=== PATIENT | male | born 1975 | race Caucasian/White ===

== ENCOUNTER 2020-09-22 14:27 | Emergency (ER) | payer SELFPAY ==
[2020-09-22] VITALS (9 sets, daily range): BP systolic 173–202; BP diastolic 77–114; PULSE 88–96; RESP 13–18; TEMP 36.9; O2SAT 95–100
[2020-09-22 14:48] LABS: Add Manual Diff / Slide Review NO; Basophils Absolute Auto 0 /uL (0-100); Basophils Percent Auto 0.4 % (0-2); Eosinophils Absolute Auto 100 /uL (0-450); Eosinophils Percent Auto 1.2 % (2-4); Hematocrit 51.4 % (41-53); Hemoglobin 17.5 g/dL (13.5-17.5); Lymphocytes Absolute Auto 2100 /uL (1100-4500); Lymphocytes Percent Auto 21.9 % (25-40); Mean Corpuscular HGB Conc 34.1 % (30-36); Mean Corpuscular Volume 93.9 fL (80-100); Monocytes Absolute Auto 700 /uL (0-900); Monocytes Percent Auto 7.5 % (3-14); Neutrophils Absolute Auto 6700 /uL (1500-7000); Platelet Count 231 X10^3/uL (150-400); Red Blood Cell Count 5.47 X10^6/uL (4.5-5.9); Red Cell Distribution Width 13.6 % (11.6-14.8); White Blood Cell Count 9.7 X10^3/uL (4.5-11.0)
[2020-09-22 14:54] LABS: Prothrombin Time 11.4 SECONDS (10.1-12.7)
[2020-09-22 14:56] LABS: PTT Partial Thromboplastin Tim 34 SECONDS (26.4-36.2)
[2020-09-22 14:58] LABS: Alanine Aminotransferase 81 IU/L (<50); Albumin 4.6 g/dL (3.5-5.0); Albumin Globulin Ratio 1.4 (1.0-2.8); Alkaline Phosphatase 55 U/L (38-126); Aspartate Aminotransferase 58 IU/L (17-59); BUN Creatinine Ratio 28.7 (6-22); Bilirubin Total 0.8 mg/dL (0.2-1.3); Blood Urea Nitrogen 29 mg/dL (9-20); Calcium 9.2 mg/dL (8.4-10.2); Carbon Dioxide 28 mmol/L (22-32); Chloride 104 mmol/L (98-107); Creatine Kinase 458 U/L (55-170); Estimated Glomerular Filt Rate > 60.0 mL/min (>60); Globulin 3.4 g/dL (1.7-4.1); Glucose 103 mg/dL (70-100); Lipase 61 U/L (23-300); Potassium 4.3 mmol/L (3.4-5.1); Sodium 138 mmol/L (137-145)
--- NOTE | 2020-09-22 15:03 | PC.NURSE ---
pt here with hypertension, denies chest pain or SOB. Admits to slight nausea. No back pain.
[2020-09-22 15:10] LABS: Troponin I < 0.012 ng/mL (0.01-0.034)
[2020-09-22 15:14] LABS: CKMB % Relative Index 0.8 % (1.5-5.0); Creatine Kinase MB 3.46 ng/mL (<2.37); HEMOLYSIS 43 (0-50)
--- NOTE | 2020-09-22 17:43 | ED.GENADULT ---
HPI - General Adult General Chief complaint: Hypertension Stated complaint: elevated BP, lightheaded Time Seen by Provider: 09/22/20 17:43 Source: patient Mode of arrival: Ambulatory Limitations: no limitations History of Present Illness HPI narrative: Patient is a 45-year-old male who has a history of anxiety and low testosterone presenting today with elevated blood pressure. He states he went to the dentist is and was found have an elevated blood pressure with systolic over 200 he was sent home without his dental procedure. He says he overall has felt very jittery and anxious with some lightheadedness and a slight headache. He denies any actual chest pain or palpitations. He says he does have a history of anxiety he has previously been through therapy did not feel like it helped. He is not on any anti anxiety medication or hypertension. Denies any fever cough or shortness of breath Related Data Home Medications Medication Instructions Recorded Confirmed anastrozole 1 mg PO DAILY 09/22/20 09/22/20 chorionic gonadotropin, human [HCG] unit IM 09/22/20 testosterone 100 mg SUBCUT WEEKLY 09/22/20 09/22/20 Allergies Allergy/AdvReac Type Severity Reaction Status Date / Time risperidone [From Risperdal] Allergy Severe Anaphylaxis Verified 09/22/20 14:43 Review of Systems Review of Systems ROS Unobtainable: All systems reviewed & are unremarkable except as noted in HPI and below Constitutional Constitutional: Denies chills, Denies fever(s), Denies lethargy and Denies weakness Eyes Eyes: Denies change in vision, Denies eye discharge, Denies irritation and Denies loss of vision Cardiovascular Cardiovascular: Denies chest pain, Denies chest pain at rest, Denies leg edema, Reports lightheadedness and Denies dyspnea Respiratory Respiratory: Denies cough and Denies dyspnea Gastrointestinal Gastrointestinal: Denies abdominal pain, Denies change in bowel habits, Denies diarrhea, Denies nausea and Denies vomiting Musculoskeletal Musculoskeletal: Denies back pain and Denies myalgias Integumentary/Breasts Skin/Breast: Denies pruritus, Denies erythema, Denies rash and Denies wounds Neurologic Neurologic: Denies loss of vision and Denies weakness Patient History Social History Smoking Status: Never smoker Smoking Status: Never smoker alcohol intake frequency: 3 or more drinks per day Alcohol type: beer Substance Use Type: does not use Exam Initial Vital Signs Initial Vital Signs: Vital Signs Temperature 98.5 F 09/22/20 14:36 Pulse Rate 88 09/22/20 14:36 Respiratory Rate 18 09/22/20 14:36 Blood Pressure 202/114 H 09/22/20 14:36 Pulse Oximetry 99 09/22/20 14:36 GENERAL: Well-appearing, well-nourished and in no acute distress. HEENT: Head atraumatic,EOMI, pupils reactive, face symmetric, moist mucous membranes CARDIOVASCULAR: Regular rate and rhythm without murmurs, rubs or gallops. RESPIRATORY: Breath sounds equal bilaterally, no wheezes rales or rhonchi. ABDOMEN: Soft, nontender. Normoactive bowel sounds all 4 quadrants. No guarding or rebound. EXTREMITIES: Normal range of motion, no clubbing or edema. Neurovascularly intact NEUROLOGICAL: Alert and oriented x4.Normal gait and speech. SKIN: Warm, dry, no laceration, no petechiae, no rashes or lesions. Course Orders Ordered: ED Orders 09/22/20 14:35 Complete Blood Count AUTO DIFF Stat Comprehensive Metabolic Panel Stat Lipase Stat Partial Thromboplastin Time Stat Prothrombin Time INR Stat Troponin & CK Cardiac Panel Stat 09/22/20 14:37 EKG-12 Lead Stat Discontinued Medications Lorazepam (Lorazepam 2 Mg/Ml Inj) 0.5 mg IV NOW ONE Stop: 09/22/20 17:53 Last Admin: 09/22/20 17:59 Dose: 0.5 mg Documented by: LAURYN Vital Signs Vital signs: Vital Signs - 8 hr 09/22/20 14:36 09/22/20 14:39 09/22/20 15:00 Temperature 98.5 F Pulse Rate 88 92 H 90 Respiratory Rate 18 16 13 Blood Pressure 202/114 H 183/95 H Pulse Oximetry 99 100 99 09/22/20 15:30 09/22/20 16:00 09/22/20 17:35 Temperature Pulse Rate 88 88 95 H Respiratory Rate Blood Pressure 183/90 H 184/92 H Pulse Oximetry 98 97 95 09/22/20 17:36 09/22/20 18:00 09/22/20 18:30 Temperature Pulse Rate 89 96 H Respiratory Rate Blood Pressure 173/77 H 173/81 H 176/80 H Pulse Oximetry 96 95 Medical Decision Making Lab Data Lab results reviewed: Yes I reviewed the patient's lab results. Result diagrams: 09/22/20 14:35 09/22/20 14:35 Labs: Lab Results 09/22/20 09/22/20 09/22/20 Range/Units 14:35 14:35 14:35 WBC 9.7 (4.5-11.0) X10^3/uL RBC 5.47 (4.5-5.9) X10^6/uL Hgb 17.5 (13.5-17.5) g/dL Hct 51.4 (41-53) % MCV 93.9 (80-100) fL MCH 32.0 (26-34) PG MCHC 34.1 (30-36) % RDW 13.6 (11.6-14.8) % Plt Count 231 (150-400) X10^3/uL Neut % (Auto) 69.0 (50-75) % Lymph % (Auto) 21.9 L (25-40) % [place] % (Auto) 7.5 (3-14) % Eos % (Auto) 1.2 L (2-4) % Baso % (Auto) 0.4 (0-2) % Neut # (Auto) 6700 (7748-9969) /uL Lymph # (Auto) 2100 (2515-5252) /uL [place] # (Auto) 700 (0-900) /uL Eos # (Auto) 100 (0-450) /uL Baso # (Auto) 0 (0-100) /uL PT 11.4 (10.1-12.7) SECONDS INR 1.0 (0.9-1.3) APTT 34 (26.4-36.2) SECONDS Sodium 138 (137-145) mmol/L Potassium 4.3 (3.4-5.1) mmol/L Chloride 104 (98-107) mmol/L Carbon Dioxide 28 (22-32) mmol/L BUN 29 H (9-20) mg/dL Creatinine 1.01 (0.66-1.25) mg/dL Estimated GFR > 60.0 (>60) mL/min BUN/Creatinine Ratio 28.7 H (6-22) Glucose 103 H (70-100) mg/dL Calcium 9.2 (8.4-10.2) mg/dL Total Bilirubin 0.8 (0.2-1.3) mg/dL AST 58 (17-59) IU/L ALT 81 H (<50) IU/L Alkaline Phosphatase 55 (38-126) U/L Total Creatine Kinase 458 H (55-170) U/L CK-MB (CK-2) 3.46 H (<2.37) ng/mL CK-MB (CK-2) Rel Index 0.8 L (1.5-5.0) % Troponin I < 0.012 (0.01-0.034) ng/mL Total Protein 8.0 (6.3-8.2) g/dL Albumin 4.6 (3.5-5.0) g/dL Globulin 3.4 (1.7-4.1) g/dL Albumin/Globulin Ratio 1.4 (1.0-2.8) Lipase 61 (23-300) U/L ECG Data Attestation: I personally reviewed and interpreted this ECG as follows: Interpretation: Normal sinus rhythm rate 79 p.r. interval 144 QRS [address] changes no T-wave inversions no priors to compare MDM Narrative Medical decision making narrative: Patient's blood pressure has come down in the ED without any medication. He seems to have underlying anxiety disorder but he may also have some underlying hypertension. We discussed other methods of managing anxiety which she may be willing to try. I discussed having him monitor his blood pressure making a log and following up with his PCP. He was given 1 dose of Ativan to see that help with any anxiety he did not have much improvement says that he has not previously had much improvement with that. Discharge Plan Departure Patient Disposition: Home Clinical Impression: Anxiety, Elevated blood pressure reading Instructions: DI for High Blood Pressure, DI for Anxiety -- Adult Activity Restrictions/Additional Instructions: *You have been diagnosed with elevated blood pressure possible anxiety *What to do: Please check your blood pressure once daily is either in the morning or at night and reported. You may require blood pressure medication discussed this with your primary care provider. Also you may need a long-term anxiety medication this is also to be started by your PCP *Continue to take medications as directed *Follow up with your primary care provider in 2-3 days *Return to ER if you should have chest pain, shortness of breath, headache or any new, worsening or concerning symptoms Prescriptions: No Action anastrozole 1 mg Tablet 1 mg PO DAILY RF: 0 chorionic gonadotropin, human [HCG] 10,000 unit Recon Soln IM RF: 0 testosterone 200 mg Pellet 100 mg SUBCUT WEEKLY RF: 0 Referrals: [facility] [Outside]
[2020-09-22] MEDS: LORazepam 2 MG/ML INJ 0.5 MG IV (17:59)
== END 2020-09-22 19:26 | disposition home or self-care (01) ==
PROVIDERS: Emergency Provider Emergency Medicine
DX: F41.9 Anxiety disorder, unspecified (principal); I10 Essential (primary) hypertension; R51.9 Headache, unspecified
CPT/HCPCS: 36415; 80053; 82550; 82553; 83690; 84484; 85025; 85610; 85730; 93005; 96374; 99281; 99284; J2060

== ENCOUNTER 2022-02-05 20:31 | Observation (INO) | payer OTHER, MEDICAID, SELFPAY ==
[2022-02-05] VITALS (10 sets, daily range): BP systolic 128–160; BP diastolic 73–92; PULSE 112–121; RESP 13–25; TEMP 36.5; O2SAT 91–97
--- NOTE | 2022-02-05 20:36 | ED_ITS ---
HPI - Altered Mental Status General Chief Complaint: Altered Mental Status Stated Complaint: alt LOC Time Seen by Provider: 02/05/22 20:33 History of Present Illness HPI narrative: 46-year-old male nonsmoker presents to the emergency department by EMS for evaluation of altered mental status. He was at a local grocery store and reporting libertarian states that he was acting abnormally, if not confused. Patient admits to consuming more alcohol than normal over the past few weeks at least, stating he is going through a divorce and this is his attempt to cope. He denies any recent trauma or injury. He denies any illicit drug use or anything else. He states he does not know when his last drink was. He has gone through withdrawals in the past but denies any history of seizures. He has never gone through detox or rehab. He denies any auditory or visual hallucinations. He denies any suicidal or homicidal ideation Related Data Home Medications Medication Instructions Recorded Confirmed chorionic gonadotropin, human unit IM 09/22/20 11/14/20 10,000 unit intramuscular solution testosterone 200 mg implant pellet 100 mg SUBCUT WEEKLY 09/22/20 11/14/20 Previous Rx's Medication Instructions Recorded hydroxyzine HCl 25 mg tablet 25 - 50 mg PO BEDTIME PRN #60 tab 12/01/20 paroxetine HCl 40 mg tablet 40 mg PO DAILY #90 tab 01/01/22 Allergies Allergy/AdvReac Type Severity Reaction Status Date / Time risperidone [From Risperdal] Allergy Severe Anaphylaxis Verified 11/14/20 10:56 Review of Systems Review of Systems Narrative: GENERAL: Denies chills, fatigue, malaise, fever, sweats. HEENT: Denies sinus pain, ear pain, sore throat, difficulty swallowing, dizziness. RESPIRATORY: Denies dyspnea, cough, wheezing, hemoptysis, sputum. CARDIOVASCULAR: Denies chest pain, palpitations, orthopnea, edema, GASTROINTESTINAL: See HPI : Denies dysuria, frequency, incontinence, hematuria, urinary retention. MUSCULOSKELETAL: denies weakness, joint pain, or bony pain SKIN: Denies rash, skin lesions, or other NEUROLOGIC: See HPI PSYCHIATRIC: No concerning psychosocial issues. 12 point review of systems is negative except for those stated above Patient History Medical History Hypertension (~2019) Social History Smoking Status: Never smoker Smoking Status: Never smoker alcohol intake frequency: 3 or more drinks per day Alcohol type: beer Substance Use Type: does not use Exam Narrative Exam Narrative: GENERAL: [46] year old patient appears stated age. Well-developed patient, in mild distress. GCS 14 (slightly confused) poor historian. Slurring speech a bit with some unsteady gait HEAD: Atraumatic. Normocephalic. EYES: Pupils equal round and reactive. Extraocular motions intact. No scleral icterus. No injection or drainage. ENT: Nose without bleeding, purulent drainage. Throat without erythema, tonsillar hypertrophy or exudate. Airway patent. NECK: Trachea midline. Non tender CARDIOVASCULAR: Regular rate and rhythm without murmurs, gallops, or rubs. RESPIRATORY: Clear to auscultation. Breath sounds equal bilaterally. No wheezes, rales, or rhonchi. GASTROINTESTINAL: Abdomen soft, non-tender, nondistended. EXTREMITIES: No edema or joint tenderness. BACK: Nontender without deformity or crepitance. No flank tenderness. NEURO: AOx3. SKIN: No rash or erythema of visible areas Initial Vital Signs Initial Vital Signs: Vital Signs Pulse Rate 120 H 02/05/22 20:33 Pulse Oximetry 93 02/05/22 20:33 Course Orders Ordered: ED Orders 02/05/22 20:25 Complete Blood Count AUTO DIFF Stat Lactate (Lactic Acid) Stat Prothrombin Time INR Stat Thyroid Stimulating Hormone Stat 02/05/22 20:41 Urinalysis and Microscopic Stat Urine Drug Screen, Rapid Stat EKG-12 Lead Stat 02/05/22 20:42 CT head/brain wo con Stat 02/05/22 21:07 Acetaminophen Stat Blood Culture Stat Comprehensive Metabolic Panel Stat Ethanol (ETOH) Stat Prolactin Stat Salicylate Stat Troponin & CK Cardiac Panel Stat 02/05/22 22:54 COVID19 -Nasal RAPID/Pre-Proc Stat Discontinued Medications Sodium Chloride (Normal Saline 0.9%) 1,000 mls @ 1,000 mls/hr IV BOLUS ONE Stop: 02/05/22 21:40 Last Infusion: 02/05/22 22:34 Dose: 0 mls/hr Documented by: Admin: 02/05/22 21:00 Dose: 1,000 mls/hr Documented by: BSMEN Thiamine HCl 200 mg/ Sodium (Chloride) 102 mls @ 408 mls/hr IV NOW ONE Stop: 02/05/22 22:54 Last Titration: 02/06/22 00:03 Dose: Infused Documented by: Lorazepam (Lorazepam 2 Mg/Ml Inj) 2 mg IV NOW ONE Stop: 02/05/22 22:54 Ondansetron HCl (Ondansetron 4 Mg/2 Ml Inj) 4 mg IV NOW ONE Stop: 02/05/22 22:54 Last Admin: 02/05/22 23:17 Dose: 4 mg Documented by: Pantoprazole Sodium (Pantoprazole 40 Mg Vial) 40 mg IV NOW ONE Stop: 02/05/22 22:54 Last Admin: 02/05/22 23:17 Dose: 40 mg Documented by: Phenobarbital (Phenobarbital 65 Mg/Ml Vial) 260 mg IV NOW ONE Stop: 02/05/22 22:55 Last Admin: 02/05/22 23:13 Dose: 260 mg Documented by: Reevaluation(s) Reevaluation #1: patient getting restless and agitated, HR rising, BP rising, becoming nauseated. Meds ordered to address withdrawal Vital Signs Vital signs: Vital Signs - 8 hr 02/05/22 20:33 02/05/22 20:35 02/05/22 21:10 Temperature 97.7 F Pulse Rate 120 H 121 H 121 H Respiratory Rate 24 Blood Pressure 139/92 H Pulse Oximetry 93 97 93 02/05/22 21:14 02/05/22 21:30 02/05/22 21:31 Temperature Pulse Rate 118 H 120 H 120 H Respiratory Rate 17 16 25 H Blood Pressure 128/73 154/81 H Pulse Oximetry 92 92 92 02/05/22 22:00 02/05/22 22:01 02/05/22 22:30 Temperature Pulse Rate 115 H 117 H 115 H Respiratory Rate 17 20 13 Blood Pressure 149/77 H Pulse Oximetry 92 91 93 02/05/22 22:31 Temperature Pulse Rate 112 H Respiratory Rate 14 Blood Pressure 160/74 H Pulse Oximetry 94 MDM - Altered Mental Status Lab Data Result diagrams: 02/05/22 20:25 02/05/22 21:07 Labs: Lab Results 02/05/22 02/05/22 02/05/22 Range/Units 20:25 20:25 20:25 WBC 11.7 H (4.5-11.0) X10^3/uL RBC 5.86 (4.5-5.9) X10^6/uL Hgb 19.1 H (13.5-17.5) g/dL Hct 55.2 H (41-53) % MCV 94.1 (80-100) fL MCH 32.6 (26-34) PG MCHC 34.6 (30-36) % RDW 14.8 (11.6-14.8) % Plt Count 281 (150-400) X10^3/uL Neut % (Auto) 64.3 (50-75) % Lymph % (Auto) 25.4 (25-40) % [place] % (Auto) 8.7 (3-14) % Eos % (Auto) 0.6 L (2-4) % Baso % (Auto) 1.0 (0-2) % Neut # (Auto) 7500 H (8177-7091) /uL Lymph # (Auto) 3000 (4731-4814) /uL [place] # (Auto) 1000 H (0-900) /uL Eos # (Auto) 100 (0-450) /uL Baso # (Auto) 100 (0-100) /uL PT 11.5 (10.1-12.7) SECONDS INR 1.0 (0.9-1.3) Sodium (137-145) mmol/L Potassium (3.4-5.1) mmol/L Chloride (98-107) mmol/L Carbon Dioxide (22-32) mmol/L BUN (9-20) mg/dL Creatinine (0.66-1.25) mg/dL Estimated GFR (>60) mL/min BUN/Creatinine Ratio (6-22) Glucose (70-100) mg/dL Lactate 2.3 H (0.7-2.1) mmol/L Calcium (8.4-10.2) mg/dL Total Bilirubin (0.2-1.3) mg/dL AST (17-59) IU/L ALT (<50) IU/L Alkaline Phosphatase (38-126) U/L Total Creatine Kinase (55-170) U/L CK-MB (CK-2) (<2.37) ng/mL CK-MB (CK-2) Rel Index (1.5-5.0) % Troponin I (0.01-0.034) ng/mL Total Protein (6.3-8.2) g/dL Albumin (3.5-5.0) g/dL Globulin (1.7-4.1) g/dL Albumin/Globulin Ratio (1.0-2.8) TSH (0.47-4.68) uIU/mL Prolactin (3.7-17.9) ng/mL Urine Color Urine Appearance Urine pH (4.5-8.0) Ur Specific [place] (1.000-1.035) Urine Protein (Negative) Urine Glucose (UA) (Negative) g/dL Urine Ketones (NEGATIVE) Urine Occult Blood (Negative) Urine Nitrate (Negative) Urine Bilirubin (NEGATIVE) Urine Urobilinogen (0.2) E.U./dL Ur Leukocyte Esterase (NEGATIVE) Urine RBC (0-5/HPF) Urine WBC (0-5/HPF) Urine Bacteria (None) Ur Culture Indicated? Salicylates (<20) mg/dL U Opiates 300ng/mL cut (Negative) Ur Oxycodone Screen (Negative) Urine Methadone Screen (Negative) Acetaminophen (10-30) ug/mL Ur Barbiturates Screen (Negative) U Tricyclic Antidepress (Negative) Ur Phencyclidine Scrn (Negative) Ur Amphetamines Screen (Negative) U Methamphetamines Scrn (Negative) Ur MDMA Scrn (Ecstasy) (Negative) U Benzodiazepines Scrn (Negative) Urine Cocaine Screen (Negative) U Marijuana (THC) Screen (Negative) Ethyl Alcohol ( - 10) mg/dL SARS-CoV-2 (PCR) (Negative) 02/05/22 02/05/22 02/05/22 Range/Units 20:25 21:07 22:58 WBC (4.5-11.0) X10^3/uL RBC (4.5-5.9) X10^6/uL Hgb (13.5-17.5) g/dL Hct (41-53) % MCV (80-100) fL MCH (26-34) PG MCHC (30-36) % RDW (11.6-14.8) % Plt Count (150-400) X10^3/uL Neut % (Auto) (50-75) % Lymph % (Auto) (25-40) % [place] % (Auto) (3-14) % Eos % (Auto) (2-4) % Baso % (Auto) (0-2) % Neut # (Auto) (3143-8526) /uL Lymph # (Auto) (9770-5743) /uL [place] # (Auto) (0-900) /uL Eos # (Auto) (0-450) /uL Baso # (Auto) (0-100) /uL PT (10.1-12.7) SECONDS INR (0.9-1.3) Sodium 140 (137-145) mmol/L Potassium 4.2 (3.4-5.1) mmol/L Chloride 104 (98-107) mmol/L Carbon Dioxide 26 (22-32) mmol/L BUN 12 (9-20) mg/dL Creatinine 1.19 (0.66-1.25) mg/dL Estimated GFR > 60 (>60) mL/min BUN/Creatinine Ratio 10.1 (6-22) Glucose 132 H (70-100) mg/dL Lactate 1.8 (0.7-2.1) mmol/L Calcium 8.5 (8.4-10.2) mg/dL Total Bilirubin 0.3 (0.2-1.3) mg/dL AST 47 (17-59) IU/L ALT 37 (<50) IU/L Alkaline Phosphatase 54 (38-126) U/L Total Creatine Kinase 177 H (55-170) U/L CK-MB (CK-2) 3.25 H (<2.37) ng/mL CK-MB (CK-2) Rel Index 1.8 (1.5-5.0) % Troponin I 0.032 (0.01-0.034) ng/mL Total Protein 7.3 (6.3-8.2) g/dL Albumin 4.2 (3.5-5.0) g/dL Globulin 3.1 (1.7-4.1) g/dL Albumin/Globulin Ratio 1.4 (1.0-2.8) TSH 1.28 (0.47-4.68) uIU/mL Prolactin 16.2 (3.7-17.9) ng/mL Urine Color Urine Appearance Urine pH (4.5-8.0) Ur Specific [place] (1.000-1.035) Urine Protein (Negative) Urine Glucose (UA) (Negative) g/dL Urine Ketones (NEGATIVE) Urine Occult Blood (Negative) Urine Nitrate (Negative) Urine Bilirubin (NEGATIVE) Urine Urobilinogen (0.2) E.U./dL Ur Leukocyte Esterase (NEGATIVE) Urine RBC (0-5/HPF) Urine WBC (0-5/HPF) Urine Bacteria (None) Ur Culture Indicated? Salicylates < 1.0 (<20) mg/dL U Opiates 300ng/mL cut (Negative) Ur Oxycodone Screen (Negative) Urine Methadone Screen (Negative) Acetaminophen < 10 (10-30) ug/mL Ur Barbiturates Screen (Negative) U Tricyclic Antidepress (Negative) Ur Phencyclidine Scrn (Negative) Ur Amphetamines Screen (Negative) U Methamphetamines Scrn (Negative) Ur MDMA Scrn (Ecstasy) (Negative) U Benzodiazepines Scrn (Negative) Urine Cocaine Screen (Negative) U Marijuana (THC) Screen (Negative) Ethyl Alcohol 290 H ( - 10) mg/dL SARS-CoV-2 (PCR) (Negative) 02/05/22 02/06/22 02/06/22 Range/Units 23:20 00:01 00:01 WBC (4.5-11.0) X10^3/uL RBC (4.5-5.9) X10^6/uL Hgb (13.5-17.5) g/dL Hct (41-53) % MCV (80-100) fL MCH (26-34) PG MCHC (30-36) % RDW (11.6-14.8) % Plt Count (150-400) X10^3/uL Neut % (Auto) (50-75) % Lymph % (Auto) (25-40) % [place] % (Auto) (3-14) % Eos % (Auto) (2-4) % Baso % (Auto) (0-2) % Neut # (Auto) (7657-0983) /uL Lymph # (Auto) (0691-3080) /uL [place] # (Auto) (0-900) /uL Eos # (Auto) (0-450) /uL Baso # (Auto) (0-100) /uL PT (10.1-12.7) SECONDS INR (0.9-1.3) Sodium (137-145) mmol/L Potassium (3.4-5.1) mmol/L Chloride (98-107) mmol/L Carbon Dioxide (22-32) mmol/L BUN (9-20) mg/dL Creatinine (0.66-1.25) mg/dL Estimated GFR (>60) mL/min BUN/Creatinine Ratio (6-22) Glucose (70-100) mg/dL Lactate (0.7-2.1) mmol/L Calcium (8.4-10.2) mg/dL Total Bilirubin (0.2-1.3) mg/dL AST (17-59) IU/L ALT (<50) IU/L Alkaline Phosphatase (38-126) U/L Total Creatine Kinase (55-170) U/L CK-MB (CK-2) (<2.37) ng/mL CK-MB (CK-2) Rel Index (1.5-5.0) % Troponin I (0.01-0.034) ng/mL Total Protein (6.3-8.2) g/dL Albumin (3.5-5.0) g/dL Globulin (1.7-4.1) g/dL Albumin/Globulin Ratio (1.0-2.8) TSH (0.47-4.68) uIU/mL Prolactin (3.7-17.9) ng/mL Urine Color Yellow Urine Appearance Clear Urine pH 5.0 (4.5-8.0) Ur Specific [place] 1.015 (1.000-1.035) Urine Protein Negative (Negative) Urine Glucose (UA) Negative (Negative) g/dL Urine Ketones Trace H (NEGATIVE) Urine Occult Blood Trace-intact (Negative) Urine Nitrate Negative (Negative) Urine Bilirubin Negative (NEGATIVE) Urine Urobilinogen 0.2 (0.2) E.U./dL Ur Leukocyte Esterase Negative (NEGATIVE) Urine RBC None seen (0-5/HPF) Urine WBC None seen (0-5/HPF) Urine Bacteria None seen (None) Ur Culture Indicated? Cult not indicated Salicylates (<20) mg/dL U Opiates 300ng/mL cut Negative (Negative) Ur Oxycodone Screen Negative (Negative) Urine Methadone Screen Negative (Negative) Acetaminophen (10-30) ug/mL Ur Barbiturates Screen Negative (Negative) U Tricyclic Antidepress Negative (Negative) Ur Phencyclidine Scrn Negative (Negative) Ur Amphetamines Screen Negative (Negative) U Methamphetamines Scrn Negative (Negative) Ur MDMA Scrn (Ecstasy) Negative (Negative) U Benzodiazepines Scrn Negative (Negative) Urine Cocaine Screen Negative (Negative) U Marijuana (THC) Screen Negative (Negative) Ethyl Alcohol ( - 10) mg/dL SARS-CoV-2 (PCR) Negative (Negative) Imaging Data CT scan - head: Radiologist's Impression: [address] [address] [address] Scan Report Signed Patient: Stanislav Martinez MR#: [id number] : 1975 Acct:[id number] Age/Sex: 46 / M Date of Service: 02/05/22 Loc: ED Accession Number: [id number] ?? Procedure: CT head/brain wo con Ordering Provider: Froilan Starr D.O. PROCEDURE:? CT HEAD/BRAIN WO CON ? INDICATIONS:? altered, mental status, alcohol ? TECHNIQUE:? Noncontrast 4.5 mm thick angled axial sections acquired from the foramen magnum to the vertex, with coronal and sagittal reformats.? For radiation dose reduction, the following was used:? automated exposure control, adjustment of mA and/or kV according to patient size.? ? COMPARISON:? None. ? FINDINGS:? Image quality:? Excellent.? ? CSF spaces:? Basal cisterns are patent.? No extra-axial fluid collections.? Ventricles are normal in size and shape.? ? Brain:? No intracranial hemorrhage, mass, or mass effect.? [place]-white matter interface appears preserved.? ? Skull and face:? Calvarium and visualized facial bones are intact, without suspicious lesions.? ? Sinuses:? Visualized sinuses and mastoids are clear.? ? IMPRESSION:? ? 1. No acute intracranial abnormality. ? ? Dictated by: Bulmaro Landeros M.D. on 02/05/2022 at 21:14 ? ? Approved by: Bulmaro Landeros M.D. on 02/05/2022 at 21:15 ? Discharge Plan Departure Patient Disposition: Admitted As Inpatient Clinical Impression: Alcohol withdrawal
--- NOTE | 2022-02-05 20:42 | DI.CT.S_ITS ---
PROCEDURE: CT HEAD/BRAIN WO CON INDICATIONS: altered, mental status, alcohol TECHNIQUE: Noncontrast 4.5 mm thick angled axial sections acquired from the foramen magnum to the vertex, with coronal and sagittal reformats. For radiation dose reduction, the following was used: automated exposure control, adjustment of mA and/or kV according to patient size. COMPARISON: None. FINDINGS: Image quality: Excellent. CSF spaces: Basal cisterns are patent. No extra-axial fluid collections. Ventricles are normal in size and shape. Brain: No intracranial hemorrhage, mass, or mass effect. [place]ett-white matter interface appears preserved. Skull and face: Calvarium and visualized facial bones are intact, without suspicious lesions. Sinuses: Visualized sinuses and mastoids are clear. IMPRESSION: 1. No acute intracranial abnormality. Dictated by: Bulmaro Landeros M.D. on 02/05/2022 at 21:14 Approved by: Bulmaro Landeros M.D. on 02/05/2022 at 21:15
[2022-02-05 20:53] LABS: Prothrombin Time 11.5 SECONDS (10.1-12.7)
[2022-02-05 20:57] LABS: Lactate (Lactic Acid) 2.3 mmol/L (0.7-2.1)
[2022-02-05 20:59] LABS: Add Manual Diff / Slide Review NO; Basophils Absolute Auto 100 /uL (0-100); Eosinophils Absolute Auto 100 /uL (0-450); Eosinophils Percent Auto 0.6 % (2-4); Hematocrit 55.2 % (41-53); Hemoglobin 19.1 g/dL (13.5-17.5); Lymphocytes Absolute Auto 3000 /uL (1100-4500); Lymphocytes Percent Auto 25.4 % (25-40); Mean Corpuscular HGB Conc 34.6 % (30-36); Mean Corpuscular Hemoglobin 32.6 PG (26-34); Mean Corpuscular Volume 94.1 fL (80-100); Monocytes Absolute Auto 1000 /uL (0-900); Monocytes Percent Auto 8.7 % (3-14); Neutrophils Absolute Auto 7500 /uL (1500-7000); Neutrophils Percent Auto 64.3 % (50-75); Platelet Count 281 X10^3/uL (150-400); Red Blood Cell Count 5.86 X10^6/uL (4.5-5.9); Red Cell Distribution Width 14.8 % (11.6-14.8); White Blood Cell Count 11.7 X10^3/uL (4.5-11.0)
[2022-02-05] MEDS: SODIUM CHLORIDE 0.9% 1,000 ML 1000 ML IV (21:00)
[2022-02-05 21:29] LABS: Thyroid Stimulating Hormone 1.28 uIU/mL (0.47-4.68)
[2022-02-05 21:29] LABS: Acetaminophen < 10 ug/mL (10-30); Alanine Aminotransferase 37 IU/L (<50); Albumin 4.2 g/dL (3.5-5.0); Albumin Globulin Ratio 1.4 (1.0-2.8); Alkaline Phosphatase 54 U/L (38-126); Aspartate Aminotransferase 47 IU/L (17-59); BUN Creatinine Ratio 10.1 (6-22); Bilirubin Total 0.3 mg/dL (0.2-1.3); Blood Urea Nitrogen 12 mg/dL (9-20); Calcium 8.5 mg/dL (8.4-10.2); Carbon Dioxide 26 mmol/L (22-32); Chloride 104 mmol/L (98-107); Creatine Kinase 177 U/L (55-170); Estimated Glomerular Filt Rate > 60 mL/min (>60); Ethanol (ETOH) 290 mg/dL; Globulin 3.1 g/dL (1.7-4.1); Glucose 132 mg/dL (70-100); HEMOLYSIS < 15 (0-50); Potassium 4.2 mmol/L (3.4-5.1); Salicylate < 1.0 mg/dL (<20); Sodium 140 mmol/L (137-145); Total Protein 7.3 g/dL (6.3-8.2)
[2022-02-05 21:40] LABS: Troponin I 0.032 ng/mL (0.01-0.034)
[2022-02-05 21:44] LABS: CKMB % Relative Index 1.8 % (1.5-5.0); Creatine Kinase MB 3.25 ng/mL (<2.37)
[2022-02-05 21:45] LABS: Prolactin 16.2 ng/mL (3.7-17.9)
[2022-02-05 22:49] LABS: Reflexed Lactate in 2 Hours Y
[2022-02-05] MEDS: PHENobarbital 65 MG/ML VIAL 260 MG IV (23:13)
[2022-02-05 23:16] LABS: Lactate 2HR (Lactic Acid Rflx) 1.8 mmol/L (0.7-2.1)
[2022-02-05] MEDS: PANTOPRAZOLE 40 MG VIAL IV (23:17)
[2022-02-05] MEDS: ONDANSETRON 4 MG/2 ML INJ IV (23:17)
[2022-02-05] MEDS: THIAMINE 200 MG in SODIUM CHLORIDE 0.9% 100 ML 408 MG IV (23:33)
[2022-02-05 23:43] LABS: COVID19 -Nasal RAPID Negative (Negative)
[2022-02-06 00:11] LABS: Appearance Urine UA CLEAR; Bilirubin Urine UA NEGATIVE (NEGATIVE); Color Urine UA YELLOW; Glucose Urine UA NEGATIVE (Negative); Ketones Urine UA TRACE (NEGATIVE); Leukocyte Esterase Urine UA NEGATIVE (NEGATIVE); Nitrite Urine UA NEGATIVE (Negative); Occult Blood Urine UA TRACE-INTACT (Negative); Protein Urine UA NEGATIVE (Negative); Specific Gravity Urine UA 1.015 (1.000-1.035); Urobilinogen Urine UA 0.2 E.U./dL (0.2)
[2022-02-06 00:13] LABS: UR Morphine/Opiate cutoff 300 Negative (Negative); Ur Creatinine 20 (Normal); Ur Specific Gravity 1.015 (Normal); Urine Amphetamines Negative (Negative); Urine Barbiturates Negative (Negative); Urine Benzodiazepines Negative (Negative); Urine Cocaine Negative (Negative); Urine MDMA Negative (Negative); Urine Methadone Negative (Negative); Urine Methamphetamines Negative (Negative); Urine Oxycodone Negative (Negative); Urine Phencyclidine Negative (Negative); Urine Tetrahydrocannabinol Negative (Negative); Urine Tricyclic Antidepressant Negative (Negative); Urine pH 5 (Normal)
[2022-02-06 00:21] LABS: Bacteria Urine None Seen; Culture Indicated Urine Cult Not Indicated; RBC Urine None Seen (0-5/HPF); WBC Urine None Seen (0-5/HPF)
[2022-02-06 01:11] VITALS: BMI 32.5
--- NOTE | 2022-02-06 01:19 | P.HP_ITS ---
History of Present Illness History of Present Illness Date Patient Seen: 02/06/22 Time Patient Seen: 12:15 Chief complaint: alt LOC Narrative: Mr. Martinez is a 46M with H anxiety who presents with altered mental status. He was apparently at a store and was noted to be acting oddly. He was possibly confused. He notes he drinks about 6 IPA beers daily. But over the last 5 days he has been under personal stress and his drinking his quickly become out of control. He can not estimate how much he is drinking, but it is much more. He can not say when was his last drink. He has had withdrawal symptoms in the past. He has no seizures. He has never been to detox. In the ED workup was done, vitals notable for tachycardia. Labs notable for WBC 11.7, hgb 19.1 plts 281. Creatinine 1.19. Lactate 2.3. Prolactin 16.2. TSH 1.28. Trop 0.032. EtOH 290. UA negative. UDS negative. COVID negative. CT head with no acute process Family history: multiple members with anxiety Patient History Medical History Hypertension (~2019) Family & Social History Tobacco & Substance use: Smoking Status Never smoker alcohol intake frequency 3 or more drinks per day Substance Use Type does not use Meds Home Medications and Allergies Home Medications Medication Instructions Recorded Confirmed Type chorionic gonadotropin, human unit IM 09/22/20 11/14/20 History 10,000 unit intramuscular solution testosterone 200 mg implant pellet 100 mg SUBCUT WEEKLY 09/22/20 11/14/20 Histor y hydroxyzine HCl 25 mg tablet 25 - 50 mg PO BEDTIME PRN #60 tab 12/01/20 Rx paroxetine HCl 40 mg tablet 40 mg PO DAILY #90 tab 01/01/22 Rx Allergies Allergy/AdvReac Type Severity Reaction Status Date / Time risperidone [From Risperdal] Allergy Severe Anaphylaxis Verified 11/14/20 10:56 Review of Systems Review of Systems Narrative: 14 systems reviewed and negative aside from what is noted in HPI Exam Vital Signs (past 8 hours): - 02/05/22 20:33 02/05/22 20:35 02/05/22 21:10 Temperature 97.7 F Pulse Rate 120 H 121 H 121 H Respiratory Rate 24 Blood Pressure 139/92 H Pulse Oximetry 93 97 93 02/05/22 21:14 02/05/22 21:30 02/05/22 21:31 Temperature Pulse Rate 118 H 120 H 120 H Respiratory Rate 17 16 25 H Blood Pressure 128/73 154/81 H Pulse Oximetry 92 92 92 02/05/22 22:00 02/05/22 22:01 02/05/22 22:30 Temperature Pulse Rate 115 H 117 H 115 H Respiratory Rate 17 20 13 Blood Pressure 149/77 H Pulse Oximetry 92 91 93 02/05/22 22:31 Temperature Pulse Rate 112 H Respiratory Rate 14 Blood Pressure 160/74 H Pulse Oximetry 94 Oxygen Delivery Method Room Air Narrative Exam Narrative: GEN: no acute distress HEENT: moist mucous membranes, PERRL NECK: trachea midline, no JVD CV: regular rate and rhythm, no murmurs PULM: clear bilaterally, no wheezes, rhonchi, rales ABD: soft, nontender, nondistended, no organomegaly, normal bowel sounds EXT: warm and well perfused, no edema NEURO: awake, alert, anxious, no focal deficits, tremulous Objective Labs Result Diagrams: 02/05/22 20:25 02/05/22 21:07 Labs: Laboratory Results - last 24 hr 02/05/22 02/05/22 02/05/22 20:25 20:25 20:25 WBC 11.7 H RBC 5.86 Hgb 19.1 H Hct 55.2 H MCV 94.1 MCH 32.6 MCHC 34.6 RDW 14.8 Plt Count 281 Neut % (Auto) 64.3 Lymph % (Auto) 25.4 [place] % (Auto) 8.7 Eos % (Auto) 0.6 L Baso % (Auto) 1.0 Neut # (Auto) 7500 H Lymph # (Auto) 3000 [place] # (Auto) 1000 H Eos # (Auto) 100 Baso # (Auto) 100 PT 11.5 INR 1.0 Sodium Potassium Chloride Carbon Dioxide BUN Creatinine Estimated GFR BUN/Creatinine Ratio Glucose Lactate 2.3 H Calcium Total Bilirubin AST ALT Alkaline Phosphatase Total Creatine Kinase CK-MB (CK-2) CK-MB (CK-2) Rel Index Troponin I Total Protein Albumin Globulin Albumin/Globulin Ratio TSH Prolactin Urine Color Urine Appearance Urine pH Ur Specific [place] Urine Protein Urine Glucose (UA) Urine Ketones Urine Occult Blood Urine Nitrate Urine Bilirubin Urine Urobilinogen Ur Leukocyte Esterase Urine RBC Urine WBC Urine Bacteria Ur Culture Indicated? Salicylates U Opiates 300ng/mL cut Ur Oxycodone Screen Urine Methadone Screen Acetaminophen Ur Barbiturates Screen U Tricyclic Antidepress Ur Phencyclidine Scrn Ur Amphetamines Screen U Methamphetamines Scrn Ur MDMA Scrn (Ecstasy) U Benzodiazepines Scrn Urine Cocaine Screen U Marijuana (THC) Screen Ethyl Alcohol SARS-CoV-2 (PCR) 02/05/22 02/05/22 02/05/22 20:25 21:07 22:58 WBC RBC Hgb Hct MCV MCH MCHC RDW Plt Count Neut % (Auto) Lymph % (Auto) [place] % (Auto) Eos % (Auto) Baso % (Auto) Neut # (Auto) Lymph # (Auto) [place] # (Auto) Eos # (Auto) Baso # (Auto) PT INR Sodium 140 Potassium 4.2 Chloride 104 Carbon Dioxide 26 BUN 12 Creatinine 1.19 Estimated GFR > 60 BUN/Creatinine Ratio 10.1 Glucose 132 H Lactate 1.8 Calcium 8.5 Total Bilirubin 0.3 AST 47 ALT 37 Alkaline Phosphatase 54 Total Creatine Kinase 177 H CK-MB (CK-2) 3.25 H CK-MB (CK-2) Rel Index 1.8 Troponin I 0.032 Total Protein 7.3 Albumin 4.2 Globulin 3.1 Albumin/Globulin Ratio 1.4 TSH 1.28 Prolactin 16.2 Urine Color Urine Appearance Urine pH Ur Specific [place] Urine Protein Urine Glucose (UA) Urine Ketones Urine Occult Blood Urine Nitrate Urine Bilirubin Urine Urobilinogen Ur Leukocyte Esterase Urine RBC Urine WBC Urine Bacteria Ur Culture Indicated? Salicylates < 1.0 U Opiates 300ng/mL cut Ur Oxycodone Screen Urine Methadone Screen Acetaminophen < 10 Ur Barbiturates Screen U Tricyclic Antidepress Ur Phencyclidine Scrn Ur Amphetamines Screen U Methamphetamines Scrn Ur MDMA Scrn (Ecstasy) U Benzodiazepines Scrn Urine Cocaine Screen U Marijuana (THC) Screen Ethyl Alcohol 290 H SARS-CoV-2 (PCR) 02/05/22 02/06/22 02/06/22 23:20 00:01 00:01 WBC RBC Hgb Hct MCV MCH MCHC RDW Plt Count Neut % (Auto) Lymph % (Auto) [place] % (Auto) Eos % (Auto) Baso % (Auto) Neut # (Auto) Lymph # (Auto) [place] # (Auto) Eos # (Auto) Baso # (Auto) PT INR Sodium Potassium Chloride Carbon Dioxide BUN Creatinine Estimated GFR BUN/Creatinine Ratio Glucose Lactate Calcium Total Bilirubin AST ALT Alkaline Phosphatase Total Creatine Kinase CK-MB (CK-2) CK-MB (CK-2) Rel Index Troponin I Total Protein Albumin Globulin Albumin/Globulin Ratio TSH Prolactin Urine Color Yellow Urine Appearance Clear Urine pH 5.0 Ur Specific [place] 1.015 Urine Protein Negative Urine Glucose (UA) Negative Urine Ketones Trace H Urine Occult Blood Trace-intact Urine Nitrate Negative Urine Bilirubin Negative Urine Urobilinogen 0.2 Ur Leukocyte Esterase Negative Urine RBC None seen Urine WBC None seen Urine Bacteria None seen Ur Culture Indicated? Cult not indicated Salicylates U Opiates 300ng/mL cut Negative Ur Oxycodone Screen Negative Urine Methadone Screen Negative Acetaminophen Ur Barbiturates Screen Negative U Tricyclic Antidepress Negative Ur Phencyclidine Scrn Negative Ur Amphetamines Screen Negative U Methamphetamines Scrn Negative Ur MDMA Scrn (Ecstasy) Negative U Benzodiazepines Scrn Negative Urine Cocaine Screen Negative U Marijuana (THC) Screen Negative Ethyl Alcohol SARS-CoV-2 (PCR) Negative Assessment & Plan Assessment & Plan narrative: Mr. Martinez is a 46M with H anxiety who presents initially intoxicated and quickly developed withdrawal 1. Acute alcohol withdrawal and alcohol abuse -patient notes drinking that is chronic, but recently has been out of control -EtOH level near 300 on admit, and patient quickly was withdrawing -given phenobarb in ED -continue CIWA protocol with ativan -ordered MVI, thiamine, folate -patient interested in quitting, and outpatient resources -he is not sure if he wants medication to help manage cravings 2. Anxiety, -continue paroxetine CODE: Full Proxy: Cheryl Martinez, family I have utilized all available resources to reconcile the patient's home medications. Time Spent With Patient Critical Care time: I spent a total of [] minutes of critical care time on this patient's care today; this time is exclusive of procedural time. Quality MIPS - Admit I confirm the patient?s Advance Care Plan is present, Code status is documented, Surrogate decision maker is in patient?s record [If Yes, STOP here]: Yes
[2022-02-06 01:20] VITALS: BP 153/99; PULSE 121; RESP 20; TEMP 36.1; O2SAT 97
[2022-02-06] MEDS: LORazepam 1 MG TABLET PO ×3 (01:40→14:05)
[2022-02-06] MEDS: THIAMINE 500 MG in SODIUM CHLORIDE 0.9% 100 ML 420 MG IV ×2 (01:42→08:50)
[2022-02-06 02:25] VITALS: PULSE 100; RESP 20
--- NOTE | 2022-02-06 07:00 | PC.NURSE ---
End of shift note. Care of patient . ED admit early this am. AAOX3, states he can not remember what happened to him before he arrived in the ED. Cooperative with cares, answers admission question. Could not remember exact dates he took meds. CIWA 10 on admit, gave Ativan 1mg X1. Patient slept well, with snoring respirations. ST 120s on admit.
[2022-02-06 07:45] VITALS: BP 147/97; PULSE 115; RESP 18; TEMP 36.4; O2SAT 93
[2022-02-06] MEDS: MULTIVITAMIN 1 TABLET 1 TAB PO (08:36)
[2022-02-06] MEDS: PARoxetine 20 MG TABLET 40 MG PO (08:36)
[2022-02-06] MEDS: FOLIC ACID 1 MG TABLET PO (08:36)
[2022-02-06 11:32] VITALS: O2SAT 95
[2022-02-06 13:43] VITALS: BP 155/98; PULSE 106; RESP 16; TEMP 36.2; O2SAT 98
--- NOTE | 2022-02-06 14:11 | P.DS_ITS ---
History of Present Illness History of Present Illness Date Patient Seen: 02/06/22 Chief complaint: alt LOC Narrative: History of Present Illness History of Present Illness Date Patient Seen: 02/06/22 Time Patient Seen: 12:15 Chief complaint: alt LOC Narrative: Mr. Martinez is a 46M with H anxiety who presents with altered mental status. He was apparently at a store and was noted to be acting oddly. He was possibly confused. He notes he drinks about 6 IPA beers daily. But over the last 5 days he has been under personal stress and his drinking his quickly become out of control. He can not estimate how much he is drinking, but it is much more. He can not say when was his last drink. He has had withdrawal symptoms in the past. He has no seizures. He has never been to detox. In the ED workup was done, vitals notable for tachycardia. Labs notable for WBC 11.7, hgb 19.1 plts 281. Creatinine 1.19. Lactate 2.3. Prolactin 16.2. TSH 1.28. Trop 0.032. EtOH 290. UA negative. UDS negative. COVID negative. CT head with no acute process Family history: multiple members with anxiety Discharge Providers Provider Date of admission: 02/06/22 00:59 Discharge Date: 02/06/22 Primary care physician: Linden Yousif MD Consults: 02/06/22 Consult to [facility] [place] - Batch Records Clerk Stat Comment: etoh resources Discharge provider: Mary Katz DO Summary Hospital Course Discharge Diagnosis: ACUTE ALCOHOL INTOXICATION ANXIETY DISORDER; NOS PANIC ATTACK PER HISTORY OBESITY. BMI OF 33 POSSIBLE MEDICAL NONCOMPLIANCE Hospital Course: THIS IS A 46-YEAR-OLD MALE WITH A PAST MEDICAL HISTORY SIGNIFICANT FOR PANIC ATTACK, ANXIETY DISORDER AND ALCOHOL ABUSE. PATIENT HAS BEEN DRINKING HEAVILY OVER THE LAST FEW DAYS PER HIS REPORTING. HE IS NOT AWARE TO QUANTIFY HOW MUCH HE HAS BEEN DRINKING. HE PRESENTED TO THE HOSPITAL OF ALCOHOL LEVEL ABOVE 300. HE WAS REPORTEDLY SEEKING FOR DETOX. HE WAS STARTED ON THE CIWA PROTOCOL AND ATIVAN IV AND ORALLY ORDERED. PATIENT HAS RECEIVED ATIVAN TIMES 2 DOSES DURING THIS HOSPITAL STAY. HE IS ON PAXIL AND REPORTED HAVING BEEN ON MULTIPLE OTHER MEDICATIONS INCLUDING TRAZODONE, SEROQUEL AND GABAPENTIN. AT THIS TIME IS REQUESTING TO LEAVE THE HOSPITAL. HE WOULD LIKE TO HAVE SOMETHING TO HELP WITH HIS ANXIETY CONTINUE CAN SEES PCP PATIENT WILL BE DISCHARGED HOME TODAY. HE BE ORDERED GABAPENTIN T.I.D.. ALSO BE STARTED ON ZYPREXA AT NIGHT HE WAS ON SEROQUEL BEFORE AND DID NOT DO WELL. HE REQUESTED ZYPREXA INSTEAD. TRAZODONE WAS NOT AN OPTION DUE TO INTERACTION WITH PAXIL AND POSSIBILITY OF SEROTONIN SYNDROME IN ANY CASE PATIENT WAS SEEN BY CASE MANAGEMENT. WILL NEED HELP WITH HIS ADDICTION. HE WILL NEED TO SEEK FOR HELP ON THE COMMUNITY IN REGARD TO RESOURCES AVAILABLE TO SUBSTANCE ABUSE INDIVIDUALS. HE COULD ALSO SELF REFERRED TO ALCOHOL ANONYMOUS. Status at Discharge Cognitive/behavioral status at discharge: at baseline, oriented Functional status at discharge: independent ambulation Overall status at discharge: patient is back to baseline Time Spent with Patient Time spent: Greater than 30 minutes Exam Vital Signs (past 8 hours): - 02/06/22 07:45 02/06/22 11:32 02/06/22 13:43 Temperature 97.5 F L 97.1 F L Pulse Rate 115 H 106 H Respiratory Rate 18 16 Blood Pressure 147/97 H 155/98 H Pulse Oximetry 93 95 98 Oxygen Delivery Method Room Air Oxygen Flow Rate 0 Narrative Exam Narrative: NO ACUTE DISTRESS. PATIENT IS ALERT ORIENTED X3. VITAL SIGNS STABLE HEAD ATRAUMATIC NORMOCEPHALIC NECK : SUPPLE WITHOUT ADENOPATHY NO CAROTID BRUITS EYE: EOMI, PERRLA, NORMAL CONJUNCTIVA; NO JAUNDICE CHEST: REGULAR RATE. NO RUBS. PMI IS NON DISPLACED. NO MURMURS; NORMAL S1- S2 PULMONARY: DECREASED BS OVER THE BASES. MILD BIBASILAR CRACKLES NOTED; NO INCREASED DULLNESS TO PERCUSSION ABDOMEN: SOFT. NONTENDER. NONDISTENDED. BOWEL SOUNDS ARE PRESENT IN ALL 4 QUADRANTS. NO MASS. EXTREMITIES: NO EDEMA.. NO CYANOSIS CLUBBING NOTED. NEURO: CRANIAL NERVES 2-12 GROSSLY INTACT. NO FOCAL NEUROLOGICAL DEFICIT NOTED. MSK: NORMAL RANGE OF MOTION FOR AGE. NO JOINT EFFUSION. SKIN: NORMAL FOR ETHNICITY; NO ECCHYMOSIS. NO LESION. GOOD TURGOR.; NO RASHES : NORMAL EXTERNAL GENITALIA. PSYCH : APPROPRIATE MOOD AND AFFECT. ALERT AWAKE ORIENTED X3 Objective Labs Result Diagrams: 02/05/22 20:25 02/05/22 21:07 Labs: Laboratory Results - last 24 hr 02/05/22 02/05/22 02/05/22 20:25 20:25 20:25 WBC 11.7 H RBC 5.86 Hgb 19.1 H Hct 55.2 H MCV 94.1 MCH 32.6 MCHC 34.6 RDW 14.8 Plt Count 281 Neut % (Auto) 64.3 Lymph % (Auto) 25.4 [place] % (Auto) 8.7 Eos % (Auto) 0.6 L Baso % (Auto) 1.0 Neut # (Auto) 7500 H Lymph # (Auto) 3000 [place] # (Auto) 1000 H Eos # (Auto) 100 Baso # (Auto) 100 PT 11.5 INR 1.0 Sodium Potassium Chloride Carbon Dioxide BUN Creatinine Estimated GFR BUN/Creatinine Ratio Glucose Lactate 2.3 H Calcium Total Bilirubin AST ALT Alkaline Phosphatase Total Creatine Kinase CK-MB (CK-2) CK-MB (CK-2) Rel Index Troponin I Total Protein Albumin Globulin Albumin/Globulin Ratio TSH Prolactin Urine Color Urine Appearance Urine pH Ur Specific [place] Urine Protein Urine Glucose (UA) Urine Ketones Urine Occult Blood Urine Nitrate Urine Bilirubin Urine Urobilinogen Ur Leukocyte Esterase Urine RBC Urine WBC Urine Bacteria Ur Culture Indicated? Salicylates U Opiates 300ng/mL cut Ur Oxycodone Screen Urine Methadone Screen Acetaminophen Ur Barbiturates Screen U Tricyclic Antidepress Ur Phencyclidine Scrn Ur Amphetamines Screen U Methamphetamines Scrn Ur MDMA Scrn (Ecstasy) U Benzodiazepines Scrn Urine Cocaine Screen U Marijuana (THC) Screen Ethyl Alcohol SARS-CoV-2 (PCR) 02/05/22 02/05/22 02/05/22 20:25 21:07 22:58 WBC RBC Hgb Hct MCV MCH MCHC RDW Plt Count Neut % (Auto) Lymph % (Auto) [place] % (Auto) Eos % (Auto) Baso % (Auto) Neut # (Auto) Lymph # (Auto) [place] # (Auto) Eos # (Auto) Baso # (Auto) PT INR Sodium 140 Potassium 4.2 Chloride 104 Carbon Dioxide 26 BUN 12 Creatinine 1.19 Estimated GFR > 60 BUN/Creatinine Ratio 10.1 Glucose 132 H Lactate 1.8 Calcium 8.5 Total Bilirubin 0.3 AST 47 ALT 37 Alkaline Phosphatase 54 Total Creatine Kinase 177 H CK-MB (CK-2) 3.25 H CK-MB (CK-2) Rel Index 1.8 Troponin I 0.032 Total Protein 7.3 Albumin 4.2 Globulin 3.1 Albumin/Globulin Ratio 1.4 TSH 1.28 Prolactin 16.2 Urine Color Urine Appearance Urine pH Ur Specific [place] Urine Protein Urine Glucose (UA) Urine Ketones Urine Occult Blood Urine Nitrate Urine Bilirubin Urine Urobilinogen Ur Leukocyte Esterase Urine RBC Urine WBC Urine Bacteria Ur Culture Indicated? Salicylates < 1.0 U Opiates 300ng/mL cut Ur Oxycodone Screen Urine Methadone Screen Acetaminophen < 10 Ur Barbiturates Screen U Tricyclic Antidepress Ur Phencyclidine Scrn Ur Amphetamines Screen U Methamphetamines Scrn Ur MDMA Scrn (Ecstasy) U Benzodiazepines Scrn Urine Cocaine Screen U Marijuana (THC) Screen Ethyl Alcohol 290 H SARS-CoV-2 (PCR) 02/05/22 02/06/22 02/06/22 23:20 00:01 00:01 WBC RBC Hgb Hct MCV MCH MCHC RDW Plt Count Neut % (Auto) Lymph % (Auto) [place] % (Auto) Eos % (Auto) Baso % (Auto) Neut # (Auto) Lymph # (Auto) [place] # (Auto) Eos # (Auto) Baso # (Auto) PT INR Sodium Potassium Chloride Carbon Dioxide BUN Creatinine Estimated GFR BUN/Creatinine Ratio Glucose Lactate Calcium Total Bilirubin AST ALT Alkaline Phosphatase Total Creatine Kinase CK-MB (CK-2) CK-MB (CK-2) Rel Index Troponin I Total Protein Albumin Globulin Albumin/Globulin Ratio TSH Prolactin Urine Color Yellow Urine Appearance Clear Urine pH 5.0 Ur Specific [place] 1.015 Urine Protein Negative Urine Glucose (UA) Negative Urine Ketones Trace H Urine Occult Blood Trace-intact Urine Nitrate Negative Urine Bilirubin Negative Urine Urobilinogen 0.2 Ur Leukocyte Esterase Negative Urine RBC None seen Urine WBC None seen Urine Bacteria None seen Ur Culture Indicated? Cult not indicated Salicylates U Opiates 300ng/mL cut Negative Ur Oxycodone Screen Negative Urine Methadone Screen Negative Acetaminophen Ur Barbiturates Screen Negative U Tricyclic Antidepress Negative Ur Phencyclidine Scrn Negative Ur Amphetamines Screen Negative U Methamphetamines Scrn Negative Ur MDMA Scrn (Ecstasy) Negative U Benzodiazepines Scrn Negative Urine Cocaine Screen Negative U Marijuana (THC) Screen Negative Ethyl Alcohol SARS-CoV-2 (PCR) Negative PFSH Medical History Hypertension (~2020) Social History household members: friend(s) Smoking Status: Never smoker Discharge Plan Discharge Plan Patient Disposition: Home Discharge orders & Medications Prescriptions: New folic acid 1 mg Tablet 1 mg PO DAILY Qty: 30 0RF lorazepam 1 mg Tablet 1 mg PO Q8H PRN (Reason: Anxiety) Qty: 10 0RF multivitamin with folic acid [Tab-A-Isis] 400 mcg Tablet 1 tab PO DAILY Qty: 30 0RF gabapentin 300 mg capsule 300 mg PO TID Qty: 90 2RF olanzapine [Zyprexa] 5 mg tablet 5 mg PO BEDTIME Qty: 30 0RF melatonin 10 mg tablet 10 mg PO BEDTIME PRN (Reason: sleep) Qty: 30 0RF methocarbamol 500 mg tablet 500 mg PO TID Qty: 90 0RF Continued paroxetine HCl 40 mg tablet 40 mg PO DAILY Qty: 90 0RF Rx Instructions: PT NEEDS APPT W/PCP PRIOR TO END OF RX/FUTURE FILLS. PLEASE CALL TO SCHEDULE APPT. THANKS 01/01/22 chorionic gonadotropin, human 10,000 unit Recon Soln 10,000 unit IM DIRECTED 0RF Label Comments: Patient states he is suppose to take a two weeks on and two weeks off, but has not taken the medication for two weeks testosterone 200 mg Pellet 100 mg SUBCUT WEEKLY 0RF Follow up/Referrals: Linden Yousif MD [Primary Care Provider] - Diet/Activity/Treatments Diet: Low-fat and Low-cholesterol Activity: JESUSITA Visit Report/Discharge Packet Instructions: Alcohol and Stress: There are Safer Ways to [place], DI for Alcohol Use Disorder, Lorazepam Discharge Data Primary Care Provider: Linden Yousif Attending Provider: Ricardo Burleson VTE Deep Vein Thrombosis/Pulmonary Embolism Present on Admission: No
--- NOTE | 2022-02-06 15:24 | PC.NURSE ---
Pt dressed and ready for discharge home with all belongings. To be transported home via pov with roommate. Iv removed and no tele. Discussed discharge instructions with pt including follow up as directed, new medications and medications to continue. Provided patient with education about new medications, alcohol, stress, alcohol use disorder, and lorazepam. Answered pt questions.
--- NOTE | 2022-02-06 15:39 | CM.DANOTE ---
DCP/Assessment: Reviewed chart. Patient is a 46yr old male admitted to [facility] with acute alcohol withdrawal. PCP is Dr. Yousif. Primary payor is 1Carl (no provider number available). Met with patient this afternoon explained CM/SW role. Patient alert and oriented, resting comfortably in bed at time of visit. Patient does complain of some anxiety and tremors. CIWA score today has been 1. Patient reports that he drinks beer everyday and last weekend drank even more. Patient believes that the confirmation of his divorce last week initiated the excessive drinking. Patient hopes to d/c home today. Patient denies the need for inpatient detox. Patient agreeable to accept community resources for outpatient ETOH follow up. Spoke with provider and he is in agreement to discharge today. Patient provided with community resources for ETOH and mental health support. No additional needs identified. P: Home today. KJS Discharge Planning/Care Management CM Discharge Assessment Start: 02/06/22 15:37 Freq: Status: Active Protocol: Document 02/06/22 15:37 KJS (Rec: 02/06/22 15:39 KJS [id number]) Discharge Planning Assessment Assigned Stock Shaper JENA Noriega Contact Information Cheryl Martinez (Family) # Advance Directives? No Advance Directives on File No History Provided By Patient,Medical Record Prior Living Arrangements House Household Members friend(s) Type of transporation used prior to Drives own vehicle admit Willing to Return to Facility? Yes Independent with ADL's Yes Is patient alert and oriented? Yes Caregiver for Another No Barriers to Discharge No Discharge Plan Home Transportation Arrangement Friend/Family Referrals Initiated Other Additional Comment Resources provided to patient for ETOH detox and treatment. Patient reports that she [facility]. Review Status In Process Next Review Type Continued Stay Review
--- NOTE | 2022-02-06 15:55 | PC.NURSE ---
Pt dressed and discharged home to be transported via pov with roommate. Taken out via wheelchair by SAIL FINISHER HAND.
== END 2022-02-06 15:57 | disposition home or self-care (01) ==
LOC: ED 23:38 → AC 02-06 06:46
PROVIDERS: Admitting Provider Internal Medicine; Emergency Provider Emergency Medicine; PCP Student in an Organized Health Care Education/Training Program; Referring Provider Emergency Medicine; Visit Provider Internal Medicine
DX: F10.129 Alcohol abuse with intoxication, unspecified (principal); Y90.8 Blood alcohol level of 240 mg/100 ml or more; I10 Essential (primary) hypertension; F41.9 Anxiety disorder, unspecified; E66.9 Obesity, unspecified; Z68.33 Body mass index [BMI] 33.0-33.9, adult; Z20.822 Contact with and (suspected) exposure to COVID-19
CPT/HCPCS: 36415; 70450; 80053; 80305; 80320; 80329; 81001; 82550; 82553; 83605; 84146; 84443; 84484; 85025; 85610; 87040; 87635; 93005; 93010; 94760; 96361; 96374; 96375; 99284; C9803; G0378; C9113; G0480; J2405; J2560

== ENCOUNTER 2022-03-07 21:25 | Emergency (ER) | payer OTHER, MEDICAID, SELFPAY ==
[2022-03-07] VITALS (8 sets, daily range): BP systolic 154–170; BP diastolic 77–100; PULSE 120–130; RESP 27–28; TEMP 37; O2SAT 90–94; BMI 32.4
--- NOTE | 2022-03-07 21:33 | ED.GENADULT ---
HPI - General Adult General Chief complaint: Shortness of Breath/Dyspnea Stated complaint: ETOH Time Seen by Provider: 03/07/22 21:26 Source: EMS Mode of arrival: EMS Limitations: other (Intoxication) History of Present Illness HPI narrative: Patient is a 46-year-old male who has a known history of alcohol abuse who was brought in by EMS after they were contacted by the patient's roommate. Apparently the patient's roommate came home to find the patient lying in bed. Was confused/unresponsive. Was lying in bed covered in feces. EMS arrived stating that the patient was not in any respiratory distress but did have a oxygen saturations in the low 90s. There is no signs of trauma. Upon arrival here to the emergency department patient was obviously intoxicated. Was unable to provide any HPI review of systems. Related Data Home Medications Medication Instructions Recorded Confirmed chorionic gonadotropin, human 10,000 unit IM DIRECTED 09/22/20 02/06/22 10,000 unit intramuscular solution testosterone 200 mg implant pellet 100 mg SUBCUT WEEKLY 09/22/20 02/06/22 Previous Rx's Medication Instructions Recorded paroxetine HCl 40 mg tablet 40 mg PO DAILY #90 tabs 01/01/22 folic acid 1 mg tablet 1 mg PO DAILY #30 tabs 02/06/22 gabapentin 300 mg capsule 300 mg PO TID #90 caps 02/06/22 lorazepam 1 mg tablet 1 mg PO Q8H PRN Anxiety #10 tabs 02/06/22 melatonin 10 mg tablet 10 mg PO BEDTIME PRN sleep #30 tabs 02/06/22 methocarbamol 500 mg tablet 500 mg PO TID #90 tabs 02/06/22 multivitamin with folic acid 400 1 tab PO DAILY #30 tabs 02/06/22 mcg tablet (Tab-A-Isis) olanzapine 5 mg tablet (Zyprexa) 5 mg PO BEDTIME #30 tabs 02/06/22 Allergies Allergy/AdvReac Type Severity Reaction Status Date / Time risperidone [From Risperdal] Allergy Severe Anaphylaxis Verified 11/14/20 10:56 Review of Systems Review of Systems ROS Unobtainable: Unobtainable due to mental condition Patient History Medical History Alcohol abuse Hypertension (~2020) Social History household members: friend(s) Smoking Status: Never smoker Smoking Status: Never smoker alcohol intake frequency: 3 or more drinks per day Alcohol type: beer Substance Use Type: does not use Exam Initial Vital Signs Initial Vital Signs: Vital Signs Temperature 98.6 F 03/07/22 21:32 Pulse Rate 130 H 03/07/22 21:32 Respiratory Rate 28 H 03/07/22 21:32 Blood Pressure 170/100 H 03/07/22 21:32 Pulse Oximetry 90 L 03/07/22 21:32 Oxygen Delivery Method 03/07/22 21:32 Const General: No acute distress, No ill appearing and intoxicated appearing HENMT Head: normal to inspection and normocephalic Resp Effort & Inspection: normal respiratory effort Auscultation: clear to auscultation bilaterally Cardio Rate: regular rate Rhythm: regular rhythm GI Inspection: non-distended Skin General: no rashes or lesions noted Neuro General: patient alert, patient awake and moves all extremities Extrem General: capillary refill normal Course Orders Ordered: ED Orders 03/07/22 21:26 Acetaminophen Stat Complete Blood Count AUTO DIFF Stat Comprehensive Metabolic Panel Stat Ethanol (ETOH) Stat Lipase Stat Salicylate Stat Thyroid Stimulating Hormone Stat 03/07/22 21:34 Consult to [employer] - Institutional Custodian Stat XR chest 1V Stat Urine Drug Screen, Rapid Stat EKG-12 Lead Stat 03/07/22 21:40 COVID19 -Nasal RAPID/Pre-Proc Stat Discontinued Medications Thiamine HCl 100 mg/ Sodium (Chloride) 101 mls @ 404 mls/hr IV NOW ONE Stop: 03/07/22 21:37 Last Infusion: 03/07/22 22:01 Dose: 1,000 mls/hr Documented By: Admin: 03/07/22 21:45 Dose: 404 mls/hr Documented By: HOANG Sodium Chloride (Normal Saline 0.9%) 1,000 mls @ 1,000 mls/hr IV BOLUS ONE Stop: 03/07/22 22:57 Last Infusion: 03/08/22 00:18 Dose: 0 mls/hr Documented By: Admin: 03/07/22 22:02 Dose: 1,000 mls/hr Documented By: HOANG Levofloxacin (Levaquin) 750 mg in 150 mls @ 100 mls/hr IV NOW ONE Stop: 03/08/22 00:22 Last Infusion: 03/08/22 00:25 Dose: 0 mls/hr Documented By: Admin: 03/07/22 22:59 Dose: 100 mls/hr Documented By: HOANG Vital Signs Vital signs: Vital Signs - 8 hr 03/07/22 21:32 03/07/22 21:34 03/07/22 22:00 Temperature 98.6 F Pulse Rate 130 H 126 H 126 H Respiratory Rate 28 H 27 H Blood Pressure 170/100 H Pulse Oximetry 90 L 92 90 L Oxygen Delivery Method Room Air 03/07/22 22:01 03/07/22 22:01 03/07/22 22:30 Temperature Pulse Rate 127 H 120 H Respiratory Rate Blood Pressure 154/77 H Pulse Oximetry 94 Oxygen Delivery Method 03/07/22 23:00 03/07/22 23:30 03/07/22 23:35 Temperature Pulse Rate 128 H 130 H 129 H Respiratory Rate Blood Pressure Pulse Oximetry 93 92 94 Oxygen Delivery Method 03/07/22 23:35 Temperature Pulse Rate Respiratory Rate Blood Pressure 163/88 H Pulse Oximetry Oxygen Delivery Method Medical Decision Making Medical Records Medical records reviewed: Yes I reviewed the patient's medical records. Lab Data Lab results reviewed: Yes I reviewed the patient's lab results. Result diagrams: 03/07/22 21:26 03/07/22 21:26 Labs: Lab Results 03/07/22 03/07/22 03/07/22 Range/Units 21:26 21:26 21:26 WBC 17.8 H (4.5-11.0) X10^3/uL RBC 5.82 (4.5-5.9) X10^6/uL Hgb 19.3 H (13.5-17.5) g/dL Hct 54.4 H (41-53) % MCV 93.5 (80-100) fL MCH 33.2 (26-34) PG MCHC 35.5 (30-36) % RDW 14.4 (11.6-14.8) % Plt Count 304 (150-400) X10^3/uL Neut % (Auto) 78.0 H (50-75) % Lymph % (Auto) 14.7 L (25-40) % Platte % (Auto) 6.5 (3-14) % Eos % (Auto) 0.0 L (2-4) % Baso % (Auto) 0.8 (0-2) % Neut # (Auto) 37532 H (5044-3592) /uL Lymph # (Auto) 2600 (5308-8278) /uL Platte # (Auto) 1200 H (0-900) /uL Eos # (Auto) 0 (0-450) /uL Baso # (Auto) 100 (0-100) /uL Sodium 141 (137-145) mmol/L Potassium 4.4 (3.4-5.1) mmol/L Chloride 100 (98-107) mmol/L Carbon Dioxide 26 (22-32) mmol/L BUN 13 (9-20) mg/dL Creatinine 1.29 H (0.66-1.25) mg/dL Estimated GFR > 60 (>60) mL/min BUN/Creatinine Ratio 10.1 (6-22) Glucose 162 H (70-100) mg/dL Calcium 8.8 (8.4-10.2) mg/dL Total Bilirubin 0.8 (0.2-1.3) mg/dL AST 107 H (17-59) IU/L ALT 73 H (<50) IU/L Alkaline Phosphatase 70 (38-126) U/L Total Protein 8.3 H (6.3-8.2) g/dL Albumin 4.7 (3.5-5.0) g/dL Globulin 3.6 (1.7-4.1) g/dL Albumin/Globulin Ratio 1.3 (1.0-2.8) Lipase 64 (23-300) U/L TSH (0.47-4.68) uIU/mL Salicylates < 1.0 (<20) mg/dL Acetaminophen < 10 (10-30) ug/mL Ethyl Alcohol 361 H ( - 10) mg/dL SARS-CoV-2 (PCR) (Negative) 03/07/22 03/07/22 Range/Units 21:26 21:40 WBC (4.5-11.0) X10^3/uL RBC (4.5-5.9) X10^6/uL Hgb (13.5-17.5) g/dL Hct (41-53) % MCV (80-100) fL MCH (26-34) PG MCHC (30-36) % RDW (11.6-14.8) % Plt Count (150-400) X10^3/uL Neut % (Auto) (50-75) % Lymph % (Auto) (25-40) % Platte % (Auto) (3-14) % Eos % (Auto) (2-4) % Baso % (Auto) (0-2) % Neut # (Auto) (4495-1129) /uL Lymph # (Auto) (5131-4969) /uL Platte # (Auto) (0-900) /uL Eos # (Auto) (0-450) /uL Baso # (Auto) (0-100) /uL Sodium (137-145) mmol/L Potassium (3.4-5.1) mmol/L Chloride (98-107) mmol/L Carbon Dioxide (22-32) mmol/L BUN (9-20) mg/dL Creatinine (0.66-1.25) mg/dL Estimated GFR (>60) mL/min BUN/Creatinine Ratio (6-22) Glucose (70-100) mg/dL Calcium (8.4-10.2) mg/dL Total Bilirubin (0.2-1.3) mg/dL AST (17-59) IU/L ALT (<50) IU/L Alkaline Phosphatase (38-126) U/L Total Protein (6.3-8.2) g/dL Albumin (3.5-5.0) g/dL Globulin (1.7-4.1) g/dL Albumin/Globulin Ratio (1.0-2.8) Lipase (23-300) U/L TSH 1.54 (0.47-4.68) uIU/mL Salicylates (<20) mg/dL Acetaminophen (10-30) ug/mL Ethyl Alcohol ( - 10) mg/dL SARS-CoV-2 (PCR) Negative (Negative) Imaging Data Chest x-ray: Radiologist's Impression: [address] [address] XRay Report Signed Patient: Stanislav Martinez MR#: [id number] : 1975 Acct:[id number] Age/Sex: 46 / M Date of Service: 03/07/22 Loc: ED Accession Number: [id number] ?? Procedure: XR chest 1V Ordering Provider: Oh Emerson D.O. PROCEDURE:? XR CHEST 1V ? INDICATIONS:? SOB ? TECHNIQUE:? One view of the chest was acquired.? ? COMPARISON:? None. ? FINDINGS:? ? Surgical changes and devices:? None.? ? Lungs and pleura:? There are patchy indistinct opacities in the right lung with a basilar predominance.? No pleural effusions or pneumothorax.? ? Mediastinum:? Mediastinal contours appear normal.? Heart size is at the upper limits of normal.? ? Bones and chest wall:? No suspicious bony lesions.? Overlying soft tissues appear unremarkable.? ? IMPRESSION:? ? 1. Patchy indistinct opacities in the right lung with a basilar predominance suggestive of pneumonia. ? ? Dictated by: Bulmaro Landeros M.D. on 03/07/2022 at 22:41 ? ? Approved by: Bulmaro Landeros M.D. on 03/07/2022 at 22:42 ECG Data Attestation: I personally reviewed and interpreted this ECG as follows: Interpretation: Sinus tachycardia Normal axis Normal QRS Normal QTC Nonspecific ST T wave changes MDM Narrative Medical decision making narrative: Patient was obviously intoxicated upon arrival. He was unable to provide any HPI review of systems. He was moving all 4 extremities and did follow commands and had no respiratory distress and clear lung exam. He was tachycardic but this improved with time. His chest x-ray concerning for a pneumonia. He does have leukocytosis. Do have some concern about aspiration given his clinical presentation. He was given a dose of antibiotics here in the ER. Was also given thiamine in fluids. Leukocytosis could very well be stress reaction/hemoconcentration given the rest of his CBC findings as well. After period of time the patient did become more sober. He was able to stand and walk around the emergency department without issue. He was talking clearly. He did admit to drinking alcohol this evening. He states he has been having issues because of a recent divorce. Patient tolerated oral intake. He has to be discharged however he was informed that given his level of intoxication he would need to have someone come and pick him up. He was encouraged to go back to his room and to sleep. His IV was removed because it did seem to be causing him quite a bit of discomfort. Eventually the patient did elope. He was not provided discharge instructions. He was not provided antibiotics for his potential pneumonia. Discharge Plan Departure Patient Disposition: Left Against Medical Advice Clinical Impression: Alcohol intoxication, Pneumonia Prescriptions: No Action paroxetine HCl 40 mg tablet 40 mg PO DAILY Qty: 90 0RF Rx Instructions: PT NEEDS APPT W/PCP PRIOR TO END OF RX/FUTURE FILLS. PLEASE CALL TO SCHEDULE APPT. THANKS 01/01/22 folic acid 1 mg Tablet 1 mg PO DAILY Qty: 30 0RF lorazepam 1 mg Tablet 1 mg PO Q8H PRN (Reason: Anxiety) Qty: 10 0RF multivitamin with folic acid [Tab-A-Isis] 400 mcg Tablet 1 tab PO DAILY Qty: 30 0RF gabapentin 300 mg capsule 300 mg PO TID Qty: 90 2RF olanzapine [Zyprexa] 5 mg tablet 5 mg PO BEDTIME Qty: 30 0RF melatonin 10 mg tablet 10 mg PO BEDTIME PRN (Reason: sleep) Qty: 30 0RF methocarbamol 500 mg tablet 500 mg PO TID Qty: 90 0RF chorionic gonadotropin, human 10,000 unit Recon Soln 10,000 unit IM DIRECTED Label Comments: Patient states he is suppose to take a two weeks on and two weeks off, but has not taken the medication for two weeks testosterone 200 mg Pellet 100 mg SUBCUT WEEKLY Referrals: Linden Yousif MD [Primary Care Provider] - Stand Alone Forms: Against Medical Advice
--- NOTE | 2022-03-07 21:34 | DI.RAD.S_ITS ---
PROCEDURE: XR CHEST 1V INDICATIONS: SOB TECHNIQUE: One view of the chest was acquired. COMPARISON: None. FINDINGS: Surgical changes and devices: None. Lungs and pleura: There are patchy indistinct opacities in the right lung with a basilar predominance. No pleural effusions or pneumothorax. Mediastinum: Mediastinal contours appear normal. Heart size is at the upper limits of normal. Bones and chest wall: No suspicious bony lesions. Overlying soft tissues appear unremarkable. IMPRESSION: 1. Patchy indistinct opacities in the right lung with a basilar predominance suggestive of pneumonia. Dictated by: Bulmaro Landeros M.D. on 03/07/2022 at 22:41 Approved by: Bulmaro Landeros M.D. on 03/07/2022 at 22:42
[2022-03-07] MEDS: THIAMINE 100 MG in SODIUM CHLORIDE 0.9% 100 ML 404 MG IV (21:45)
[2022-03-07 21:50] LABS: Add Manual Diff / Slide Review NO; Basophils Absolute Auto 100 /uL (0-100); Basophils Percent Auto 0.8 % (0-2); Eosinophils Absolute Auto 0 /uL (0-450); Hematocrit 54.4 % (41-53); Hemoglobin 19.3 g/dL (13.5-17.5); Lymphocytes Absolute Auto 2600 /uL (1100-4500); Lymphocytes Percent Auto 14.7 % (25-40); Mean Corpuscular HGB Conc 35.5 % (30-36); Mean Corpuscular Hemoglobin 33.2 PG (26-34); Mean Corpuscular Volume 93.5 fL (80-100); Monocytes Absolute Auto 1200 /uL (0-900); Monocytes Percent Auto 6.5 % (3-14); Neutrophils Absolute Auto 13900 /uL (1500-7000); Platelet Count 304 X10^3/uL (150-400); Red Blood Cell Count 5.82 X10^6/uL (4.5-5.9); Red Cell Distribution Width 14.4 % (11.6-14.8); White Blood Cell Count 17.8 X10^3/uL (4.5-11.0)
[2022-03-07 21:53] LABS: Alanine Aminotransferase 73 IU/L (<50); Albumin 4.7 g/dL (3.5-5.0); Albumin Globulin Ratio 1.3 (1.0-2.8); Alkaline Phosphatase 70 U/L (38-126); Aspartate Aminotransferase 107 IU/L (17-59); BUN Creatinine Ratio 10.1 (6-22); Bilirubin Total 0.8 mg/dL (0.2-1.3); Blood Urea Nitrogen 13 mg/dL (9-20); Calcium 8.8 mg/dL (8.4-10.2); Carbon Dioxide 26 mmol/L (22-32); Chloride 100 mmol/L (98-107); Estimated Glomerular Filt Rate > 60 mL/min (>60); Globulin 3.6 g/dL (1.7-4.1); Glucose 162 mg/dL (70-100); Potassium 4.4 mmol/L (3.4-5.1); Sodium 141 mmol/L (137-145); Total Protein 8.3 g/dL (6.3-8.2)
[2022-03-07 21:54] LABS: Acetaminophen < 10 ug/mL (10-30); Lipase 64 U/L (23-300); Salicylate < 1.0 mg/dL (<20)
[2022-03-07 21:59] LABS: COVID19 -Nasal RAPID Negative (Negative)
[2022-03-07 22:01] LABS: Ethanol (ETOH) 361 mg/dL; HEMOLYSIS 21 (0-50)
[2022-03-07] MEDS: SODIUM CHLORIDE 0.9% 1,000 ML 1000 ML IV (22:02)
[2022-03-07] MEDS: levoFLOXacin 750 MG/150 ML PIGGYBACK 100 MG IV (22:59)
[2022-03-07 23:16] LABS: Thyroid Stimulating Hormone 1.54 uIU/mL (0.47-4.68)
[2022-03-08] VITALS: PULSE 132; O2SAT 91
--- NOTE | 2022-03-08 02:48 | PC.NURSE ---
Pt up repeatedly (greater than 30 times) since arrival to ER, walking out of his room and coming up to the nurses station without a mask on. Pt not coming out for anything specific, just states he cannot sleep. Pt encouraged to turn the lights off in his room and just close his eyes. Pt also informed he cannot be out in the halls repeatedly due to it being a pt care area and privacy for other pts needs to be maintained, as well as keeping a mask on. Pt encouraged to use his call light and educated on use. Pt requesting his IV out at this time.
--- NOTE | 2022-03-08 03:03 | PC.NURSE ---
Pt very restless, asked if he could walk off some energy around the ED, on 2nd trip around pt eloped out the ambulance bay. Multiple staff attempted to talk pt back in. Spoke with Dr Emerson, IV was already dc'd, Pt is steady on feet and able to tolerate PO fluids. Dr Emerson aware of pt leaving AMA.
== END 2022-03-08 03:07 | disposition left against medical advice (07) ==
PROVIDERS: Emergency Provider Emergency Medicine; PCP Student in an Organized Health Care Education/Training Program
DX: F10.129 Alcohol abuse with intoxication, unspecified (principal); Y90.8 Blood alcohol level of 240 mg/100 ml or more; J18.9 Pneumonia, unspecified organism; Z20.822 Contact with and (suspected) exposure to COVID-19
CPT/HCPCS: 71045; 80053; 80320; 80329; 83690; 84443; 85025; 87635; 93005; 93010; 96365; 99284; C9803; G0480; J1956

== ENCOUNTER 2022-03-09 11:15 | Inpatient (IN) | payer OTHER, MEDICAID, SELFPAY ==
[2022-03-09] VITALS (36 sets, daily range): BP systolic 103–235; BP diastolic 61–103; PULSE 87–139; RESP 18–38; TEMP 36.6–37.8; O2SAT 84–97; BMI 32.1
--- NOTE | 2022-03-09 11:19 | DI.RAD.S_ITS ---
PROCEDURE: XR CHEST 1V INDICATIONS: decreased unresponsive. TECHNIQUE: One view of the chest was acquired. COMPARISON: [facility], CR, XR CHEST 1V, 03/07/2022, 21:52. FINDINGS: Surgical changes and devices: None. Lungs and pleura: Patchy airspace opacity in the right lung, increased. There appears to be right lung volume loss. No pleural effusions or pneumothorax. Mediastinum: Mediastinal contours appear similar. Heart size is prominent. Bones and chest wall: No suspicious bony lesions. Overlying soft tissues appear unremarkable. IMPRESSION: Increased patchy airspace opacity in the right lung. Suspect multifocal pneumonia. Dictated by: Chao Hudson M.D. on 03/09/2022 at 11:46 Approved by: Chao Hudson M.D. on 03/09/2022 at 11:49
--- NOTE | 2022-03-09 11:19 | DI.CT.S_ITS ---
PROCEDURE: CT HEAD/BRAIN WO CON INDICATIONS: etoh, decreased responsive-ness. found on ground TECHNIQUE: Noncontrast 4.5 mm thick angled axial sections acquired from the foramen magnum to the vertex, with coronal and sagittal reformats. For radiation dose reduction, the following was used: automated exposure control, adjustment of mA and/or kV according to patient size. COMPARISON: [facility], CT, CT HEAD/BRAIN WO CON, 02/05/2022, 20:44. FINDINGS: Image quality: Excellent. CSF spaces: Basal cisterns are patent. No extra-axial fluid collections. Ventricles are normal in size and shape. Brain: No midline shift. No intracranial masses or hemorrhage. Pickett-white matter interface is normal. Skull and face: Calvarium and visualized facial bones are intact, without suspicious lesions. Sinuses: Visualized sinuses and mastoids are clear. IMPRESSION: 1. No acute intracranial process. Dictated by: Flory Russ M.D. on 03/09/2022 at 13:06 Approved by: Flory Russ M.D. on 03/09/2022 at 13:06
[2022-03-09] MEDS: SODIUM CHLORIDE 0.9% 1,000 ML 1000 ML IV ×2 (11:25→13:54)
--- NOTE | 2022-03-09 11:25 | ED_ITS ---
HPI - Altered Mental Status General Chief Complaint: Toxicology Problem Stated Complaint: ETOH Time Seen by Provider: 03/09/22 11:24 Source: EMS Mode of arrival: EMS Limitations: altered mental status History of Present Illness HPI narrative: This is a 46-year-old male with known history of alcohol abuse which was found with 2 boxes of 12 packs type alcohol outside his RV on the ground. Patient is altered, responsive to stimuli but does not follow commands and not interactive. Patient medical history is otherwise on no own. Per EMS they believe there is his neighbor his RV is in front another house called for assistance for the patient. He was here 2 days ago for alcohol abuse. No known trauma patient was found on the ground with alcohol around him. Related Data Home Medications Medication Instructions Recorded Confirmed chorionic gonadotropin, human 10,000 unit IM DIRECTED 09/22/20 02/06/22 10,000 unit intramuscular solution testosterone 200 mg implant pellet 100 mg SUBCUT WEEKLY 09/22/20 02/06/22 Previous Rx's Medication Instructions Recorded paroxetine HCl 40 mg tablet 40 mg PO DAILY #90 tabs 01/01/22 folic acid 1 mg tablet 1 mg PO DAILY #30 tabs 02/06/22 gabapentin 300 mg capsule 300 mg PO TID #90 caps 02/06/22 lorazepam 1 mg tablet 1 mg PO Q8H PRN Anxiety #10 tabs 02/06/22 melatonin 10 mg tablet 10 mg PO BEDTIME PRN sleep #30 tabs 02/06/22 methocarbamol 500 mg tablet 500 mg PO TID #90 tabs 02/06/22 multivitamin with folic acid 400 1 tab PO DAILY #30 tabs 02/06/22 mcg tablet (Tab-A-Isis) olanzapine 5 mg tablet (Zyprexa) 5 mg PO BEDTIME #30 tabs 02/06/22 Allergies Allergy/AdvReac Type Severity Reaction Status Date / Time risperidone [From Risperdal] Allergy Severe Anaphylaxis Verified 11/14/20 10:56 Review of Systems Review of Systems ROS Unobtainable: Unobtainable due to medical condition Patient History Medical History Alcohol abuse Hypertension (~2020) Social History household members: friend(s) Smoking Status: Never smoker alcohol intake: current Smoking Status: Never smoker alcohol intake frequency: 3 or more drinks per day Alcohol type: beer Substance Use Type: does not use Exam Narrative Exam Narrative: GEN: Male in distress, patient response to sternal rub, he opens his eyes with this, he does not respond to commands. He does not verbalize. There is a strong odor of alcohol. HEENT: Atraumatic, pupils are equal round reactive to light, extraocular movements are intact, nares are clear, TMs are clear with no fluid, there is no conjunctival pallor. Throat is clear without any exudates, erythema, tonsillar enlargement or uvular deviation HEART: Regular rate and rhythm without murmur, clicks, rubs. Pulses are equal in upper and lower extremities LUNGS:Lungs clear to auscultation, no wheezes, rales, crackles, chest moves symmetrically ABD:bowel sounds normal, soft, non-tender, no guarding, rebound, rigidity, no masses noted, no hepatosplenomegaly :No CVA tenderness MSCL: Non-tender, no muscle atrophy, unable to this muscle strength. NEURO:CN 2-12 intact, sensation normal SKIN: No bruising, ecchymosis or other skin changes noted. Initial Vital Signs Initial Vital Signs: Vital Signs Pulse Rate 125 H 03/09/22 11:15 Respiratory Rate 26 H 03/09/22 11:15 Blood Pressure 142/89 H 03/09/22 11:15 Pulse Oximetry 96 03/09/22 11:15 Oxygen Delivery Method 03/09/22 11:15 Oxygen Flow Rate 15 03/09/22 11:15 Scores GCS [place] coma scale eye opening: To pressure [place] coma scale verbal response: Sounds [place] coma scale motor response: Localising [place] coma scale total score: 9 Course Orders Ordered: Enoxaparin Sodium (Enoxaparin 100 Mg/Ml Syringe) 100 mg SUBCUT BID [facility] Last Admin: 03/10/22 21:14 Dose: 100 mg Documented By: Admin: 03/10/22 11:55 Dose: 100 mg Documented By: ROSEANN Folic Acid (Folic Acid 1 Mg Tablet) 1 mg PO DAILY [facility] Last Admin: 03/10/22 08:09 Dose: 1 mg Documented By: ROSEANN Lactated Ringer's (Lactated Ringers) 1,000 mls @ 100 mls/hr IV CONT [facility] Last Admin: 03/10/22 16:25 Dose: 100 mls/hr Documented By: Infusion: 03/10/22 16:13 Dose: 100 mls/hr Documented By: Admin: 03/10/22 06:13 Dose: 100 mls/hr Documented By: Infusion: 03/10/22 04:51 Dose: 100 mls/hr Documented By: Admin: 03/09/22 18:51 Dose: 100 mls/hr Documented By: Infusion: 03/09/22 18:51 Dose: 100 mls/hr Documented By: Admin: 03/09/22 15:53 Dose: 100 mls/hr Documented By: SIMA Thiamine HCl 100 mg/ Sodium (Chloride) 101 mls @ 404 mls/hr IV DAILY [facility] Last Infusion: 03/10/22 08:50 Dose: 0 mls/hr Documented By: Admin: 03/10/22 08:08 Dose: 404 mls/hr Documented By: ROSEANN dexmedeTOMIDine in 0.9 % NaCL (Precedex) 400 mcg in 100 mls @ 5.375 mls/hr IV TITRATE [facility] Last Admin: 03/10/22 20:18 Dose: 1.2 mcg/kg/hr, 32 mls/hr Documented By: Infusion: 03/10/22 20:18 Dose: 1.2 mcg/kg/hr, 32 mls/hr Documented By: Admin: 03/10/22 17:16 Dose: 1.2 mcg/kg/hr, 32 mls/hr Documented By: Infusion: 03/10/22 17:16 Dose: 1.2 mcg/kg/hr, 32 mls/hr Documented By: Infusion: 03/10/22 15:31 Dose: 1.2 mcg/kg/hr, 32 mls/hr Documented By: Infusion: 03/10/22 14:33 Dose: 1 mcg/kg/hr, 27 mls/hr Documented By: Admin: 03/10/22 14:32 Dose: 1.2 mcg/kg/hr, 32.25 mls/hr Documented By: Infusion: 03/10/22 10:25 Dose: 1 mcg/kg/hr, 26.875 mls/hr Documented By: Infusion: 03/10/22 09:26 Dose: 1.2 mcg/kg/hr, 32.25 mls/hr Documented By: Infusion: 03/10/22 07:55 Dose: 0.9 mcg/kg/hr, 24.188 mls/hr Documented By: Admin: 03/10/22 06:14 Dose: 0.7 mcg/kg/hr, 18.813 mls/hr Documented By: Infusion: 03/10/22 06:14 Dose: 0.7 mcg/kg/hr, 18.813 mls/hr Documented By: Admin: 03/10/22 01:17 Dose: 0.7 mcg/kg/hr, 18.813 mls/hr Documented By: Infusion: 03/10/22 01:17 Dose: 0.5 mcg/kg/hr, 13.438 mls/hr Documented By: Infusion: 03/09/22 22:32 Dose: 0.5 mcg/kg/hr, 13.438 mls/hr Documented By: Admin: 03/09/22 21:54 Dose: 0.2 mcg/kg/hr, 5.375 mls/hr Documented By: MIKI DILTIAZEM (Diltiazem 125 Mg/125 Ml-D5w) 125 mg in 125 mls @ 5 mls/hr IV TITRATE [facility]; Protocol Last Admin: 03/10/22 16:24 Dose: 15 mg/hr, 15 mls/hr Documented By: Titration: 03/10/22 16:24 Dose: 15 mg/hr, 15 mls/hr Documented By: Titration: 03/10/22 13:43 Dose: 15 mg/hr, 15 mls/hr Documented By: Titration: 03/10/22 12:19 Dose: 10 mg/hr, 10 mls/hr Documented By: Admin: 03/10/22 09:50 Dose: 15 mg/hr, 15 mls/hr Documented By: ROSEANN Piperacillin Sod/Tazobactam (Sod 3.375 gm/ Sodium Chloride) 100 mls @ 25 mls/hr IV Q8H [facility] Last Admin: 03/10/22 17:15 Dose: 25 mls/hr Documented By: Infusion: 03/10/22 14:43 Dose: 0 mls/hr Documented By: Admin: 03/10/22 10:28 Dose: 25 mls/hr Documented By: ROSEANN Lorazepam (Lorazepam 2 Mg/Ml Inj) 0 mg IV CIWAPRN PRN; Protocol PRN Reason: Alcohol Withdrawal Last Admin: 03/10/22 21:00 Dose: 2 mg Documented By: Admin: 03/10/22 18:10 Dose: 2 mg Documented By: Admin: 03/10/22 15:57 Dose: 2 mg Documented By: Admin: 03/10/22 15:38 Dose: 2 mg Documented By: Admin: 03/10/22 13:55 Dose: 2 mg Documented By: Admin: 03/10/22 13:31 Dose: 2 mg Documented By: Admin: 03/10/22 11:55 Dose: 2 mg Documented By: Admin: 03/10/22 09:26 Dose: 2 mg Documented By: Admin: 03/10/22 08:51 Dose: 2 mg Documented By: Admin: 03/10/22 08:09 Dose: 2 mg Documented By: Admin: 03/09/22 18:05 Dose: 2 mg Documented By: ORIANA Lorazepam (Lorazepam 1 Mg Tablet) 1 mg PO Q6HR PRN PRN Reason: Anxiety Last Admin: 03/10/22 03:46 Dose: 1 mg Documented By: MIKI Discontinued Medications Acetaminophen (Acetaminophen 325 Mg Tablet) 650 mg PO NOW ONE Stop: 03/09/22 15:52 Last Admin: 03/09/22 15:53 Dose: 650 mg Documented By: SIMA Acetaminophen (Acetaminophen 325 Mg Tablet) 650 mg PO Q6H PRN PRN Reason: Fever/Mild Pain (1-3) Last Admin: 03/10/22 03:46 Dose: 650 mg Documented By: MIKI Diphenhydramine HCl (Diphenhydramine 50 Mg/Ml Vial) 25 mg IV NOW ONE Stop: 03/10/22 15:12 Last Admin: 03/10/22 15:19 Dose: 25 mg Documented By: ROSEANN Enoxaparin Sodium (Enoxaparin 40 Mg/0.4 Ml Syringe) 40 mg SUBCUT DAILY [facility] Enoxaparin Sodium (Enoxaparin 100 Mg/Ml Syringe) 100 mg SUBCUT BID [facility] Enoxaparin Sodium (Enoxaparin 100 Mg/Ml Syringe) 100 mg SUBCUT NOW ONE Stop: 03/09/22 18:24 Last Admin: 03/09/22 18:48 Dose: 100 mg Documented By: RAMILA Sodium Chloride (Normal Saline 0.9%) 1,000 mls @ 1,000 mls/hr IV [facility] ONE Stop: 03/09/22 12:17 Last Infusion: 03/09/22 12:30 Dose: 0 mls/hr Documented By: Admin: 03/09/22 11:25 Dose: 1,000 mls/hr Documented By: SIMA Thiamine HCl 250 mg/ Sodium (Chloride) 102.5 mls @ 410 mls/hr IV NOW ONE Stop: 03/09/22 11:25 Last Infusion: 03/09/22 12:49 Dose: 0 mls/hr Documented By: Admin: 03/09/22 12:22 Dose: 410 mls/hr Documented By: SIMA Clindamycin Phosphate (Cleocin) 900 mg in 50 mls @ 50 mls/hr IV NOW ONE Stop: 03/09/22 13:19 Last Infusion: 03/09/22 13:30 Dose: 0 mls/hr Documented By: Admin: 03/09/22 12:29 Dose: 50 mls/hr Documented By: SIMA Sodium Chloride (Normal Saline 0.9%) 1,000 mls @ 150 mls/hr IV CONT [facility] Last Infusion: 03/09/22 15:53 Dose: 0 mls/hr Documented By: Infusion: 03/09/22 13:15 Dose: 150 mls/hr Documented By: Infusion: 03/09/22 12:55 Dose: 999 mls/hr Documented By: Admin: 03/09/22 12:52 Dose: 150 mls/hr Documented By: SIMA Sodium Chloride (Normal Saline 0.9%) 1,000 mls @ 1,000 mls/hr IV [facility] ONE Stop: 03/09/22 14:16 Last Infusion: 03/09/22 14:18 Dose: 0 mls/hr Documented By: Admin: 03/09/22 13:54 Dose: 1,000 mls/hr Documented By: SIMA Sodium Chloride (Normal Saline 0.9%) 2,328 mls @ 776 mls/hr 30 ml/kg infuse over 3 hr (2328 ml) IV NOW ONE Stop: 03/09/22 16:57 Last Admin: 03/09/22 14:21 Dose: Not Given Documented By: MARI Ceftriaxone Sodium 1,000 mg/ (Sodium Chloride) 100 mls @ 200 mls/hr IV Q24H [facility] Last Admin: 03/09/22 18:32 Dose: Not Given Documented By: ORIANA Levofloxacin (Levaquin) 750 mg in 150 mls @ 100 mls/hr IV NOW ONE Stop: 03/09/22 19:45 Last Infusion: 03/10/22 03:08 Dose: 0 mls/hr Documented By: Admin: 03/09/22 18:48 Dose: 100 mls/hr Documented By: RAMILA Lorazepam (Lorazepam 2 Mg/Ml Inj) 1 mg IV NOW ONE Stop: 03/09/22 14:17 Last Admin: 03/09/22 14:31 Dose: 1 mg Documented By: CAPRI Pantoprazole Sodium (Pantoprazole 40 Mg Vial) 40 mg IV NOW ONE Stop: 03/09/22 18:05 Last Admin: 03/09/22 18:47 Dose: 40 mg Documented By: RAMILA Phenobarbital (Phenobarbital 65 Mg/Ml Vial) 260 mg IV NOW ONE Stop: 03/09/22 15:39 Last Admin: 03/09/22 15:44 Dose: 260 mg Documented By: SIMA Reevaluation(s) Reevaluation #1: On recheck, patient is alert and talking now. Patient still requiring oxygen. He denies chest pain, does have shortness of breath still somewhat tachypneic. Consultations Consultation #2: Dr. Del Valle, hospitalist accepts her admission does ask for Cardiology recs troponin was elevated in indeterminate range plan for repeat at 2:00 a.m.. If not significantly trending upwards/positive okay to admit to hospitalist service. Vital Signs Vital signs: Vital Signs - 8 hr 03/09/22 11:19 03/09/22 11:29 03/09/22 11:30 Temperature 97.8 F Pulse Rate 127 H 126 H Respiratory Rate 36 H 31 H Blood Pressure 142/89 H 139/87 Pulse Oximetry 86 L 84 L Oxygen Delivery Method Non -Rebreather Room Air Oxygen Flow Rate 15 03/09/22 11:30 03/09/22 11:35 03/09/22 11:40 Temperature Pulse Rate 124 H 124 H 124 H Respiratory Rate 31 H 32 H 30 H Blood Pressure Pulse Oximetry 95 96 97 Oxygen Delivery Method Non -Rebreather Non -Rebreather Non -Rebreather Oxygen Flow Rate 15 15 03/09/22 12:15 03/09/22 12:35 03/09/22 11:15 Temperature 99.3 F 99.1 F Pulse Rate 130 H 128 H 125 H Respiratory Rate 28 H 26 H 26 H Blood Pressure 151/92 H 140/92 H 142/89 H Pulse Oximetry 97 93 96 Oxygen Delivery Method Non -Rebreather Nasal Cannula Non -Rebreather Oxygen Flow Rate 15 4 15 03/09/22 13:10 03/09/22 13:17 Temperature 99.5 F Pulse Rate 128 H 139 H Respiratory Rate 28 H 24 Blood Pressure 150/90 H 135/84 Pulse Oximetry 89 L 92 Oxygen Delivery Method Nasal Cannula Nasal Cannula Oxygen Flow Rate 4 4 MDM - Altered Mental Status Lab Data Result diagrams: 03/10/22 11:35 03/10/22 11:15 Labs: Lab Results 03/09/22 03/09/22 03/09/22 Range/Units 11:20 11:25 11:45 WBC (4.5-11.0) X10^3/uL RBC (4.5-5.9) X10^6/uL Hgb (13.5-17.5) g/dL Hct (41-53) % MCV (80-100) fL MCH (26-34) PG MCHC (30-36) % RDW (11.6-14.8) % Plt Count (150-400) X10^3/uL Neut % (Auto) (50-75) % Lymph % (Auto) (25-40) % [place] % (Auto) (3-14) % Eos % (Auto) (2-4) % Baso % (Auto) (0-2) % Neut # (Auto) (1111-9706) /uL Lymph # (Auto) (4420-7471) /uL [place] # (Auto) (0-900) /uL Eos # (Auto) (0-450) /uL Baso # (Auto) (0-100) /uL PT (10.1-12.7) SECONDS INR (0.9-1.3) APTT (26.4-36.2) SECONDS ABG pH 7.40 (7.35-7.45) ABG pCO2 34.8 L (35-45) mmHg ABG pO2 50 L (80-100) mmHg ABG HCO3 22 (22-26) mmol/L ABG Total CO2 23 (21-31) mmol/L ABG O2 Saturation 85 L* (95-100) % ABG Base Excess -3.0 L (-2-2) mmol/L FiO2 21 Sodium (137-145) mmol/L Potassium (3.4-5.1) mmol/L Chloride (98-107) mmol/L Carbon Dioxide (22-32) mmol/L BUN (9-20) mg/dL Creatinine (0.66-1.25) mg/dL Estimated GFR (>60) mL/min BUN/Creatinine Ratio (6-22) Glucose (70-100) mg/dL Lactate (0.7-2.1) mmol/L Calcium (8.4-10.2) mg/dL Total Bilirubin (0.2-1.3) mg/dL AST (17-59) IU/L ALT (<50) IU/L Alkaline Phosphatase (38-126) U/L Ammonia (9-30) umol/L Total Creatine Kinase (55-170) U/L CK-MB (CK-2) (<2.37) ng/mL CK-MB (CK-2) Rel Index (1.5-5.0) % Troponin I (0.01-0.034) ng/mL Total Protein (6.3-8.2) g/dL Albumin (3.5-5.0) g/dL Globulin (1.7-4.1) g/dL Albumin/Globulin Ratio (1.0-2.8) TSH (0.47-4.68) uIU/mL Urine Color Yellow Urine Appearance Clear Urine pH 5.5 (4.5-8.0) Ur Specific [place] <=1.005 (1.000-1.035) Urine Protein 1+ H (Negative) Urine Glucose (UA) Negative (Negative) g/dL Urine Ketones Trace H (NEGATIVE) Urine Occult Blood 3+ H (Negative) Urine Nitrate Negative (Negative) Urine Bilirubin Negative (NEGATIVE) Urine Urobilinogen 0.2 (0.2) E.U./dL Ur Leukocyte Esterase Negative (NEGATIVE) Urine RBC 0-1/hpf (0-5/HPF) Urine WBC 0-1/hpf (0-5/HPF) Urine Bacteria Few (2-10) H (None) Ur Culture Indicated? Cult not indicated Salicylates (<20) mg/dL U Opiates 300ng/mL cut (Negative) Ur Oxycodone Screen (Negative) Urine Methadone Screen (Negative) Acetaminophen (10-30) ug/mL Ur Barbiturates Screen (Negative) U Tricyclic Antidepress (Negative) Ur Phencyclidine Scrn (Negative) Ur Amphetamines Screen (Negative) U Methamphetamines Scrn (Negative) Ur MDMA Scrn (Ecstasy) (Negative) U Benzodiazepines Scrn (Negative) Urine Cocaine Screen (Negative) U Marijuana (THC) Screen (Negative) Ethyl Alcohol ( - 10) mg/dL Chlamy pneumoniae PCR (Not Detect) Adenovirus (PCR) (Not Detect) B. pertussis DNA (PCR) (Not Detecte) B.parapertussis DNA PCR (Not Detecte) Coronavirus OC43 (PCR) (Not Detect) Coronavirus HKU1 (PCR) (Not Detect) Coronavirus 229E (PCR) (Not Detect) SARS-CoV-2 (PCR) Negative (Negative) Coronavirus NL63 (PCR) (Not Detect) Human Metapneumovir PCR (Not Detect) Influenza Type A (PCR) (Not Detect) Influenza Type B (PCR) (Not Detect) M. pneumoniae (PCR) (Not Detect) Parainfluenza 1 (PCR) (Not Detect) Parainfluenza 2 (PCR) (Not Detect) Parainfluenza 3 (PCR) (Not Detect) Parainfluenza 4 (PCR) (Not Detect) RSV (PCR) (Not Detect) Entero/Rhino (PCR) (Not Detect) 03/09/22 03/09/22 03/09/22 Range/Units 11:45 12:00 12:00 WBC 17.4 H (4.5-11.0) X10^3/uL RBC 4.79 (4.5-5.9) X10^6/uL Hgb 15.7 (13.5-17.5) g/dL Hct 45.0 (41-53) % MCV 93.9 (80-100) fL MCH 32.7 (26-34) PG MCHC 34.8 (30-36) % RDW 14.4 (11.6-14.8) % Plt Count 216 (150-400) X10^3/uL Neut % (Auto) 88.1 H (50-75) % Lymph % (Auto) 4.5 L (25-40) % [place] % (Auto) 6.3 (3-14) % Eos % (Auto) 0.0 L (2-4) % Baso % (Auto) 1.1 (0-2) % Neut # (Auto) 04940 H (9079-6146) /uL Lymph # (Auto) 800 L (8561-3530) /uL [place] # (Auto) 1100 H (0-900) /uL Eos # (Auto) 0 (0-450) /uL Baso # (Auto) 200 H (0-100) /uL PT (10.1-12.7) SECONDS INR (0.9-1.3) APTT (26.4-36.2) SECONDS ABG pH (7.35-7.45) ABG pCO2 (35-45) mmHg ABG pO2 (80-100) mmHg ABG HCO3 (22-26) mmol/L ABG Total CO2 (21-31) mmol/L ABG O2 Saturation (95-100) % ABG Base Excess (-2-2) mmol/L FiO2 Sodium 135 L (137-145) mmol/L Potassium 4.6 (3.4-5.1) mmol/L Chloride 101 (98-107) mmol/L Carbon Dioxide 22 (22-32) mmol/L BUN 13 (9-20) mg/dL Creatinine 1.03 (0.66-1.25) mg/dL Estimated GFR > 60 (>60) mL/min BUN/Creatinine Ratio 12.6 (6-22) Glucose 160 H (70-100) mg/dL Lactate (0.7-2.1) mmol/L Calcium 6.9 L (8.4-10.2) mg/dL Total Bilirubin 0.9 (0.2-1.3) mg/dL AST 129 H (17-59) IU/L ALT 72 H (<50) IU/L Alkaline Phosphatase 52 (38-126) U/L Ammonia (9-30) umol/L Total Creatine Kinase 2513 H (55-170) U/L CK-MB (CK-2) 15.70 H (<2.37) ng/mL CK-MB (CK-2) Rel Index 0.6 L (1.5-5.0) % Troponin I 0.099 H (0.01-0.034) ng/mL Total Protein 6.6 (6.3-8.2) g/dL Albumin 3.6 (3.5-5.0) g/dL Globulin 3.0 (1.7-4.1) g/dL Albumin/Globulin Ratio 1.2 (1.0-2.8) TSH (0.47-4.68) uIU/mL Urine Color Urine Appearance Urine pH (4.5-8.0) Ur Specific [place] (1.000-1.035) Urine Protein (Negative) Urine Glucose (UA) (Negative) g/dL Urine Ketones (NEGATIVE) Urine Occult Blood (Negative) Urine Nitrate (Negative) Urine Bilirubin (NEGATIVE) Urine Urobilinogen (0.2) E.U./dL Ur Leukocyte Esterase (NEGATIVE) Urine RBC (0-5/HPF) Urine WBC (0-5/HPF) Urine Bacteria (None) Ur Culture Indicated? Salicylates < 1.0 (<20) mg/dL U Opiates 300ng/mL cut Negative (Negative) Ur Oxycodone Screen Negative (Negative) Urine Methadone Screen Negative (Negative) Acetaminophen < 10 (10-30) ug/mL Ur Barbiturates Screen Negative (Negative) U Tricyclic Antidepress Negative (Negative) Ur Phencyclidine Scrn Negative (Negative) Ur Amphetamines Screen Negative (Negative) U Methamphetamines Scrn Negative (Negative) Ur MDMA Scrn (Ecstasy) Negative (Negative) U Benzodiazepines Scrn Negative (Negative) Urine Cocaine Screen Negative (Negative) U Marijuana (THC) Screen Negative (Negative) Ethyl Alcohol 430 H* ( - 10) mg/dL Chlamy pneumoniae PCR (Not Detect) Adenovirus (PCR) (Not Detect) B. pertussis DNA (PCR) (Not Detecte) B.parapertussis DNA PCR (Not Detecte) Coronavirus OC43 (PCR) (Not Detect) Coronavirus HKU1 (PCR) (Not Detect) Coronavirus 229E (PCR) (Not Detect) SARS-CoV-2 (PCR) (Negative) Coronavirus NL63 (PCR) (Not Detect) Human Metapneumovir PCR (Not Detect) Influenza Type A (PCR) (Not Detect) Influenza Type B (PCR) (Not Detect) M. pneumoniae (PCR) (Not Detect) Parainfluenza 1 (PCR) (Not Detect) Parainfluenza 2 (PCR) (Not Detect) Parainfluenza 3 (PCR) (Not Detect) Parainfluenza 4 (PCR) (Not Detect) RSV (PCR) (Not Detect) Entero/Rhino (PCR) (Not Detect) 03/09/22 03/09/22 03/09/22 Range/Units 12:00 12:00 12:00 WBC (4.5-11.0) X10^3/uL RBC (4.5-5.9) X10^6/uL Hgb (13.5-17.5) g/dL Hct (41-53) % MCV (80-100) fL MCH (26-34) PG MCHC (30-36) % RDW (11.6-14.8) % Plt Count (150-400) X10^3/uL Neut % (Auto) (50-75) % Lymph % (Auto) (25-40) % [place] % (Auto) (3-14) % Eos % (Auto) (2-4) % Baso % (Auto) (0-2) % Neut # (Auto) (6430-2843) /uL Lymph # (Auto) (7775-1277) /uL [place] # (Auto) (0-900) /uL Eos # (Auto) (0-450) /uL Baso # (Auto) (0-100) /uL PT 14.0 H (10.1-12.7) SECONDS INR 1.2 (0.9-1.3) APTT 33 (26.4-36.2) SECONDS ABG pH (7.35-7.45) ABG pCO2 (35-45) mmHg ABG pO2 (80-100) mmHg ABG HCO3 (22-26) mmol/L ABG Total CO2 (21-31) mmol/L ABG O2 Saturation (95-100) % ABG Base Excess (-2-2) mmol/L FiO2 Sodium (137-145) mmol/L Potassium (3.4-5.1) mmol/L Chloride (98-107) mmol/L Carbon Dioxide (22-32) mmol/L BUN (9-20) mg/dL Creatinine (0.66-1.25) mg/dL Estimated GFR (>60) mL/min BUN/Creatinine Ratio (6-22) Glucose (70-100) mg/dL Lactate 2.9 H (0.7-2.1) mmol/L Calcium (8.4-10.2) mg/dL Total Bilirubin (0.2-1.3) mg/dL AST (17-59) IU/L ALT (<50) IU/L Alkaline Phosphatase (38-126) U/L Ammonia (9-30) umol/L Total Creatine Kinase (55-170) U/L CK-MB (CK-2) (<2.37) ng/mL CK-MB (CK-2) Rel Index (1.5-5.0) % Troponin I (0.01-0.034) ng/mL Total Protein (6.3-8.2) g/dL Albumin (3.5-5.0) g/dL Globulin (1.7-4.1) g/dL Albumin/Globulin Ratio (1.0-2.8) TSH 0.885 D (0.47-4.68) uIU/mL Urine Color Urine Appearance Urine pH (4.5-8.0) Ur Specific [place] (1.000-1.035) Urine Protein (Negative) Urine Glucose (UA) (Negative) g/dL Urine Ketones (NEGATIVE) Urine Occult Blood (Negative) Urine Nitrate (Negative) Urine Bilirubin (NEGATIVE) Urine Urobilinogen (0.2) E.U./dL Ur Leukocyte Esterase (NEGATIVE) Urine RBC (0-5/HPF) Urine WBC (0-5/HPF) Urine Bacteria (None) Ur Culture Indicated? Salicylates (<20) mg/dL U Opiates 300ng/mL cut (Negative) Ur Oxycodone Screen (Negative) Urine Methadone Screen (Negative) Acetaminophen (10-30) ug/mL Ur Barbiturates Screen (Negative) U Tricyclic Antidepress (Negative) Ur Phencyclidine Scrn (Negative) Ur Amphetamines Screen (Negative) U Methamphetamines Scrn (Negative) Ur MDMA Scrn (Ecstasy) (Negative) U Benzodiazepines Scrn (Negative) Urine Cocaine Screen (Negative) U Marijuana (THC) Screen (Negative) Ethyl Alcohol ( - 10) mg/dL Chlamy pneumoniae PCR (Not Detect) Adenovirus (PCR) (Not Detect) B. pertussis DNA (PCR) (Not Detecte) B.parapertussis DNA PCR (Not Detecte) Coronavirus OC43 (PCR) (Not Detect) Coronavirus HKU1 (PCR) (Not Detect) Coronavirus 229E (PCR) (Not Detect) SARS-CoV-2 (PCR) (Negative) Coronavirus NL63 (PCR) (Not Detect) Human Metapneumovir PCR (Not Detect) Influenza Type A (PCR) (Not Detect) Influenza Type B (PCR) (Not Detect) M. pneumoniae (PCR) (Not Detect) Parainfluenza 1 (PCR) (Not Detect) Parainfluenza 2 (PCR) (Not Detect) Parainfluenza 3 (PCR) (Not Detect) Parainfluenza 4 (PCR) (Not Detect) RSV (PCR) (Not Detect) Entero/Rhino (PCR) (Not Detect) 03/09/22 03/09/22 03/09/22 Range/Units 12:00 13:25 14:08 WBC (4.5-11.0) X10^3/uL RBC (4.5-5.9) X10^6/uL Hgb (13.5-17.5) g/dL Hct (41-53) % MCV (80-100) fL MCH (26-34) PG MCHC (30-36) % RDW (11.6-14.8) % Plt Count (150-400) X10^3/uL Neut % (Auto) (50-75) % Lymph % (Auto) (25-40) % [place] % (Auto) (3-14) % Eos % (Auto) (2-4) % Baso % (Auto) (0-2) % Neut # (Auto) (0473-2975) /uL Lymph # (Auto) (3663-7028) /uL [place] # (Auto) (0-900) /uL Eos # (Auto) (0-450) /uL Baso # (Auto) (0-100) /uL PT (10.1-12.7) SECONDS INR (0.9-1.3) APTT (26.4-36.2) SECONDS ABG pH (7.35-7.45) ABG pCO2 (35-45) mmHg ABG pO2 (80-100) mmHg ABG HCO3 (22-26) mmol/L ABG Total CO2 (21-31) mmol/L ABG O2 Saturation (95-100) % ABG Base Excess (-2-2) mmol/L FiO2 Sodium (137-145) mmol/L Potassium (3.4-5.1) mmol/L Chloride (98-107) mmol/L Carbon Dioxide (22-32) mmol/L BUN (9-20) mg/dL Creatinine (0.66-1.25) mg/dL Estimated GFR (>60) mL/min BUN/Creatinine Ratio (6-22) Glucose (70-100) mg/dL Lactate (0.7-2.1) mmol/L Calcium (8.4-10.2) mg/dL Total Bilirubin (0.2-1.3) mg/dL AST (17-59) IU/L ALT (<50) IU/L Alkaline Phosphatase (38-126) U/L Ammonia 11 (9-30) umol/L Total Creatine Kinase (55-170) U/L CK-MB (CK-2) (<2.37) ng/mL CK-MB (CK-2) Rel Index (1.5-5.0) % Troponin I 0.103 H (0.01-0.034) ng/mL Total Protein (6.3-8.2) g/dL Albumin (3.5-5.0) g/dL Globulin (1.7-4.1) g/dL Albumin/Globulin Ratio (1.0-2.8) TSH (0.47-4.68) uIU/mL Urine Color Urine Appearance Urine pH (4.5-8.0) Ur Specific [place] (1.000-1.035) Urine Protein (Negative) Urine Glucose (UA) (Negative) g/dL Urine Ketones (NEGATIVE) Urine Occult Blood (Negative) Urine Nitrate (Negative) Urine Bilirubin (NEGATIVE) Urine Urobilinogen (0.2) E.U./dL Ur Leukocyte Esterase (NEGATIVE) Urine RBC (0-5/HPF) Urine WBC (0-5/HPF) Urine Bacteria (None) Ur Culture Indicated? Salicylates (<20) mg/dL U Opiates 300ng/mL cut (Negative) Ur Oxycodone Screen (Negative) Urine Methadone Screen (Negative) Acetaminophen (10-30) ug/mL Ur Barbiturates Screen (Negative) U Tricyclic Antidepress (Negative) Ur Phencyclidine Scrn (Negative) Ur Amphetamines Screen (Negative) U Methamphetamines Scrn (Negative) Ur MDMA Scrn (Ecstasy) (Negative) U Benzodiazepines Scrn (Negative) Urine Cocaine Screen (Negative) U Marijuana (THC) Screen (Negative) Ethyl Alcohol ( - 10) mg/dL Chlamy pneumoniae PCR Not detected (Not Detect) Adenovirus (PCR) Not detected (Not Detect) B. pertussis DNA (PCR) Not detected (Not Detecte) B.parapertussis DNA PCR Not detected (Not Detecte) Coronavirus OC43 (PCR) Not detected (Not Detect) Coronavirus HKU1 (PCR) Not detected (Not Detect) Coronavirus 229E (PCR) Not detected (Not Detect) SARS-CoV-2 (PCR) Not detected (Negative) Coronavirus NL63 (PCR) Not detected (Not Detect) Human Metapneumovir PCR Not detected (Not Detect) Influenza Type A (PCR) Not detected (Not Detect) Influenza Type B (PCR) Not detected (Not Detect) M. pneumoniae (PCR) Not detected (Not Detect) Parainfluenza 1 (PCR) Not detected (Not Detect) Parainfluenza 2 (PCR) Not detected (Not Detect) Parainfluenza 3 (PCR) Not detected (Not Detect) Parainfluenza 4 (PCR) Not detected (Not Detect) RSV (PCR) Not detected (Not Detect) Entero/Rhino (PCR) Not detected (Not Detect) 03/09/22 Range/Units 14:15 WBC (4.5-11.0) X10^3/uL RBC (4.5-5.9) X10^6/uL Hgb (13.5-17.5) g/dL Hct (41-53) % MCV (80-100) fL MCH (26-34) PG MCHC (30-36) % RDW (11.6-14.8) % Plt Count (150-400) X10^3/uL Neut % (Auto) (50-75) % Lymph % (Auto) (25-40) % [place] % (Auto) (3-14) % Eos % (Auto) (2-4) % Baso % (Auto) (0-2) % Neut # (Auto) (7664-5184) /uL Lymph # (Auto) (7394-9800) /uL [place] # (Auto) (0-900) /uL Eos # (Auto) (0-450) /uL Baso # (Auto) (0-100) /uL PT (10.1-12.7) SECONDS INR (0.9-1.3) APTT (26.4-36.2) SECONDS ABG pH (7.35-7.45) ABG pCO2 (35-45) mmHg ABG pO2 (80-100) mmHg ABG HCO3 (22-26) mmol/L ABG Total CO2 (21-31) mmol/L ABG O2 Saturation (95-100) % ABG Base Excess (-2-2) mmol/L FiO2 Sodium (137-145) mmol/L Potassium (3.4-5.1) mmol/L Chloride (98-107) mmol/L Carbon Dioxide (22-32) mmol/L BUN (9-20) mg/dL Creatinine (0.66-1.25) mg/dL Estimated GFR (>60) mL/min BUN/Creatinine Ratio (6-22) Glucose (70-100) mg/dL Lactate 2.2 H (0.7-2.1) mmol/L Calcium (8.4-10.2) mg/dL Total Bilirubin (0.2-1.3) mg/dL AST (17-59) IU/L ALT (<50) IU/L Alkaline Phosphatase (38-126) U/L Ammonia (9-30) umol/L Total Creatine Kinase (55-170) U/L CK-MB (CK-2) (<2.37) ng/mL CK-MB (CK-2) Rel Index (1.5-5.0) % Troponin I (0.01-0.034) ng/mL Total Protein (6.3-8.2) g/dL Albumin (3.5-5.0) g/dL Globulin (1.7-4.1) g/dL Albumin/Globulin Ratio (1.0-2.8) TSH (0.47-4.68) uIU/mL Urine Color Urine Appearance Urine pH (4.5-8.0) Ur Specific [place] (1.000-1.035) Urine Protein (Negative) Urine Glucose (UA) (Negative) g/dL Urine Ketones (NEGATIVE) Urine Occult Blood (Negative) Urine Nitrate (Negative) Urine Bilirubin (NEGATIVE) Urine Urobilinogen (0.2) E.U./dL Ur Leukocyte Esterase (NEGATIVE) Urine RBC (0-5/HPF) Urine WBC (0-5/HPF) Urine Bacteria (None) Ur Culture Indicated? Salicylates (<20) mg/dL U Opiates 300ng/mL cut (Negative) Ur Oxycodone Screen (Negative) Urine Methadone Screen (Negative) Acetaminophen (10-30) ug/mL Ur Barbiturates Screen (Negative) U Tricyclic Antidepress (Negative) Ur Phencyclidine Scrn (Negative) Ur Amphetamines Screen (Negative) U Methamphetamines Scrn (Negative) Ur MDMA Scrn (Ecstasy) (Negative) U Benzodiazepines Scrn (Negative) Urine Cocaine Screen (Negative) U Marijuana (THC) Screen (Negative) Ethyl Alcohol ( - 10) mg/dL Chlamy pneumoniae PCR (Not Detect) Adenovirus (PCR) (Not Detect) B. pertussis DNA (PCR) (Not Detecte) B.parapertussis DNA PCR (Not Detecte) Coronavirus OC43 (PCR) (Not Detect) Coronavirus HKU1 (PCR) (Not Detect) Coronavirus 229E (PCR) (Not Detect) SARS-CoV-2 (PCR) (Negative) Coronavirus NL63 (PCR) (Not Detect) Human Metapneumovir PCR (Not Detect) Influenza Type A (PCR) (Not Detect) Influenza Type B (PCR) (Not Detect) M. pneumoniae (PCR) (Not Detect) Parainfluenza 1 (PCR) (Not Detect) Parainfluenza 2 (PCR) (Not Detect) Parainfluenza 3 (PCR) (Not Detect) Parainfluenza 4 (PCR) (Not Detect) RSV (PCR) (Not Detect) Entero/Rhino (PCR) (Not Detect) Point of Care Testing Glucose POC [address] scan - head: Radiologist's Impression: Stanislav Martinez??46??M??1975 ? Allergy/Adv: risperidone Close Head CT (Signed) Flory Russ - 03/09/22 Chest X-Ray (Signed) Chao Hudson - 03/09/22 Chest X-Ray (Signed) Bulmaro Landeros - 03/07/[address] (Signed) Bulmaro Landeros - 02/05/22 Launch?[place] [address] CT Scan Report Signed Patient: Stanislav Martinez MR#: [id number] : 1975 Acct:[id number] Age/Sex: 46 / M Date of Service: 03/09/22 Loc: ED Accession Number: [id number] ?? Procedure: CT head/brain wo con Ordering Provider: Shanelle Sood D.O. PROCEDURE:? CT HEAD/BRAIN WO CON ? INDICATIONS:? etoh, decreased responsive-ness. found on ground ? TECHNIQUE:? Noncontrast 4.5 mm thick angled axial sections acquired from the foramen magnum to the vertex, with coronal and sagittal reformats.? For radiation dose reduction, the following was used:? automated exposure control, adjustment of mA and/or kV according to patient size.? ? COMPARISON:? [facility], CT, CT HEAD/BRAIN WO CON, 02/05/2022, 20:44. ? FINDINGS:? Image quality:? Excellent.? ? CSF spaces:? Basal cisterns are patent.? No extra-axial fluid collections.? Ventricles are normal in size and shape.? ? Brain:? No midline shift.? No intracranial masses or hemorrhage.? Pickett-white matter interface is normal.? ? Skull and face:? Calvarium and visualized facial bones are intact, without suspicious lesions.? ? Sinuses:? Visualized sinuses and mastoids are clear.? ? IMPRESSION:? ? 1. No acute intracranial process. ? ? Dictated by: Flory Russ M.D. on 03/09/2022 at 13:06 ? ? Approved by: Flory Russ M.D. on 03/09/2022 at 13:06?? Chest x-ray: Radiologist's Impression: Stanislav Martinez??46??M??1975 ? Allergy/Adv: risperidone Close Head CT (Signed) RussFlory - 03/09/22 Chest X-Ray (Signed) Rj Hudsonwn - 03/09/22 Chest X-Ray (Signed) Bulmaro Landeros - 03/07/[address] (Signed) Landeros,Bulmaro - 02/05/22 Launch?[place] [address] XRay Report Signed Patient: Stanislav Martinez MR#: [id number] : 1975 Acct:[id number] Age/Sex: 46 / M Date of Service: 03/09/22 Loc: ED Accession Number: [id number] ?? Procedure: XR chest 1V Ordering Provider: Shanelle Sood D.O. PROCEDURE:? XR CHEST 1V ? INDICATIONS:? decreased unresponsive. ? TECHNIQUE:? One view of the chest was acquired.? ? COMPARISON:? [facility], , XR CHEST 1V, 03/07/2022, 21:52. ? FINDINGS:? ? Surgical changes and devices:? None.? ? Lungs and pleura:? Patchy airspace opacity in the right lung, increased.? There appears to be right lung volume loss.? No pleural effusions or pneumothorax.? ? Mediastinum:? Mediastinal contours appear similar.? Heart size is prominent.? ? Bones and chest wall:? No suspicious bony lesions.? Overlying soft tissues appear unremarkable.? ? IMPRESSION:? Increased patchy airspace opacity in the right lung.? Suspect multifocal pneumonia. ? ? Dictated by: Chao Hudson M.D. on 03/09/2022 at 11:46 ? ? Approved by: Chao Hudson M.D. on 03/09/2022 at 11:49?? ECG Data Attestation: I personally reviewed and interpreted this ECG as follows: Interpretation: Sinus tachycardia rate of 130, patient has 2 with V1 V2, inverted T V4 5 6. WA intervals 136 QRS is 104 QTC 447. Patient has EKG 2. Sinus tachycardia rate 131, WA 114 QRS of 100 and QTC 457 appears similar with no acute changes from prior and patient EKG from 03/07/2022 also appears similar to both from today. MDM Narrative Medical decision making narrative: This is a 46-year-old male with known alcohol abuse patient arrived somewhat obtunded but has had some improvement here in the department. He is hypoxic he appears to have pneumonia particularly in the right suspect aspiration secondary to alcohol use and patient did have gag initially but not have earlier today. He has a white count of 17, normal hemoglobin, normal platelets, coags show no acute change, chemistry shows sodium 135 glucose is appropriate, lactate was jaden vated 2.9 was trending down to 2.2 but not totally normalized. Liver enzymes are mildly elevated, total CK is 2500 unclear how long he was on the ground his troponin is elevated but indeterminate it change from 0.099-0. One hundred three. He does not have any acute EKG changes appreciated. He denies active chest and suspect some of this is secondary to potential demand ischemia from hypoxia. Patient's tox shows elevated ETOH in the 430 range and patient started to have symptoms consistent with withdrawal. He had 1 dose of Ativan but phenobarb therapy was initiated. UDS and UA are negative. Based on pneumonia COVID swab was negative but respiratory panel was included in is also negative. Patient was covered with clindamycin, he did receive sepsis fluid bolus 30 cc/kg, and was tachycardic persistently but this may also have been secondary to some withdrawal during his stay, he was tachypneic, pressures were initially elevated but did start to improve. He continued to require oxygenation but not requiring increasing O2 demand. ABG showed hypoxia but no hypercapnic or metabolic respiratory failure this was performed on RA. Patient was discussed with the hospitalist who accepts. Plan for ICU admission as patient has high risk of deterioration. Critical Care Time Critical Care Time Critical Care Time: Yes Total Critical Care Time: 35 Attestation: The high probability of a clinically significant, sudden or life threatening deterioration of the [cardiac, pulm] system(s) required my full and direct attention, intervention and personal management. The aggregate critical care time was [] minutes. This time is in addition to time spent performing reported procedures but includes the following: [x] Data Review and interpretation [x] Patient assessment and monitoring of vital signs [x] Documentation [x] Medication orders and management Discharge Plan Departure Patient Disposition: Admitted As Inpatient Clinical Impression: Aspiration pneumonia, Alcohol abuse Admit Date/Time: 03/09/22 17:44 Admit Provider: John Del Valle
[2022-03-09 11:44] LABS: Fractionated Inspired Oxygen 21; HCO3 ABG 22 mmol/L (22-26); Oxygen Saturation ABG 85 % (95-100); PCO2 ABG 34.8 mmHg (35-45); PO2 ABG 50 mmHg (80-100); TCO2 ABG 23 mmol/L (21-31)
[2022-03-09 12:12] LABS: Add Manual Diff / Slide Review NO; Basophils Absolute Auto 200 /uL (0-100); Basophils Percent Auto 1.1 % (0-2); Eosinophils Absolute Auto 0 /uL (0-450); Hemoglobin 15.7 g/dL (13.5-17.5); Lymphocytes Absolute Auto 800 /uL (1100-4500); Lymphocytes Percent Auto 4.5 % (25-40); Mean Corpuscular HGB Conc 34.8 % (30-36); Mean Corpuscular Hemoglobin 32.7 PG (26-34); Mean Corpuscular Volume 93.9 fL (80-100); Monocytes Absolute Auto 1100 /uL (0-900); Monocytes Percent Auto 6.3 % (3-14); Neutrophils Absolute Auto 15300 /uL (1500-7000); Neutrophils Percent Auto 88.1 % (50-75); Platelet Count 216 X10^3/uL (150-400); Red Blood Cell Count 4.79 X10^6/uL (4.5-5.9); Red Cell Distribution Width 14.4 % (11.6-14.8); White Blood Cell Count 17.4 X10^3/uL (4.5-11.0)
[2022-03-09] MEDS: THIAMINE 250 MG in SODIUM CHLORIDE 0.9% 100 ML 410 MG IV (12:22)
[2022-03-09 12:25] LABS: COVID19 -Nasal RAPID Negative (Negative)
[2022-03-09] MEDS: CLINDAMYCIN 900 MG/50 ML PIGGYBACK 50 MG IV (12:29)
[2022-03-09 12:45] LABS: Ammonia (NH3) 11 umol/L (9-30); INR 1.2 (0.9-1.3)
[2022-03-09 12:46] LABS: Salicylate < 1.0 mg/dL (<20)
[2022-03-09 12:47] LABS: Lactate (Lactic Acid) 2.9 mmol/L (0.7-2.1); PTT Partial Thromboplastin Tim 33 SECONDS (26.4-36.2)
[2022-03-09] MEDS: SODIUM CHLORIDE 0.9% 1,000 ML 150 ML IV (12:52)
[2022-03-09 12:54] LABS: Ethanol (ETOH) 430 mg/dL
[2022-03-09 13:04] LABS: Ur Creatinine Normal (Normal); Ur Specific Gravity Normal (Normal); Urine Tetrahydrocannabinol Negative (Negative); Urine pH Normal (Normal)
[2022-03-09 13:05] LABS: UR Morphine/Opiate cutoff 300 Negative (Negative); Urine Amphetamines Negative (Negative); Urine Barbiturates Negative (Negative); Urine Benzodiazepines Negative (Negative); Urine Cocaine Negative (Negative); Urine MDMA Negative (Negative); Urine Methadone Negative (Negative); Urine Methamphetamines Negative (Negative); Urine Oxycodone Negative (Negative); Urine Phencyclidine Negative (Negative); Urine Tricyclic Antidepressant Negative (Negative)
[2022-03-09 13:19] LABS: Creatine Kinase 2513 U/L (55-170)
[2022-03-09 13:20] LABS: BUN Creatinine Ratio 12.6 (6-22); Blood Urea Nitrogen 13 mg/dL (9-20); Carbon Dioxide 22 mmol/L (22-32); Chloride 101 mmol/L (98-107); Estimated Glomerular Filt Rate > 60 mL/min (>60); Potassium 4.6 mmol/L (3.4-5.1); Sodium 135 mmol/L (137-145); Troponin I 0.099 ng/mL (0.01-0.034)
[2022-03-09 13:22] LABS: Alanine Aminotransferase 72 IU/L (<50); Albumin 3.6 g/dL (3.5-5.0); Albumin Globulin Ratio 1.2 (1.0-2.8); Alkaline Phosphatase 52 U/L (38-126); Aspartate Aminotransferase 129 IU/L (17-59); Bilirubin Total 0.9 mg/dL (0.2-1.3); Calcium 6.9 mg/dL (8.4-10.2); Glucose 160 mg/dL (70-100); HEMOLYSIS < 15 (0-50); Total Protein 6.6 g/dL (6.3-8.2)
[2022-03-09 13:27] LABS: Appearance Urine UA CLEAR; Bilirubin Urine UA NEGATIVE (NEGATIVE); Color Urine UA YELLOW; Glucose Urine UA NEGATIVE (Negative); Ketones Urine UA TRACE (NEGATIVE); Leukocyte Esterase Urine UA NEGATIVE (NEGATIVE); Nitrite Urine UA NEGATIVE (Negative); Occult Blood Urine UA 3+ (Negative); Protein Urine UA 1+ (Negative); Specific Gravity Urine UA <=1.005 (1.000-1.035); Urobilinogen Urine UA 0.2 E.U./dL (0.2); pH Urine UA 5.5 (4.5-8.0)
[2022-03-09 13:43] LABS: Bacteria Urine Few (2-10); Culture Indicated Urine Cult Not Indicated; RBC Urine 0-1/HPF (0-5/HPF); WBC Urine 0-1/HPF (0-5/HPF)
[2022-03-09 13:50] LABS: Acetaminophen < 10 ug/mL (10-30); CKMB % Relative Index 0.6 % (1.5-5.0)
[2022-03-09 14:05] LABS: Reflexed Lactate in 2 Hours Y
[2022-03-09] MEDS: LORazepam 2 MG/ML INJ 1 MG IV (14:31)
[2022-03-09 15:07] LABS: Adenovirus Not Detected (Not Detect); B. parapertussis Not Detected (Not Detecte); Bordetella pertussis Not Detected (Not Detecte); Chlamydophila pneumoniae Not Detected (Not Detect); Coronavirus 229E Not Detected (Not Detect); Coronavirus HKU1 Not Detected (Not Detect); Coronavirus NL 63 Not Detected (Not Detect); Coronavirus OC43 Not Detected (Not Detect); Human Metapneumovirus Not Detected (Not Detect); Human Rhinovirus/Enterovirus Not Detected (Not Detect); Influenza A Not Detected (Not Detect); Influenza B Not Detected (Not Detect); Mycoplasma pneumoniae Not Detected (Not Detect); Parainfluenza Virus 1 Not Detected (Not Detect); Parainfluenza Virus 2 Not Detected (Not Detect); Parainfluenza Virus 3 Not Detected (Not Detect); Parainfluenza Virus 4 Not Detected (Not Detect); Respiratory Syncytial Virus Not Detected (Not Detect); SARS- CoV-2 Not Detected (Not Detecte)
--- NOTE | 2022-03-09 15:43 | CM.SWNOTE ---
KILN CAR UNLOADER Assessment KILN CAR UNLOADER - Watch Caser Assessment KILN CAR UNLOADER/Watch Caser Assessment Time Spent with Patient Start date 03/09/22 Visit Start Time 15:05 End date 03/09/22 Visit End Time 15:15 Total time Care Management spent on 10 minutes patient visit-in minutes Substance Abuse Screening Include Onset, Duration, Intensity Presenting Problem Patient presents to the ED via EMS due to ETOH intoxication, per EMS patient was found outside of his RV. Precipitating Event(s) Patient endorses recent divorce with his and limited natural supports nearby. Patient presented to the ED on 03/07/22 due to similar concerns of ETOH use. Patient Strengths Patient identifies his father and sister as supports but states that they live in [place]. Patient endorses that he wants to stop drinking . Current Behavioral Health Provider(s) None reported Include Facility, Provider, Ph. # Family Hx of Behavioral Abuse None reported Rehab Facilities? ((Date(s), Location(s) Patient denies hx of detox, ) inpatient or outpatient [facility] treatment History of Withdrawal? Seizures? Patient endorses he is currently experiencing horrible anxiety. Patient presents with discomfort and excessive movement. Patient endorses hx of anxiety during withdrawals. Longest Period of Sobriety Not reported Psychosocial information & Support Patient is 46 y/o male who Systems resides in [place] in an . Patient endorses minimal local supports but states that his father and sister in [place] are supports to him. Per patient's father, he plans to come visit patient. School/Work Patient endorses he might of lost his job at the [employer] Legal Concerns Legal Matters - Outstanding Issues None reported Mental Status Orientation (Person/Place/Time) A/Ox3 Stated Mood not good Affect (Congruent with Mood?) Anxious, congruent with mood, full range Thought Content - Specify/Describe None reported Obsessions, Delusions, Hallucinations Thought Processes (Jtweijt-Sqjhpklw-Htgm coherent Neszvbmh-Tkjoreva-Ztrowfdqau- Kbhrdyilckqmzj-Ztrcjpj-Viglcppklnqw- Thought Blocking) Speech (Zlsnqb-Ebrh-Qndhfeb-Rapid-Soft- slurred/normal Loud-Pressured) Motor (Iqcapj-Kzbypzfxl-Fjfe-Other) excessive, out of discomfort patient presents with excessive leg movement Insight (Mabq-Xdsk-Tarl/Limited) fair Judgement (Upvt-Nfhz-Mphs/Limited) poor/limited Impulse Control (Adequate-Impaired) adequate Memory (Yalbxlvyy-Oqwuoz-Vfrlbb, fairly intact, not formally Impaired-Intact) assessed Concentration (Intact-Impaired) intact Attention (Intact-Impaired) intact, although patient presents as visually distracted by his discomfort Behavior (Appropriate-Inappropriate) Appropriate Additional Comment Patient presents as communicative, calm and cooperative Risk Assessment Suicidal Ideation (Plan) No Homicidal Ideation (Plan) No Intervention Intervention KILN CAR UNLOADER enters room to meet with patient. Patient endorses a bad home life, patient endorses that he is experiencing a recent divorce with his and his ETOH use has increased. Patient endorses on a daily basis he consumes at least a 6 pack of beer. Patient endorses that today he does not recall how much he drank and states a lot and too much. Patient presents with a BAL of 430. Patient denies HI and SI. Patient endorses that he would like to stop drinking and has not sought out treatment before. Patient requests to end assessment early due to patient's increasing discomfort and anxiety. Patient's father from [place] calls due to concern for patient's increased ETOH use and not taking care of self or managing medications. Due to patient's father's concerns, father reports that he plasn to come out to visit patient soon. Per ED provider Dr. Sood, patient has been acccepted by hospitalist for admission to acute care. It is the opinion of this KILN CAR UNLOADER that upon medical clearance patient would benefit from a [facility] assessment to determine patient's level of [facility] treatment needs. Plan RA Plan Patient to be admitted to acute care for further medical observation, DCP to f/u with JENA Jenkins
[2022-03-09 15:44] LABS: Lactate 2HR (Lactic Acid Rflx) 2.2 mmol/L (0.7-2.1)
[2022-03-09] MEDS: PHENobarbital 65 MG/ML VIAL 260 MG IV (15:44)
--- NOTE | 2022-03-09 15:48 | CM.IDA ---
DCP Assessment Patient is 46 y/o male who presents to via EMS due to ETOH intoxication. Patient has hx of ETOh abuse, pneumonia, Anxiety with Depression, and Hypertension. Patient's PCP is Dr. Yousif, patient has Medicaid and [employer] insurance. BAG PRINTER enters room to meet with patient. Patient is A/Ox3, presents as uncomfortable and states that he is horribly anxious. Patient resides at home in , patient endorses minimal local supports and endorses that his father and sister in [place] are his main supports. See BAG PRINTER assessment regarding patient's ETOH use and precipitating event factors. Patient indicates life stressors and endorses an increase in his ETOH use. Patient endorses he wants to stop drinking and denies hx of detox, inpatient or outpatient treatment. Patient's father Don (Ph. # [phone]) would like updates regarding patient's POC and endorses concern for patient's increase in ETOH use and ability to make sound decisions and reports that neighbors found various unknown medications in his home and concern that patient is not taking medications as prescribed. Patient's father endorses he plans to visit patient soon. Per ED provider Dr. Sood, patient is to be admitted to acute care for further medical evaluation. Plan: Patient to be admitted to acute care, DCP to f/u with POC. JENA Juarez Discharge Planning/Care Management CM Discharge Assessment Start: 03/09/22 13:38 Freq: Status: Active Protocol: Document 03/09/22 15:44 LN (Rec: 03/09/22 15:47 LN [id number]) Discharge Planning Assessment Assigned Chief Deputy Sheriff JENA Fried Advance Directives? No Advance Directives on File No History Provided By Patient,Medical Record Has Patient been admitted in last 30 No days? Prior Living Arrangements RV Type of transporation used prior to Drives own vehicle admit Independent with ADL's Yes Is patient alert and oriented? Yes Comment Patient endorses he wants to stop drinking. Discharge Plan Home Review Status In Process Please Provide Date Initial DC 03/09/22
[2022-03-09] MEDS: ACETAMINOPHEN 325 MG TABLET 650 MG PO (15:53)
[2022-03-09] MEDS: LACTATED RINGERS 1,000 ML 100 ML IV ×2 (15:53→18:51)
--- NOTE | 2022-03-09 16:01 | PC.NURSE ---
updated father don, via phone.
--- NOTE | 2022-03-09 16:06 | PC.NURSE ---
*father wants updates* patient's father - Don (in [place]) Ph. # [phone]
[2022-03-09 16:16] LABS: Troponin I 0.103 ng/mL (0.01-0.034)
--- NOTE | 2022-03-09 16:20 | PC.NURSE ---
ALLY charted in alcohol assesment at 1140, 1325, 1513
[2022-03-09 17:17] LABS: Thyroid Stimulating Hormone 0.885 uIU/mL (0.47-4.68)
--- NOTE | 2022-03-09 17:51 | P.HP_ITS ---
History of Present Illness History of Present Illness Chief complaint: ETOH Narrative: this is 46 y/o male with h/o alcohol abuse presents in alcohol intoxication to ER with altered mental status. He cannot provide me with history and I obtained from ER notes and spoke to ER physician. He was found with 2 boxes of 12 packs type alcohol outside his living place on the ground.? Patient is altered, he was responsive to stimuli but he did not follow commands in ER, was not interactive.? He presents to acute care floor in anxiety and withdrawal condition. We placed him stat to [facility] protocol . It is known that this patient is : frequent flyer in ER and hospital in the past. Patient History Medical History Alcohol abuse Hypertension (~2019) Family & Social History Social History: household members friend(s) Prior Living Arrangements RV Safety & Behavioral: Feels Safe in Current Unwilling to Answer Environment Been Physically Hurt or Unwilling to Answer Threatened By a Person Suicidal Ideation Description None Suicide Plan Description No Plan Tobacco & Substance use: Smoking Status Never smoker alcohol intake frequency 3 or more drinks per day Substance Use Type does not use Meds Home Medications and Allergies Home Medications Medication Instructions Recorded Confirmed Type chorionic gonadotropin, human 10,000 unit IM DIRECTED 09/22/20 02/06/22 History 10,000 unit intramuscular solution testosterone 200 mg implant pellet 100 mg SUBCUT WEEKLY 09/22/20 02/06/22 History paroxetine HCl 40 mg tablet 40 mg PO DAILY #90 tabs 01/01/22 02/06/22 Rx folic acid 1 mg tablet 1 mg PO DAILY #30 tabs 02/06/22 Rx gabapentin 300 mg capsule 300 mg PO TID #90 caps 02/06/22 Rx lorazepam 1 mg tablet 1 mg PO Q8H PRN Anxiety #10 tabs 02/06/22 Rx melatonin 10 mg tablet 10 mg PO BEDTIME PRN sleep #30 tabs 02/06/22 Rx methocarbamol 500 mg tablet 500 mg PO TID #90 tabs 02/06/22 Rx multivitamin with folic acid 400 1 tab PO DAILY #30 tabs 02/06/22 Rx mcg tablet (Tab-A-Isis) olanzapine 5 mg tablet (Zyprexa) 5 mg PO BEDTIME #30 tabs 02/06/22 Rx Allergies Allergy/AdvReac Type Severity Reaction Status Date / Time risperidone [From Risperdal] Allergy Severe Anaphylaxis Verified 11/14/20 10:56 Review of Systems Review of Systems ROS: Yes All systems reviewed with the patient and are negative except as otherwise documented Eyes Eyes: Reports as per HPI ENT Ears, Nose, Mouth, and Throat: Yes as per HPI Cardiovascular Cardiovascular: Reports as per HPI Respiratory Respiratory: Reports as per HPI Gastrointestinal Gastrointestinal: Reports as per HPI Genitourinary Genitourinary: Reports as per HPI Musculoskeletal Musculoskeletal: Reports as per HPI Integumentary/Breasts Skin/Breast: Reports as per HPI Neurologic Neurologic: Reports as per HPI Psychiatric Psychiatric: Reports as per HPI Exam Vital Signs (past 8 hours): - 03/09/22 11:19 03/09/22 11:29 03/09/22 11:30 Temperature 97.8 F Pulse Rate 127 H 126 H Respiratory Rate 36 H 31 H Blood Pressure 142/89 H 139/87 Pulse Oximetry 86 L 84 L Oxygen Delivery Method Non -Rebreather Room Air Oxygen Flow Rate 15 03/09/22 11:30 03/09/22 11:35 03/09/22 11:40 Temperature Pulse Rate 124 H 124 H 124 H Respiratory Rate 31 H 32 H 30 H Blood Pressure Pulse Oximetry 95 96 97 Oxygen Delivery Method Non -Rebreather Non -Rebreather Non -Rebreather Oxygen Flow Rate 15 15 03/09/22 12:15 03/09/22 12:35 03/09/22 11:15 Temperature 99.3 F 99.1 F Pulse Rate 130 H 128 H 125 H Respiratory Rate 28 H 26 H 26 H Blood Pressure 151/92 H 140/92 H 142/89 H Pulse Oximetry 97 93 96 Oxygen Delivery Method Non -Rebreather Nasal Cannula Non -Rebreather Oxygen Flow Rate 15 4 15 03/09/22 13:10 03/09/22 13:17 03/09/22 13:25 Temperature 99.5 F 99.5 F Pulse Rate 128 H 139 H 133 H Respiratory Rate 28 H 24 38 H Blood Pressure 150/90 H 135/84 Pulse Oximetry 89 L 92 90 L Oxygen Delivery Method Nasal Cannula Nasal Cannula Nasal Cannula Oxygen Flow Rate 4 4 4 03/09/22 13:25 03/09/22 13:30 03/09/22 13:31 Temperature 99.5 F 99.5 F Pulse Rate 130 H 130 H Respiratory Rate 27 H 34 H Blood Pressure 161/103 H Pulse Oximetry 90 L 90 L Oxygen Delivery Method Nasal Cannula Nasal Cannula Oxygen Flow Rate 4 4 03/09/22 13:31 03/09/22 13:45 03/09/22 14:00 Temperature 99.5 F 99.5 F Pulse Rate 132 H 130 H Respiratory Rate 35 H 26 H Blood Pressure 235/96 H Pulse Oximetry 91 91 Oxygen Delivery Method Nasal Cannula Nasal Cannula Oxygen Flow Rate 4 4 03/09/22 14:15 03/09/22 14:30 03/09/22 14:45 Temperature 99.5 F 99.5 F Pulse Rate 129 H 130 H Respiratory Rate 29 H 28 H Blood Pressure 142/69 H Pulse Oximetry 90 L 91 Oxygen Delivery Method Nasal Cannula Nasal Cannula Oxygen Flow Rate 4 4 03/09/22 14:45 03/09/22 15:00 03/09/22 15:00 Temperature 99.7 F H 99.7 F H Pulse Rate 132 H 129 H Respiratory Rate 34 H 27 H Blood Pressure 133/63 Pulse Oximetry 92 90 L Oxygen Delivery Method Nasal Cannula Nasal Cannula Oxygen Flow Rate 4 4 03/09/22 15:15 03/09/22 15:53 03/09/22 15:30 Temperature 99.9 F H 100 F H Pulse Rate 131 H Respiratory Rate 28 H Blood Pressure 135/66 Pulse Oximetry 92 Oxygen Delivery Method Nasal Cannula Oxygen Flow Rate 4 03/09/22 15:30 03/09/22 15:45 03/09/22 16:00 Temperature 100.0 F H 100.0 F H Pulse Rate 129 H 129 H Respiratory Rate 24 24 Blood Pressure 121/65 Pulse Oximetry 92 90 L Oxygen Delivery Method Nasal Cannula Nasal Cannula Oxygen Flow Rate 4 4 03/09/22 16:00 03/09/22 16:15 03/09/22 16:30 Temperature 100.0 F H 100.0 F H Pulse Rate 126 H 130 H Respiratory Rate 23 31 H Blood Pressure 133/72 Pulse Oximetry 92 92 Oxygen Delivery Method Nasal Cannula Oxygen Flow Rate 4 4 03/09/22 16:30 03/09/22 16:45 03/09/22 17:00 Temperature 100.0 F H Pulse Rate 121 H 121 H Respiratory Rate 30 H 29 H Blood Pressure 135/67 Pulse Oximetry 92 91 Oxygen Delivery Method Oxygen Flow Rate 4 03/09/22 17:00 03/09/22 17:15 Temperature 99.7 F H Pulse Rate 119 H 132 H Respiratory Rate 26 H 27 H Blood Pressure Pulse Oximetry 92 95 Oxygen Delivery Method Oxygen Flow Rate Oxygen Delivery Method Nasal Cannula Oxygen Flow Rate 4 Narrative Exam Narrative: pt is combative, not oriented, anxious [facility] Head: normocephalic and atraumatic Ears: external ears normal Nose: external nose normal Mouth: oral mucosae normal Eyes Pupils: PERRL EOM: EOM intact bilaterally Neck Neck: full ROM and supple Thyroid: thyroid normal Chest Chest: normal inspection of the chest Resp Auscultation: clear to auscultation bilaterally Cardio Rate: regular rate Rhythm: regular rhythm GI Inspection: normal to inspection Palpation: soft and No tender Auscultation: normal bowel sounds Back/Spine/Pelvis Back: normal to inspection Skin General: no rashes or lesions noted Neuro General: patient awake, moves all extremities and no focal motor deficits Extrem General: normal to inspection, full ROM and no clubbing, cyanosis or edema Objective Labs Result Diagrams: 03/09/22 12:00 03/09/22 12:00 Labs: Laboratory Results - last 24 hr 03/09/22 03/09/22 03/09/22 11:20 11:25 11:45 WBC RBC Hgb Hct MCV MCH MCHC RDW Plt Count Neut % (Auto) Lymph % (Auto) [place] % (Auto) Eos % (Auto) Baso % (Auto) Neut # (Auto) Lymph # (Auto) [place] # (Auto) Eos # (Auto) Baso # (Auto) PT INR APTT ABG pH 7.40 ABG pCO2 34.8 L ABG pO2 50 L ABG HCO3 22 ABG Total CO2 23 ABG O2 Saturation 85 L* ABG Base Excess -3.0 L FiO2 21 Sodium Potassium Chloride Carbon Dioxide BUN Creatinine Estimated GFR BUN/Creatinine Ratio Glucose Lactate Calcium Total Bilirubin AST ALT Alkaline Phosphatase Ammonia Total Creatine Kinase CK-MB (CK-2) CK-MB (CK-2) Rel Index Troponin I Total Protein Albumin Globulin Albumin/Globulin Ratio TSH Urine Color Yellow Urine Appearance Clear Urine pH 5.5 Ur Specific [place] <=1.005 Urine Protein 1+ H Urine Glucose (UA) Negative Urine Ketones Trace H Urine Occult Blood 3+ H Urine Nitrate Negative Urine Bilirubin Negative Urine Urobilinogen 0.2 Ur Leukocyte Esterase Negative Urine RBC 0-1/hpf Urine WBC 0-1/hpf Urine Bacteria Few (2-10) H Ur Culture Indicated? Cult not indicated Salicylates U Opiates 300ng/mL cut Ur Oxycodone Screen Urine Methadone Screen Acetaminophen Ur Barbiturates Screen U Tricyclic Antidepress Ur Phencyclidine Scrn Ur Amphetamines Screen U Methamphetamines Scrn Ur MDMA Scrn (Ecstasy) U Benzodiazepines Scrn Urine Cocaine Screen U Marijuana (THC) Screen Ethyl Alcohol Chlamy pneumoniae PCR Adenovirus (PCR) B. pertussis DNA (PCR) B.parapertussis DNA PCR Coronavirus OC43 (PCR) Coronavirus HKU1 (PCR) Coronavirus 229E (PCR) SARS-CoV-2 (PCR) Negative Coronavirus NL63 (PCR) Human Metapneumovir PCR Influenza Type A (PCR) Influenza Type B (PCR) M. pneumoniae (PCR) Parainfluenza 1 (PCR) Parainfluenza 2 (PCR) Parainfluenza 3 (PCR) Parainfluenza 4 (PCR) RSV (PCR) Entero/Rhino (PCR) 03/09/22 03/09/22 03/09/22 11:45 12:00 12:00 WBC 17.4 H RBC 4.79 Hgb 15.7 Hct 45.0 MCV 93.9 MCH 32.7 MCHC 34.8 RDW 14.4 Plt Count 216 Neut % (Auto) 88.1 H Lymph % (Auto) 4.5 L [place] % (Auto) 6.3 Eos % (Auto) 0.0 L Baso % (Auto) 1.1 Neut # (Auto) 53066 H Lymph # (Auto) 800 L [place] # (Auto) 1100 H Eos # (Auto) 0 Baso # (Auto) 200 H PT INR APTT ABG pH ABG pCO2 ABG pO2 ABG HCO3 ABG Total CO2 ABG O2 Saturation ABG Base Excess FiO2 Sodium 135 L Potassium 4.6 Chloride 101 Carbon Dioxide 22 BUN 13 Creatinine 1.03 Estimated GFR > 60 BUN/Creatinine Ratio 12.6 Glucose 160 H Lactate Calcium 6.9 L Total Bilirubin 0.9 AST 129 H ALT 72 H Alkaline Phosphatase 52 Ammonia Total Creatine Kinase 2513 H CK-MB (CK-2) 15.70 H CK-MB (CK-2) Rel Index 0.6 L Troponin I 0.099 H Total Protein 6.6 Albumin 3.6 Globulin 3.0 Albumin/Globulin Ratio 1.2 TSH Urine Color Urine Appearance Urine pH Ur Specific [place] Urine Protein Urine Glucose (UA) Urine Ketones Urine Occult Blood Urine Nitrate Urine Bilirubin Urine Urobilinogen Ur Leukocyte Esterase Urine RBC Urine WBC Urine Bacteria Ur Culture Indicated? Salicylates < 1.0 U Opiates 300ng/mL cut Negative Ur Oxycodone Screen Negative Urine Methadone Screen Negative Acetaminophen < 10 Ur Barbiturates Screen Negative U Tricyclic Antidepress Negative Ur Phencyclidine Scrn Negative Ur Amphetamines Screen Negative U Methamphetamines Scrn Negative Ur MDMA Scrn (Ecstasy) Negative U Benzodiazepines Scrn Negative Urine Cocaine Screen Negative U Marijuana (THC) Screen Negative Ethyl Alcohol 430 H* Chlamy pneumoniae PCR Adenovirus (PCR) B. pertussis DNA (PCR) B.parapertussis DNA PCR Coronavirus OC43 (PCR) Coronavirus HKU1 (PCR) Coronavirus 229E (PCR) SARS-CoV-2 (PCR) Coronavirus NL63 (PCR) Human Metapneumovir PCR Influenza Type A (PCR) Influenza Type B (PCR) M. pneumoniae (PCR) Parainfluenza 1 (PCR) Parainfluenza 2 (PCR) Parainfluenza 3 (PCR) Parainfluenza 4 (PCR) RSV (PCR) Entero/Rhino (PCR) 03/09/22 03/09/22 03/09/22 12:00 12:00 12:00 WBC RBC Hgb Hct MCV MCH MCHC RDW Plt Count Neut % (Auto) Lymph % (Auto) [place] % (Auto) Eos % (Auto) Baso % (Auto) Neut # (Auto) Lymph # (Auto) [place] # (Auto) Eos # (Auto) Baso # (Auto) PT 14.0 H INR 1.2 APTT 33 ABG pH ABG pCO2 ABG pO2 ABG HCO3 ABG Total CO2 ABG O2 Saturation ABG Base Excess FiO2 Sodium Potassium Chloride Carbon Dioxide BUN Creatinine Estimated GFR BUN/Creatinine Ratio Glucose Lactate 2.9 H Calcium Total Bilirubin AST ALT Alkaline Phosphatase Ammonia Total Creatine Kinase CK-MB (CK-2) CK-MB (CK-2) Rel Index Troponin I Total Protein Albumin Globulin Albumin/Globulin Ratio TSH 0.885 D Urine Color Urine Appearance Urine pH Ur Specific [place] Urine Protein Urine Glucose (UA) Urine Ketones Urine Occult Blood Urine Nitrate Urine Bilirubin Urine Urobilinogen Ur Leukocyte Esterase Urine RBC Urine WBC Urine Bacteria Ur Culture Indicated? Salicylates U Opiates 300ng/mL cut Ur Oxycodone Screen Urine Methadone Screen Acetaminophen Ur Barbiturates Screen U Tricyclic Antidepress Ur Phencyclidine Scrn Ur Amphetamines Screen U Methamphetamines Scrn Ur MDMA Scrn (Ecstasy) U Benzodiazepines Scrn Urine Cocaine Screen U Marijuana (THC) Screen Ethyl Alcohol Chlamy pneumoniae PCR Adenovirus (PCR) B. pertussis DNA (PCR) B.parapertussis DNA PCR Coronavirus OC43 (PCR) Coronavirus HKU1 (PCR) Coronavirus 229E (PCR) SARS-CoV-2 (PCR) Coronavirus NL63 (PCR) Human Metapneumovir PCR Influenza Type A (PCR) Influenza Type B (PCR) M. pneumoniae (PCR) Parainfluenza 1 (PCR) Parainfluenza 2 (PCR) Parainfluenza 3 (PCR) Parainfluenza 4 (PCR) RSV (PCR) Entero/Rhino (PCR) 03/09/22 03/09/22 03/09/22 12:00 13:25 14:08 WBC RBC Hgb Hct MCV MCH MCHC RDW Plt Count Neut % (Auto) Lymph % (Auto) [place] % (Auto) Eos % (Auto) Baso % (Auto) Neut # (Auto) Lymph # (Auto) [place] # (Auto) Eos # (Auto) Baso # (Auto) PT INR APTT ABG pH ABG pCO2 ABG pO2 ABG HCO3 ABG Total CO2 ABG O2 Saturation ABG Base Excess FiO2 Sodium Potassium Chloride Carbon Dioxide BUN Creatinine Estimated GFR BUN/Creatinine Ratio Glucose Lactate Calcium Total Bilirubin AST ALT Alkaline Phosphatase Ammonia 11 Total Creatine Kinase CK-MB (CK-2) CK-MB (CK-2) Rel Index Troponin I 0.103 H Total Protein Albumin Globulin Albumin/Globulin Ratio TSH Urine Color Urine Appearance Urine pH Ur Specific [place] Urine Protein Urine Glucose (UA) Urine Ketones Urine Occult Blood Urine Nitrate Urine Bilirubin Urine Urobilinogen Ur Leukocyte Esterase Urine RBC Urine WBC Urine Bacteria Ur Culture Indicated? Salicylates U Opiates 300ng/mL cut Ur Oxycodone Screen Urine Methadone Screen Acetaminophen Ur Barbiturates Screen U Tricyclic Antidepress Ur Phencyclidine Scrn Ur Amphetamines Screen U Methamphetamines Scrn Ur MDMA Scrn (Ecstasy) U Benzodiazepines Scrn Urine Cocaine Screen U Marijuana (THC) Screen Ethyl Alcohol Chlamy pneumoniae PCR Not detected Adenovirus (PCR) Not detected B. pertussis DNA (PCR) Not detected B.parapertussis DNA PCR Not detected Coronavirus OC43 (PCR) Not detected Coronavirus HKU1 (PCR) Not detected Coronavirus 229E (PCR) Not detected SARS-CoV-2 (PCR) Not detected Coronavirus NL63 (PCR) Not detected Human Metapneumovir PCR Not detected Influenza Type A (PCR) Not detected Influenza Type B (PCR) Not detected M. pneumoniae (PCR) Not detected Parainfluenza 1 (PCR) Not detected Parainfluenza 2 (PCR) Not detected Parainfluenza 3 (PCR) Not detected Parainfluenza 4 (PCR) Not detected RSV (PCR) Not detected Entero/Rhino (PCR) Not detected 03/09/22 14:15 WBC RBC Hgb Hct MCV MCH MCHC RDW Plt Count Neut % (Auto) Lymph % (Auto) [place] % (Auto) Eos % (Auto) Baso % (Auto) Neut # (Auto) Lymph # (Auto) [place] # (Auto) Eos # (Auto) Baso # (Auto) PT INR APTT ABG pH ABG pCO2 ABG pO2 ABG HCO3 ABG Total CO2 ABG O2 Saturation ABG Base Excess FiO2 Sodium Potassium Chloride Carbon Dioxide BUN Creatinine Estimated GFR BUN/Creatinine Ratio Glucose Lactate 2.2 H Calcium Total Bilirubin AST ALT Alkaline Phosphatase Ammonia Total Creatine Kinase CK-MB (CK-2) CK-MB (CK-2) Rel Index Troponin I Total Protein Albumin Globulin Albumin/Globulin Ratio TSH Urine Color Urine Appearance Urine pH Ur Specific [place] Urine Protein Urine Glucose (UA) Urine Ketones Urine Occult Blood Urine Nitrate Urine Bilirubin Urine Urobilinogen Ur Leukocyte Esterase Urine RBC Urine WBC Urine Bacteria Ur Culture Indicated? Salicylates U Opiates 300ng/mL cut Ur Oxycodone Screen Urine Methadone Screen Acetaminophen Ur Barbiturates Screen U Tricyclic Antidepress Ur Phencyclidine Scrn Ur Amphetamines Screen U Methamphetamines Scrn Ur MDMA Scrn (Ecstasy) U Benzodiazepines Scrn Urine Cocaine Screen U Marijuana (THC) Screen Ethyl Alcohol Chlamy pneumoniae PCR Adenovirus (PCR) B. pertussis DNA (PCR) B.parapertussis DNA PCR Coronavirus OC43 (PCR) Coronavirus HKU1 (PCR) Coronavirus 229E (PCR) SARS-CoV-2 (PCR) Coronavirus NL63 (PCR) Human Metapneumovir PCR Influenza Type A (PCR) Influenza Type B (PCR) M. pneumoniae (PCR) Parainfluenza 1 (PCR) Parainfluenza 2 (PCR) Parainfluenza 3 (PCR) Parainfluenza 4 (PCR) RSV (PCR) Entero/Rhino (PCR) Assessment & Plan Assessment & Plan narrative: Assessment/Plan: Alcohol intoxication/Alcohol withdrawal - [place] protocol -telemetry monitoring -neurochecks Alcohol abuse -will be discussing tomorrow his life style modifications when appropriate to discuss - IVF thiamin, folic acid Lactic acidosis/Leukocytosis likely due to aspirational pneumonia - IVF -recheck LA level in AM - empiric abx - cx blood urine Pneumonia aspirational -levaquin IV daily Elevated troponin? - trend troponin -one dose therapeutic lovenox -EKG DVT prophylaxis: lovenox code status : emt Spent With Patient Critical Care time: I spent a total of [] minutes of critical care time on this patient's care today; this time is exclusive of procedural time.
--- NOTE | 2022-03-09 17:51 | PC.NURSE ---
Day shift: Pt on unit from ED at approx 1740. BP WNL. HR 125. Keeps saying I have so much anxiety. Dr Zepeda informed Pt here and verbal order taken for Ativan per [facility] protocol. Seizure pads in place and bed alarm is on. Oriented to room and call light. Bed alarm is on. Will leave SCD off as Pt very high risk of falling. Door to room open. HFR protocols in place.
[2022-03-09] MEDS: LORazepam 2 MG/ML INJ IV (18:05)
[2022-03-09] MEDS: PANTOPRAZOLE 40 MG VIAL IV (18:47)
[2022-03-09] MEDS: levoFLOXacin 750 MG/150 ML PIGGYBACK 100 MG IV (18:48)
[2022-03-09] MEDS: ENOXAPARIN 100 MG/ML SYRINGE SUBCUT (18:48)
--- NOTE | 2022-03-09 21:07 | PC.NURSE ---
Addendum entered by Kayla Mora R.N. 03/09/22 22:02: Pt transferred to 227 and report given to FISH BUTCHER Lyric @ 21:20. Original Note: Noted admit to ICU order. Contacted hospitalist SRINIVAS w/ update on patient status. Pt on 6L NC w/ O2 sats oscillating between 88% and 98%, positional apnea during sleep. Pt arousable, alert and oriented but with mild confusion regarding plan of care. Anxious w/ flat affect. Diaphoretic. Denies headache, dizziness, nausea, or sensitivity to lights/sounds, denies A/V/T hallucinations. Lung sounds coarse and diminished on R side. Non-productive cough. Tachycardia on tele, regular rhythm, pulses palpable. Pt hyperfocused on obtaining a dose of xanax, valium, or ativan. Pt returns to sleep if left alone for a period of time. Srinivas ordered transfer to ICU.
[2022-03-09] MEDS: dexmedeTOMIDine in 0.9 % NaCL 400 MCG/100 ML PLAST..BAG 5.375 MCG IV (21:54)
--- NOTE | 2022-03-09 23:01 | PC.NURSE ---
Addendum entered by Lyric Sweet R.N. 03/10/22 05:47: 0530- Patient is resting quietly. Heart rate is in the 80's, respirations at 16. Temp is down to 99.0 after po tylenol. Requires 6 liters of o2 to keep saturation 92%. Right lung is coarse, patient is in NSR. Precedex infusion at 0.7mcg/kg/hr. Will monitor. Addendum entered by Lyric Sweet R.N. 03/10/22 03:32: 0330-Patient requesting something for my anxiety. Patient states when he last was admitted he was given a mixture of medications that helped him be calm. Patient does not currently score high enough to give Ativan per the [facility] Protocol. Also patient is still clearing the alcohol that he had on board at admission. Dr. Espino called and orders received. Patient medicated per orders. Will monitor. Original Note: 2200-Patient transferred to ICU room 227. Patient is anxious and sweaty but oriented. [facility] on arrival was 7. Patient states he wants Ativan because he feels terrible. Patient started on Precedex per order. Jack catheter draining yellow urine and patient is on 6.5 liters of oxygen. Right lung posterior is coarse from base to mid lobe. Patient has a low grade temperature. Seizure precautions in place. Will monitor closely.
[2022-03-10] VITALS (56 sets, daily range): BP systolic 88–170; BP diastolic 52–115; PULSE 63–139; RESP 17–45; TEMP 35.8–37.9; O2SAT 66–100
[2022-03-10] MEDS: dexmedeTOMIDine in 0.9 % NaCL 400 MCG/100 ML PLAST..BAG 18.813 MCG IV ×2 (01:17→06:14)
[2022-03-10] MEDS: ACETAMINOPHEN 325 MG TABLET 650 MG PO (03:46)
[2022-03-10] MEDS: LORazepam 1 MG TABLET PO (03:46)
[2022-03-10] MEDS: LACTATED RINGERS 1,000 ML 100 ML IV ×2 (06:13→16:25)
[2022-03-10] MEDS: THIAMINE 100 MG in SODIUM CHLORIDE 0.9% 100 ML 404 MG IV (08:08)
[2022-03-10] MEDS: LORazepam 2 MG/ML INJ IV ×10 (08:09→21:00)
[2022-03-10] MEDS: FOLIC ACID 1 MG TABLET PO (08:09)
[2022-03-10] MEDS: DILTIAZEM 125 MG/125 ML PIGGYBACK 15 MG IV ×2 (09:50→16:24)
--- NOTE | 2022-03-10 09:59 | P.TELICUCN_ITS ---
History of Present Illness Consult details Chief complaint: ETOH Narrative: Stanislav Martinez , 46 y/o male with h/o of? alcohol abuse presented with H/o of altered mental status 2/2 alcohol, admitted to ICU for Alcohol withdrawal and development of acute hypoxemic resp failure/ RLL aspiration PNA new afib w RVR, HR 130s. Assessment: Acute encephalopathy 2/2 Alcohol intoxication then with drawl Afib w RVR Sever sepsis 2/2 aspiration PNA Lactic acidosis Acute hypoxemic respiratory failure Alcohol withdrawal Alcohol abuse Alcohlolic hepatitis Elevated CT T trop Rec: Continue NC 2 L, wean off as tolerated IV Cardizem 15 mg slow push then a drip as needed to HR goal <100 Start IV Zosym, f/u sputum and blood cx Continue precede drip as needed Continue Lorazepam per CIW protocol Continue folic acid & thiamin Trend EKG, lactate, CK and trop Dc Acetaminophen, trend LFT daily Continue PPI and Lovenox CCT 50 min PFSH Medical History Alcohol abuse Hypertension (~2019) Social History household members: friend(s) Smoking Status: Never smoker alcohol intake: current Current Medications Current Medications Medications: Home Medications chorionic gonadotropin, human 10,000 unit intramuscular solution 10,000 unit IM DIRECTED 09/22/20 [History Confirmed 02/06/22] testosterone 200 mg implant pellet 100 mg SUBCUT WEEKLY 09/22/20 [History Confirmed 02/06/22] paroxetine HCl 40 mg tablet 40 mg PO DAILY #90 tabs 01/01/22 [Rx Confirmed 02/06/22] folic acid 1 mg tablet 1 mg PO DAILY #30 tabs 02/06/22 [Rx] gabapentin 300 mg capsule 300 mg PO TID #90 caps 02/06/22 [Rx] lorazepam 1 mg tablet 1 mg PO Q8H PRN Anxiety #10 tabs 02/06/22 [Rx] melatonin 10 mg tablet 10 mg PO BEDTIME PRN sleep #30 tabs 02/06/22 [Rx] methocarbamol 500 mg tablet 500 mg PO TID #90 tabs 02/06/22 [Rx] multivitamin with folic acid 400 mcg tablet (Tab-A-Isis) 1 tab PO DAILY #30 tabs 02/06/22 [Rx] olanzapine 5 mg tablet (Zyprexa) 5 mg PO BEDTIME #30 tabs 02/06/22 [Rx] Visit Medications (administered) Generic Name Dose Route Start Last Admin Trade Name Berry PRN Reason Stop Dose Admin Acetaminophen 650 mg 03/10/22 03:28 03/10/22 03:46 Acetaminophen 325 Mg Tablet PO 650 mg Q6H PRN Administration Fever/Mild Pain (1-3) Folic Acid 1 mg 03/10/22 09:00 03/10/22 08:09 Folic Acid 1 Mg Tablet PO 1 mg DAILY [place] Administration Lactated Ringer's 1,000 mls @ 100 mls/hr 03/09/22 15:45 03/10/22 06:13 Lactated Ringers IV 100 mls/hr CONT [place] Administration Thiamine HCl 100 mg/ Sodium 101 mls @ 404 mls/hr 03/10/22 09:00 03/10/22 08:50 Chloride IV Infused DAILY [place] Infusion dexmedeTOMIDine in 0.9 % NaCL 400 mcg in 100 mls @ 5.375 mls/hr 03/09/22 21:00 03/10/22 09:26 Precedex IV 1.2 mcg/kg/hr TITRATE [place] 32.25 mls/hr Infusion 0.2 MCG/KG/HR Lorazepam 0 mg 03/09/22 17:57 03/10/22 09:26 Lorazepam 2 Mg/Ml Inj IV 2 mg CIWAPRN PRN Administration Alcohol Withdrawal Protocol Lorazepam 1 mg 03/10/22 03:27 03/10/22 03:46 Lorazepam 1 Mg Tablet PO 1 mg Q6HR PRN Administration Anxiety Exam Vital Signs (past 8 hours): - 03/10/22 02:00 03/10/22 02:35 03/10/22 03:46 Temperature 99.5 F 100.2 F H Pulse Rate 90 Respiratory Rate 23 Blood Pressure 106/55 L Pulse Oximetry 93 Oxygen Delivery Method Nasal Cannula Oxygen Flow Rate 6 03/10/22 04:15 03/10/22 04:01 03/10/22 04:01 Temperature 100 F H 100.0 F H Pulse Rate 103 H Respiratory Rate 23 Blood Pressure 99/68 Pulse Oximetry 96 Oxygen Delivery Method Oxygen Flow Rate 03/10/22 04:47 03/10/22 06:01 03/10/22 06:01 Temperature 100.0 F H 98.8 F Pulse Rate 84 84 Respiratory Rate 21 19 Blood Pressure 88/54 L Pulse Oximetry 97 96 Oxygen Delivery Method Oxygen Flow Rate 03/10/22 06:02 03/10/22 06:02 03/10/22 06:09 Temperature 98.8 F 98.6 F Pulse Rate 88 85 Respiratory Rate 17 19 Blood Pressure 95/57 L Pulse Oximetry 97 97 Oxygen Delivery Method Oxygen Flow Rate 03/10/22 07:19 03/10/22 08:00 03/10/22 08:30 Temperature Pulse Rate 115 H Respiratory Rate 34 H Blood Pressure 114/82 Pulse Oximetry 96 Oxygen Delivery Method Nasal Cannula Nasal Cannula Oxygen Flow Rate 2 03/10/22 07:35 03/10/22 09:15 Temperature 98.8 F Pulse Rate 107 H 139 H Respiratory Rate 22 35 H Blood Pressure 170/115 H Pulse Oximetry 96 Oxygen Delivery Method Oxygen Flow Rate 2 Oxygen Delivery Method Nasal Cannula Oxygen Flow Rate 2 Objective Labs Result Diagrams: 03/09/22 12:00 03/09/22 12:00 Labs: Laboratory Results - last 24 hr 03/09/22 03/09/22 03/09/22 11:20 11:25 11:45 WBC RBC Hgb Hct MCV MCH MCHC RDW Plt Count Neut % (Auto) Lymph % (Auto) Alfalfa % (Auto) Eos % (Auto) Baso % (Auto) Neut # (Auto) Lymph # (Auto) Alfalfa # (Auto) Eos # (Auto) Baso # (Auto) PT INR APTT ABG pH 7.40 ABG pCO2 34.8 L ABG pO2 50 L ABG HCO3 22 ABG Total CO2 23 ABG O2 Saturation 85 L* ABG Base Excess -3.0 L FiO2 21 Sodium Potassium Chloride Carbon Dioxide BUN Creatinine Estimated GFR BUN/Creatinine Ratio Glucose Lactate Calcium Total Bilirubin AST ALT Alkaline Phosphatase Ammonia Total Creatine Kinase CK-MB (CK-2) CK-MB (CK-2) Rel Index Troponin I Total Protein Albumin Globulin Albumin/Globulin Ratio TSH Urine Color Yellow Urine Appearance Clear Urine pH 5.5 Ur Specific [place] <=1.005 Urine Protein 1+ H Urine Glucose (UA) Negative Urine Ketones Trace H Urine Occult Blood 3+ H Urine Nitrate Negative Urine Bilirubin Negative Urine Urobilinogen 0.2 Ur Leukocyte Esterase Negative Urine RBC 0-1/hpf Urine WBC 0-1/hpf Urine Bacteria Few (2-10) H Ur Culture Indicated? Cult not indicated Nasal Screen MRSA (PCR) Salicylates U Opiates 300ng/mL cut Ur Oxycodone Screen Urine Methadone Screen Acetaminophen Ur Barbiturates Screen U Tricyclic Antidepress Ur Phencyclidine Scrn Ur Amphetamines Screen U Methamphetamines Scrn Ur MDMA Scrn (Ecstasy) U Benzodiazepines Scrn Urine Cocaine Screen U Marijuana (THC) Screen Ethyl Alcohol Chlamy pneumoniae PCR Adenovirus (PCR) B. pertussis DNA (PCR) B.parapertussis DNA PCR Coronavirus OC43 (PCR) Coronavirus HKU1 (PCR) Coronavirus 229E (PCR) SARS-CoV-2 (PCR) Negative Coronavirus NL63 (PCR) Human Metapneumovir PCR Influenza Type A (PCR) Influenza Type B (PCR) M. pneumoniae (PCR) Parainfluenza 1 (PCR) Parainfluenza 2 (PCR) Parainfluenza 3 (PCR) Parainfluenza 4 (PCR) RSV (PCR) Entero/Rhino (PCR) 03/09/22 03/09/22 03/09/22 11:45 12:00 12:00 WBC 17.4 H RBC 4.79 Hgb 15.7 Hct 45.0 MCV 93.9 MCH 32.7 MCHC 34.8 RDW 14.4 Plt Count 216 Neut % (Auto) 88.1 H Lymph % (Auto) 4.5 L Alfalfa % (Auto) 6.3 Eos % (Auto) 0.0 L Baso % (Auto) 1.1 Neut # (Auto) 71255 H Lymph # (Auto) 800 L Alfalfa # (Auto) 1100 H Eos # (Auto) 0 Baso # (Auto) 200 H PT INR APTT ABG pH ABG pCO2 ABG pO2 ABG HCO3 ABG Total CO2 ABG O2 Saturation ABG Base Excess FiO2 Sodium 135 L Potassium 4.6 Chloride 101 Carbon Dioxide 22 BUN 13 Creatinine 1.03 Estimated GFR > 60 BUN/Creatinine Ratio 12.6 Glucose 160 H Lactate Calcium 6.9 L Total Bilirubin 0.9 AST 129 H ALT 72 H Alkaline Phosphatase 52 Ammonia Total Creatine Kinase 2513 H CK-MB (CK-2) 15.70 H CK-MB (CK-2) Rel Index 0.6 L Troponin I 0.099 H Total Protein 6.6 Albumin 3.6 Globulin 3.0 Albumin/Globulin Ratio 1.2 TSH Urine Color Urine Appearance Urine pH Ur Specific [place] Urine Protein Urine Glucose (UA) Urine Ketones Urine Occult Blood Urine Nitrate Urine Bilirubin Urine Urobilinogen Ur Leukocyte Esterase Urine RBC Urine WBC Urine Bacteria Ur Culture Indicated? Nasal Screen MRSA (PCR) Salicylates < 1.0 U Opiates 300ng/mL cut Negative Ur Oxycodone Screen Negative Urine Methadone Screen Negative Acetaminophen < 10 Ur Barbiturates Screen Negative U Tricyclic Antidepress Negative Ur Phencyclidine Scrn Negative Ur Amphetamines Screen Negative U Methamphetamines Scrn Negative Ur MDMA Scrn (Ecstasy) Negative U Benzodiazepines Scrn Negative Urine Cocaine Screen Negative U Marijuana (THC) Screen Negative Ethyl Alcohol 430 H* Chlamy pneumoniae PCR Adenovirus (PCR) B. pertussis DNA (PCR) B.parapertussis DNA PCR Coronavirus OC43 (PCR) Coronavirus HKU1 (PCR) Coronavirus 229E (PCR) SARS-CoV-2 (PCR) Coronavirus NL63 (PCR) Human Metapneumovir PCR Influenza Type A (PCR) Influenza Type B (PCR) M. pneumoniae (PCR) Parainfluenza 1 (PCR) Parainfluenza 2 (PCR) Parainfluenza 3 (PCR) Parainfluenza 4 (PCR) RSV (PCR) Entero/Rhino (PCR) 03/09/22 03/09/22 03/09/22 12:00 12:00 12:00 WBC RBC Hgb Hct MCV MCH MCHC RDW Plt Count Neut % (Auto) Lymph % (Auto) Alfalfa % (Auto) Eos % (Auto) Baso % (Auto) Neut # (Auto) Lymph # (Auto) Alfalfa # (Auto) Eos # (Auto) Baso # (Auto) PT 14.0 H INR 1.2 APTT 33 ABG pH ABG pCO2 ABG pO2 ABG HCO3 ABG Total CO2 ABG O2 Saturation ABG Base Excess FiO2 Sodium Potassium Chloride Carbon Dioxide BUN Creatinine Estimated GFR BUN/Creatinine Ratio Glucose Lactate 2.9 H Calcium Total Bilirubin AST ALT Alkaline Phosphatase Ammonia Total Creatine Kinase CK-MB (CK-2) CK-MB (CK-2) Rel Index Troponin I Total Protein Albumin Globulin Albumin/Globulin Ratio TSH 0.885 D Urine Color Urine Appearance Urine pH Ur Specific [place] Urine Protein Urine Glucose (UA) Urine Ketones Urine Occult Blood Urine Nitrate Urine Bilirubin Urine Urobilinogen Ur Leukocyte Esterase Urine RBC Urine WBC Urine Bacteria Ur Culture Indicated? Nasal Screen MRSA (PCR) Salicylates U Opiates 300ng/mL cut Ur Oxycodone Screen Urine Methadone Screen Acetaminophen Ur Barbiturates Screen U Tricyclic Antidepress Ur Phencyclidine Scrn Ur Amphetamines Screen U Methamphetamines Scrn Ur MDMA Scrn (Ecstasy) U Benzodiazepines Scrn Urine Cocaine Screen U Marijuana (THC) Screen Ethyl Alcohol Chlamy pneumoniae PCR Adenovirus (PCR) B. pertussis DNA (PCR) B.parapertussis DNA PCR Coronavirus OC43 (PCR) Coronavirus HKU1 (PCR) Coronavirus 229E (PCR) SARS-CoV-2 (PCR) Coronavirus NL63 (PCR) Human Metapneumovir PCR Influenza Type A (PCR) Influenza Type B (PCR) M. pneumoniae (PCR) Parainfluenza 1 (PCR) Parainfluenza 2 (PCR) Parainfluenza 3 (PCR) Parainfluenza 4 (PCR) RSV (PCR) Entero/Rhino (PCR) 03/09/22 03/09/22 03/09/22 12:00 13:25 14:08 WBC RBC Hgb Hct MCV MCH MCHC RDW Plt Count Neut % (Auto) Lymph % (Auto) Alfalfa % (Auto) Eos % (Auto) Baso % (Auto) Neut # (Auto) Lymph # (Auto) [place]alfa # (Auto) Eos # (Auto) Baso # (Auto) PT INR APTT ABG pH ABG pCO2 ABG pO2 ABG HCO3 ABG Total CO2 ABG O2 Saturation ABG Base Excess FiO2 Sodium Potassium Chloride Carbon Dioxide BUN Creatinine Estimated GFR BUN/Creatinine Ratio Glucose Lactate Calcium Total Bilirubin AST ALT Alkaline Phosphatase Ammonia 11 Total Creatine Kinase CK-MB (CK-2) CK-MB (CK-2) Rel Index Troponin I 0.103 H Total Protein Albumin Globulin Albumin/Globulin Ratio TSH Urine Color Urine Appearance Urine pH Ur Specific [place] Urine Protein Urine Glucose (UA) Urine Ketones Urine Occult Blood Urine Nitrate Urine Bilirubin Urine Urobilinogen Ur Leukocyte Esterase Urine RBC Urine WBC Urine Bacteria Ur Culture Indicated? Nasal Screen MRSA (PCR) Salicylates U Opiates 300ng/mL cut Ur Oxycodone Screen Urine Methadone Screen Acetaminophen Ur Barbiturates Screen U Tricyclic Antidepress Ur Phencyclidine Scrn Ur Amphetamines Screen U Methamphetamines Scrn Ur MDMA Scrn (Ecstasy) U Benzodiazepines Scrn Urine Cocaine Screen U Marijuana (THC) Screen Ethyl Alcohol Chlamy pneumoniae PCR Not detected Adenovirus (PCR) Not detected B. pertussis DNA (PCR) Not detected B.parapertussis DNA PCR Not detected Coronavirus OC43 (PCR) Not detected Coronavirus HKU1 (PCR) Not detected Coronavirus 229E (PCR) Not detected SARS-CoV-2 (PCR) Not detected Coronavirus NL63 (PCR) Not detected Human Metapneumovir PCR Not detected Influenza Type A (PCR) Not detected Influenza Type B (PCR) Not detected M. pneumoniae (PCR) Not detected Parainfluenza 1 (PCR) Not detected Parainfluenza 2 (PCR) Not detected Parainfluenza 3 (PCR) Not detected Parainfluenza 4 (PCR) Not detected RSV (PCR) Not detected Entero/Rhino (PCR) Not detected 03/09/22 03/09/22 14:15 23:15 WBC RBC Hgb Hct MCV MCH MCHC RDW Plt Count Neut % (Auto) Lymph % (Auto) Alfalfa % (Auto) Eos % (Auto) Baso % (Auto) Neut # (Auto) Lymph # (Auto) Alfalfa # (Auto) Eos # (Auto) Baso # (Auto) PT INR APTT ABG pH ABG pCO2 ABG pO2 ABG HCO3 ABG Total CO2 ABG O2 Saturation ABG Base Excess FiO2 Sodium Potassium Chloride Carbon Dioxide BUN Creatinine Estimated GFR BUN/Creatinine Ratio Glucose Lactate 2.2 H Calcium Total Bilirubin AST ALT Alkaline Phosphatase Ammonia Total Creatine Kinase CK-MB (CK-2) CK-MB (CK-2) Rel Index Troponin I Total Protein Albumin Globulin Albumin/Globulin Ratio TSH Urine Color Urine Appearance Urine pH Ur Specific [place] Urine Protein Urine Glucose (UA) Urine Ketones Urine Occult Blood Urine Nitrate Urine Bilirubin Urine Urobilinogen Ur Leukocyte Esterase Urine RBC Urine WBC Urine Bacteria Ur Culture Indicated? Nasal Screen MRSA (PCR) Negative for mrsa Salicylates U Opiates 300ng/mL cut Ur Oxycodone Screen Urine Methadone Screen Acetaminophen Ur Barbiturates Screen U Tricyclic Antidepress Ur Phencyclidine Scrn Ur Amphetamines Screen U Methamphetamines Scrn Ur MDMA Scrn (Ecstasy) U Benzodiazepines Scrn Urine Cocaine Screen U Marijuana (THC) Screen Ethyl Alcohol Chlamy pneumoniae PCR Adenovirus (PCR) B. pertussis DNA (PCR) B.parapertussis DNA PCR Coronavirus OC43 (PCR) Coronavirus HKU1 (PCR) Coronavirus 229E (PCR) SARS-CoV-2 (PCR) Coronavirus NL63 (PCR) Human Metapneumovir PCR Influenza Type A (PCR) Influenza Type B (PCR) M. pneumoniae (PCR) Parainfluenza 1 (PCR) Parainfluenza 2 (PCR) Parainfluenza 3 (PCR) Parainfluenza 4 (PCR) RSV (PCR) Entero/Rhino (PCR) Assessment & Plan Time Spent With Patient Critical Care time: I spent a total of [] minutes of critical care time on this patient's care today; this time is exclusive of procedural time.
[2022-03-10] MEDS: PIPERACILLIN/TAZO 3.375 GM in SODIUM CHLORIDE 0.9% 100 ML IV ×2 (10:28→17:15)
--- NOTE | 2022-03-10 10:56 | PC.NURSE ---
Addendum entered by Kendra Manrique R.N. 03/10/22 15:27: given 25mg iv benedryl for continued restlessness and agitation Addendum entered by Kendra Manrique R.N. 03/10/22 15:00: pt continues to be restless and taking large amounts of h20- voiding per urinal and continues to be very agitated and restless 12mg iv lorazepam given thus far this shift in attempt to ease his etoh withdrawl symptoms Addendum entered by Kendra Manrique R.N. 03/10/22 12:48: I need diazepam, lorazepam and gabapentin or at least benedryl tried to educate pt on the etoh withdrawl protocol and the plan for same i don't feel drunk anymore, more like I'm on acid or something Addendum entered by Kendra Manrique R.N. 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 03/10/22 11:03: PT REQUESTED CLARK TO BE REMOVED THIS AM - THIS WAS COMPLETED, PER HIS REQUEST ALSO, IV 20G IN RIGHT HAND BECAME OCCLUDED AND REMOVED BY THIS RN Original Note: INITIAL PT ASSESSMNET PT SCORED 16/17 ON CIWA SCALE - MEDICATED WITH 2MG IV LORZ AND REASSESSED AT 16- GIVEN TOTAL OF 6MG IV PUSH THIS AM FOR ELEVATED CIWA SCORES AND PTS INCREASE IN AGITATION AND OBVIOUS WITHDRAWL SX. 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
--- NOTE | 2022-03-10 11:11 | PM.PN.1 ---
Subjective Subjective Interval history: agitated, on precedex, abnormal herat rhythm Exam Vital Signs (past 8 hours): - 03/10/22 03:46 03/10/22 04:15 03/10/22 04:01 Temperature 100.2 F H 100 F H 100.0 F H Pulse Rate 103 H Respiratory Rate 23 Blood Pressure Pulse Oximetry 96 Oxygen Delivery Method Oxygen Flow Rate 03/10/22 04:01 03/10/22 04:47 03/10/22 06:01 Temperature 100.0 F H 98.8 F Pulse Rate 84 84 Respiratory Rate 21 19 Blood Pressure 99/68 Pulse Oximetry 97 96 Oxygen Delivery Method Oxygen Flow Rate 03/10/22 06:01 03/10/22 06:02 03/10/22 06:02 Temperature 98.8 F Pulse Rate 88 Respiratory Rate 17 Blood Pressure 88/54 L 95/57 L Pulse Oximetry 97 Oxygen Delivery Method Oxygen Flow Rate 03/10/22 06:09 03/10/22 07:19 03/10/22 08:00 Temperature 98.6 F Pulse Rate 85 Respiratory Rate 19 Blood Pressure Pulse Oximetry 97 96 Oxygen Delivery Method Nasal Cannula Nasal Cannula Oxygen Flow Rate 2 03/10/22 08:30 03/10/22 07:35 03/10/22 09:15 Temperature 98.8 F Pulse Rate 115 H 107 H 139 H Respiratory Rate 34 H 22 35 H Blood Pressure 114/82 170/115 H Pulse Oximetry 96 Oxygen Delivery Method Oxygen Flow Rate 2 03/10/22 09:45 Temperature Pulse Rate 111 H Respiratory Rate 29 H Blood Pressure Pulse Oximetry Oxygen Delivery Method Oxygen Flow Rate Oxygen Delivery Method Nasal Cannula Oxygen Flow Rate 2 Const General: cooperative and well developed Orientation: alert, awake and oriented to person [facility] Head: normal to inspection Ears: external ears normal Mouth: oral mucosae normal Eyes Pupils: PERRL EOM: EOM intact bilaterally Neck Neck: normal visual inspection and full ROM Resp Effort & Inspection: normal respiratory effort Auscultation: clear to auscultation bilaterally Cardio Other: irregular rhythm GI Palpation: soft and no hepatosplenomegaly Auscultation: normal bowel sounds Skin General: no rashes or lesions noted Neuro General: patient alert, patient awake, patient oriented x3, moves all extremities and no focal motor deficits Speech: speech normal Extrem General: normal to inspection, full ROM and no pedal edema Psych Appearance: grossly normal Objective Labs Result Diagrams: 03/09/22 12:00 03/09/22 12:00 Labs: Laboratory Results - last 24 hr 03/09/22 03/09/22 03/09/22 11:20 11:25 11:45 WBC RBC Hgb Hct MCV MCH MCHC RDW Plt Count Neut % (Auto) Lymph % (Auto) [place] % (Auto) Eos % (Auto) Baso % (Auto) Neut # (Auto) Lymph # (Auto) [place] # (Auto) Eos # (Auto) Baso # (Auto) PT INR APTT ABG pH 7.40 ABG pCO2 34.8 L ABG pO2 50 L ABG HCO3 22 ABG Total CO2 23 ABG O2 Saturation 85 L* ABG Base Excess -3.0 L FiO2 21 Sodium Potassium Chloride Carbon Dioxide BUN Creatinine Estimated GFR BUN/Creatinine Ratio Glucose Lactate Calcium Total Bilirubin AST ALT Alkaline Phosphatase Ammonia Total Creatine Kinase CK-MB (CK-2) CK-MB (CK-2) Rel Index Troponin I Total Protein Albumin Globulin Albumin/Globulin Ratio TSH Urine Color Yellow Urine Appearance Clear Urine pH 5.5 Ur Specific [place] <=1.005 Urine Protein 1+ H Urine Glucose (UA) Negative Urine Ketones Trace H Urine Occult Blood 3+ H Urine Nitrate Negative Urine Bilirubin Negative Urine Urobilinogen 0.2 Ur Leukocyte Esterase Negative Urine RBC 0-1/hpf Urine WBC 0-1/hpf Urine Bacteria Few (2-10) H Ur Culture Indicated? Cult not indicated Nasal Screen MRSA (PCR) Salicylates U Opiates 300ng/mL cut Ur Oxycodone Screen Urine Methadone Screen Acetaminophen Ur Barbiturates Screen U Tricyclic Antidepress Ur Phencyclidine Scrn Ur Amphetamines Screen U Methamphetamines Scrn Ur MDMA Scrn (Ecstasy) U Benzodiazepines Scrn Urine Cocaine Screen U Marijuana (THC) Screen Ethyl Alcohol Chlamy pneumoniae PCR Adenovirus (PCR) B. pertussis DNA (PCR) B.parapertussis DNA PCR Coronavirus OC43 (PCR) Coronavirus HKU1 (PCR) Coronavirus 229E (PCR) SARS-CoV-2 (PCR) Negative Coronavirus NL63 (PCR) Human Metapneumovir PCR Influenza Type A (PCR) Influenza Type B (PCR) M. pneumoniae (PCR) Parainfluenza 1 (PCR) Parainfluenza 2 (PCR) Parainfluenza 3 (PCR) Parainfluenza 4 (PCR) RSV (PCR) Entero/Rhino (PCR) 03/09/22 03/09/22 03/09/22 11:45 12:00 12:00 WBC 17.4 H RBC 4.79 Hgb 15.7 Hct 45.0 MCV 93.9 MCH 32.7 MCHC 34.8 RDW 14.4 Plt Count 216 Neut % (Auto) 88.1 H Lymph % (Auto) 4.5 L [place] % (Auto) 6.3 Eos % (Auto) 0.0 L Baso % (Auto) 1.1 Neut # (Auto) 46054 H Lymph # (Auto) 800 L [place] # (Auto) 1100 H Eos # (Auto) 0 Baso # (Auto) 200 H PT INR APTT ABG pH ABG pCO2 ABG pO2 ABG HCO3 ABG Total CO2 ABG O2 Saturation ABG Base Excess FiO2 Sodium 135 L Potassium 4.6 Chloride 101 Carbon Dioxide 22 BUN 13 Creatinine 1.03 Estimated GFR > 60 BUN/Creatinine Ratio 12.6 Glucose 160 H Lactate Calcium 6.9 L Total Bilirubin 0.9 AST 129 H ALT 72 H Alkaline Phosphatase 52 Ammonia Total Creatine Kinase 2513 H CK-MB (CK-2) 15.70 H CK-MB (CK-2) Rel Index 0.6 L Troponin I 0.099 H Total Protein 6.6 Albumin 3.6 Globulin 3.0 Albumin/Globulin Ratio 1.2 TSH Urine Color Urine Appearance Urine pH Ur Specific [place] Urine Protein Urine Glucose (UA) Urine Ketones Urine Occult Blood Urine Nitrate Urine Bilirubin Urine Urobilinogen Ur Leukocyte Esterase Urine RBC Urine WBC Urine Bacteria Ur Culture Indicated? Nasal Screen MRSA (PCR) Salicylates < 1.0 U Opiates 300ng/mL cut Negative Ur Oxycodone Screen Negative Urine Methadone Screen Negative Acetaminophen < 10 Ur Barbiturates Screen Negative U Tricyclic Antidepress Negative Ur Phencyclidine Scrn Negative Ur Amphetamines Screen Negative U Methamphetamines Scrn Negative Ur MDMA Scrn (Ecstasy) Negative U Benzodiazepines Scrn Negative Urine Cocaine Screen Negative U Marijuana (THC) Screen Negative Ethyl Alcohol 430 H* Chlamy pneumoniae PCR Adenovirus (PCR) B. pertussis DNA (PCR) B.parapertussis DNA PCR Coronavirus OC43 (PCR) Coronavirus HKU1 (PCR) Coronavirus 229E (PCR) SARS-CoV-2 (PCR) Coronavirus NL63 (PCR) Human Metapneumovir PCR Influenza Type A (PCR) Influenza Type B (PCR) M. pneumoniae (PCR) Parainfluenza 1 (PCR) Parainfluenza 2 (PCR) Parainfluenza 3 (PCR) Parainfluenza 4 (PCR) RSV (PCR) Entero/Rhino (PCR) 03/09/22 03/09/22 03/09/22 12:00 12:00 12:00 WBC RBC Hgb Hct MCV MCH MCHC RDW Plt Count Neut % (Auto) Lymph % (Auto) [place] % (Auto) Eos % (Auto) Baso % (Auto) Neut # (Auto) Lymph # (Auto) [place] # (Auto) Eos # (Auto) Baso # (Auto) PT 14.0 H INR 1.2 APTT 33 ABG pH ABG pCO2 ABG pO2 ABG HCO3 ABG Total CO2 ABG O2 Saturation ABG Base Excess FiO2 Sodium Potassium Chloride Carbon Dioxide BUN Creatinine Estimated GFR BUN/Creatinine Ratio Glucose Lactate 2.9 H Calcium Total Bilirubin AST ALT Alkaline Phosphatase Ammonia Total Creatine Kinase CK-MB (CK-2) CK-MB (CK-2) Rel Index Troponin I Total Protein Albumin Globulin Albumin/Globulin Ratio TSH 0.885 D Urine Color Urine Appearance Urine pH Ur Specific [place] Urine Protein Urine Glucose (UA) Urine Ketones Urine Occult Blood Urine Nitrate Urine Bilirubin Urine Urobilinogen Ur Leukocyte Esterase Urine RBC Urine WBC Urine Bacteria Ur Culture Indicated? Nasal Screen MRSA (PCR) Salicylates U Opiates 300ng/mL cut Ur Oxycodone Screen Urine Methadone Screen Acetaminophen Ur Barbiturates Screen U Tricyclic Antidepress Ur Phencyclidine Scrn Ur Amphetamines Screen U Methamphetamines Scrn Ur MDMA Scrn (Ecstasy) U Benzodiazepines Scrn Urine Cocaine Screen U Marijuana (THC) Screen Ethyl Alcohol Chlamy pneumoniae PCR Adenovirus (PCR) B. pertussis DNA (PCR) B.parapertussis DNA PCR Coronavirus OC43 (PCR) Coronavirus HKU1 (PCR) Coronavirus 229E (PCR) SARS-CoV-2 (PCR) Coronavirus NL63 (PCR) Human Metapneumovir PCR Influenza Type A (PCR) Influenza Type B (PCR) M. pneumoniae (PCR) Parainfluenza 1 (PCR) Parainfluenza 2 (PCR) Parainfluenza 3 (PCR) Parainfluenza 4 (PCR) RSV (PCR) Entero/Rhino (PCR) 03/09/22 03/09/22 03/09/22 12:00 13:25 14:08 WBC RBC Hgb Hct MCV MCH MCHC RDW Plt Count Neut % (Auto) Lymph % (Auto) [place] % (Auto) Eos % (Auto) Baso % (Auto) Neut # (Auto) Lymph # (Auto) [place] # (Auto) Eos # (Auto) Baso # (Auto) PT INR APTT ABG pH ABG pCO2 ABG pO2 ABG HCO3 ABG Total CO2 ABG O2 Saturation ABG Base Excess FiO2 Sodium Potassium Chloride Carbon Dioxide BUN Creatinine Estimated GFR BUN/Creatinine Ratio Glucose Lactate Calcium Total Bilirubin AST ALT Alkaline Phosphatase Ammonia 11 Total Creatine Kinase CK-MB (CK-2) CK-MB (CK-2) Rel Index Troponin I 0.103 H Total Protein Albumin Globulin Albumin/Globulin Ratio TSH Urine Color Urine Appearance Urine pH Ur Specific [place] Urine Protein Urine Glucose (UA) Urine Ketones Urine Occult Blood Urine Nitrate Urine Bilirubin Urine Urobilinogen Ur Leukocyte Esterase Urine RBC Urine WBC Urine Bacteria Ur Culture Indicated? Nasal Screen MRSA (PCR) Salicylates U Opiates 300ng/mL cut Ur Oxycodone Screen Urine Methadone Screen Acetaminophen Ur Barbiturates Screen U Tricyclic Antidepress Ur Phencyclidine Scrn Ur Amphetamines Screen U Methamphetamines Scrn Ur MDMA Scrn (Ecstasy) U Benzodiazepines Scrn Urine Cocaine Screen U Marijuana (THC) Screen Ethyl Alcohol Chlamy pneumoniae PCR Not detected Adenovirus (PCR) Not detected B. pertussis DNA (PCR) Not detected B.parapertussis DNA PCR Not detected Coronavirus OC43 (PCR) Not detected Coronavirus HKU1 (PCR) Not detected Coronavirus 229E (PCR) Not detected SARS-CoV-2 (PCR) Not detected Coronavirus NL63 (PCR) Not detected Human Metapneumovir PCR Not detected Influenza Type A (PCR) Not detected Influenza Type B (PCR) Not detected M. pneumoniae (PCR) Not detected Parainfluenza 1 (PCR) Not detected Parainfluenza 2 (PCR) Not detected Parainfluenza 3 (PCR) Not detected Parainfluenza 4 (PCR) Not detected RSV (PCR) Not detected Entero/Rhino (PCR) Not detected 03/09/22 03/09/22 14:15 23:15 WBC RBC Hgb Hct MCV MCH MCHC RDW Plt Count Neut % (Auto) Lymph % (Auto) [place] % (Auto) Eos % (Auto) Baso % (Auto) Neut # (Auto) Lymph # (Auto) [place] # (Auto) Eos # (Auto) Baso # (Auto) PT INR APTT ABG pH ABG pCO2 ABG pO2 ABG HCO3 ABG Total CO2 ABG O2 Saturation ABG Base Excess FiO2 Sodium Potassium Chloride Carbon Dioxide BUN Creatinine Estimated GFR BUN/Creatinine Ratio Glucose Lactate 2.2 H Calcium Total Bilirubin AST ALT Alkaline Phosphatase Ammonia Total Creatine Kinase CK-MB (CK-2) CK-MB (CK-2) Rel Index Troponin I Total Protein Albumin Globulin Albumin/Globulin Ratio TSH Urine Color Urine Appearance Urine pH Ur Specific [place] Urine Protein Urine Glucose (UA) Urine Ketones Urine Occult Blood Urine Nitrate Urine Bilirubin Urine Urobilinogen Ur Leukocyte Esterase Urine RBC Urine WBC Urine Bacteria Ur Culture Indicated? Nasal Screen MRSA (PCR) Negative for mrsa Salicylates U Opiates 300ng/mL cut Ur Oxycodone Screen Urine Methadone Screen Acetaminophen Ur Barbiturates Screen U Tricyclic Antidepress Ur Phencyclidine Scrn Ur Amphetamines Screen U Methamphetamines Scrn Ur MDMA Scrn (Ecstasy) U Benzodiazepines Scrn Urine Cocaine Screen U Marijuana (THC) Screen Ethyl Alcohol Chlamy pneumoniae PCR Adenovirus (PCR) B. pertussis DNA (PCR) B.parapertussis DNA PCR Coronavirus OC43 (PCR) Coronavirus HKU1 (PCR) Coronavirus 229E (PCR) SARS-CoV-2 (PCR) Coronavirus NL63 (PCR) Human Metapneumovir PCR Influenza Type A (PCR) Influenza Type B (PCR) M. pneumoniae (PCR) Parainfluenza 1 (PCR) Parainfluenza 2 (PCR) Parainfluenza 3 (PCR) Parainfluenza 4 (PCR) RSV (PCR) Entero/Rhino (PCR) [facility] Medical History Alcohol abuse Hypertension (~2019) Social History household members: friend(s) Smoking Status: Never smoker alcohol intake: current Assessment & Plan Assessment & Plan narrative: Alcohol intoxication/Alcohol withdrawal - continue CIWA protocol - telemetry monitoring - neurochecks New A fib secondary to alcohol abuse -on diltiazem drip - telemetry monitoring Alcohol abuse -continue IVF, thiamin, folic acid Lactic acidosis/Leukocytosis likely due to aspirational pneumonia - pending labs -continue IVF -continue empiric abx - cx blood urine pending Pneumonia aspirational -continue levaquin IV daily -keep sats > 93% Elevated troponin? 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 Quality VTE Deep Vein Thrombosis/Pulmonary Embolism Present on Admission: No
--- NOTE | 2022-03-10 11:43 | DI.ECHO.S_ITS ---
[facility]---------+ [facility] +---------+ : : [address] : : : : [id number] : : : : Phone: [phone] Echocardiogram Report + + :Name: KAPIL JONES Study Date: 03/12/2022 Height: 72 in : :[facility] ReadingLocation: Weight: 245 lb : : Gender: Male BSA: 2.3 m2 : :: 1975 Age: 46 yrs BP: 133/88 mmHg: :Reason For Study: Atrial fibrillation : :Ordering Physician: Ayde, : :Shanita Performed By: Caleb Rico : :Referring: Shanita Messer : + + Interpretation Summary Left ventricular systolic function is severely reduced. The ejection fraction is estimated to be 10-15%. There is severe global hypokinesis of the left ventricle. No definite thrombus is seen The right ventricle is mild to moderately dilated. Right ventricular systolic function is moderately reduced. There is mild mitral regurgitation. There is mild tricuspid regurgitation. Pulmonary artery pressures cannot be estimated because of the lack of a measurable TR jet velocity. Procedure: A two-dimensional transthoracic echocardiogram with color flow and Doppler was performed. The study quality was technically adequate. There is no prior echocardiogram noted for this patient. Left Ventricle: The left ventricle is mild-moderately dilated. There is moderate concentric left ventricular hypertrophy. No definite thrombus is seen. Left ventricular systolic function is severely reduced. The ejection fraction is estimated to be 10-15%. There is severe global hypokinesis of the left ventricle. Diastolic function could not be accurately assessed due to unobtainable data. Right Ventricle: The right ventricle is mild to moderately dilated. The right ventricle is not well visualized. Right ventricular systolic function is moderately reduced. Atria: Both atria are mildly dilated. The interatrial septum grossly appears intact with no obvious evidence for an atrial septal defect. Mitral Valve: There is mild mitral annular calcification. There is mild mitral regurgitation. Aortic Valve: The aortic valve is not well visualized. The aortic valve is grossly normal. No aortic regurgitation is present. Tricuspid Valve: The tricuspid valve is normal in structure and function. There is mild tricuspid regurgitation. Pulmonary artery pressures cannot be estimated because of the lack of a measurable TR jet velocity. Pulmonic Valve: The pulmonic valve is not well visualized. There is no pulmonic valvular regurgitation. Great Vessels: The aortic root is normal size. The ascending aorta could not be visualized. The IVC is dilated (diameter is greater than 2.1 cm) yet it collapses greater than 50% with a sniff. This suggests a right atrial pressure of 8 mm Hg. Pericardium/ Pleura There is no pericardial effusion. There is no pleural effusion. MMode/2D Measurements & Calculations LVIDd: 6.4 cm LVOT diam: 2.1 cm LVIDs: 5.9 cm Ao root diam: 3.0 cm FS: 7.8 % IVSd: 1.4 cm LVPWd: 1.5 cm LV shook. diameter/BSA (cm/m^2): 2.8 LV sys. diameter/BSA (cm/m^2): 2.5 LA dimension: 4.1 cm RA long axis: 5.1 cm LA A2 area: 24.1 cm2 IVC diam: 2.2 cm LA A4 area: 24.4 cm2 LA length (vol): 6.0 cm LA vol: 83.2 ml LA vol index: 35.8 ml/m2 TAPSE: 1.1 cm LVLs ap4: 8.0 cm LVLd ap2: 9.6 cm TAPSE_phl: 1.8 cm LVLs ap2: 8.8 cm Doppler Measurements & Calculations Ao V2 max: 88.9 cm/sec LVOT Max Lew: 65.9 cm/sec Ao V2 mean: 65.9 cm/sec LV V1 max P.7 mmHg Ao max P.0 mmHg LV V1 VTI: 10.6 cm Ao mean P.0 mmHg CAL(I,D): 2.9 cm2 Ao V2 VTI: 12.8 cm CAL(V,D): 2.6 cm2 sev ratio: 0.83 CAL indexed to BSA (cm^2/m^2): 1.2 MV E max lew: 80.6 cm/sec SV(LVOT): 36.7 ml MV A max lew: 39.4 cm/sec MV E/A: 2.0 Med Peak E' Lew: 5.7 cm/sec E/E' med: 14.1 MV dec time: 0.12 sec AV VR_phl: 0.74 MV P1/2t-pr_phl: 34.0 msec CAL(VTI)/BSA_phl: 1.2 Reading Physician:12:17 PM
[2022-03-10 11:50] LABS: Add Manual Diff / Slide Review NO; Basophils Absolute Auto 100 /uL (0-100); Basophils Percent Auto 1.2 % (0-2); Eosinophils Absolute Auto 0 /uL (0-450); Eosinophils Percent Auto 0.4 % (2-4); Hemoglobin 14.6 g/dL (13.5-17.5); Lymphocytes Absolute Auto 1300 /uL (1100-4500); Lymphocytes Percent Auto 12.4 % (25-40); Mean Corpuscular HGB Conc 34.7 % (30-36); Mean Corpuscular Hemoglobin 32.8 PG (26-34); Mean Corpuscular Volume 94.4 fL (80-100); Monocytes Absolute Auto 900 /uL (0-900); Monocytes Percent Auto 8.6 % (3-14); Neutrophils Absolute Auto 7900 /uL (1500-7000); Neutrophils Percent Auto 77.4 % (50-75); Platelet Count 146 X10^3/uL (150-400); Red Blood Cell Count 4.44 X10^6/uL (4.5-5.9); Red Cell Distribution Width 14.2 % (11.6-14.8); White Blood Cell Count 10.2 X10^3/uL (4.5-11.0)
[2022-03-10] MEDS: ENOXAPARIN 100 MG/ML SYRINGE SUBCUT ×2 (11:55→21:14)
[2022-03-10 12:02] LABS: Lactate (Lactic Acid) 1.9 mmol/L (0.7-2.1)
[2022-03-10 12:02] LABS: BUN Creatinine Ratio 14.9 (6-22); Blood Urea Nitrogen 15 mg/dL (9-20); Calcium 7.3 mg/dL (8.4-10.2); Carbon Dioxide 24 mmol/L (22-32); Chloride 97 mmol/L (98-107); Estimated Glomerular Filt Rate > 60 mL/min (>60); Glucose 108 mg/dL (70-100); HEMOLYSIS < 15 (0-50); Sodium 130 mmol/L (137-145)
[2022-03-10 12:14] LABS: Potassium 4.3 mmol/L (3.4-5.1)
[2022-03-10 12:14] LABS: Troponin I 0.038 ng/mL (0.01-0.034)
--- NOTE | 2022-03-10 13:45 | CM.DPC ---
Discharge Planning Note: Patient was assessed yesterday, day of admission by ED DIE ATTACHING MACHINE TENDER, refer to note. Patient sleeping in bed, multiple IVs infusing, on a drip for arrythmia. Patient admitted with etoh intoxication. He is on CIWA protocol. He lives in his , recently . Patient has father (Mario [phone]) and sister in [place]. Notes state that father wishes to come visit and would like updates on son's condition. P: DCP will continue to follow. Mirian Watkins RN, DCP
[2022-03-10] MEDS: dexmedeTOMIDine in 0.9 % NaCL 400 MCG/100 ML PLAST..BAG 32.25 MCG IV (14:32)
[2022-03-10] MEDS: diphenhydrAMINE 50 MG/ML VIAL 25 MG IV (15:19)
[2022-03-10] MEDS: dexmedeTOMIDine in 0.9 % NaCL 400 MCG/100 ML PLAST..BAG 32 MCG IV ×3 (17:16→23:37)
--- NOTE | 2022-03-10 20:29 | PM.ICURNDS ---
- :: This patient was seen via real time interactive two-way audiovisual telecommunication. patient remains on precedex, also tachypenic. blood gas appreciated, will repeat in am. cont current abx. dpeneding on his gasses, may need opiates.
[2022-03-10 21:15] LABS: HCO3 ABG 20 mmol/L (22-26); PCO2 ABG 29.5 mmHg (35-45); PO2 ABG 62 mmHg (80-100); TCO2 ABG 21 mmol/L (21-31); pH ABG 7.45 (7.35-7.45)
[2022-03-10 21:16] LABS: Fractionated Inspired Oxygen 28; Oxygen Saturation ABG 93 % (95-100)
--- NOTE | 2022-03-10 21:57 | PC.NURSE ---
Addendum entered by Lyric Sweet R.N. 03/11/22 05:59: 0600- Patient when awake is cooperative though forgetful. Patient has required 8mg IV Ativan through the night. Patient was able to void this AM. Lungs are coarse but do clear with cough. ABG WNL. Respiratory rate remains high at 30-40. Will monitor. Addendum entered by Lyric Sweet R.N. 03/11/22 03:43: 0330- Patient has required 6mg Ativan. Respirations remain elevated. 30-40. Lungs are coarse but do clear some with cough. Patient has not been able to expectorate a sample to send to lab. Unable to wean Diltiazem as patient heart rate elevates when patient wakes and he goes back into AFib. Patient is confused but cooperates when he wakes. Patient straight cathed for 700cc of jovanny urine. Patient unable to void and bladder scan showed 574 mls. Addendum entered by Lyric Sweet R.N. 03/10/22 22:29: 2230- Noticed patient was desaturating to 88%. Patient repositioned and HOB raised. Patient able to give several strong coughs and saturations have returned to 92% or above. Suction set up in room. Will monitor. Original Note: 2100- Patient wakes but is disoriented, impulsive and frightened. Patient drenched in sweat, and unaware of his surroundings. Will follow simple commands but unable to retain information. Ciwaa score is 15. Medicated per protocol. Placed on C02 monitor. Respirations remain between 30-40 and at times patient has apnea. ABG obtained per order. Tele resident care associate updated on condition. Will monitor closely.
[2022-03-11] VITALS (28 sets, daily range): BP systolic 103–138; BP diastolic 56–86; PULSE 69–121; RESP 30–54; TEMP 36.6–37.7; O2SAT 91–98
[2022-03-11] MEDS: LORazepam 2 MG/ML INJ IV ×12 (00:23→23:14)
[2022-03-11] MEDS: DILTIAZEM 125 MG/125 ML PIGGYBACK 15 MG IV (01:37)
[2022-03-11] MEDS: PIPERACILLIN/TAZO 3.375 GM in SODIUM CHLORIDE 0.9% 100 ML IV ×3 (01:45→17:31)
[2022-03-11] MEDS: LACTATED RINGERS 1,000 ML 100 ML IV (02:04)
[2022-03-11] MEDS: dexmedeTOMIDine in 0.9 % NaCL 400 MCG/100 ML PLAST..BAG 32 MCG IV ×3 (02:51→09:06)
[2022-03-11 05:14] LABS: PCO2 ABG 30.5 mmHg (35-45); pH ABG 7.44 (7.35-7.45)
[2022-03-11 05:15] LABS: Fractionated Inspired Oxygen 30; HCO3 ABG 21 mmol/L (22-26); Oxygen Saturation ABG 93 % (95-100); PO2 ABG 63 mmHg (80-100); TCO2 ABG 22 mmol/L (21-31)
[2022-03-11] MEDS: ENOXAPARIN 100 MG/ML SYRINGE SUBCUT ×2 (07:40→20:26)
[2022-03-11] MEDS: FOLIC ACID 1 MG TABLET PO (07:41)
[2022-03-11] MEDS: THIAMINE 100 MG in SODIUM CHLORIDE 0.9% 100 ML 404 MG IV (08:51)
--- NOTE | 2022-03-11 10:36 | P.PN_ITS ---
Subjective Subjective Interval history: pt is anxiuos, he is oriented x3 , denies any pain, chest pain, shortness of breath Exam Vital Signs (past 8 hours): - 03/11/22 03:25 03/11/22 04:11 03/11/22 04:11 Temperature Pulse Rate 70 70 Respiratory Rate 36 H 38 H Blood Pressure 112/69 119/68 Pulse Oximetry 93 Oxygen Delivery Method Oxygen Flow Rate 03/11/22 04:13 03/11/22 05:00 03/11/22 04:21 Temperature Pulse Rate 69 Respiratory Rate 37 H Blood Pressure 121/74 Pulse Oximetry 93 Oxygen Delivery Method Nasal Cannula Oxygen Flow Rate 03/11/22 04:21 03/11/22 05:17 03/11/22 06:09 Temperature Pulse Rate 80 72 72 Respiratory Rate 30 H 38 H 37 H Blood Pressure 128/62 Pulse Oximetry 91 94 Oxygen Delivery Method Oxygen Flow Rate 03/11/22 06:00 03/11/22 06:00 03/11/22 06:58 Temperature Pulse Rate 73 77 Respiratory Rate 39 H 39 H Blood Pressure 128/62 Pulse Oximetry 93 93 Oxygen Delivery Method Oxygen Flow Rate 03/11/22 08:05 03/11/22 08:36 Temperature 98.8 F Pulse Rate 97 H 86 Respiratory Rate 46 H 33 H Blood Pressure 138/60 138/60 Pulse Oximetry 93 Oxygen Delivery Method Oxygen Flow Rate 0 Oxygen Delivery Method Nasal Cannula Oxygen Flow Rate 0 Const General: cooperative and well developed Orientation: alert, awake and oriented to person [facility] Head: normal to inspection Ears: external ears normal Mouth: oral mucosae normal Eyes Pupils: PERRL EOM: EOM intact bilaterally Neck Neck: normal visual inspection and full ROM Resp Effort & Inspection: normal respiratory effort Auscultation: clear to auscultation bilaterally Cardio Other: irregular rhythm GI Palpation: soft and no hepatosplenomegaly Auscultation: normal bowel sounds Skin General: no rashes or lesions noted Neuro General: patient alert, patient awake, patient oriented x3, moves all extremities and no focal motor deficits Speech: speech normal Extrem General: normal to inspection, full ROM and no pedal edema Psych Appearance: grossly normal Objective Labs Result Diagrams: 03/10/22 11:35 03/10/22 11:15 Labs: Laboratory Results - last 24 hr 03/10/22 03/10/22 03/10/22 11:15 11:35 11:35 WBC 10.2 RBC 4.44 L Hgb 14.6 Hct 42.0 MCV 94.4 MCH 32.8 MCHC 34.7 RDW 14.2 Plt Count 146 L Neut % (Auto) 77.4 H Lymph % (Auto) 12.4 L [place] % (Auto) 8.6 Eos % (Auto) 0.4 L Baso % (Auto) 1.2 Neut # (Auto) 7900 H Lymph # (Auto) 1300 [place] # (Auto) 900 Eos # (Auto) 0 Baso # (Auto) 100 ABG pH ABG pCO2 ABG pO2 ABG HCO3 ABG Total CO2 ABG O2 Saturation ABG Base Excess FiO2 Sodium 130 L Potassium 4.3 Chloride 97 L Carbon Dioxide 24 BUN 15 Creatinine 1.01 Estimated GFR > 60 BUN/Creatinine Ratio 14.9 Glucose 108 H Lactate 1.9 Calcium 7.3 L Troponin I 03/10/22 03/10/22 03/11/22 11:35 20:20 05:03 WBC RBC Hgb Hct MCV MCH MCHC RDW Plt Count Neut % (Auto) Lymph % (Auto) [place] % (Auto) Eos % (Auto) Baso % (Auto) Neut # (Auto) Lymph # (Auto) [place] # (Auto) Eos # (Auto) Baso # (Auto) ABG pH 7.45 7.44 ABG pCO2 29.5 L 30.5 L ABG pO2 62 L 63 L ABG HCO3 20 L 21 L ABG Total CO2 21 22 ABG O2 Saturation 93 L 93 L ABG Base Excess -4.0 L -3.0 L FiO2 28 30 Sodium Potassium Chloride Carbon Dioxide BUN Creatinine Estimated GFR BUN/Creatinine Ratio Glucose Lactate Calcium Troponin I 0.038 H [facility] Medical History Alcohol abuse Hypertension (~2020) Social History household members: friend(s) Smoking Status: Never smoker alcohol intake: current Assessment & Plan Assessment & Plan narrative: Alcohol intoxication/Alcohol withdrawal - continue [facility] protocol - telemetry monitoring - neurochecks New A fib remains on Diltiazem gtt - will taper down and off and start PO diltiazem rhythm is sinus -telemetry monitoring -continue therapeutic lovenox Alcohol abuse -continue IVF, thiamin, folic acid Lactic acidosis/Leukocytosis resolved - continue empiric abx - cx blood urine pending Pneumonia aspirational -continue levaquin IV daily -keep sats > 93% Hyponatremia -will stop IVF -BMP daily Elevated troponin? 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 Quality VTE Deep Vein Thrombosis/Pulmonary Embolism Present on Admission: No
[2022-03-11] MEDS: METOPROLOL IR 25 MG TABLET PO ×2 (10:53→20:26)
[2022-03-11] MEDS: LORazepam 1 MG TABLET PO (10:54)
[2022-03-11 10:58] LABS: Add Manual Diff / Slide Review NO; Basophils Absolute Auto 100 /uL (0-100); Basophils Percent Auto 0.6 % (0-2); Eosinophils Absolute Auto 100 /uL (0-450); Eosinophils Percent Auto 0.7 % (2-4); Hematocrit 39.5 % (41-53); Hemoglobin 13.7 g/dL (13.5-17.5); Lymphocytes Absolute Auto 1200 /uL (1100-4500); Lymphocytes Percent Auto 11.8 % (25-40); Mean Corpuscular HGB Conc 34.6 % (30-36); Mean Corpuscular Hemoglobin 32.9 PG (26-34); Monocytes Absolute Auto 600 /uL (0-900); Neutrophils Absolute Auto 8200 /uL (1500-7000); Neutrophils Percent Auto 80.9 % (50-75); Platelet Count 147 X10^3/uL (150-400); Red Blood Cell Count 4.15 X10^6/uL (4.5-5.9); Red Cell Distribution Width 14.2 % (11.6-14.8); White Blood Cell Count 10.2 X10^3/uL (4.5-11.0)
[2022-03-11 11:12] LABS: Alanine Aminotransferase 613 IU/L (<50); Albumin 3.3 g/dL (3.5-5.0); Albumin Globulin Ratio 1.1 (1.0-2.8); Alkaline Phosphatase 63 U/L (38-126); BUN Creatinine Ratio 17.6 (6-22); Bilirubin Total 1.2 mg/dL (0.2-1.3); Blood Urea Nitrogen 23 mg/dL (9-20); Calcium 7.4 mg/dL (8.4-10.2); Carbon Dioxide 22 mmol/L (22-32); Chloride 100 mmol/L (98-107); Creatine Kinase 497 U/L (55-170); Estimated Glomerular Filt Rate > 60 mL/min (>60); Globulin 3.1 g/dL (1.7-4.1); Glucose 107 mg/dL (70-100); HEMOLYSIS < 15 (0-50); Sodium 131 mmol/L (137-145); Total Protein 6.4 g/dL (6.3-8.2)
[2022-03-11 11:18] LABS: Aspartate Aminotransferase 990 IU/L (17-59)
--- NOTE | 2022-03-11 11:39 | P.TELICUPN_ITS ---
Subjective Subjective If camera was activated, add TeleICU A-V statement: [address] [address] Teleintensivist Consult Note Patient: Stanislav Martinez MR#: [id number] : 1975 Acct:[id number] Age/Sex: 46 / M Stanislav Martinez , 46 y/o male with h/o of? alcohol abuse presented with H/o of altered mental status 2/2 alcohol, admitted to ICU for Alcohol withdrawal and development of acute hypoxemic resp failure/ RLL aspiration PNA new afib w RVR, HR 130s. Today, feels better than yesterday, continue to be on precedex and Carizem drips Assessment: Acute encephalopathy 2/2 Alcohol intoxication then with drawl Afib w RVR Sever sepsis 2/2 aspiration PNA Lactic acidosis / resolved Acute hypoxemic respiratory failure Alcohol withdrawal Alcohol abuse Alcohlolic hepatitis/ LFT worse today Elevated CK & T trop ( both trended down) Thrombocytopenia 2/2 sepsis LIDYA / ATN 2/2 sepsis Mild hyponatremia Rec: Start metoprolol 25 mg bid and wean off IV Cardizem drip, HR goal <100 Continue IV Zosyn for 5 days total ( switch to a different AB if thrombocytopenia worsens, f/u sputum and blood cx Start librium 10 mg TID, wean off precedex drip as tolerated Continue Lorazepam per CIW protocol Continue folic acid & thiamin Check US abdomen & trend LFT daily Pt has good PO intake, Dc IV fluid, check urine osm and sodium, restrict fluid intake to 1.5 L/ day Continue PPI and Lovenox CCT 50 min Current Medications Current Medications Medications: Home Medications chorionic gonadotropin, human 10,000 unit intramuscular solution 10,000 unit IM DIRECTED 09/22/20 [History Confirmed 02/06/22] testosterone 200 mg implant pellet 100 mg SUBCUT WEEKLY 09/22/20 [History Confirmed 02/06/22] paroxetine HCl 40 mg tablet 40 mg PO DAILY #90 tabs 01/01/22 [Rx Confirmed 02/06/22] folic acid 1 mg tablet 1 mg PO DAILY #30 tabs 02/06/22 [Rx] gabapentin 300 mg capsule 300 mg PO TID #90 caps 02/06/22 [Rx] lorazepam 1 mg tablet 1 mg PO Q8H PRN Anxiety #10 tabs 02/06/22 [Rx] melatonin 10 mg tablet 10 mg PO BEDTIME PRN sleep #30 tabs 02/06/22 [Rx] methocarbamol 500 mg tablet 500 mg PO TID #90 tabs 02/06/22 [Rx] multivitamin with folic acid 400 mcg tablet (Tab-A-Isis) 1 tab PO DAILY #30 tabs 02/06/22 [Rx] olanzapine 5 mg tablet (Zyprexa) 5 mg PO BEDTIME #30 tabs 02/06/22 [Rx] Visit Medications (administered) Generic Name Dose Route Start Last Admin Trade Name Freq PRN Reason Stop Dose Admin Enoxaparin Sodium 100 mg 03/10/22 11:30 03/11/22 07:40 Enoxaparin 100 Mg/Ml Syringe SUBCUT 100 mg BID CLIFTON Administration Folic Acid 1 mg 03/10/22 09:00 03/11/22 07:41 Folic Acid 1 Mg Tablet PO 1 mg DAILY CL[place] Administration Lactated Ringer's 1,000 mls @ 100 mls/hr 03/09/22 15:45 03/11/22 08:52 Lactated Ringers IV 21 mls/hr CONT [facility] Infusion Thiamine HCl 100 mg/ Sodium 101 mls @ 404 mls/hr 03/10/22 09:00 03/11/22 10:40 Chloride IV Infused DAILY [facility] Infusion dexmedeTOMIDine in 0.9 % NaCL 400 mcg in 100 mls @ 5.375 mls/hr 03/09/22 21:00 03/11/22 09:06 Precedex IV 1.2 mcg/kg/hr TITRATE [facility] 32 mls/hr Administration 0.2 MCG/KG/HR Piperacillin Sod/Tazobactam 100 mls @ 25 mls/hr 03/10/22 10:00 03/11/22 09:06 Sod 3.375 gm/ Sodium Chloride IV 25 mls/hr Q8H [facility] Administration Lorazepam 0 mg 03/09/22 17:57 03/11/22 08:15 Lorazepam 2 Mg/Ml Inj IV 2 mg CIWAPRN PRN Administration Alcohol Withdrawal Protocol Lorazepam 1 mg 03/10/22 03:27 03/11/22 10:54 Lorazepam 1 Mg Tablet PO 1 mg Q6HR PRN Administration Anxiety Metoprolol Tartrate 25 mg 03/11/22 10:30 03/11/22 10:53 Metoprolol Ir 25 Mg Tablet PO 25 mg BID [place] Administration Objective Ventilator Parameters: Ventilator Settings RT Vent Frequency 15 Labs Result Diagrams: 03/11/22 10:35 03/11/22 10:35 Labs: Laboratory Results - last 24 hr 03/10/22 03/10/22 03/10/22 11:15 11:35 11:35 WBC 10.2 RBC 4.44 L Hgb 14.6 Hct 42.0 MCV 94.4 MCH 32.8 MCHC 34.7 RDW 14.2 Plt Count 146 L Neut % (Auto) 77.4 H Lymph % (Auto) 12.4 L [place] % (Auto) 8.6 Eos % (Auto) 0.4 L Baso % (Auto) 1.2 Neut # (Auto) 7900 H Lymph # (Auto) 1300 [place] # (Auto) 900 Eos # (Auto) 0 Baso # (Auto) 100 ABG pH ABG pCO2 ABG pO2 ABG HCO3 ABG Total CO2 ABG O2 Saturation ABG Base Excess FiO2 Sodium 130 L Potassium 4.3 Chloride 97 L Carbon Dioxide 24 BUN 15 Creatinine 1.01 Estimated GFR > 60 BUN/Creatinine Ratio 14.9 Glucose 108 H Lactate 1.9 Calcium 7.3 L Total Bilirubin AST ALT Alkaline Phosphatase Total Creatine Kinase Troponin I Total Protein Albumin Globulin Albumin/Globulin Ratio 03/10/22 03/10/22 03/11/22 11:35 20:20 05:03 WBC RBC Hgb Hct MCV MCH MCHC RDW Plt Count Neut % (Auto) Lymph % (Auto) [place] % (Auto) Eos % (Auto) Baso % (Auto) Neut # (Auto) Lymph # (Auto) [place] # (Auto) Eos # (Auto) Baso # (Auto) ABG pH 7.45 7.44 ABG pCO2 29.5 L 30.5 L ABG pO2 62 L 63 L ABG HCO3 20 L 21 L ABG Total CO2 21 22 ABG O2 Saturation 93 L 93 L ABG Base Excess -4.0 L -3.0 L FiO2 28 30 Sodium Potassium Chloride Carbon Dioxide BUN Creatinine Estimated GFR BUN/Creatinine Ratio Glucose Lactate Calcium Total Bilirubin AST ALT Alkaline Phosphatase Total Creatine Kinase Troponin I 0.038 H Total Protein Albumin Globulin Albumin/Globulin Ratio 03/11/22 03/11/22 10:35 10:35 WBC 10.2 RBC 4.15 L Hgb 13.7 Hct 39.5 L MCV 95.0 MCH 32.9 MCHC 34.6 RDW 14.2 Plt Count 147 L Neut % (Auto) 80.9 H Lymph % (Auto) 11.8 L [place] % (Auto) 6.0 Eos % (Auto) 0.7 L Baso % (Auto) 0.6 Neut # (Auto) 8200 H Lymph # (Auto) 1200 [place] # (Auto) 600 Eos # (Auto) 100 Baso # (Auto) 100 ABG pH ABG pCO2 ABG pO2 ABG HCO3 ABG Total CO2 ABG O2 Saturation ABG Base Excess FiO2 Sodium 131 L Potassium 4.0 Chloride 100 Carbon Dioxide 22 BUN 23 H Creatinine 1.31 H Estimated GFR > 60 BUN/Creatinine Ratio 17.6 Glucose 107 H Lactate Calcium 7.4 L Total Bilirubin 1.2 AST 990 H ALT 613 H Alkaline Phosphatase 63 Total Creatine Kinase 497 H D Troponin I Total Protein 6.4 Albumin 3.3 L Globulin 3.1 Albumin/Globulin Ratio 1.1 Exam Vital Signs (past 8 hours): - 03/11/22 04:11 03/11/22 04:11 03/11/22 04:13 Temperature Pulse Rate 70 69 Respiratory Rate 38 H 37 H Blood Pressure 119/68 Pulse Oximetry 93 93 Oxygen Delivery Method Oxygen Flow Rate 03/11/22 05:00 03/11/22 04:21 03/11/22 04:21 Temperature Pulse Rate 80 Respiratory Rate 30 H Blood Pressure 121/74 Pulse Oximetry 91 Oxygen Delivery Method Nasal Cannula Oxygen Flow Rate 03/11/22 05:17 03/11/22 06:09 03/11/22 06:00 Temperature Pulse Rate 72 72 Respiratory Rate 38 H 37 H Blood Pressure 128/62 128/62 Pulse Oximetry 94 Oxygen Delivery Method Oxygen Flow Rate 03/11/22 06:00 03/11/22 06:58 03/11/22 08:05 Temperature Pulse Rate 73 77 97 H Respiratory Rate 39 H 39 H 46 H Blood Pressure 138/60 Pulse Oximetry 93 93 Oxygen Delivery Method Oxygen Flow Rate 03/11/22 08:36 03/11/22 08:35 03/11/22 11:35 Temperature 98.8 F 99.1 F Pulse Rate 86 88 78 Respiratory Rate 33 H 43 H 37 H Blood Pressure 138/60 138/60 103/65 Pulse Oximetry 93 95 Oxygen Delivery Method Oxygen Flow Rate 0 0 Oxygen Delivery Method Nasal Cannula Oxygen Flow Rate 0 Quality TeleICU VTE Deep Vein Thrombosis/Pulmonary Embolism Present on Admission: No Assessment & Plan Time Spent With Patient Critical Care time: I spent a total of [] minutes of critical care time on this patient's care today; this time is exclusive of procedural time.
--- NOTE | 2022-03-11 11:47 | DI.US.S_ITS ---
PROCEDURE: US ABDOMEN COMPLETE INDICATIONS: LIDYA and acute hepatitis TECHNIQUE: Real-time scanning was performed of the abdominal and retroperitoneal organs, with image documentation. COMPARISON: None. FINDINGS: Study limited by body habitus, patient inability to cooperate with exam, overlying bowel gas Liver: Hepatic parenchyma shows diffuse increased echogenicity consistent with fatty infiltration. Gallbladder: Sonolucent without evidence cholelithiasis, gallbladder wall thickening or pericholecystic fluid. No sonographic Quezada sign. Biliary ducts: Intrahepatic bile ducts are non-dilated. Extrahepatic bile duct caliber measures 2.8 mm. Normal is 6-7 mm or less in diameter, or 10 mm or less post-cholecystectomy. Pancreas: Visualized portions of the pancreas are sonographically normal. Spleen: Spleen is normal in size and homogeneous in echotexture. Kidneys: Kidneys are normal in size and echotexture. Right kidney measures 13.4 cm in length with 1 cm cortical thickness; left kidney measures 12.3 cm long. No hydronephrosis or nephrolithiasis. No solid masses. Aorta: Nonvisualized Iliacs: Nonvisualized IVC: Nonvisualized Miscellaneous: No free abdominal fluid. IMPRESSION: Hepatic fatty infiltration. No focal mass lesion. Limited exam Approved by: Robinson Zuleta M.D. on 03/11/2022 at 12:54
[2022-03-11] MEDS: chlordiazePOXIDE 10 MG CAPSULE PO ×3 (12:57→20:26)
[2022-03-11] MEDS: SODIUM CHLORIDE 0.9% 250 ML 21 ML IV ×2 (13:00→17:31)
[2022-03-11] MEDS: dexmedeTOMIDine in 0.9 % NaCL 400 MCG/100 ML PLAST..BAG 27 MCG IV ×6 (13:01→22:47)
[2022-03-11 15:04] LABS: Prolactin 12.5 ng/mL (3.7-17.9)
--- NOTE | 2022-03-11 15:34 | PC.NURSE ---
Addendum entered by Kendra Manrique R.N. 03/11/22 18:19: pt continues to ramble on making very little sense- pt has total of 8mg iv loraz this shift for ciwa scores 9-17 also infusing is precedex at 1mcg/kg/h iv abx continue for pna Original Note: MAGDALENO, PT'S SISTER CALLED HAVING JUST ARRIVED FROM [place] WITH PT'S FATHER WELL- WHEN ASKED ABOUT A VISIT FROM HIS SISTER- KAPIL DECLINED STATING MAYBE TOMORROW-I'M AFRAID - EXPLAINED THIS TO MAGDALENO AND SHE WAS UNDERSTANDING ALTHOUGH DISAPPOINTED HER CONTACT NUMBER IS [phone]
[2022-03-11] MEDS: HALOPERIDOL 5 MG/ML VIAL 10 MG IV (20:27)
--- NOTE | 2022-03-11 20:50 | PM.ICURNDS ---
- :: This patient was seen via real time interactive two-way audiovisual telecommunication. Note: Pt agiated despite being on prcedex drip, recommended 10 mg of IV dilaudid, he is off Cardizem drip.
[2022-03-11 21:28] LABS: Sodium Urine Random < 5 mmol/L (30-90)
[2022-03-12] VITALS (20 sets, daily range): BP systolic 122–183; BP diastolic 74–117; PULSE 77–87; RESP 27–43; TEMP 36.4–37.2; O2SAT 95–100
[2022-03-12] MEDS: dexmedeTOMIDine in 0.9 % NaCL 400 MCG/100 ML PLAST..BAG 27 MCG IV ×9 (00:41→22:25)
[2022-03-12] MEDS: PIPERACILLIN/TAZO 3.375 GM in SODIUM CHLORIDE 0.9% 100 ML IV ×2 (02:02→11:51)
[2022-03-12] MEDS: LORazepam 2 MG/ML INJ IV ×11 (02:02→23:27)
--- NOTE | 2022-03-12 06:02 | PC.NURSE ---
Shift Note: Patient has been very confused with episodes of extreme anxiety, agitation and restlessness, CIWA was done, >18, due ativan was given. Vital signs are stable and within acceptable limits. Around 2029, patient was trashing in bed and attempted to get up from bed multiple times, patient was seen by the hand packager thru two-way teleconference, Dr. Messer, ordered stat dose of haldol, was given and calm him down, however he still have episodes of extreme anxiety, restless and confusion, CIWA was done and ativan doses were given as per CIWA protocol. Patient denies any pain/discomfort. Patient uses urinal and bedside commode, had multiple loose stools noted. Turned patient periodically. Patient has O2 sat dropped to mid-80's O2 support applied by nasal cannula at 4lpm, titrated down from 6lpm, O2 sat maintained @ >95%, will continue to monitor.
[2022-03-12] MEDS: SODIUM CHLORIDE 0.9% 250 ML 21 ML IV (06:58)
[2022-03-12] MEDS: chlordiazePOXIDE 10 MG CAPSULE PO (08:49)
[2022-03-12] MEDS: METOPROLOL IR 25 MG TABLET PO ×2 (08:55→20:48)
[2022-03-12] MEDS: FOLIC ACID 1 MG TABLET PO (08:55)
[2022-03-12 09:20] LABS: Alanine Aminotransferase 512 IU/L (<50); Albumin 3.1 g/dL (3.5-5.0); Alkaline Phosphatase 65 U/L (38-126); Aspartate Aminotransferase 487 IU/L (17-59); BUN Creatinine Ratio 16.8 (6-22); Bilirubin Total 0.9 mg/dL (0.2-1.3); Blood Urea Nitrogen 19 mg/dL (9-20); Calcium 7.7 mg/dL (8.4-10.2); Carbon Dioxide 24 mmol/L (22-32); Chloride 104 mmol/L (98-107); Estimated Glomerular Filt Rate > 60 mL/min (>60); Glucose 108 mg/dL (70-100); HEMOLYSIS < 15 (0-50); Potassium 3.9 mmol/L (3.4-5.1); Sodium 133 mmol/L (137-145); Total Protein 6.1 g/dL (6.3-8.2)
--- NOTE | 2022-03-12 09:55 | P.TELICUPN_ITS ---
Subjective Subjective If camera was activated, add TeleICU A-V statement: Continue to require ativan for witdrawal per CIWA, last night needed haldol to help with agitation, continue to be on precedex drips, HR improved on metoprolol, on 2 L NC Assessment: Acute encephalopathy 2/2 Alcohol intoxication then with drawl Afib w RVR Sever sepsis 2/2 aspiration PNA Lactic acidosis / resolved Acute hypoxemic respiratory failure Alcohol withdrawal Alcohol abuse Alcohlolic hepatitis/ LFT worse today Elevated CK & T trop ( both trended down) Thrombocytopenia 2/2 sepsis LIDYA / ATN 2/2 sepsis Mild hyponatremia Rec: Increase librium to 25 mg QID, wean off? precedex drip as tolerated Continue metoprolol 25 mg bid Continue IV Zosyn for 5 days total (CBC daily , switch to? a different? AB if thrombocytopenia worsens,? f/u sputum and blood cx Continue Lorazepam per CIW protocol Continue folic acid & thiamin Trend LFT, improving today Restrict fluid intake to 1.5 L/ day Pending 2 D echo Continue PPI and therapeutic Lovenox CCT 30 min Current Medications Current Medications Medications: Home Medications chorionic gonadotropin, human 10,000 unit intramuscular solution 10,000 unit IM DIRECTED 09/22/20 [History Confirmed 02/06/22] testosterone 200 mg implant pellet 100 mg SUBCUT WEEKLY 09/22/20 [History Confirmed 02/06/22] paroxetine HCl 40 mg tablet 40 mg PO DAILY #90 tabs 01/01/22 [Rx Confirmed 02/06/22] folic acid 1 mg tablet 1 mg PO DAILY #30 tabs 02/06/22 [Rx] gabapentin 300 mg capsule 300 mg PO TID #90 caps 02/06/22 [Rx] lorazepam 1 mg tablet 1 mg PO Q8H PRN Anxiety #10 tabs 02/06/22 [Rx] melatonin 10 mg tablet 10 mg PO BEDTIME PRN sleep #30 tabs 02/06/22 [Rx] methocarbamol 500 mg tablet 500 mg PO TID #90 tabs 02/06/22 [Rx] multivitamin with folic acid 400 mcg tablet (Tab-A-Isis) 1 tab PO DAILY #30 tabs 02/06/22 [Rx] olanzapine 5 mg tablet (Zyprexa) 5 mg PO BEDTIME #30 tabs 02/06/22 [Rx] Visit Medications (administered) Generic Name Dose Route Start Last Admin Trade Name Freq PRN Reason Stop Dose Admin Chlordiazepoxide HCl 10 mg 03/11/22 12:00 03/12/22 08:49 Chlordiazepoxide 10 Mg Capsule PO 10 mg TID CL[facility] Administration Enoxaparin Sodium 100 mg 03/10/22 11:30 03/11/22 20:26 Enoxaparin 100 Mg/Ml Syringe SUBCUT 100 mg BID [place] Administration Folic Acid 1 mg 03/10/22 09:00 03/12/22 08:55 Folic Acid 1 Mg Tablet PO 1 mg DAILY [place] Administration Thiamine HCl 100 mg/ Sodium 101 mls @ 404 mls/hr 03/10/22 09:00 03/11/22 10:40 Chloride IV Infused DAILY [facility] Infusion dexmedeTOMIDine in 0.9 % NaCL 400 mcg in 100 mls @ 5.375 mls/hr 03/09/22 21:00 03/12/22 09:09 Precedex IV 1 mcg/kg/hr TITRATE [place] 27 mls/hr Administration 0.2 MCG/KG/HR Piperacillin Sod/Tazobactam 100 mls @ 25 mls/hr 03/10/22 10:00 03/12/22 06:02 Sod 3.375 gm/ Sodium Chloride IV Infused Q8H [facility] Infusion Sodium Chloride 250 mls @ 21 mls/hr 03/11/22 12:04 03/12/22 06:58 Normal Saline 0.9% IV 21 mls/hr Q24H PRN Administration Flush Lorazepam 0 mg 03/09/22 17:57 03/12/22 08:54 Lorazepam 2 Mg/Ml Inj IV 2 mg CIWAPRN PRN Administration Alcohol Withdrawal Protocol Lorazepam 1 mg 03/10/22 03:27 03/11/22 10:54 Lorazepam 1 Mg Tablet PO 1 mg Q6HR PRN Administration Anxiety Metoprolol Tartrate 25 mg 03/11/22 10:30 03/12/22 08:55 Metoprolol Ir 25 Mg Tablet PO 25 mg BID CL[place] Administration Objective Ventilator Parameters: Ventilator Settings RT Vent Frequency 15 Labs Result Diagrams: 03/11/22 10:35 03/12/22 08:25 Labs: Laboratory Results - last 24 hr 03/09/22 03/11/22 03/11/22 12:00 10:35 10:35 WBC 10.2 RBC 4.15 L Hgb 13.7 Hct 39.5 L MCV 95.0 MCH 32.9 MCHC 34.6 RDW 14.2 Plt Count 147 L Neut % (Auto) 80.9 H Lymph % (Auto) 11.8 L [place] % (Auto) 6.0 Eos % (Auto) 0.7 L Baso % (Auto) 0.6 Neut # (Auto) 8200 H Lymph # (Auto) 1200 [place] # (Auto) 600 Eos # (Auto) 100 Baso # (Auto) 100 Sodium 131 L Potassium 4.0 Chloride 100 Carbon Dioxide 22 BUN 23 H Creatinine 1.31 H Estimated GFR > 60 BUN/Creatinine Ratio 17.6 Glucose 107 H Calcium 7.4 L Total Bilirubin 1.2 AST 990 H ALT 613 H Alkaline Phosphatase 63 Total Creatine Kinase 497 H D Total Protein 6.4 Albumin 3.3 L Globulin 3.1 Albumin/Globulin Ratio 1.1 Prolactin 12.5 Ur Random Sodium 03/11/22 03/12/22 15:20 08:25 WBC RBC Hgb Hct MCV MCH MCHC RDW Plt Count Neut % (Auto) Lymph % (Auto) [place] % (Auto) Eos % (Auto) Baso % (Auto) Neut # (Auto) Lymph # (Auto) [place] # (Auto) Eos # (Auto) Baso # (Auto) Sodium 133 L Potassium 3.9 Chloride 104 Carbon Dioxide 24 BUN 19 Creatinine 1.13 Estimated GFR > 60 BUN/Creatinine Ratio 16.8 Glucose 108 H Calcium 7.7 L Total Bilirubin 0.9 AST 487 H ALT 512 H Alkaline Phosphatase 65 Total Creatine Kinase Total Protein 6.1 L Albumin 3.1 L Globulin 3.0 Albumin/Globulin Ratio 1.0 Prolactin Ur Random Sodium < 5 L Exam Vital Signs (past 8 hours): - 03/12/22 05:00 03/12/22 02:00 03/12/22 02:22 Temperature 97.6 F Pulse Rate 86 85 Respiratory Rate 37 H 33 H Blood Pressure 122/78 Pulse Oximetry 97 Oxygen Delivery Method Nasal Cannula Oxygen Flow Rate 6 03/12/22 04:00 03/12/22 07:36 03/12/22 08:00 Temperature 97.6 F 97.8 F Pulse Rate 81 79 Respiratory Rate 35 H 31 H Blood Pressure 129/85 133/88 Pulse Oximetry 96 95 98 Oxygen Delivery Method Nasal Cannula Oxygen Flow Rate 6 4 4 03/12/22 08:15 Temperature Pulse Rate 79 Respiratory Rate 32 H Blood Pressure 133/88 Pulse Oximetry Oxygen Delivery Method Oxygen Flow Rate Oxygen Delivery Method Nasal Cannula [facility]xygen Flow Rate [facility] Embol[facility] Present on Admission: No Assessment & Plan Time Spent With Patient Critical Care time: I spent a total of [] minutes of critical care time on this patient's care today; this time is exclusive of procedural time.
[2022-03-12 10:57] LABS: Add Manual Diff / Slide Review NO; Basophils Absolute Auto 100 /uL (0-100); Basophils Percent Auto 0.4 % (0-2); Eosinophils Absolute Auto 100 /uL (0-450); Hematocrit 41.6 % (41-53); Hemoglobin 13.9 g/dL (13.5-17.5); Lymphocytes Absolute Auto 1000 /uL (1100-4500); Lymphocytes Percent Auto 8.1 % (25-40); Mean Corpuscular HGB Conc 33.5 % (30-36); Mean Corpuscular Hemoglobin 32.4 PG (26-34); Mean Corpuscular Volume 96.7 fL (80-100); Monocytes Absolute Auto 600 /uL (0-900); Monocytes Percent Auto 5.3 % (3-14); Neutrophils Absolute Auto 10100 /uL (1500-7000); Neutrophils Percent Auto 85.2 % (50-75); Red Blood Cell Count 4.31 X10^6/uL (4.5-5.9); Red Cell Distribution Width 14.4 % (11.6-14.8); White Blood Cell Count 11.9 X10^3/uL (4.5-11.0)
[2022-03-12 11:51] LABS: Platelet Count 165 X10^3/uL (150-400)
[2022-03-12] MEDS: THIAMINE 100 MG in SODIUM CHLORIDE 0.9% 100 ML 404 MG IV ×2 (11:52→11:57)
[2022-03-12] MEDS: chlordiazePOXIDE 25 MG CAPSULE PO ×3 (12:23→20:47)
--- NOTE | 2022-03-12 12:46 | DI.RAD.S_ITS ---
PROCEDURE: XR CHEST 1V INDICATIONS: increased WOB TECHNIQUE: One view of the chest was acquired. COMPARISON: , CR, XR CHEST 1V, 03/09/2022, 11:30. FINDINGS: Surgical changes and devices: None. Lungs and pleura: Patchy opacity in the right lung is not significantly changed. No pleural effusions or pneumothorax. Mediastinum: Mediastinal contours appear normal. Heart is enlarged. Bones and chest wall: No suspicious bony lesions. Overlying soft tissues appear unremarkable. IMPRESSION: Right-sided pneumonia and cardiomegaly. Dictated by: Samantha Higgins MD, PhD on 03/12/2022 at 13:19 Approved by: Samantha Higgins MD, PhD on 03/12/2022 at 13:20
[2022-03-12] MEDS: FUROSEMIDE 100 MG/10 ML VIAL 80 MG IV ×2 (13:22→22:26)
[2022-03-12] MEDS: ENOXAPARIN 100 MG/ML SYRINGE SUBCUT ×2 (13:23→20:47)
--- NOTE | 2022-03-12 14:07 | PM.PN.1 ---
Subjective Subjective Interval history: pt is sleepy but arousable, he is oriented x1, given ativan prior to rounding Exam Vital Signs (past 8 hours): - 03/12/22 07:36 03/12/22 08:00 03/12/22 08:15 Temperature 97.8 F Pulse Rate 79 79 Respiratory Rate 31 H 32 H Blood Pressure 133/88 133/88 Pulse Oximetry 95 98 Oxygen Delivery Method Nasal Cannula Oxygen Flow Rate 4 4 03/12/22 09:20 03/12/22 09:00 03/12/22 10:53 Temperature Pulse Rate 79 83 Respiratory Rate 32 H 38 H Blood Pressure Pulse Oximetry Oxygen Delivery Method Nasal Cannula Oxygen Flow Rate 03/12/22 11:40 03/12/22 11:40 03/12/22 13:00 Temperature 99.0 F Pulse Rate 82 82 84 Respiratory Rate 36 H 32 H 34 H Blood Pressure 183/117 H Pulse Oximetry 98 Oxygen Delivery Method Oxygen Flow Rate 4 Oxygen Delivery Method Nasal Cannula Oxygen Flow Rate 4 Narrative Exam Narrative: pt is sleepy but arousable oriented to himself HENND Head: normal to inspection Ears: external ears normal Mouth: oral mucosae normal Eyes Pupils: PERRL EOM: EOM intact bilaterally Neck Neck: normal visual inspection and full ROM Resp Effort & Inspection: normal respiratory effort Auscultation: clear to auscultation bilaterally Cardio Rate: regular rate Rhythm: regular rhythm GI Palpation: soft and no hepatosplenomegaly Auscultation: normal bowel sounds Skin General: no rashes or lesions noted Neuro General: patient alert, patient awake, patient oriented x3, moves all extremities and no focal motor deficits Speech: speech normal Extrem General: normal to inspection, full ROM and no pedal edema Psych Appearance: grossly normal Objective Labs Result Diagrams: 03/12/22 08:25 03/12/22 08:25 Labs: Laboratory Results - last 24 hr 03/09/22 03/11/22 03/12/22 12:00 15:20 08:25 WBC RBC Hgb Hct MCV MCH MCHC RDW Plt Count Neut % (Auto) Lymph % (Auto) [place] % (Auto) Eos % (Auto) Baso % (Auto) Neut # (Auto) Lymph # (Auto) [place] # (Auto) Eos # (Auto) Baso # (Auto) Sodium 133 L Potassium 3.9 Chloride 104 Carbon Dioxide 24 BUN 19 Creatinine 1.13 Estimated GFR > 60 BUN/Creatinine Ratio 16.8 Glucose 108 H Calcium 7.7 L Total Bilirubin 0.9 AST 487 H ALT 512 H Alkaline Phosphatase 65 Total Protein 6.1 L Albumin 3.1 L Globulin 3.0 Albumin/Globulin Ratio 1.0 Prolactin 12.5 Ur Random Sodium < 5 L 03/12/22 08:25 WBC 11.9 H RBC 4.31 L Hgb 13.9 Hct 41.6 MCV 96.7 MCH 32.4 MCHC 33.5 RDW 14.4 Plt Count 165 Neut % (Auto) 85.2 H Lymph % (Auto) 8.1 L [place] % (Auto) 5.3 Eos % (Auto) 1.0 L Baso % (Auto) 0.4 Neut # (Auto) 12874 H Lymph # (Auto) 1000 L [place] # (Auto) 600 Eos # (Auto) 100 Baso # (Auto) 100 Sodium Potassium Chloride Carbon Dioxide BUN Creatinine Estimated GFR BUN/Creatinine Ratio Glucose Calcium Total Bilirubin AST ALT Alkaline Phosphatase Total Protein Albumin Globulin Albumin/Globulin Ratio Prolactin Ur Random Sodium [facility] Medical History Alcohol abuse Hypertension (~2019) Social History household members: friend(s) Smoking Status: Never smoker alcohol intake: current Assessment & Plan Assessment & Plan narrative: Alcohol intoxication/Alcohol withdrawal - continue CIWA protocol - continue precedex - telemetry monitoring - neurochecks New A fib rate controlled , - on metoprololl PO BID per ups driver 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 thiamin, folic acid Lactic acidosis/Leukocytosis resolved - continue? empiric abx - cx blood urine pending Pneumonia aspirational -continue levaquin IV daily -keep sats > 93% Hyponatremia 133 today -improving -BMP daily Hypertension -added lisinopril 20 mg daily - labetalol 10 mg IV q 4 h for systolic > 160 Elevated troponin? -continue? therapeutic lovenox DVT prophylaxis: lovenox code status : full discussed with pt and rn Time Spent With Patient Critical Care time: I spent a total of [] minutes of critical care time on this patient's care today; this time is exclusive of procedural time. Quality VTE Deep Vein Thrombosis/Pulmonary Embolism Present on Admission: No
--- NOTE | 2022-03-12 15:29 | CM.DPC ---
DCP Cont: Patient was sitting up in bed, nursing was in the room. Increased alertness today. As noted before, patient recently , here with new onset of a-fib, and workes for [employer]. May benefit with some outpatient rehab resources for alcohol use. P: DCP to continue to follow for needs. Plan is home when medically stable with outpatient alcohol rehab resources. Maribell Astorga RN/[employer]
[2022-03-12] MEDS: MEROPENEM 2 GM in SODIUM CHLORIDE 0.9% 100 ML IV ×2 (17:30→22:38)
[2022-03-12] MEDS: PHENobarbital 65 MG/ML VIAL 130 MG IV ×2 (17:57→22:27)
--- NOTE | 2022-03-12 18:02 | PC.NURSE ---
Addendum entered by Sally Rangel R.N. 03/12/22 19:30: Sister reports Pt had these medications at his home, Anastrazole injection, Testosterone edible, Paraxatine, Tadalafino, Cialis, HCG injections. Unsure if he was taking these prior to admission. Addendum entered by Sally Rangel R.N. 03/12/22 18:27: Continue to await bed for transfer, Pt continues with worsening agitation, requiring 1:1 supervision most of the afternoon. Pt does not have recall, and continues to make attempts at removing lines, and O2. Confusion and agitation continues. Call into [facility], and orders obtained for Phenobarbital. Continue to update family throughout shift about bed availability. RR remains elevated, good response to Lasix. Original Note: Am shift Pt noted with increased agitation, CIWA scores of 22+ and increased WOB this AM. Medicated with PRN Ativan multiple times, remains agitated and making attempts to remove tele and IV access. ECHO done with results of EF 10-15% Update to Tele ICU and orders obtained for IV Lasix for fluid overload, CXR ordered. Lungs coarse rhonchi, exp wheeze and increased WOB. RR 30+ most of shift. Updates frequently to Tele ICU [facility] and [facility]. Cardiology consulted and transfer pending, based on bed availability with in house cardiology. Updates to sister Jenna and Father re POC and Echo results. Await update on transfer.
[2022-03-12] MEDS: VANCOMYCIN 1,500 MG/300 ML PIGGYBACK 200 MG IV (18:35)
--- NOTE | 2022-03-12 20:15 | PM.ICURNDS ---
- :: This patient was seen via real time interactive two-way audiovisual telecommunication. Pt agitated but responding to pheonbarb, a second dose ordered, pt Echo showed severerly reduced EF, started on IV lasix 80 mg Q8H, team initiated the transfer to higher level of care.
[2022-03-12] MEDS: lisinopriL 10 MG TABLET PO (20:48)
--- NOTE | 2022-03-12 23:56 | DI.RAD.S_ITS ---
PROCEDURE: XR CHEST 1V INDICATIONS: PICC line placement TECHNIQUE: One view of the chest was acquired. COMPARISON: [facility], CR, XR CHEST 1V, 03/12/2022, 12:45. FINDINGS: Surgical changes and devices: There is a new right upper extremity PICC line with the tip projecting over the superior vena cava approximately 2.5 cm from the cavoatrial junction. Lungs and pleura: There is persistent pulmonary edema. Medial bibasilar opacities are also redemonstrated consistent with atelectasis or consolidation. No pleural effusions or pneumothorax. Mediastinum: Mediastinal contours are unchanged. Heart size is enlarged. Bones and chest wall: No suspicious bony lesions. Overlying soft tissues appear unremarkable. IMPRESSION: 1. New PICC line demonstrated extending into the superior vena cava. 2. Persistent pulmonary edema and medial bibasilar atelectasis or consolidation. Dictated by: Bulmaro Landeros M.D. on 03/13/2022 at 1:12 Approved by: Bulmaro Landeros M.D. on 03/13/2022 at 1:14
[2022-03-13] VITALS (13 sets, daily range): BP systolic 117–136; BP diastolic 72–82; PULSE 72–112; RESP 19–43; TEMP 36.6–37.4; O2SAT 91–100
[2022-03-13] MEDS: dexmedeTOMIDine in 0.9 % NaCL 400 MCG/100 ML PLAST..BAG 27 MCG IV ×4 (01:12→11:02)
[2022-03-13] MEDS: LORazepam 2 MG/ML INJ IV ×4 (01:14→15:00)
--- NOTE | 2022-03-13 01:22 | DI.RAD.S_ITS ---
PROCEDURE: XR CHEST FOR PICC 1V INDICATIONS: PICC line placement TECHNIQUE: One view of the chest was acquired. COMPARISON: [facility], , XR CHEST FOR PICC 1V, 03/12/2022, 23:55. FINDINGS: Surgical changes and devices: There has been slight interval advancement of the right upper extremity PICC line with the tip in the region of the cavoatrial junction. Lungs and pleura: There are persistent patchy opacities in the right lung as well as pulmonary edema. Medial bibasilar atelectasis or consolidation also redemonstrated. No pleural effusions or pneumothorax. Mediastinum: Mediastinal contours are unchanged. Heart size is enlarged. Bones and chest wall: No suspicious bony lesions. Overlying soft tissues appear unremarkable. IMPRESSION: 1. Interval advancement of PICC catheter to the region of the cavoatrial junction. 2. Persistent bilateral pulmonary edema and patchy opacities within the right lung. Dictated by: Bulmaro Landeros M.D. on 03/13/2022 at 2:27 Approved by: Bulmaro Landeros M.D. on 03/13/2022 at 2:30
[2022-03-13] MEDS: VANCOMYCIN 1,500 MG/300 ML PIGGYBACK 200 MG IV ×2 (02:57→16:15)
[2022-03-13] MEDS: PHENobarbital 65 MG/ML VIAL 130 MG IV (03:55)
[2022-03-13] MEDS: FUROSEMIDE 100 MG/10 ML VIAL 80 MG IV ×3 (06:02→22:31)
[2022-03-13] MEDS: MEROPENEM 2 GM in SODIUM CHLORIDE 0.9% 100 ML IV ×3 (06:02→22:31)
--- NOTE | 2022-03-13 06:34 | PC.NURSE ---
Shift notes: Patient remains extremely anxious, restless and agitated, attempted to get up from bed multiple times. Denies any pain/discomfort. Vital signs are stable and within acceptable limits. Patient was seen by tele ICU MD, ordered phenobarbital IV for agitation. CIWA was between 8 and 20, ativan given as per CIWA protocol. At 0030, PICC line placed at right upper arm by PICC line nurse, procedure well tolerated, chest xray was done, placement verified by radiologist and picc line nurse, okay to use PICC line ordered by PASCALE Garza. PIV was infiltrated and removed. Patient sister, Jenna, called and was updated on patient current condition. Will continue to monitor.
[2022-03-13] MEDS: METOPROLOL IR 25 MG TABLET PO ×2 (08:25→20:45)
[2022-03-13] MEDS: FOLIC ACID 1 MG TABLET PO (08:25)
[2022-03-13] MEDS: ENOXAPARIN 100 MG/ML SYRINGE SUBCUT ×2 (08:25→20:45)
[2022-03-13] MEDS: lisinopriL 10 MG TABLET PO ×2 (08:25→20:47)
[2022-03-13] MEDS: chlordiazePOXIDE 25 MG CAPSULE PO ×4 (08:25→22:26)
[2022-03-13] MEDS: THIAMINE 100 MG in SODIUM CHLORIDE 0.9% 100 ML 404 MG IV (09:39)
--- NOTE | 2022-03-13 09:54 | PM.PN.EICU ---
Subjective Subjective If camera was activated, add TeleICU A-V statement: Clinical status is better, didn't require ativan this am per CIWA score, precedex drip weaned to 0.8, last night needed required 2 doses of Phenobarb to help with agitation, HR improved on metoprolol, on 2 L NC, neg 2.4 L over the last 24 hr with lasix Assessment: Sever HFrEF, new Dx of acute systolic CHF Acute encephalopathy 2/2 Alcohol intoxication then with drawl Afib w RVR Sever sepsis 2/2 aspiration PNA Lactic acidosis / resolved Acute hypoxemic respiratory failure Alcohol withdrawal Alcohol abuse Alcohlolic hepatitis/ LFT worse today Elevated CK & T trop ( both trended down) Thrombocytopenia 2/2 sepsis LIDYA / ATN 2/2 sepsis Mild hyponatremia Rec: Continue Lasix 80 mg Q8H, goal neg 2 L daily CMP lkely 2/2 alcohol, will need work up to R/O other etiologies including ischemic, team working on transfer to higher level of care Was started on Lisinopril 10 mg bid, already got the Am dose, switch to daily, pending BMP, risk of LIDYA with aggressive diuresis, prefer to start JESSICA I after volume status improves Continue librium to 25 mg QID, wean off? precedex drip as tolerated Continue metoprolol 25 mg bid Continue IV Zosyn for 5 days total (CBC pending , switch to? a different? AB if thrombocytopenia worsens,? f/u sputum and blood cx Continue Lorazepam per CIW protocol Continue folic acid & thiamin Trend LFT Restrict fluid intake to 1.5 L/ day Continue PPI and therapeutic Lovenox CCT 30 min Current Medications Current Medications Medications: Home Medications chorionic gonadotropin, human 10,000 unit intramuscular solution 10,000 unit IM DIRECTED 09/22/20 [History Confirmed 02/06/22] testosterone 200 mg implant pellet 100 mg SUBCUT WEEKLY 09/22/20 [History Confirmed 02/06/22] paroxetine HCl 40 mg tablet 40 mg PO DAILY #90 tabs 01/01/22 [Rx Confirmed 02/06/22] folic acid 1 mg tablet 1 mg PO DAILY #30 tabs 02/06/22 [Rx] gabapentin 300 mg capsule 300 mg PO TID #90 caps 02/06/22 [Rx] lorazepam 1 mg tablet 1 mg PO Q8H PRN Anxiety #10 tabs 02/06/22 [Rx] melatonin 10 mg tablet 10 mg PO BEDTIME PRN sleep #30 tabs 02/06/22 [Rx] methocarbamol 500 mg tablet 500 mg PO TID #90 tabs 02/06/22 [Rx] multivitamin with folic acid 400 mcg tablet (Tab-A-Isis) 1 tab PO DAILY #30 tabs 02/06/22 [Rx] olanzapine 5 mg tablet (Zyprexa) 5 mg PO BEDTIME #30 tabs 02/06/22 [Rx] Visit Medications (administered) Generic Name Dose Route Start Last Admin Trade Name Freq PRN Reason Stop Dose Admin Chlordiazepoxide HCl 25 mg 03/12/22 13:00 03/13/22 08:25 Chlordiazepoxide 25 Mg Capsule PO 25 mg QID CLIFTON Administration Enoxaparin Sodium 100 mg 03/10/22 11:30 03/13/22 08:25 Enoxaparin 100 Mg/Ml Syringe SUBCUT 100 mg BID CLIFTON Administration Folic Acid 1 mg 03/10/22 09:00 03/13/22 08:25 Folic Acid 1 Mg Tablet PO 1 mg DAILY CLIFTON Administration Furosemide 80 mg 03/12/22 15:00 03/13/22 06:02 Furosemide 100 Mg/10 Ml Vial IV 80 mg Q8H CLIFTON Administration Thiamine HCl 100 mg/ Sodium 101 mls @ 404 mls/hr 03/10/22 09:00 03/13/22 09:39 Chloride IV 404 mls/hr DAILY CLIFTON Administration dexmedeTOMIDine in 0.9 % NaCL 400 mcg in 100 mls @ 5.375 mls/hr 03/09/22 21:00 03/13/22 06:50 Precedex IV 1 mcg/kg/hr TITRATE CLIFTON 27 mls/hr Administration 0.2 MCG/KG/HR Sodium Chloride 250 mls @ 21 mls/hr 03/11/22 12:04 03/13/22 09:45 Normal Saline 0.9% IV Infused Q24H PRN Infusion Flush Meropenem 2 gm/ Sodium 100 mls @ 200 mls/hr 03/12/22 15:00 03/13/22 06:32 Chloride IV Infused Q8H CLIFTON Infusion Vancomycin HCl/Dextrose 1,500 mg in 300 mls @ 200 mls/hr 03/12/22 15:00 03/13/22 04:27 Vancomycin IV Infused Q12H CLIFTON Infusion Lisinopril 10 mg 03/12/22 21:00 03/13/22 08:25 Lisinopril 10 Mg Tablet PO 10 mg BID CLIFTON Administration Lorazepam 0 mg 03/09/22 17:57 03/13/22 06:01 Lorazepam 2 Mg/Ml Inj IV 2 mg CIWAPRN PRN Administration Alcohol Withdrawal Protocol Lorazepam 1 mg 03/10/22 03:27 03/11/22 10:54 Lorazepam 1 Mg Tablet PO 1 mg Q6HR PRN Administration Anxiety Metoprolol Tartrate 25 mg 03/11/22 10:30 03/13/22 08:25 Metoprolol Ir 25 Mg Tablet PO 25 mg BID CLIFTON Administration Objective Ventilator Parameters: Ventilator Settings RT Vent Frequency 15 Labs Result Diagrams: 03/12/22 08:25 03/12/22 08:25 Labs: Laboratory Results - last 24 hr 03/12/22 08:25 WBC 11.9 H RBC 4.31 L Hgb 13.9 Hct 41.6 MCV 96.7 MCH 32.4 MCHC 33.5 RDW 14.4 Plt Count 165 Neut % (Auto) 85.2 H Lymph % (Auto) 8.1 L [place] % (Auto) 5.3 Eos % (Auto) 1.0 L Baso % (Auto) 0.4 Neut # (Auto) 04296 H Lymph # (Auto) 1000 L [place] # (Auto) 600 Eos # (Auto) 100 Baso # (Auto) 100 Exam Vital Signs (past 8 hours): - 03/13/22 05:00 03/13/22 02:27 03/13/22 04:00 Temperature 97.8 F Pulse Rate 82 81 Respiratory Rate 37 H 41 H Blood Pressure 121/77 Pulse Oximetry 98 Oxygen Delivery Method Nasal Cannula Oxygen Flow Rate 4 03/13/22 06:21 03/13/22 08:19 Temperature 98.7 F Pulse Rate 74 72 Respiratory Rate 36 H 35 H Blood Pressure 117/79 Pulse Oximetry 97 Oxygen Delivery Method Oxygen Flow Rate 4 Oxygen Delivery Method Nasal Cannula Oxygen Flow Rate 4 Quality TeleICU VTE Deep Vein Thrombosis/Pulmonary Embolism Present on Admission: No Assessment & Plan Time Spent With Patient Critical Care time: I spent a total of [] minutes of critical care time on this patient's care today; this time is exclusive of procedural time.
[2022-03-13 12:11] LABS: Add Manual Diff / Slide Review NO; Basophils Absolute Auto 100 /uL (0-100); Basophils Percent Auto 0.6 % (0-2); Eosinophils Absolute Auto 200 /uL (0-450); Eosinophils Percent Auto 2.1 % (2-4); Hematocrit 39.5 % (41-53); Hemoglobin 13.5 g/dL (13.5-17.5); Lymphocytes Absolute Auto 1000 /uL (1100-4500); Lymphocytes Percent Auto 10.5 % (25-40); Mean Corpuscular HGB Conc 34.1 % (30-36); Mean Corpuscular Volume 96.7 fL (80-100); Monocytes Absolute Auto 900 /uL (0-900); Neutrophils Absolute Auto 7200 /uL (1500-7000); Neutrophils Percent Auto 76.8 % (50-75); Platelet Count 201 X10^3/uL (150-400); Red Blood Cell Count 4.09 X10^6/uL (4.5-5.9); Red Cell Distribution Width 14.3 % (11.6-14.8); White Blood Cell Count 9.3 X10^3/uL (4.5-11.0)
[2022-03-13 12:34] LABS: Alanine Aminotransferase 601 IU/L (<50); Alkaline Phosphatase 63 U/L (38-126); Aspartate Aminotransferase 449 IU/L (17-59); BUN Creatinine Ratio 19.5 (6-22); Bilirubin Total 0.7 mg/dL (0.2-1.3); Blood Urea Nitrogen 22 mg/dL (9-20); Calcium 7.8 mg/dL (8.4-10.2); Carbon Dioxide 26 mmol/L (22-32); Chloride 103 mmol/L (98-107); Estimated Glomerular Filt Rate > 60 mL/min (>60); Glucose 92 mg/dL (70-100); HEMOLYSIS < 15 (0-50); Potassium 3.7 mmol/L (3.4-5.1); Sodium 136 mmol/L (137-145)
--- NOTE | 2022-03-13 12:45 | PC.NURSE ---
Addendum entered by Sally Rangel R.N. 03/13/22 16:36: Update to sister and she is here to visit this afternoon. Precidex is down to 0.2mcg/kg and tolerating well. Ativan Prn x1. Tearful during visit with sister. Original Note: AM shift Pt with significant improvement to mentation today Precidex @ 1 mcg/kg currently, able to turn down to 0.5mcg/kg by 0930. Pt is alert to self and location, forgetful at times. Needing a lot of redirection, but Patient is cooperative and able to follow instructions this am. Speech is clear and Pt is steady up to BR. Able to shower this AM. Loose stool. Reports lactose intolerance. Updated diet order. Continue to Monitor CIWA, 7-12 this am.
--- NOTE | 2022-03-13 14:26 | PM.PN.1 ---
Subjective Subjective Interval history: pt is lethargic, sleepy but arousable Exam Vital Signs (past 8 hours): - 03/13/22 08:19 03/13/22 10:06 03/13/22 14:00 Temperature 98.7 F 98.7 F Pulse Rate 72 72 87 Respiratory Rate 35 H 22 23 Blood Pressure 117/79 127/82 Pulse Oximetry 97 91 93 Oxygen Delivery Method Room Air Oxygen Flow Rate 4 4 2 Fraction of Inspired Oxygen 36 Fraction of Inspired Oxygen 36 Oxygen Delivery Method Room Air Oxygen Flow Rate 2 Narrative Exam Narrative: [address] [address] Progress Note Patient: Stanislav Martinez MR#: [id number] : 1975 Acct:[id number] Age/Sex: 46 / M ? Date of Service: 03/09/22 Provider:?John Del Valle Subjective Subjective Interval history: pt is sleepy but arousable, he is oriented x1, given ativan prior to rounding Exam Vital Signs (past 8 hours): - ? 03/12/22 07:36 03/12/22 08:00 03/12/22 08:15 Temperature ? 97.8 F ? Pulse Rate ? 79 79 Respiratory Rate ? 31 H 32 H Blood Pressure ? 133/88 133/88 Pulse Oximetry 95 98 ? Oxygen Delivery Method Nasal Cannula ? ? Oxygen Flow Rate 4 4 ? ? 03/12/22 09:20 03/12/22 09:00 03/12/22 10:53 Temperature ? ? ? Pulse Rate 79 ? 83 Respiratory Rate 32 H ? 38 H Blood Pressure ? ? ? Pulse Oximetry ? ? ? Oxygen Delivery Method ? Nasal Cannula ? Oxygen Flow Rate ? 03/12/22 11:40 03/12/22 11:40 03/12/22 13:00 Temperature 99.0 F ? ? Pulse Rate 82 82 84 Respiratory Rate 36 H 32 H 34 H Blood Pressure 183/117 H ? ? Pulse Oximetry 98 ? ? Oxygen Delivery Method ? ? ? Oxygen Flow Rate 4 ? ? Oxygen Delivery Method? Nasal Cannula ? Oxygen Flow Rate? 4 ? Narrative Exam Narrative: pt is sleepy but arousable oriented to himself [facility] Head: normal to inspection Ears: external ears normal Mouth: oral mucosae normal Eyes Pupils: PERRL EOM: EOM intact bilaterally Neck Neck: normal visual inspection and full ROM Resp Effort & Inspection: normal respiratory effort Auscultation: clear to auscultation bilaterally Cardio Rate: regular rate Rhythm: regular rhythm GI Palpation: soft and no hepatosplenomegaly Auscultation: normal bowel sounds Skin General: no rashes or lesions noted Neuro General: patient alert, patient awake, patient oriented x3, moves all extremities and no focal motor deficits Speech: speech normal Extrem General: normal to inspection, full ROM and no pedal edema Objective Labs Result Diagrams: 03/13/22 11:43 03/13/22 10:59 Labs: Laboratory Results - last 24 hr 03/13/22 03/13/22 10:59 11:43 WBC 9.3 RBC 4.09 L Hgb 13.5 Hct 39.5 L MCV 96.7 MCH 33.0 MCHC 34.1 RDW 14.3 Plt Count 201 Neut % (Auto) 76.8 H Lymph % (Auto) 10.5 L [place] % (Auto) 10.0 Eos % (Auto) 2.1 Baso % (Auto) 0.6 Neut # (Auto) 7200 H Lymph # (Auto) 1000 L [place] # (Auto) 900 Eos # (Auto) 200 Baso # (Auto) 100 Sodium 136 L Potassium 3.7 Chloride 103 Carbon Dioxide 26 BUN 22 H Creatinine 1.13 Estimated GFR > 60 BUN/Creatinine Ratio 19.5 Glucose 92 Calcium 7.8 L Total Bilirubin 0.7 AST 449 H ALT 601 H Alkaline Phosphatase 63 Total Protein 6.0 L Albumin 3.0 L Globulin 3.0 Albumin/Globulin Ratio 1.0 PFSH Medical History Alcohol abuse Hypertension (~2020) Social History household members: friend(s) Smoking Status: Never smoker alcohol intake: current Assessment & Plan Assessment & Plan narrative: Alcohol intoxication/Alcohol withdrawal - continue CIWA protocol - continue precedex - telemetry monitoring - neurochecks New A fib rate controlled , - continue metoprololl PO BID -telemetry monitoring -continue therapeutic lovenox 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 thiamin, folic acid Lactic acidosis/Leukocytosis resolved - continue? empiric abx - cx blood urine pending Pneumonia aspirational -continue aBX -keep sats > 93% Hyponatremia? IMPROVED TO 136 -BMP daily Hypertension - continue lisinopril 10 mg BID - labetalol 10 mg IV q 4 h for systolic > 160 Elevated troponin? -continue? therapeutic lovenox DVT prophylaxis: lovenox code status : full discussed with cardiology, pt and rn Time Spent With Patient Critical Care time: I spent a total of [] minutes of critical care time on this patient's care today; this time is exclusive of procedural time. Quality VTE Deep Vein Thrombosis/Pulmonary Embolism Present on Admission: No
[2022-03-13] MEDS: POTASSIUM CHLORIDE 20 MEQ TAB 40 MEQ PO (16:16)
[2022-03-13 16:18] LABS: Osmolality Urine 295 mOsmol/kg (.)
[2022-03-13] MEDS: LORazepam 1 MG TABLET PO ×2 (16:34→22:26)
[2022-03-13 19:22] LABS: Add Manual Diff / Slide Review NO; Basophils Absolute Auto 100 /uL (0-100); Eosinophils Absolute Auto 200 /uL (0-450); Hematocrit 39.4 % (41-53); Hemoglobin 13.5 g/dL (13.5-17.5); Lymphocytes Absolute Auto 900 /uL (1100-4500); Lymphocytes Percent Auto 9.1 % (25-40); Mean Corpuscular HGB Conc 34.2 % (30-36); Mean Corpuscular Hemoglobin 33.5 PG (26-34); Monocytes Absolute Auto 900 /uL (0-900); Neutrophils Absolute Auto 7600 /uL (1500-7000); Neutrophils Percent Auto 78.9 % (50-75); Platelet Count 192 X10^3/uL (150-400); Red Blood Cell Count 4.02 X10^6/uL (4.5-5.9); Red Cell Distribution Width 14.2 % (11.6-14.8); White Blood Cell Count 9.6 X10^3/uL (4.5-11.0)
--- NOTE | 2022-03-13 20:29 | PM.ICURNDS ---
- :: This patient was seen via real time interactive two-way audiovisual telecommunication. Note: Admitted for alcohol withdrawal and HFrEF. On precedex infusion 0.3 mcg and librium therapy. Awaiting for transfer to higher level of care for cardiomyopathy workup. D/w RN and patient at bedside.
[2022-03-13] MEDS: dexmedeTOMIDine in 0.9 % NaCL 400 MCG/100 ML PLAST..BAG 8 MCG IV (23:12)
[2022-03-14] VITALS (12 sets, daily range): BP systolic 120–154; BP diastolic 70–96; PULSE 80–117; RESP 17–32; TEMP 36.7–37.1; O2SAT 94–98
[2022-03-14] MEDS: LORazepam 2 MG/ML INJ IV ×2 (00:41→03:41)
[2022-03-14] MEDS: VANCOMYCIN TROUGH 1 REQUEST MISC (02:11)
[2022-03-14] MEDS: dexmedeTOMIDine in 0.9 % NaCL 400 MCG/100 ML PLAST..BAG 27 MCG IV (03:49)
[2022-03-14] MEDS: VANCOMYCIN 1,500 MG/300 ML PIGGYBACK 200 MG IV (04:00)
[2022-03-14 04:05] LABS: Vancomycin Trough 8.6 ug/mL (10-20)
[2022-03-14] MEDS: VANCOMYCIN PEAK 1 REQUEST MISC (05:57)
--- NOTE | 2022-03-14 05:58 | PC.NURSE ---
Shift Note: Patient was alert and orientedx4, however patient still showed episodes of extreme anxiety, restlessness and confusion, CIWA was done with highest score of 20 and lowest score of 8, prn ativan given. Denies any pain/discomfort. Vital signs are stable and within acceptable limits, maintained at room air with O2 sat >92%. Patient was seen by tele ICU MD Dr Longoria, updates given, no new orders. Safety precautions maintained. Strict aspiration precautions observed. Will continue to monitor.
[2022-03-14] MEDS: FUROSEMIDE 100 MG/10 ML VIAL 80 MG IV (06:31)
[2022-03-14] MEDS: MEROPENEM 2 GM in SODIUM CHLORIDE 0.9% 100 ML IV ×2 (06:31→15:39)
[2022-03-14 06:51] LABS: Vancomycin Peak 40.5 ug/mL (20-40)
[2022-03-14 10:07] LABS: Alanine Aminotransferase 423 IU/L (<50); Alkaline Phosphatase 69 U/L (38-126); Aspartate Aminotransferase 158 IU/L (17-59); BUN Creatinine Ratio 17.8 (6-22); Bilirubin Total 0.5 mg/dL (0.2-1.3); Blood Urea Nitrogen 19 mg/dL (9-20); Calcium 8.3 mg/dL (8.4-10.2); Carbon Dioxide 31 mmol/L (22-32); Chloride 104 mmol/L (98-107); Estimated Glomerular Filt Rate > 60 mL/min (>60); Globulin 2.9 g/dL (1.7-4.1); Glucose 112 mg/dL (70-100); HEMOLYSIS < 15 (0-50); Potassium 3.3 mmol/L (3.4-5.1); Sodium 139 mmol/L (137-145); Total Protein 5.9 g/dL (6.3-8.2)
[2022-03-14] MEDS: chlordiazePOXIDE 25 MG CAPSULE PO ×4 (10:08→20:40)
[2022-03-14] MEDS: METOPROLOL IR 25 MG TABLET PO ×2 (10:09→20:43)
[2022-03-14] MEDS: ASPIRIN EC 81 MG TABLET PO (10:09)
[2022-03-14] MEDS: ENOXAPARIN 100 MG/ML SYRINGE SUBCUT ×2 (10:10→23:55)
[2022-03-14] MEDS: FOLIC ACID 1 MG TABLET PO (10:10)
[2022-03-14] MEDS: lisinopriL 10 MG TABLET PO ×2 (10:14→20:41)
[2022-03-14 11:39] LABS: Add Manual Diff / Slide Review NO; Basophils Absolute Auto 0 /uL (0-100); Basophils Percent Auto 0.5 % (0-2); Eosinophils Absolute Auto 100 /uL (0-450); Eosinophils Percent Auto 1.7 % (2-4); Hematocrit 39.5 % (41-53); Hemoglobin 13.5 g/dL (13.5-17.5); Lymphocytes Absolute Auto 800 /uL (1100-4500); Lymphocytes Percent Auto 9.5 % (25-40); Mean Corpuscular HGB Conc 34.3 % (30-36); Mean Corpuscular Hemoglobin 32.8 PG (26-34); Mean Corpuscular Volume 95.5 fL (80-100); Monocytes Absolute Auto 1100 /uL (0-900); Monocytes Percent Auto 13.2 % (3-14); Neutrophils Absolute Auto 6100 /uL (1500-7000); Neutrophils Percent Auto 75.1 % (50-75); Platelet Count 222 X10^3/uL (150-400); Red Blood Cell Count 4.13 X10^6/uL (4.5-5.9); Red Cell Distribution Width 14.3 % (11.6-14.8); White Blood Cell Count 8.1 X10^3/uL (4.5-11.0)
[2022-03-14] MEDS: BACLOFEN 10 MG TABLET 5 MG PO (12:10)
--- NOTE | 2022-03-14 13:56 | DIET.CONS ---
Dietary Consultation Note Admission Date: 03/09/2022 17:44 Assessment: 46y M admitted for etoh withdrawl 5 days ago referred to nutrition for same. Pt much more alert and oriented today, visited by sister who lives in [place], [place]. Plan is for pt to stay c sister short term until stable then come back to [place]. Up until 4mo ago pt was very active, working hard, hiking, eating healthy. Pt has always used etoh to help him sleep. Pt has racing thoughts which keep him from sleeping or wake him up during the night. Pt recently , causing significant distress, leading to excessive etoh intake. Pt has interest in nutrition and healthy habits. Ht: 182.88 cm Wt: 110 kg BMI: 32.1 Last BM: 03/14/22 (03/14/22 12:15) MNA: 12 Hayden Score: 19 Diet: 03/09/22 Dinner Heart Healthy Diet Diet Modifications: lactose free Sodium Level: 2 gm Sodium 03/13/22 Dinner Heart Healthy Diet Diet Modifications: Sodium Level: 2 gm Sodium Nutrition Percent Meal Consumed 100% 03/14/22 09:00 Percent Meal Consumed 100% 03/13/22 16:14 Percent Meal Consumed 25% 03/12/22 17:46 Labs: RBC 4.13 X10^6/uL (4.5-5.9) L 03/14/22 09:27 Hgb 13.5 g/dL (13.5-17.5) 03/14/22 09:27 Hct 39.5 % (41-53) L 03/14/22 09:27 Creatinine 1.07 mg/dL (0.66-1.25) 03/14/22 05:45 Lactate 1.9 mmol/L (0.7-2.1) 03/10/22 11:35 Nutrition Diagnosis: excessive etoh intake r/t poor coping secondary to grief and poor sleep quality aeb pt admitted for ETOH detox, pt with new dx CHF EF 10%, pt reports lifelong insomnia he has used etoh to treat, pt recently . Interventions: 1. Educated pt and his supportive sister on setting up nutrition routine and focusing life one meal at a time in early sobriety. 2. Recc MVI c folic acid and thiamine or high intake folate containing foods. 3. Encouraged PO intake during hospitalization. Monitoring/Evaluations: prn Electronically Signed by: Perlita Moya 03/14/22 13:[address] Clinical Dietitian [address] [address]
[2022-03-14] MEDS: POTASSIUM CHLORIDE 20 MEQ TAB 40 MEQ PO ×2 (14:19→17:29)
--- NOTE | 2022-03-14 15:13 | CM.DPC ---
DCP Note: Pt and pt sister requested to speak to Care Management today. Pt sister concerned about pt care and his heart status. Pt states that he is ready to go home and wants to know why he has to continue to stay here. Pt states that he wants a medication cocktail rx to go home on so he can discharge. Sister concerned about why there was a lot of concern for his heart and now there is not. DCP states that MD is keeping pt here for his alcohol withdrawal and the librium taper. After much conversation with the sister and pt, pt agreeable to staying for another night. Pt requesting something different for sleep tonight as he states he cannot sleep in this hospital. DCP provided pt sister with a list of outpatient alcohol rehab resources. Sister and Father flew in to be with pt and they are from [place]. Sister states that once pt is discharged, he is either going back to [place] with them or the father will stay here with pt to help him get better. P: Once medically stable, pt to discharge home with sister and father. Resources provided to them for outpatient treatment options. Jayda Rajput RN/DCP
[2022-03-14] MEDS: PARoxetine 20 MG TABLET 40 MG PO (15:37)
--- NOTE | 2022-03-14 15:51 | PM.PN.1 ---
Subjective Subjective Date Patient Seen: 03/14/22 Time Patient Seen: 08:00 Interval history: Per staff he was is much more alert and oriented today. He know he has a cardiac condition. He knows that he is in hospital and the date. He states he has a cough which is the biggest issue bothering him. He is on precedex this morning. Exam Vital Signs (past 8 hours): - 03/14/22 10:14 03/14/22 12:15 03/14/22 09:00 Temperature 98.1 F Pulse Rate 97 H 104 H Respiratory Rate 22 Blood Pressure 131/86 144/85 H Pulse Oximetry 98 Oxygen Delivery Method Room Air Oxygen Flow Rate 0 Fraction of Inspired Oxygen 36 Oxygen Delivery Method Room Air Oxygen Flow Rate 0 Narrative Exam Narrative: GEN: no acute distress CV: regular rate and rhythm, no murmurs PULM: clear bilaterally, no wheezes, rhonchi, rales ABD: soft, nontender, nondistended NEURO: pleasant, no focal deficits, no tremors, awake and alert Objective Labs Result Diagrams: 03/14/22 09:27 03/14/22 05:45 Labs: Laboratory Results - last 24 hr 03/11/22 03/13/22 03/13/22 15:27 08:43 09:25 WBC 9.6 RBC 4.02 L Hgb 13.5 Hct 39.4 L MCV 98.0 MCH 33.5 MCHC 34.2 RDW 14.2 Plt Count 192 Neut % (Auto) 78.9 H Lymph % (Auto) 9.1 L [place] % (Auto) 9.0 Eos % (Auto) 2.0 Baso % (Auto) 1.0 Neut # (Auto) 7600 H Lymph # (Auto) 900 L [place] # (Auto) 900 Eos # (Auto) 200 Baso # (Auto) 100 Sodium Cancelled Potassium Cancelled Chloride Cancelled Carbon Dioxide Cancelled BUN Cancelled Creatinine Cancelled Estimated GFR Cancelled BUN/Creatinine Ratio Cancelled Glucose Cancelled Calcium Cancelled Total Bilirubin Cancelled AST Cancelled ALT Cancelled Alkaline Phosphatase Cancelled Total Protein Cancelled Albumin Cancelled Globulin Cancelled Albumin/Globulin Ratio Cancelled Urine Osmolality 295 Vancomycin Peak Vancomycin Trough 03/13/22 03/14/22 03/14/22 11:43 02:10 05:45 WBC 9.3 RBC Hgb Hct MCV 96.7 MCH MCHC 34.1 RDW Plt Count Neut % (Auto) 76.8 H Lymph % (Auto) 10.5 L [place] % (Auto) Eos % (Auto) Baso % (Auto) Neut # (Auto) Lymph # (Auto) [place] # (Auto) Eos # (Auto) Baso # (Auto) Sodium 139 Potassium 3.3 L Chloride 104 Carbon Dioxide 31 BUN 19 Creatinine 1.07 Estimated GFR > 60 BUN/Creatinine Ratio 17.8 Glucose 112 H Calcium 8.3 L Total Bilirubin 0.5 AST 158 H ALT 423 H Alkaline Phosphatase 69 Total Protein 5.9 L Albumin 3.0 L Globulin 2.9 Albumin/Globulin Ratio 1.0 Urine Osmolality Vancomycin Peak Vancomycin Trough 8.6 L 03/14/22 03/14/22 05:45 09:27 WBC 8.1 RBC 4.13 L Hgb 13.5 Hct 39.5 L MCV 95.5 MCH 32.8 MCHC 34.3 RDW 14.3 Plt Count 222 Neut % (Auto) 75.1 H Lymph % (Auto) 9.5 L [place] % (Auto) 13.2 Eos % (Auto) 1.7 L Baso % (Auto) 0.5 Neut # (Auto) 6100 Lymph # (Auto) 800 L [place] # (Auto) 1100 H Eos # (Auto) 100 Baso # (Auto) 0 Sodium Potassium Chloride Carbon Dioxide BUN Creatinine Estimated GFR BUN/Creatinine Ratio Glucose Calcium Total Bilirubin AST ALT Alkaline Phosphatase Total Protein Albumin Globulin Albumin/Globulin Ratio Urine Osmolality Vancomycin Peak 40.5 H* Vancomycin Trough PFSH Medical History Alcohol abuse Hypertension (~2019) Social History household members: friend(s) Smoking Status: Never smoker alcohol intake: current Assessment & Plan Assessment & Plan narrative: 1. Alcohol intoxication/Alcohol withdrawal - continue [facility] protocol - begin weaning librium - telemetry monitoring -stop precedex Atrial fibrillation -rate controlled currently -continue metoprolol PO BID -telemetry monitoring -continue therapeutic lovenox 3. Alcoholic Cardiomyopathy' - ECHO with EF 10-15 % - cardiology discussed over phone and did not think need transfer to higher level of care -rec start lisinopril, beta vicente, and stop drinking -follow up cards outpatient -recommended lisinopril 10 mg BID, BB BID, quit drinking 4. Alcohol abuse -continue IVF,? thiamine, folic acid -SW to assist with outpatient resources 5. Lactic acidosis/Leukocytosis resolved - continue? empiric abx - cx blood urine pending 6. Pneumonia aspiration -appears to have received antibiotics for 5 days -keep sats > 93% -antibiotics stopped, will order procal in am if normal keep off abx 7. Hyponatremia -resolved 8. Hypertension - continue lisinopril 10 mg BID - labetalol 10 mg IV q 4 h for systolic > 160 DVT prophylaxis: lovenox code status : full discussed with cardiology, pt and rn Time Spent With Patient Critical Care time: I spent a total of [] minutes of critical care time on this patient's care today; this time is exclusive of procedural time. Quality VTE Deep Vein Thrombosis/Pulmonary Embolism Present on Admission: No
[2022-03-14] MEDS: FUROSEMIDE 40 MG/4 ML VIAL IV ×2 (17:30→23:57)
--- NOTE | 2022-03-14 18:34 | PC.NURSE ---
pt much improved over course of day - precedex gtt turned to off- sister here most of shift-
[2022-03-14] MEDS: LORazepam 1 MG TABLET PO (20:40)
[2022-03-15] VITALS: BP 139/93; PULSE 100; RESP 16; TEMP 37; O2SAT 96
[2022-03-15] MEDS: MEROPENEM 2 GM in SODIUM CHLORIDE 0.9% 100 ML IV ×2 (00:37→06:46)
[2022-03-15] MEDS: LORazepam 1 MG TABLET PO (02:21)
[2022-03-15 04:00] VITALS: BP 128/83; PULSE 98; RESP 17; TEMP 37; O2SAT 96
--- NOTE | 2022-03-15 07:28 | PC.NURSE ---
End of shift note. Care of patient from [id number]. AAOX4, up most of the night. Anxious at beginning of shift, relieved with Ativan 1mg PO. Used call light for assist. Up to BR voiding. Denies pain.
[2022-03-15] MEDS: levoFLOXacin 250 MG TABLET 750 MG PO (09:00)
[2022-03-15] MEDS: METOPROLOL IR 25 MG TABLET PO (09:02)
[2022-03-15] MEDS: chlordiazePOXIDE 25 MG CAPSULE PO (09:02)
[2022-03-15] MEDS: ASPIRIN EC 81 MG TABLET PO (09:02)
[2022-03-15] MEDS: FOLIC ACID 1 MG TABLET PO (09:02)
[2022-03-15] MEDS: lisinopriL 10 MG TABLET PO (09:02)
--- NOTE | 2022-03-15 09:07 | CM.DPC ---
DCP Note Cont: DCP met with pt and pt sister this morning to check in. Pt sister states that they are discharging home today. Pt sister states that they are taking him back to his house where his father will be with him and help him during recovery. DCP provided sister yesterday with outpatient resources for alcoholism. Pt sister expressed thankfulness for all the support. Pt declined his breakfast this AM and states he would shower once he got home today. No other needs identified at this time. P: Pt to discharge home today via sister POV. Jayda Rajput RN/MACARIOP
[2022-03-15] MEDS: PARoxetine 20 MG TABLET 40 MG PO (09:10)
--- NOTE | 2022-03-15 11:28 | PC.NURSE ---
pt discharged to home with Jenna frank and much time and information given both from , this RN and DENTAL ASSISTANT re:out pt services - all questions answered to their satisfaction - removed picc line and discharged to home
--- NOTE | 2022-03-15 21:47 | PM.DS.1 ---
History of Present Illness History of Present Illness Chief complaint: ETOH Narrative: Per admitting provider: this is 46 y/o male with h/o alcohol abuse presents in alcohol intoxication to ER with altered mental status. He cannot provide me with history and I obtained from ER notes and spoke to ER physician. He was found with 2 boxes of 12 packs type alcohol outside his living place on the ground.? Patient is altered, he was responsive to stimuli but he did not follow commands in ER, was not interactive.? He presents to acute care floor in anxiety and withdrawal condition. We placed him stat to CIWA protocol . It is known that this patient is : frequent flyer in ER and hospital in the past. Discharge Providers Provider Date of admission: 03/09/22 17:44 Discharge Date: 03/15/22 Primary care physician: Linden Yousif MD Consults: 03/09/22 11:18 Consult to THREE KNIFE TRIMMER - Retail Sales Associate Stat Comment: THREE KNIFE TRIMMER Consult needed for:: Substance Abuse Assess 03/09/22 15:42 Consult to Tele-electrical engineering professor Routine Comment: Consulting Provider: Fernanda Tele-intensivists Reason for consultation: Nuclear Physics Teacher services 03/12/22 12:10 Consult to Respiratory Therapy Evaluate & Treat Comment: increased WOB rhonchi Physician Instructions: Evaluate and treat 03/12/22 15:19 Consult to Cardiology Routine Comment: to reynaldo cardiology Consulting Provider: John Del Valle Reason for consultation: EF 10-15% Has provider been notified: Yes 03/12/22 16:09 Consult to Dietitian, Adult Routine Comment: Reason For Exam: etoh 03/12/22 23:06 Consult After Hours PICC Line RN Routine Comment: Discharge provider: Ricardo Burleson MD Summary Hospital Course Discharge Diagnosis: 1. Acute encephalopathy and alcohol withdrawal 2. Alcohol abuse 3. Cardiomyopathy, likely alcohol induced 4. Aspiration pneumonia 5. Chronic anxiety 6. Hypertension Hospital Course: Mr. Martinez was admitted for alcohol withdrawal. He initially was quite confused and agitated. He was on CIWA protocol, librium and precedex and improved. He did have evidence of aspiration pneumonia, and was started and discharged on antibiotics. He also was found to have cardiomyopathy with EF 10-15%. He was started on metoprolol, lisinopril and aspirin. Cardiology recommended outpatient follow up. He was strongly encouraged to never drink alcohol again. He declined inpatient rehab resources. He did note that he had long time issues with anxiety. He was referred to psychiatry and continued on paxil. He was referred to cardiology. Exam Vital Signs (past 8 hours): Fraction of Inspired Oxygen 36 Oxygen Delivery Method Room Air Oxygen Flow Rate 0 Narrative Exam Narrative: GEN: no acute distress CV: regular rate and rhythm, no murmurs PULM: clear bilaterally, no wheezes, rhonchi, rales ABD: soft, nontender, nondistended NEURO: pleasant, no focal deficits, no tremors, awake and alert Objective Labs Result Diagrams: 03/14/22 09:27 03/14/22 05:45 Labs: Laboratory Results - last 24 hr 03/15/22 05:45 Procalcitonin 0.50 PFSH Medical History Alcohol abuse Hypertension (~2019) Social History household members: friend(s) Smoking Status: Never smoker alcohol intake: current Discharge Plan Discharge Plan Patient Disposition: Home Provider Discharge Comment: Mr. Martinez came in to the hospital with alcohol intoxication and then went into withdrawal. He was found to have a pneumonia. He should complete his antibiotics (levofloxacin). He was also found to have a weak heart (called cardiomyopathy) from the alcohol. He was started on multiple new medications including aspirin, metoprolol and lisinopril to help protect his heart. He should take multivitamin, folate, and thiamine for nutrition. He is referred to cardiology and psychiatry. He had social work discuss rehab options with him, and he should completely stop drinking. He should follow up with his pcp within one week. Discharge orders & Medications Prescriptions: New levofloxacin 250 mg Tablet 750 mg PO 0700 Qty: 3 0RF aspirin 81 mg Tablet,Delayed Release (Dr/Ec) 81 mg PO DAILY Qty: 30 0RF thiamine HCl (vitamin B1) 100 mg tablet 100 mg PO DAILY Qty: 30 0RF lisinopril 20 mg tablet 20 mg PO DAILY Qty: 30 0RF metoprolol succinate 50 mg tablet extended release 24 hr 50 mg PO DAILY Qty: 30 0RF chlordiazepoxide HCl 25 mg capsule 25 mg PO TID Qty: 6 0RF Rx Instructions: take 3 pills on , 2 pills on Sat, 1 pill on Sat Continued paroxetine HCl 40 mg tablet 40 mg PO DAILY Qty: 90 0RF Rx Instructions: PT NEEDS APPT W/PCP PRIOR TO END OF RX/FUTURE FILLS. PLEASE CALL TO SCHEDULE APPT. THANKS 01/01/22 melatonin 10 mg tablet 10 mg PO BEDTIME PRN (Reason: sleep) Qty: 30 0RF folic acid 1 mg Tablet 1 mg PO DAILY Qty: 30 0RF multivitamin with folic acid [Tab-A-Isis] 400 mcg Tablet 1 tab PO DAILY Qty: 30 0RF Discontinued lorazepam 1 mg Tablet 1 mg PO Q8H PRN (Reason: Anxiety) Qty: 10 0RF gabapentin 300 mg capsule 300 mg PO TID Qty: 90 2RF olanzapine [Zyprexa] 5 mg tablet 5 mg PO BEDTIME Qty: 30 0RF methocarbamol 500 mg tablet 500 mg PO TID Qty: 90 0RF chorionic gonadotropin, human 10,000 unit Recon Soln 10,000 unit IM DIRECTED Label Comments: Patient states he is suppose to take a two weeks on and two weeks off, but has not taken the medication for two weeks testosterone 200 mg Pellet 100 mg SUBCUT WEEKLY Follow up/Referrals: Linden Yousif MD [Primary Care Provider] - Jakob Alvarez MD [Physician] - (severe anxiety, self medicating with alcohol) Padilla Man MD [Physician] - (cardiomyopathy, EF 10-15%, presumed alcohol induced) Diet/Activity/Treatments Diet: Low-sodium Visit Report/Discharge Packet Instructions: DI for Heart Failure Stand Alone Forms: Naloxone Standing Order WADOH Discharge Data Primary Care Provider: Linden Yousif Quality VTE Deep Vein Thrombosis/Pulmonary Embolism Present on Admission: No
== END 2022-03-15 10:15 | disposition home or self-care (01) | DRG 137 ==
LOC: ED 16:20 → AC 17:45 → ICU 03-10 14:32 → AC 03-13 13:14
PROVIDERS: Family Medicine; Internal Medicine; Internal Medicine Critical Care Medicine; Admitting Provider Internal Medicine; Emergency Provider Emergency Medicine; PCP Student in an Organized Health Care Education/Training Program; Referring Provider Emergency Medicine; Visit Provider Internal Medicine
DX: J69.0 Pneumonitis due to inhalation of food and vomit (principal); F10.139 Alcohol abuse with withdrawal, unspecified; F10.129 Alcohol abuse with intoxication, unspecified; I42.6 Alcoholic cardiomyopathy; J96.01 Acute respiratory failure with hypoxia; I48.91 Unspecified atrial fibrillation; E87.2 Acidosis; D69.59 Other secondary thrombocytopenia; K70.10 Alcoholic hepatitis without ascites; I10 Essential (primary) hypertension; F41.9 Anxiety disorder, unspecified; Y90.8 Blood alcohol level of 240 mg/100 ml or more; Z20.822 Contact with and (suspected) exposure to COVID-19
CPT/HCPCS: 36415; 36592; 36600; 70450; 71045; 76700; 80048; 80053; 80202; 80305; 80320; 80329; 81001; 82140; 82550; 82553; 82805; 82962; 83605; 83935; 84145; 84146; 84300; 84443; 84484; 85025; 85610; 85730; 87040; 87633; 87635; 87797; 93005; 93010; 93306; 94762; 96361; 96365; 96367; 96368; 96375; 99285; 99291; C9803; C9113; G0480; J1200; J1630; J1650; J1940; J1956; J2060; J2185; J2543; J2560

== ENCOUNTER 2022-04-12 20:44 | Emergency (ER) | payer OTHER, MEDICAID, SELFPAY ==
[2022-03-09 18:18] VITALS: BMI 32.1
[2022-04-12] VITALS (9 sets, daily range): BP systolic 120–145; BP diastolic 68–84; PULSE 126–144; RESP 12–27; O2SAT 91–96; BMI 33.4
[2022-04-12 21:07] LABS: Add Manual Diff / Slide Review NO; Basophils Absolute Auto 100 /uL (0-100); Basophils Percent Auto 1.4 % (0-2); Eosinophils Absolute Auto 100 /uL (0-450); Eosinophils Percent Auto 1.2 % (2-4); Hematocrit 51.4 % (41-53); Hemoglobin 17.9 g/dL (13.5-17.5); Lymphocytes Absolute Auto 2700 /uL (1100-4500); Lymphocytes Percent Auto 37.2 % (25-40); Mean Corpuscular HGB Conc 34.8 % (30-36); Mean Corpuscular Hemoglobin 32.8 PG (26-34); Monocytes Absolute Auto 700 /uL (0-900); Monocytes Percent Auto 8.9 % (3-14); Neutrophils Absolute Auto 3800 /uL (1500-7000); Neutrophils Percent Auto 51.3 % (50-75); Platelet Count 222 X10^3/uL (150-400); Red Blood Cell Count 5.47 X10^6/uL (4.5-5.9); Red Cell Distribution Width 14.9 % (11.6-14.8); White Blood Cell Count 7.3 X10^3/uL (4.5-11.0)
--- NOTE | 2022-04-12 21:20 | ED.ALCOHOL ---
HPI - Alcohol General Chief Complaint: Toxicology Problem Stated Complaint: Anxiety, Drinking Alcohol Time Seen by Provider: 04/12/22 20:59 Source: patient and EMS Mode of arrival: EMS History of Present Illness HPI narrative: 46M nonsmoker with history of heavy alcohol abuse and anxiety presents by transport from EMS for evaluation of feeling anxious. He apparently has been drinking at least a 5th of alcohol per day for quite some time and feels anxious. He has no other complaints. He denies any headache or blurred vision. Denies any chest pain but feels fluttering in his chest. He denies any nausea, vomiting or diarrhea. He states his last drink was just prior to arrival. He has gone through withdrawals and DTs before. He has been on various medications to help with his anxiety in the past but not currently. He denies any recent trauma or injury. He is had no fever or chills. Denies any change in medications or diet. He denies any suicidal or homicidal ideation. Related Data Previous Rx's Medication Instructions Recorded paroxetine HCl 40 mg tablet 40 mg PO DAILY #90 tabs 01/01/22 melatonin 10 mg tablet 10 mg PO BEDTIME PRN sleep #30 tabs 02/06/22 aspirin 81 mg tablet,delayed 81 mg PO DAILY #30 tabs 03/15/22 release chlordiazepoxide HCl 25 mg capsule 25 mg PO TID #6 caps 03/15/22 folic acid 1 mg tablet 1 mg PO DAILY #30 tabs 03/15/22 levofloxacin 250 mg tablet 750 mg PO 0700 #3 tabs 03/15/22 lisinopril 20 mg tablet 20 mg PO DAILY #30 tabs 03/15/22 metoprolol succinate 50 mg 50 mg PO DAILY #30 tabs 03/15/22 tablet,extended release 24 hr multivitamin with folic acid 400 1 tab PO DAILY #30 tabs 03/15/22 mcg tablet (Tab-A-Isis) thiamine HCl (vitamin B1) 100 mg 100 mg PO DAILY #30 tabs 03/15/22 tablet amoxicillin 875 mg-potassium 1 tab PO Q12H #20 tabs 04/13/22 clavulanate 125 mg tablet chlordiazepoxide HCl 25 mg capsule See Rx Instructions .Route 04/13/22 .COMPLEX PRN alcohol withdrawal #32 caps doxycycline hyclate 100 mg tablet 100 mg PO BID #20 tabs 04/13/22 Allergies Allergy/AdvReac Type Severity Reaction Status Date / Time risperidone [From Risperdal] Allergy Severe Anaphylaxis Verified 11/14/20 10:56 Review of Systems Review of Systems Narrative: GENERAL: Denies chills, fatigue, malaise, fever, sweats. HEENT: Denies sinus pain, ear pain, sore throat, difficulty swallowing, dizziness. RESPIRATORY: Denies dyspnea, cough, wheezing, hemoptysis, sputum. CARDIOVASCULAR: See HPI GASTROINTESTINAL: Denies nausea, vomiting, abdominal pain, diarrhea, constipation, melena. : Denies dysuria, frequency, incontinence, hematuria, urinary retention. MUSCULOSKELETAL: denies weakness, joint pain, or bony pain SKIN: Denies rash, skin lesions, or other NEUROLOGIC: Denies weakness, headache, numbness, change in speech, confusion, seizures, incoordination. PSYCHIATRIC: See HPI 12 point review of systems is negative except for those stated above Patient History Medical History Alcohol abuse Hypertension (~2020) Social History household members: friend(s) Smoking Status: Never smoker alcohol intake: current Smoking Status: Never smoker alcohol intake frequency: 3 or more drinks per day Alcohol type: beer Substance Use Type: marijuana Exam Narrative Exam Narrative: GENERAL: [46] year old patient appears stated age. Well-developed patient, in mild distress. Slightly evasive, poor historian, GCS 15 HEAD: Atraumatic. Normocephalic. No swelling, ecchymosis or abrasions, no evidence of depressed skull fracture EYES: Pupils equal round and reactive. No hyphema Extraocular motions intact. No scleral icterus. No injection or drainage. ENT: Nose without bleeding, purulent drainage. Throat without erythema, tonsillar hypertrophy or exudate. Airway patent. NECK: Trachea midline. Non tender CARDIOVASCULAR: Tachycardic but regular rhythm without murmurs, gallops, or rubs. RESPIRATORY: Clear to auscultation. Breath sounds equal bilaterally. No wheezes, rales, or rhonchi. GASTROINTESTINAL: Abdomen soft, non-tender, nondistended. EXTREMITIES: No edema or joint tenderness. BACK: Nontender without deformity or crepitance. No flank tenderness. NEURO: AOx3. SKIN: No rash or erythema of visible areas Initial Vital Signs Initial Vital Signs: Vital Signs Pulse Rate 132 H 04/12/22 20:49 Pulse Oximetry 91 04/12/22 20:49 Course Orders Ordered: ED Orders 04/12/22 21:57 CT angio chest PE protocol Stat 04/13/22 00:43 UA Complete [Urinalysis and Microscopic] Stat Urine Drug Screen, Rapid Stat 04/13/22 04:27 EKG-12 Lead Stat Discontinued Medications Diazepam (Diazepam 10 Mg/2 Ml Syringe) 2 mg IV NOW ONE Stop: 04/12/22 23:19 Last Admin: 04/12/22 23:31 Dose: 2 mg Documented By: GRETCHEN Diazepam (Diazepam 10 Mg/2 Ml Syringe) 2 mg IV NOW ONE Stop: 04/13/22 00:44 Last Admin: 04/13/22 00:48 Dose: 2 mg Documented By: GRETCHEN Diazepam (Diazepam 10 Mg/2 Ml Syringe) 5 mg IV NOW ONE Stop: 04/13/22 02:19 Last Admin: 04/13/22 02:22 Dose: 5 mg Documented By: GRETCHEN Diazepam (Diazepam 10 Mg/2 Ml Syringe) 2 mg IV NOW ONE Stop: 04/13/22 06:06 Last Admin: 04/13/22 06:12 Dose: 2 mg Sodium Chloride (Normal Saline 0.9%) 1,000 mls @ 1,000 mls/hr IV BOLUS ONE Stop: 04/12/22 21:58 Last Infusion: 04/12/22 22:30 Dose: 0 mls/hr Documented By: Admin: 04/12/22 21:24 Dose: 1,000 mls/hr Documented By: GRETCHEN Ceftriaxone Sodium 2,000 mg/ (Sodium Chloride) 100 mls @ 200 mls/hr IV NOW ONE Stop: 04/12/22 23:19 Last Infusion: 04/13/22 00:42 Dose: 0 mls/hr Documented By: Admin: 04/12/22 23:31 Dose: 200 mls/hr Documented By: GRETCHEN Azithromycin 500 mg/ Dextrose 250 mls @ 250 mls/hr IV NOW ONE Stop: 04/12/22 23:19 Last Infusion: 04/13/22 01:45 Dose: 0 mls/hr Documented By: Admin: 04/13/22 00:01 Dose: 250 mls/hr Documented By: GRETCHEN Sodium Chloride (Normal Saline 0.9%) 1,000 mls @ 1,000 mls/hr IV BOLUS ONE Stop: 04/13/22 01:42 Last Infusion: 04/13/22 01:45 Dose: 0 mls/hr Documented By: Admin: 04/13/22 00:49 Dose: 1,000 mls/hr Documented By: GRETCHEN Metoprolol Succinate (Metoprolol Er 50 Mg Tablet) 50 mg PO NOW ONE Stop: 04/13/22 02:32 Last Admin: 04/13/22 02:40 Dose: 50 mg Documented By: GRETCHEN Reevaluation(s) Reevaluation #1: patient feeling much better, HR down to the 90s. No respiratory distress. When i entered the room and he and I began discussing his eventual discharge he admittedly became quite anxious again and HR went up to 90. Vital Signs Vital signs: Vital Signs - 8 hr 04/12/22 22:30 04/12/22 22:30 04/12/22 23:00 Pulse Rate 144 H Respiratory Rate 27 H Blood Pressure 144/76 H 131/73 Pulse Oximetry 93 Oxygen Delivery Method 04/12/22 23:00 04/12/22 23:30 04/12/22 23:30 Pulse Rate 131 H Respiratory Rate 20 12 Blood Pressure 120/68 Pulse Oximetry 95 92 Oxygen Delivery Method 04/13/22 00:00 04/13/22 00:00 04/13/22 00:30 Pulse Rate Respiratory Rate 17 Blood Pressure 121/67 123/68 Pulse Oximetry 95 Oxygen Delivery Method 04/13/22 00:30 04/13/22 01:00 04/13/22 01:30 Pulse Rate 126 H 132 H Respiratory Rate 17 21 19 Blood Pressure Pulse Oximetry 94 92 94 Oxygen Delivery Method 04/13/22 02:00 04/13/22 02:30 04/13/22 04:25 Pulse Rate 134 H 124 H 114 H Respiratory Rate 21 20 Blood Pressure Pulse Oximetry 93 93 Oxygen Delivery Method 04/13/22 03:00 04/13/22 03:30 04/13/22 04:00 Pulse Rate 124 H 115 H 114 H Respiratory Rate 19 21 15 Blood Pressure Pulse Oximetry 94 94 95 Oxygen Delivery Method 04/13/22 04:30 04/13/22 05:00 04/13/22 05:30 Pulse Rate 118 H 113 H 110 H Respiratory Rate 19 21 18 Blood Pressure Pulse Oximetry Oxygen Delivery Method 04/13/22 06:00 04/13/22 06:16 Pulse Rate 100 H 109 H Respiratory Rate 17 16 Blood Pressure 136/90 Pulse Oximetry 95 Oxygen Delivery Method Room Air MDM - Alcohol Lab Data Result diagrams: 04/12/22 20:55 04/12/22 20:55 Labs: Lab Results 04/12/22 04/12/22 04/12/22 Range/Units 20:55 20:55 20:55 WBC 7.3 (4.5-11.0) X10^3/uL RBC 5.47 (4.5-5.9) X10^6/uL Hgb 17.9 H (13.5-17.5) g/dL Hct 51.4 (41-53) % MCV 94.0 (80-100) fL MCH 32.8 (26-34) PG MCHC 34.8 (30-36) % RDW 14.9 H (11.6-14.8) % Plt Count 222 (150-400) X10^3/uL Neut % (Auto) 51.3 (50-75) % Lymph % (Auto) 37.2 (25-40) % [place] % (Auto) 8.9 (3-14) % Eos % (Auto) 1.2 L (2-4) % Baso % (Auto) 1.4 (0-2) % Neut # (Auto) 3800 (6752-2280) /uL Lymph # (Auto) 2700 (0376-8558) /uL [place] # (Auto) 700 (0-900) /uL Eos # (Auto) 100 (0-450) /uL Baso # (Auto) 100 (0-100) /uL D-Dimer (<230) ng/mL Sodium 144 (137-145) mmol/L Potassium 4.7 (3.4-5.1) mmol/L Chloride 103 (98-107) mmol/L Carbon Dioxide 29 (22-32) mmol/L BUN 12 (9-20) mg/dL Creatinine 1.31 H (0.66-1.25) mg/dL Estimated GFR > 60 (>60) mL/min BUN/Creatinine Ratio 9.2 (6-22) Glucose 128 H (70-100) mg/dL Calcium 8.6 (8.4-10.2) mg/dL Total Bilirubin 0.5 (0.2-1.3) mg/dL AST 78 H (17-59) IU/L ALT 81 H (<50) IU/L Alkaline Phosphatase 63 (38-126) U/L Total Creatine Kinase 380 H (55-170) U/L CK-MB (CK-2) 4.17 H (<2.37) ng/mL CK-MB (CK-2) Rel Index 1.1 L (1.5-5.0) % Troponin I 0.043 H (0.01-0.034) ng/mL Total Protein 7.6 (6.3-8.2) g/dL Albumin 4.5 (3.5-5.0) g/dL Globulin 3.1 (1.7-4.1) g/dL Albumin/Globulin Ratio 1.5 (1.0-2.8) Urine Color Urine Appearance Urine pH (4.5-8.0) Ur Specific [place] (1.000-1.035) Urine Protein (Negative) Urine Glucose (UA) (Negative) g/dL Urine Ketones (NEGATIVE) Urine Occult Blood (Negative) Urine Nitrate (Negative) Urine Bilirubin (NEGATIVE) Urine Urobilinogen (0.2) E.U./dL Ur Leukocyte Esterase (NEGATIVE) Urine RBC (0-5/HPF) Urine WBC (0-5/HPF) Urine Bacteria (None) Hyaline Casts (None) Ur Culture Indicated? U Opiates 300ng/mL cut (Negative) Ur Oxycodone Screen (Negative) Urine Methadone Screen (Negative) Ur Barbiturates Screen (Negative) U Tricyclic Antidepress (Negative) Ur Phencyclidine Scrn (Negative) Ur Amphetamines Screen (Negative) U Methamphetamines Scrn (Negative) Ur MDMA Scrn (Ecstasy) (Negative) U Benzodiazepines Scrn (Negative) Urine Cocaine Screen (Negative) U Marijuana (THC) Screen (Negative) Ethyl Alcohol 392 H ( - 10) mg/dL 04/12/22 04/13/22 04/13/22 Range/Units 20:55 00:43 00:43 WBC (4.5-11.0) X10^3/uL RBC (4.5-5.9) X10^6/uL Hgb (13.5-17.5) g/dL Hct (41-53) % MCV (80-100) fL MCH (26-34) PG MCHC (30-36) % RDW (11.6-14.8) % Plt Count (150-400) X10^3/uL Neut % (Auto) (50-75) % Lymph % (Auto) (25-40) % [place] % (Auto) (3-14) % Eos % (Auto) (2-4) % Baso % (Auto) (0-2) % Neut # (Auto) (6200-2022) /uL Lymph # (Auto) (7125-3319) /uL [place] # (Auto) (0-900) /uL Eos # (Auto) (0-450) /uL Baso # (Auto) (0-100) /uL D-Dimer 642 H (<230) ng/mL Sodium (137-145) mmol/L Potassium (3.4-5.1) mmol/L Chloride (98-107) mmol/L Carbon Dioxide (22-32) mmol/L BUN (9-20) mg/dL Creatinine (0.66-1.25) mg/dL Estimated GFR (>60) mL/min BUN/Creatinine Ratio (6-22) Glucose (70-100) mg/dL Calcium (8.4-10.2) mg/dL Total Bilirubin (0.2-1.3) mg/dL AST (17-59) IU/L ALT (<50) IU/L Alkaline Phosphatase (38-126) U/L Total Creatine Kinase (55-170) U/L CK-MB (CK-2) (<2.37) ng/mL CK-MB (CK-2) Rel Index (1.5-5.0) % Troponin I (0.01-0.034) ng/mL Total Protein (6.3-8.2) g/dL Albumin (3.5-5.0) g/dL Globulin (1.7-4.1) g/dL Albumin/Globulin Ratio (1.0-2.8) Urine Color Yellow Urine Appearance Clear Urine pH 5.5 (4.5-8.0) Ur Specific [place] 1.015 (1.000-1.035) Urine Protein Trace H (Negative) Urine Glucose (UA) Negative (Negative) g/dL Urine Ketones Trace H (NEGATIVE) Urine Occult Blood Trace-intact (Negative) Urine Nitrate Negative (Negative) Urine Bilirubin Negative (NEGATIVE) Urine Urobilinogen 0.2 (0.2) E.U./dL Ur Leukocyte Esterase Negative (NEGATIVE) Urine RBC 0-1/hpf (0-5/HPF) Urine WBC None seen (0-5/HPF) Urine Bacteria None seen (None) Hyaline Casts 0-1/lpf (None) Ur Culture Indicated? Cult not indicated U Opiates 300ng/mL cut Negative (Negative) Ur Oxycodone Screen Negative (Negative) Urine Methadone Screen Negative (Negative) Ur Barbiturates Screen Negative (Negative) U Tricyclic Antidepress Negative (Negative) Ur Phencyclidine Scrn Negative (Negative) Ur Amphetamines Screen Negative (Negative) U Methamphetamines Scrn Negative (Negative) Ur MDMA Scrn (Ecstasy) Negative (Negative) U Benzodiazepines Scrn Negative (Negative) Urine Cocaine Screen Negative (Negative) U Marijuana (THC) Screen Negative (Negative) Ethyl Alcohol ( - 10) mg/dL Imaging Data CT scan - chest: Radiologist's Impressoin: Close Chest CTA (Signed) Bulmaro Landeros - 04/12/22 Chest X-Ray (Signed) Bulmaro Landeros - 04/12/22 [place] [address] CT Scan Report Signed Patient: Stanislav Martinez MR#: [id number] : 1975 Acct:[id number] Age/Sex: 46 / M Date of Service: 04/12/22 Loc: ED Accession Number: [id number] ?? Procedure: CT angio chest PE protocol Ordering Provider: Froilan Starr D.O. PROCEDURE:? CT ANGIO CHEST PE PROTOCOL ? INDICATIONS:? tachy, SOB, anxious, significantly elevated Dimer ? TECHNIQUE:? After the administration of intravenous contrast, 2 mm thick sections acquired from the pulmonary apices to the posterior costophrenic angles.? 3-dimensional maximum intensity projection (MIP) coronal and sagittal reformats were then acquired through the thorax.? For radiation dose reduction, the following was used:? automated exposure control, adjustment of mA and/or kV according to patient size.? ? COMPARISON:? [facility], CR, XR CHEST 1V, 04/12/2022, 21:37. ? FINDINGS:? Image quality:? Evaluation slightly limited by motion artifact.? ? Pulmonary arteries:? Pulmonary arteries are normal in size, and demonstrate no intraluminal filling defects to suggest central pulmonary embolism.? ? Lower Neck: No lymphadenopathy by size criteria. Thyroid:? Visualized thyroid demonstrates no discrete nodules. Axillae: No lymphadenopathy by size criteria. Chest Wall:? Unremarkable.? Bones: Visualized osseous structures demonstrate no suspicious lesions. ? Lungs and Airways:? There is medial right lower lobe infrahilar consolidation.? Findings likely represent pneumonia.? There also clustered small ground-glass nodules within the right upper, middle, and lower lobes consistent with an infectious or inflammatory process.? The trachea and central airways are patent. Pleura: No pneumothorax or pleural effusions.? ? Heart: Heart size is normal.? No pericardial effusion. Thoracic Vessels: The aorta and pulmonary arteries are normal in size.? Mediastinum and [place]: No lymphadenopathy by size criteria. Esophagus: No wall thickening. No hiatal hernia. Abdomen:? Visualized upper abdominal solid organs appear normal in the early arterial phase of enhancement.? ? IMPRESSION:? ? 1. No evidence of pulmonary embolism. ? 2. Right lower lobe medial infrahilar consolidation most likely represents pneumonia. ? 3. Clustered small ground-glass nodules demonstrated throughout the right lung consistent with an infectious or inflammatory process.? ? ? Dictated by: Bulmaro Landeros M.D. on 04/12/2022 at 23:04 ? ? Approved by: Bulmaro Landeros M.D. on 04/12/2022 at 23:08 ? MDM Narrative Medical decision making narrative: Patient presents with alcohol intoxication and elevated heart rate. He was found outside of a local convenience store. He denies any suicidal or homicidal ideation. He is awake and alert but admittedly feeling quite anxious. Multiple diagnoses considered including electrolyte abnormality, alcohol induced arrhythmia, pulmonary embolism versus other. Over the course of his many hours here he was given fluids and multiple doses of Valium and vital signs normalized and he felt much better. Advanced imaging with CTA to evaluate for the potential of pulmonary embolism was performed and no significant findings other than a likely retrocardiac pneumonia. He has no signs of sepsis or respiratory distress. He is given a 1st round of antibiotics here. He is speaking clearly in can ambulate with a steady gait. Discharge Plan Departure Patient Disposition: Home Clinical Impression: Alcohol abuse, Anxiety, Pneumonia Instructions: Alcohol Use Disorder, DI for Pneumonia -- Adult Activity Restrictions/Additional Instructions: *You have been diagnosed with [alcohol abuse, anxiety and mild retrocardiac pneumonia] *What to do: *Please continue to take your regular medications as directed. [x ] New medication prescriptions sent to your pharmacy: [facility] ] [ ] New medication written as a paper prescription [ ] No new medications given *Please follow up with your primary care provider in 2-3 days, call for an appointment. Let them know you were seen in the Emergency Department and that we ask that you be seen in follow up. We will electronically transmit a record of today's note if your PCP is in our system *If you do not have a primary care provider please contact the [facility] Resource line at [phone]. They will ask some questions about your medical history and help get you set up with a doctor in the community. *Return to Emergency Department if you should have any new, worsening or concerning symptoms, such as [fever greater than 101 F, shaking chills, worsening pain, persistent vomiting or other bothersome symptoms] Prescriptions: New doxycycline hyclate 100 mg tablet 100 mg PO BID Qty: 20 0RF amoxicillin-pot clavulanate 875-125 mg tablet 1 tab PO Q12H Qty: 20 0RF chlordiazepoxide HCl 25 mg capsule See Rx Instructions .ROUTE .COMPLEX PRN (Reason: alcohol withdrawal) Qty: 32 0RF Rx Instructions: Day 1: 50mg POq4 Day 2: 50mg POq6 Day 3: 50mg POq8 Day 4: 50mg POq12 Day 5: 50mg POqhs #32 No Action paroxetine HCl 40 mg tablet 40 mg PO DAILY Qty: 90 0RF Rx Instructions: PT NEEDS APPT W/PCP PRIOR TO END OF RX/FUTURE FILLS. PLEASE CALL TO SCHEDULE APPT. THANKS 01/01/22 melatonin 10 mg tablet 10 mg PO BEDTIME PRN (Reason: sleep) Qty: 30 0RF levofloxacin 250 mg Tablet 750 mg PO 0700 Qty: 3 0RF aspirin 81 mg Tablet,Delayed Release (Dr/Ec) 81 mg PO DAILY Qty: 30 0RF thiamine HCl (vitamin B1) 100 mg tablet 100 mg PO DAILY Qty: 30 0RF lisinopril 20 mg tablet 20 mg PO DAILY Qty: 30 0RF metoprolol succinate 50 mg tablet extended release 24 hr 50 mg PO DAILY Qty: 30 0RF folic acid 1 mg Tablet 1 mg PO DAILY Qty: 30 0RF multivitamin with folic acid [Tab-A-Isis] 400 mcg Tablet 1 tab PO DAILY Qty: 30 0RF chlordiazepoxide HCl 25 mg capsule 25 mg PO TID Qty: 6 0RF Rx Instructions: take 3 pills on , 2 pills on Sat, 1 pill on Sat Referrals: Linden Yousif MD [Primary Care Provider] -
--- NOTE | 2022-04-12 21:23 | DI.RAD.S_ITS ---
PROCEDURE: XR CHEST 1V INDICATIONS: tachycardia, history pneumonia, anxious TECHNIQUE: One view of the chest was acquired. COMPARISON: [facility], CR, XR CHEST FOR PICC 1V, 03/13/2022, 1:25. FINDINGS: Surgical changes and devices: None. Lungs and pleura: There are right infrahilar patchy opacities. No pleural effusions or pneumothorax. Mediastinum: Mediastinal contours are unchanged. Heart size is enlarged. Bones and chest wall: No suspicious bony lesions. Overlying soft tissues appear unremarkable. IMPRESSION: 1. Right infrahilar opacities consistent with atelectasis or consolidation. Dictated by: Bulmaro Landeros M.D. on 04/12/2022 at 22:25 Approved by: Bulmaro Landeros M.D. on 04/12/2022 at 22:26
[2022-04-12] MEDS: SODIUM CHLORIDE 0.9% 1,000 ML 1000 ML IV (21:24)
[2022-04-12 21:27] LABS: Creatine Kinase 380 U/L (55-170)
[2022-04-12 21:29] LABS: Alanine Aminotransferase 81 IU/L (<50); Albumin 4.5 g/dL (3.5-5.0); Albumin Globulin Ratio 1.5 (1.0-2.8); Alkaline Phosphatase 63 U/L (38-126); Aspartate Aminotransferase 78 IU/L (17-59); BUN Creatinine Ratio 9.2 (6-22); Bilirubin Total 0.5 mg/dL (0.2-1.3); Blood Urea Nitrogen 12 mg/dL (9-20); Calcium 8.6 mg/dL (8.4-10.2); Carbon Dioxide 29 mmol/L (22-32); Chloride 103 mmol/L (98-107); Estimated Glomerular Filt Rate > 60 mL/min (>60); Globulin 3.1 g/dL (1.7-4.1); Glucose 128 mg/dL (70-100); HEMOLYSIS < 15 (0-50); Potassium 4.7 mmol/L (3.4-5.1); Sodium 144 mmol/L (137-145); Total Protein 7.6 g/dL (6.3-8.2)
[2022-04-12 21:33] LABS: D Dimer 642 ng/mL (<230)
[2022-04-12 21:36] LABS: Ethanol (ETOH) 392 mg/dL
[2022-04-12 21:39] LABS: Troponin I 0.043 ng/mL (0.01-0.034)
[2022-04-12 21:43] LABS: CKMB % Relative Index 1.1 % (1.5-5.0); Creatine Kinase MB 4.17 ng/mL (<2.37)
--- NOTE | 2022-04-12 21:57 | DI.CT.S_ITS ---
PROCEDURE: CT ANGIO CHEST PE PROTOCOL INDICATIONS: tachy, SOB, anxious, significantly elevated Dimer TECHNIQUE: After the administration of intravenous contrast, 2 mm thick sections acquired from the pulmonary apices to the posterior costophrenic angles. 3-dimensional maximum intensity projection (MIP) coronal and sagittal reformats were then acquired through the thorax. For radiation dose reduction, the following was used: automated exposure control, adjustment of mA and/or kV according to patient size. COMPARISON: [facility], CR, XR CHEST 1V, 04/12/2022, 21:37. FINDINGS: Image quality: Evaluation slightly limited by motion artifact. Pulmonary arteries: Pulmonary arteries are normal in size, and demonstrate no intraluminal filling defects to suggest central pulmonary embolism. Lower Neck: No lymphadenopathy by size criteria. Thyroid: Visualized thyroid demonstrates no discrete nodules. Axillae: No lymphadenopathy by size criteria. Chest Wall: Unremarkable. Bones: Visualized osseous structures demonstrate no suspicious lesions. Lungs and Airways: There is medial right lower lobe infrahilar consolidation. Findings likely represent pneumonia. There also clustered small ground-glass nodules within the right upper, middle, and lower lobes consistent with an infectious or inflammatory process. The trachea and central airways are patent. Pleura: No pneumothorax or pleural effusions. Heart: Heart size is normal. No pericardial effusion. Thoracic Vessels: The aorta and pulmonary arteries are normal in size. Mediastinum and [place]: No lymphadenopathy by size criteria. Esophagus: No wall thickening. No hiatal hernia. Abdomen: Visualized upper abdominal solid organs appear normal in the early arterial phase of enhancement. IMPRESSION: 1. No evidence of pulmonary embolism. 2. Right lower lobe medial infrahilar consolidation most likely represents pneumonia. 3. Clustered small ground-glass nodules demonstrated throughout the right lung consistent with an infectious or inflammatory process. Dictated by: Bulmaro Landeros M.D. on 04/12/2022 at 23:04 Approved by: Bulmaro Landeros M.D. on 04/12/2022 at 23:08
[2022-04-12] MEDS: cefTRIAXone 2,000 MG in SODIUM CHLORIDE 0.9% 100 ML 200 MG IV (23:31)
[2022-04-12] MEDS: diazePAM 10 MG/2 ML SYRINGE 2 MG IV (23:31)
[2022-04-13] VITALS (15 sets, daily range): BP systolic 121–136; BP diastolic 67–90; PULSE 100–134; RESP 15–21; O2SAT 92–95
[2022-04-13] MEDS: AZITHROMYCIN 500 MG in DEXTROSE 5% IN WATER 250 ML 250 MG IV (00:01)
[2022-04-13] MEDS: diazePAM 10 MG/2 ML SYRINGE 2 MG IV ×2 (00:48→06:12)
[2022-04-13 00:49] LABS: Appearance Urine UA CLEAR; Bilirubin Urine UA NEGATIVE (NEGATIVE); Color Urine UA YELLOW; Glucose Urine UA NEGATIVE (Negative); Ketones Urine UA TRACE (NEGATIVE); Leukocyte Esterase Urine UA NEGATIVE (NEGATIVE); Nitrite Urine UA NEGATIVE (Negative); Occult Blood Urine UA TRACE-INTACT (Negative); Protein Urine UA TRACE (Negative); Specific Gravity Urine UA 1.015 (1.000-1.035); Urobilinogen Urine UA 0.2 E.U./dL (0.2); pH Urine UA 5.5 (4.5-8.0)
[2022-04-13] MEDS: SODIUM CHLORIDE 0.9% 1,000 ML 1000 ML IV (00:49)
[2022-04-13 00:53] LABS: UR Morphine/Opiate cutoff 300 Negative (Negative); Ur Creatinine Normal (Normal); Ur Specific Gravity Normal (Normal); Urine Amphetamines Negative (Negative); Urine Barbiturates Negative (Negative); Urine Benzodiazepines Negative (Negative); Urine Cocaine Negative (Negative); Urine MDMA Negative (Negative); Urine Methadone Negative (Negative); Urine Methamphetamines Negative (Negative); Urine Oxycodone Negative (Negative); Urine Phencyclidine Negative (Negative); Urine Tetrahydrocannabinol Negative (Negative); Urine Tricyclic Antidepressant Negative (Negative); Urine pH Normal (Normal)
[2022-04-13 00:59] LABS: Bacteria Urine None Seen; Culture Indicated Urine Cult Not Indicated; Hyaline Casts Urine 0-1/LPF; RBC Urine 0-1/HPF (0-5/HPF); WBC Urine None Seen (0-5/HPF)
[2022-04-13] MEDS: diazePAM 10 MG/2 ML SYRINGE 5 MG IV (02:22)
--- NOTE | 2022-04-13 02:25 | PC.NURSE ---
pt states he has not taken his metoprolol in a couple of days does not know the strength
[2022-04-13] MEDS: METOPROLOL ER 50 MG TABLET PO (02:40)
--- NOTE | 2022-04-13 06:26 | PC.NURSE ---
ambulated pt around room, gait steady
== END 2022-04-13 06:45 | disposition home or self-care (01) ==
PROVIDERS: Emergency Provider Emergency Medicine; PCP Student in an Organized Health Care Education/Training Program
DX: F10.129 Alcohol abuse with intoxication, unspecified (principal); Y90.8 Blood alcohol level of 240 mg/100 ml or more; F41.9 Anxiety disorder, unspecified; J18.9 Pneumonia, unspecified organism
CPT/HCPCS: 36415; 71045; 71275; 80053; 80305; 80320; 81001; 82550; 82553; 84484; 85025; 85379; 93005; 93010; 96361; 96365; 96366; 96367; 96375; 96376; 99284; J0696; J3360; Q9967

== ENCOUNTER 2022-04-14 14:03 | Inpatient (IN) | payer OTHER, MEDICAID, SELFPAY ==
[2022-03-09 18:18] VITALS: BMI 32.1
[2022-04-14] VITALS (12 sets, daily range): BP systolic 142–161; BP diastolic 65–94; PULSE 118–134; RESP 17–27; TEMP 37.5–37.7; O2SAT 87–95; BMI 31.1
--- NOTE | 2022-04-14 14:25 | DI.RAD.S_ITS ---
PROCEDURE: XR CHEST 1V INDICATIONS: altered mental status TECHNIQUE: One view of the chest was acquired. COMPARISON: [facility], CT, CT ANGIO CHEST PE PROTOCOL, 04/12/2022, 22:05. [facility], CR, XR CHEST 1V, 04/12/2022, 21:37. FINDINGS: Surgical changes and devices: None. Lungs and pleura: There is dense infiltrate seen involving the majority of the right lateral lung. The left lung is relatively clear. Low lung volumes are noted. This causes a crowded appearance to the lung markings and limits evaluation. No large pneumothorax or large pleural effusions are seen. Mediastinum: Mediastinal contours appear normal. Heart size is normal. Bones and chest wall: No suspicious bony lesions. Overlying soft tissues appear unremarkable. IMPRESSION: Dense right lung consolidation, which is attributed to interval development of infiltrate. Given the rapid change, please consider aspiration. Dictated by: Jarett Morales M.D. on 04/14/2022 at 14:33 Approved by: Jarett Morales M.D. on 04/14/2022 at 14:34
--- NOTE | 2022-04-14 14:35 | ED.AMS ---
HPI - Altered Mental Status <Christopher Underwood MD - Last Filed: 04/14/22 18:30> General Chief Complaint: Altered Mental Status Stated Complaint: Fall Time Seen by Provider: 04/14/22 14:31 Source: EMS Mode of arrival: EMS History of Present Illness HPI narrative: 46-year-old man with alcohol intoxication and alcohol impairment currently comes by ambulance from an unknown location. He has a history of alcohol abuse and alcohol withdrawal and alcohol withdrawal seizures. He also suffers from hypertension and anxiety. He says that he has been drinking today. He also says he is in acute alcohol withdrawal. He endorses hematemesis as recently as today. He denies melena or blood in his stool. He denies fever or recent illness. Related Data Previous Rx's Medication Instructions Recorded paroxetine HCl 40 mg tablet 40 mg PO DAILY #90 tabs 01/01/22 melatonin 10 mg tablet 10 mg PO BEDTIME PRN sleep #30 tabs 02/06/22 aspirin 81 mg tablet,delayed 81 mg PO DAILY #30 tabs 03/15/22 release chlordiazepoxide HCl 25 mg capsule 25 mg PO TID #6 caps 03/15/22 folic acid 1 mg tablet 1 mg PO DAILY #30 tabs 03/15/22 levofloxacin 250 mg tablet 750 mg PO 0700 #3 tabs 03/15/22 lisinopril 20 mg tablet 20 mg PO DAILY #30 tabs 03/15/22 metoprolol succinate 50 mg 50 mg PO DAILY #30 tabs 03/15/22 tablet,extended release 24 hr multivitamin with folic acid 400 1 tab PO DAILY #30 tabs 03/15/22 mcg tablet (Tab-A-Isis) thiamine HCl (vitamin B1) 100 mg 100 mg PO DAILY #30 tabs 03/15/22 tablet amoxicillin 875 mg-potassium 1 tab PO Q12H #20 tabs 04/13/22 clavulanate 125 mg tablet chlordiazepoxide HCl 25 mg capsule See Rx Instructions .Route 04/13/22 .COMPLEX PRN alcohol withdrawal #32 caps doxycycline hyclate 100 mg tablet 100 mg PO BID #20 tabs 04/13/22 Allergies Allergy/AdvReac Type Severity Reaction Status Date / Time risperidone [From Risperdal] Allergy Severe Anaphylaxis Verified 11/14/20 10:56 Review of Systems <Christopher Underwood MD - Last Filed: 04/14/22 18:30> Review of Systems Narrative: Review of systems is limited because of the patient's intoxication but negative other than as noted above. Patient History <Christopher Underwood MD - Last Filed: 04/14/22 18:30> Medical History Alcohol abuse Hypertension (~2020) Social History household members: friend(s) Smoking Status: Never smoker alcohol intake: current Smoking Status: Never smoker alcohol intake frequency: 3 or more drinks per day Alcohol type: beer Substance Use Type: marijuana Exam <Christopher Underwood MD - Last Filed: 04/14/22 18:30> Narrative Exam Narrative: GENERAL: Alert, cooperative and in no distress. Intoxicated and needing frequent redirection. He was incontinent of stool. HEAD: Atraumatic. Normocephalic. EYES: Sclera are clear without icterus. Extraocular movements are full. Pupils are dilated ENT: No rhinorrhea. Oropharynx is moist. Mouth exam is benign. NECK: Supple. Full range of motion. CARDIOVASCULAR: Normal rate and rhythm without murmur gallop or rub. RESPIRATORY: Clear to auscultation. Breath sounds equal bilaterally. No wheezes, rales, or rhonchi. GASTROINTESTINAL: Abdomen soft, non-tender, nondistended. EXTREMITIES: No edema, full range of motion. No obvious trauma. BACK: Normal inspection, no CVA tenderness. NEURO: Nonfocal examination, clearly intoxicated. Nonfocal exam SKIN: No rash or erythema of visible areas PSYCH: He is impaired and slow to respond but in no unusual mood Initial Vital Signs Initial Vital Signs: Vital Signs Temperature 99.8 F H 04/14/22 14:03 Pulse Rate 129 H 04/14/22 14:03 Respiratory Rate 22 04/14/22 14:03 Blood Pressure 161/94 H 04/14/22 14:03 Pulse Oximetry 87 L 04/14/22 14:03 Oxygen Delivery Method 04/14/22 14:03 <Froilan Starr DO - Last Filed: 04/15/22 00:42> Initial Vital Signs Initial Vital Signs: Vital Signs Temperature 99.8 F H 04/14/22 14:03 Pulse Rate 129 H 04/14/22 14:03 Respiratory Rate 04/14/22 14:03 Blood Pressure 161/94 H 04/14/22 14:03 Pulse Oximetry 87 L 04/14/22 14:03 Oxygen Delivery Method 04/14/22 14:03 Course <Christopher Underwood MD - Last Filed: 04/14/22 18:30> Orders Ordered: ED Orders 04/14/22 18:23 Consult to Tele-dorr operator Routine Diazepam (Diazepam 10 Mg/2 Ml Syringe) 5 mg IV NOW PRN PRN Reason: HR greater than 120. CIWA >14 Last Admin: 04/14/22 16:43 Dose: 5 mg Documented By: Admin: 04/14/22 15:42 Dose: 5 mg Documented By: Admin: 04/14/22 14:54 Dose: 5 mg Documented By: GABI Diazepam (Diazepam 10 Mg/2 Ml Syringe) 0 mg IV CIWAPRN PRN; Protocol PRN Reason: Alcohol Withdrawal Enoxaparin Sodium (Enoxaparin 40 Mg/0.4 Ml Syringe) 40 mg SUBCUT DAILY [facility] Last Admin: 04/14/22 19:30 Dose: 40 mg Documented By: LEXA Folic Acid (Folic Acid 1 Mg Tablet) 1 mg PO DAILY [facility] Last Admin: 04/14/22 21:00 Dose: 1 mg Documented By: MIKI Thiamine HCl 100 mg/ Sodium (Chloride) 50 mls @ 200 mls/hr IV DAILY [facility] Vancomycin HCl/Dextrose (Vancomycin) 2,000 mg in 400 mls @ 200 mls/hr IV Q12H [facility] Last Admin: 04/14/22 22:11 Dose: 200 mls/hr Documented By: MIKI Cefepime HCl 2 gm/ Sodium (Chloride) 100 mls @ 200 mls/hr IV Q8H [facility] Last Infusion: 04/14/22 19:37 Dose: 0 mls/hr Documented By: Admin: 04/14/22 19:28 Dose: 200 mls/hr Documented By: LEXA Metronidazole (Flagyl) 500 mg in 100 mls @ 100 mls/hr IV Q8H [facility] Last Infusion: 04/14/22 22:12 Dose: 0 mls/hr Documented By: Admin: 04/14/22 21:01 Dose: 100 mls/hr Documented By: MIKI Multivitamins (Multivitamin 1 Tablet) 1 tab PO DAILY [facility] Multivitamins (Multivitamin 1 Tablet) 1 tab PO DAILY [facility] Last Admin: 04/14/22 21:00 Dose: 1 tab Documented By: MIKI Ondansetron HCl (Ondansetron 4 Mg/2 Ml Inj) 4 mg IV Q6HR PRN PRN Reason: Nausea And Vomiting Last Admin: 04/14/22 21:48 Dose: 4 mg Documented By: MIKI Paroxetine HCl (Paroxetine 20 Mg Tablet) 40 mg PO DAILY [facility] Last Admin: 04/14/22 22:19 Dose: 40 mg Documented By: MIKI Vancomycin HCl (Vancomycin Per Pharmacy) 1 request MISC NOW ONE Stop: 04/14/22 18:50 Discontinued Medications Diazepam (Diazepam 10 Mg/2 Ml Syringe) 10 mg IV Q30MIN ONE Stop: 04/14/22 17:40 Last Admin: 04/14/22 17:46 Dose: 10 mg Documented By: EFRAÍN Diazepam (Diazepam 10 Mg/2 Ml Syringe) 10 mg IV NOW ONE Stop: 04/14/22 18:30 Last Admin: 04/14/22 18:34 Dose: 10 mg Documented By: EFRAÍN Diazepam (Diazepam 10 Mg/2 Ml Syringe) 5 mg IV NOW ONE Stop: 04/14/22 19:23 Last Admin: 04/14/22 19:26 Dose: 5 mg Documented By: LEXA Sodium Chloride (Normal Saline 0.9%) 1,000 mls @ 1,000 mls/hr IV BOLUS ONE Stop: 04/14/22 15:24 Last Infusion: 04/14/22 16:44 Dose: 0 mls/hr Documented By: Admin: 04/14/22 14:43 Dose: 1,000 mls/hr Documented By: GABI Piperacillin Sod/Tazobactam (Sod 4.5 gm/ Sodium Chloride) 100 mls @ 200 mls/hr IV NOW ONE Stop: 04/14/22 18:14 Last Infusion: 04/14/22 19:37 Dose: 0 mls/hr Documented By: Admin: 04/14/22 18:49 Dose: 200 mls/hr Documented By: SIMA Piperacillin Sod/Tazobactam (Sod 3.375 gm/ Sodium Chloride) 100 mls @ 25 mls/hr IV Q8H [facility] Vital Signs Vital signs: Vital Signs - 8 hr 04/14/22 14:03 04/14/22 14:58 04/14/22 14:59 Temperature 99.8 F H Pulse Rate 129 H 122 H 123 H Respiratory Rate 22 27 H 27 H Blood Pressure 161/94 H Pulse Oximetry 87 L 92 92 Oxygen Delivery Method Room Air Oxygen Flow Rate 04/14/22 14:59 04/14/22 15:00 04/14/22 15:30 Temperature Pulse Rate 124 H 127 H Respiratory Rate 27 H 25 H Blood Pressure 144/74 H Pulse Oximetry 92 92 Oxygen Delivery Method Oxygen Flow Rate 04/14/22 16:00 04/14/22 16:30 Temperature Pulse Rate 118 H 122 H Respiratory Rate 24 23 Blood Pressure Pulse Oximetry 91 93 Oxygen Delivery Method Nasal Cannula Oxygen Flow Rate 3 <Froilan Starr DO - Last Filed: 04/15/22 00:42> Orders Ordered: ED Orders 04/14/22 18:23 Consult to Tele-dorr operator Routine Diazepam (Diazepam 10 Mg/2 Ml Syringe) 5 mg IV NOW PRN PRN Reason: HR greater than 120. CIWA >14 Last Admin: 04/14/22 16:43 Dose: 5 mg Documented By: Admin: 04/14/22 15:42 Dose: 5 mg Documented By: Admin: 04/14/22 14:54 Dose: 5 mg Documented By: GABI Diazepam (Diazepam 10 Mg/2 Ml Syringe) 0 mg IV CIWAPRN PRN; Protocol PRN Reason: Alcohol Withdrawal Enoxaparin Sodium (Enoxaparin 40 Mg/0.4 Ml Syringe) 40 mg SUBCUT DAILY [facility] Last Admin: 04/14/22 19:30 Dose: 40 mg Documented By: LEXA Folic Acid (Folic Acid 1 Mg Tablet) 1 mg PO DAILY [facility] Last Admin: 04/14/22 21:00 Dose: 1 mg Documented By: MIKI Thiamine HCl 100 mg/ Sodium (Chloride) 50 mls @ 200 mls/hr IV DAILY [facility] Vancomycin HCl/Dextrose (Vancomycin) 2,000 mg in 400 mls @ 200 mls/hr IV Q12H [facility] Last Admin: 04/14/22 22:11 Dose: 200 mls/hr Documented By: MIKI Cefepime HCl 2 gm/ Sodium (Chloride) 100 mls @ 200 mls/hr IV Q8H [facility] Last Infusion: 04/14/22 19:37 Dose: 0 mls/hr Documented By: Admin: 04/14/22 19:28 Dose: 200 mls/hr Documented By: LEXA Metronidazole (Flagyl) 500 mg in 100 mls @ 100 mls/hr IV Q8H [facility] Last Infusion: 04/14/22 22:12 Dose: 0 mls/hr Documented By: Admin: 04/14/22 21:01 Dose: 100 mls/hr Documented By: MIKI Multivitamins (Multivitamin 1 Tablet) 1 tab PO DAILY [facility] Multivitamins (Multivitamin 1 Tablet) 1 tab PO DAILY [facility] Last Admin: 04/14/22 21:00 Dose: 1 tab Documented By: MIKI Ondansetron HCl (Ondansetron 4 Mg/2 Ml Inj) 4 mg IV Q6HR PRN PRN Reason: Nausea And Vomiting Last Admin: 04/14/22 21:48 Dose: 4 mg Documented By: MIKI Paroxetine HCl (Paroxetine 20 Mg Tablet) 40 mg PO DAILY [facility] Last Admin: 04/14/22 22:19 Dose: 40 mg Documented By: MIKI Vancomycin HCl (Vancomycin Per Pharmacy) 1 request MISC NOW ONE Stop: 04/14/22 18:50 Discontinued Medications Diazepam (Diazepam 10 Mg/2 Ml Syringe) 10 mg IV Q30MIN ONE Stop: 04/14/22 17:40 Last Admin: 04/14/22 17:46 Dose: 10 mg Documented By: EFRAÍN Diazepam (Diazepam 10 Mg/2 Ml Syringe) 10 mg IV NOW ONE Stop: 04/14/22 18:30 Last Admin: 04/14/22 18:34 Dose: 10 mg Documented By: EFRAÍN Diazepam (Diazepam 10 Mg/2 Ml Syringe) 5 mg IV NOW ONE Stop: 04/14/22 19:23 Last Admin: 04/14/22 19:26 Dose: 5 mg Documented By: LEXA Sodium Chloride (Normal Saline 0.9%) 1,000 mls @ 1,000 mls/hr IV BOLUS ONE Stop: 04/14/22 15:24 Last Infusion: 04/14/22 16:44 Dose: 0 mls/hr Documented By: Admin: 04/14/22 14:43 Dose: 1,000 mls/hr Documented By: GABI Piperacillin Sod/Tazobactam (Sod 4.5 gm/ Sodium Chloride) 100 mls @ 200 mls/hr IV NOW ONE Stop: 04/14/22 18:14 Last Infusion: 04/14/22 19:37 Dose: 0 mls/hr Documented By: Admin: 04/14/22 18:49 Dose: 200 mls/hr Documented By: SIMA Piperacillin Sod/Tazobactam (Sod 3.375 gm/ Sodium Chloride) 100 mls @ 25 mls/hr IV Q8H [facility] Vital Signs Vital signs: Vital Signs - 8 hr 04/14/22 14:03 04/14/22 14:58 04/14/22 14:59 Temperature 99.8 F H Pulse Rate 129 H 122 H 123 H Respiratory Rate 22 27 H 27 H Blood Pressure 161/94 H Pulse Oximetry 87 L 92 92 Oxygen Delivery Method Room Air Oxygen Flow Rate 04/14/22 14:59 04/14/22 15:00 04/14/22 15:30 Temperature Pulse Rate 124 H 127 H Respiratory Rate 27 H 25 H Blood Pressure 144/74 H Pulse Oximetry 92 92 Oxygen Delivery Method Oxygen Flow Rate 04/14/22 16:00 04/14/22 16:30 Temperature Pulse Rate 118 H 122 H Respiratory Rate 24 23 Blood Pressure Pulse Oximetry 91 93 Oxygen Delivery Method Nasal Cannula Oxygen Flow Rate 3 MDM - Altered Mental Status <Christopher Underwood MD - Last Filed: 04/14/22 18:30> Medical Records Medical records narrative: At change of shift, 6:00 p.m., I transferred the care of this patient to Dr. Starr Lab Data Result diagrams: 04/14/22 14:35 04/14/22 14:35 Labs: Lab Results 04/14/22 04/14/22 04/14/22 Range/Units 14:10 14:20 14:20 WBC (4.5-11.0) X10^3/uL RBC (4.5-5.9) X10^6/uL Hgb (13.5-17.5) g/dL Hct (41-53) % MCV (80-100) fL MCH (26-34) PG MCHC (30-36) % RDW (11.6-14.8) % Plt Count (150-400) X10^3/uL Neut % (Auto) (50-75) % Lymph % (Auto) (25-40) % Powell % (Auto) (3-14) % Eos % (Auto) (2-4) % Baso % (Auto) (0-2) % Neut # (Auto) (0840-6647) /uL Lymph # (Auto) (2111-3661) /uL Powell # (Auto) (0-900) /uL Eos # (Auto) (0-450) /uL Baso # (Auto) (0-100) /uL VBG pH 7.42 (7.33-7.43) VBG pCO2 37.2 L (45-50) mmHg VBG pO2 44 (35-45) mmHg VBG HCO3 24 (23-28) mmol/L VBG Total CO2 25 (24-29) mmol/L VBG O2 Saturation 81 H (70-75) % VBG Base Excess 0.0 (0-4) mmol/L Sodium (137-145) mmol/L Potassium (3.4-5.1) mmol/L Chloride (98-107) mmol/L Carbon Dioxide (22-32) mmol/L BUN (9-20) mg/dL Creatinine (0.66-1.25) mg/dL Estimated GFR (>60) mL/min BUN/Creatinine Ratio (6-22) Glucose (70-100) mg/dL Lactate (0.7-2.1) mmol/L Calcium (8.4-10.2) mg/dL Total Bilirubin (0.2-1.3) mg/dL AST (17-59) IU/L ALT (<50) IU/L Alkaline Phosphatase (38-126) U/L Ammonia (9-30) umol/L Total Protein (6.3-8.2) g/dL Albumin (3.5-5.0) g/dL Globulin (1.7-4.1) g/dL Albumin/Globulin Ratio (1.0-2.8) Lipase (23-300) U/L Procalcitonin (<0.5) ng/mL Urine Color Yellow Urine Appearance Clear Urine pH 5.5 (4.5-8.0) Ur Specific [place] 1.010 (1.000-1.035) Urine Protein Negative (Negative) Urine Glucose (UA) Negative (Negative) g/dL Urine Ketones Negative (NEGATIVE) Urine Occult Blood Trace-lysed (Negative) Urine Nitrate Negative (Negative) Urine Bilirubin Negative (NEGATIVE) Urine Urobilinogen 0.2 (0.2) E.U./dL Ur Leukocyte Esterase Negative (NEGATIVE) Urine RBC None seen (0-5/HPF) Urine WBC 0-1/hpf (0-5/HPF) Ur Squamous Epith Cells None seen (0-5/HPF) Urine Bacteria None seen (None) Hyaline Casts 1-5/lpf (None) Ur Culture Indicated? Cult not indicated U Opiates 300ng/mL cut Negative (Negative) Ur Oxycodone Screen Negative (Negative) Urine Methadone Screen Negative (Negative) Ur Barbiturates Screen Negative (Negative) U Tricyclic Antidepress Negative (Negative) Ur Phencyclidine Scrn Negative (Negative) Ur Amphetamines Screen Negative (Negative) U Methamphetamines Scrn Negative (Negative) Ur MDMA Scrn (Ecstasy) Negative (Negative) U Benzodiazepines Scrn Positive H (Negative) Urine Cocaine Screen Negative (Negative) U Marijuana (THC) Screen Negative (Negative) Ethyl Alcohol ( - 10) mg/dL SARS-CoV-2 (PCR) (Negative) 04/14/22 04/14/22 04/14/22 Range/Units 14:25 14:35 14:35 WBC 17.0 H D (4.5-11.0) X10^3/uL RBC 5.48 (4.5-5.9) X10^6/uL Hgb 17.6 H (13.5-17.5) g/dL Hct 51.2 (41-53) % MCV 93.4 (80-100) fL MCH 32.1 (26-34) PG MCHC 34.4 (30-36) % RDW 14.7 (11.6-14.8) % Plt Count 204 (150-400) X10^3/uL Neut % (Auto) 84.5 H D (50-75) % Lymph % (Auto) 10.4 L D (25-40) % [place] % (Auto) 4.9 (3-14) % Eos % (Auto) 0.0 L (2-4) % Baso % (Auto) 0.2 (0-2) % Neut # (Auto) 69221 H (3978-9209) /uL Lymph # (Auto) 1800 (5368-3964) /uL Powell # (Auto) 800 (0-900) /uL Eos # (Auto) 0 (0-450) /uL Baso # (Auto) 0 (0-100) /uL VBG pH (7.33-7.43) VBG pCO2 (45-50) mmHg VBG pO2 (35-45) mmHg VBG HCO3 (23-28) mmol/L VBG Total CO2 (24-29) mmol/L VBG O2 Saturation (70-75) % VBG Base Excess (0-4) mmol/L Sodium 138 (137-145) mmol/L Potassium 4.6 (3.4-5.1) mmol/L Chloride 102 (98-107) mmol/L Carbon Dioxide 23 (22-32) mmol/L BUN 16 (9-20) mg/dL Creatinine 1.25 (0.66-1.25) mg/dL Estimated GFR > 60 (>60) mL/min BUN/Creatinine Ratio 12.8 (6-22) Glucose 166 H (70-100) mg/dL Lactate (0.7-2.1) mmol/L Calcium 8.2 L (8.4-10.2) mg/dL Total Bilirubin 0.9 (0.2-1.3) mg/dL AST 99 H (17-59) IU/L ALT 94 H (<50) IU/L Alkaline Phosphatase 49 (38-126) U/L Ammonia (9-30) umol/L Total Protein 7.1 (6.3-8.2) g/dL Albumin 4.2 (3.5-5.0) g/dL Globulin 2.9 (1.7-4.1) g/dL Albumin/Globulin Ratio 1.4 (1.0-2.8) Lipase (23-300) U/L Procalcitonin (<0.5) ng/mL Urine Color Urine Appearance Urine pH (4.5-8.0) Ur Specific [place] (1.000-1.035) Urine Protein (Negative) Urine Glucose (UA) (Negative) g/dL Urine Ketones (NEGATIVE) Urine Occult Blood (Negative) Urine Nitrate (Negative) Urine Bilirubin (NEGATIVE) Urine Urobilinogen (0.2) E.U./dL Ur Leukocyte Esterase (NEGATIVE) Urine RBC (0-5/HPF) Urine WBC (0-5/HPF) Ur Squamous Epith Cells (0-5/HPF) Urine Bacteria (None) Hyaline Casts (None) Ur Culture Indicated? U Opiates 300ng/mL cut (Negative) Ur Oxycodone Screen (Negative) Urine Methadone Screen (Negative) Ur Barbiturates Screen (Negative) U Tricyclic Antidepress (Negative) Ur Phencyclidine Scrn (Negative) Ur Amphetamines Screen (Negative) U Methamphetamines Scrn (Negative) Ur MDMA Scrn (Ecstasy) (Negative) U Benzodiazepines Scrn (Negative) Urine Cocaine Screen (Negative) U Marijuana (THC) Screen (Negative) Ethyl Alcohol ( - 10) mg/dL SARS-CoV-2 (PCR) Negative (Negative) 04/14/22 04/14/22 04/14/22 Range/Units 14:35 14:35 14:38 WBC (4.5-11.0) X10^3/uL RBC (4.5-5.9) X10^6/uL Hgb (13.5-17.5) g/dL Hct (41-53) % MCV (80-100) fL MCH (26-34) PG MCHC (30-36) % RDW (11.6-14.8) % Plt Count (150-400) X10^3/uL Neut % (Auto) (50-75) % Lymph % (Auto) (25-40) % Powell % (Auto) (3-14) % Eos % (Auto) (2-4) % Baso % (Auto) (0-2) % Neut # (Auto) (9442-1801) /uL Lymph # (Auto) (8934-7724) /uL Powell # (Auto) (0-900) /uL Eos # (Auto) (0-450) /uL Baso # (Auto) (0-100) /uL VBG pH (7.33-7.43) VBG pCO2 (45-50) mmHg VBG pO2 (35-45) mmHg VBG HCO3 (23-28) mmol/L VBG Total CO2 (24-29) mmol/L VBG O2 Saturation (70-75) % VBG Base Excess (0-4) mmol/L Sodium (137-145) mmol/L Potassium (3.4-5.1) mmol/L Chloride (98-107) mmol/L Carbon Dioxide (22-32) mmol/L BUN (9-20) mg/dL Creatinine (0.66-1.25) mg/dL Estimated GFR (>60) mL/min BUN/Creatinine Ratio (6-22) Glucose (70-100) mg/dL Lactate 3.5 H (0.7-2.1) mmol/L Calcium (8.4-10.2) mg/dL Total Bilirubin (0.2-1.3) mg/dL AST (17-59) IU/L ALT (<50) IU/L Alkaline Phosphatase (38-126) U/L Ammonia 11 (9-30) umol/L Total Protein (6.3-8.2) g/dL Albumin (3.5-5.0) g/dL Globulin (1.7-4.1) g/dL Albumin/Globulin Ratio (1.0-2.8) Lipase 99 (23-300) U/L Procalcitonin 0.98 H (<0.5) ng/mL Urine Color Urine Appearance Urine pH (4.5-8.0) Ur Specific [place] (1.000-1.035) Urine Protein (Negative) Urine Glucose (UA) (Negative) g/dL Urine Ketones (NEGATIVE) Urine Occult Blood (Negative) Urine Nitrate (Negative) Urine Bilirubin (NEGATIVE) Urine Urobilinogen (0.2) E.U./dL Ur Leukocyte Esterase (NEGATIVE) Urine RBC (0-5/HPF) Urine WBC (0-5/HPF) Ur Squamous Epith Cells (0-5/HPF) Urine Bacteria (None) Hyaline Casts (None) Ur Culture Indicated? U Opiates 300ng/mL cut (Negative) Ur Oxycodone Screen (Negative) Urine Methadone Screen (Negative) Ur Barbiturates Screen (Negative) U Tricyclic Antidepress (Negative) Ur Phencyclidine Scrn (Negative) Ur Amphetamines Screen (Negative) U Methamphetamines Scrn (Negative) Ur MDMA Scrn (Ecstasy) (Negative) U Benzodiazepines Scrn (Negative) Urine Cocaine Screen (Negative) U Marijuana (THC) Screen (Negative) Ethyl Alcohol ( - 10) mg/dL SARS-CoV-2 (PCR) (Negative) 04/14/22 04/14/22 Range/Units 14:38 16:47 WBC (4.5-11.0) X10^3/uL RBC (4.5-5.9) X10^6/uL Hgb (13.5-17.5) g/dL Hct (41-53) % MCV (80-100) fL MCH (26-34) PG MCHC (30-36) % RDW (11.6-14.8) % Plt Count (150-400) X10^3/uL Neut % (Auto) (50-75) % Lymph % (Auto) (25-40) % Powell % (Auto) (3-14) % Eos % (Auto) (2-4) % Baso % (Auto) (0-2) % Neut # (Auto) (9200-8386) /uL Lymph # (Auto) (4084-0271) /uL Powell # (Auto) (0-900) /uL Eos # (Auto) (0-450) /uL Baso # (Auto) (0-100) /uL VBG pH (7.33-7.43) VBG pCO2 (45-50) mmHg VBG pO2 (35-45) mmHg VBG HCO3 (23-28) mmol/L VBG Total CO2 (24-29) mmol/L VBG O2 Saturation (70-75) % VBG Base Excess (0-4) mmol/L Sodium (137-145) mmol/L Potassium (3.4-5.1) mmol/L Chloride (98-107) mmol/L Carbon Dioxide (22-32) mmol/L BUN (9-20) mg/dL Creatinine (0.66-1.25) mg/dL Estimated GFR (>60) mL/min BUN/Creatinine Ratio (6-22) Glucose (70-100) mg/dL Lactate 2.5 H (0.7-2.1) mmol/L Calcium (8.4-10.2) mg/dL Total Bilirubin (0.2-1.3) mg/dL AST (17-59) IU/L ALT (<50) IU/L Alkaline Phosphatase (38-126) U/L Ammonia (9-30) umol/L Total Protein (6.3-8.2) g/dL Albumin (3.5-5.0) g/dL Globulin (1.7-4.1) g/dL Albumin/Globulin Ratio (1.0-2.8) Lipase (23-300) U/L Procalcitonin (<0.5) ng/mL Urine Color Urine Appearance Urine pH (4.5-8.0) Ur Specific [place] (1.000-1.035) Urine Protein (Negative) Urine Glucose (UA) (Negative) g/dL Urine Ketones (NEGATIVE) Urine Occult Blood (Negative) Urine Nitrate (Negative) Urine Bilirubin (NEGATIVE) Urine Urobilinogen (0.2) E.U./dL Ur Leukocyte Esterase (NEGATIVE) Urine RBC (0-5/HPF) Urine WBC (0-5/HPF) Ur Squamous Epith Cells (0-5/HPF) Urine Bacteria (None) Hyaline Casts (None) Ur Culture Indicated? U Opiates 300ng/mL cut (Negative) Ur Oxycodone Screen (Negative) Urine Methadone Screen (Negative) Ur Barbiturates Screen (Negative) U Tricyclic Antidepress (Negative) Ur Phencyclidine Scrn (Negative) Ur Amphetamines Screen (Negative) U Methamphetamines Scrn (Negative) Ur MDMA Scrn (Ecstasy) (Negative) U Benzodiazepines Scrn (Negative) Urine Cocaine Screen (Negative) U Marijuana (THC) Screen (Negative) Ethyl Alcohol 394 H ( - 10) mg/dL SARS-CoV-2 (PCR) (Negative) Point of Care Testing Glucose POC 196 <Froilan Starr, - Last Filed: 04/15/22 00:42> Lab Data Labs: Lab Results 04/14/22 04/14/22 04/14/22 Range/Units 14:10 14:20 14:20 WBC (4.5-11.0) X10^3/uL RBC (4.5-5.9) X10^6/uL Hgb (13.5-17.5) g/dL Hct (41-53) % MCV (80-100) fL MCH (26-34) PG MCHC (30-36) % RDW (11.6-14.8) % Plt Count (150-400) X10^3/uL Neut % (Auto) (50-75) % Lymph % (Auto) (25-40) % [place] % (Auto) (3-14) % Eos % (Auto) (2-4) % Baso % (Auto) (0-2) % Neut # (Auto) (0392-4063) /uL Lymph # (Auto) (1499-8359) /uL Powell # (Auto) (0-900) /uL Eos # (Auto) (0-450) /uL Baso # (Auto) (0-100) /uL VBG pH 7.42 (7.33-7.43) VBG pCO2 37.2 L (45-50) mmHg VBG pO2 44 (35-45) mmHg VBG HCO3 24 (23-28) mmol/L VBG Total CO2 25 (24-29) mmol/L VBG O2 Saturation 81 H (70-75) % VBG Base Excess 0.0 (0-4) mmol/L Sodium (137-145) mmol/L Potassium (3.4-5.1) mmol/L Chloride (98-107) mmol/L Carbon Dioxide (22-32) mmol/L BUN (9-20) mg/dL Creatinine (0.66-1.25) mg/dL Estimated GFR (>60) mL/min BUN/Creatinine Ratio (6-22) Glucose (70-100) mg/dL Lactate (0.7-2.1) mmol/L Calcium (8.4-10.2) mg/dL Total Bilirubin (0.2-1.3) mg/dL AST (17-59) IU/L ALT (<50) IU/L Alkaline Phosphatase (38-126) U/L Ammonia (9-30) umol/L Total Protein (6.3-8.2) g/dL Albumin (3.5-5.0) g/dL Globulin (1.7-4.1) g/dL Albumin/Globulin Ratio (1.0-2.8) Lipase (23-300) U/L Procalcitonin (<0.5) ng/mL Urine Color Yellow Urine Appearance Clear Urine pH 5.5 (4.5-8.0) Ur Specific [place] 1.010 (1.000-1.035) Urine Protein Negative (Negative) Urine Glucose (UA) Negative (Negative) g/dL Urine Ketones Negative (NEGATIVE) Urine Occult Blood Trace-lysed (Negative) Urine Nitrate Negative (Negative) Urine Bilirubin Negative (NEGATIVE) Urine Urobilinogen 0.2 (0.2) E.U./dL Ur Leukocyte Esterase Negative (NEGATIVE) Urine RBC None seen (0-5/HPF) Urine WBC 0-1/hpf (0-5/HPF) Ur Squamous Epith Cells None seen (0-5/HPF) Urine Bacteria None seen (None) Hyaline Casts 1-5/lpf (None) Ur Culture Indicated? Cult not indicated U Opiates 300ng/mL cut Negative (Negative) Ur Oxycodone Screen Negative (Negative) Urine Methadone Screen Negative (Negative) Ur Barbiturates Screen Negative (Negative) U Tricyclic Antidepress Negative (Negative) Ur Phencyclidine Scrn Negative (Negative) Ur Amphetamines Screen Negative (Negative) U Methamphetamines Scrn Negative (Negative) Ur MDMA Scrn (Ecstasy) Negative (Negative) U Benzodiazepines Scrn Positive H (Negative) Urine Cocaine Screen Negative (Negative) U Marijuana (THC) Screen Negative (Negative) Ethyl Alcohol ( - 10) mg/dL SARS-CoV-2 (PCR) (Negative) 04/14/22 04/14/22 04/14/22 Range/Units 14:25 14:35 14:35 WBC 17.0 H D (4.5-11.0) X10^3/uL RBC 5.48 (4.5-5.9) X10^6/uL Hgb 17.6 H (13.5-17.5) g/dL Hct 51.2 (41-53) % MCV 93.4 (80-100) fL MCH 32.1 (26-34) PG MCHC 34.4 (30-36) % RDW 14.7 (11.6-14.8) % Plt Count 204 (150-400) X10^3/uL Neut % (Auto) 84.5 H D (50-75) % Lymph % (Auto) 10.4 L D (25-40) % Powell % (Auto) 4.9 (3-14) % Eos % (Auto) 0.0 L (2-4) % Baso % (Auto) 0.2 (0-2) % Neut # (Auto) 69841 H (0132-8813) /uL Lymph # (Auto) 1800 (9133-1376) /uL Powell # (Auto) 800 (0-900) /uL Eos # (Auto) 0 (0-450) /uL Baso # (Auto) 0 (0-100) /uL VBG pH (7.33-7.43) VBG pCO2 (45-50) mmHg VBG pO2 (35-45) mmHg VBG HCO3 (23-28) mmol/L VBG Total CO2 (24-29) mmol/L VBG O2 Saturation (70-75) % VBG Base Excess (0-4) mmol/L Sodium 138 (137-145) mmol/L Potassium 4.6 (3.4-5.1) mmol/L Chloride 102 (98-107) mmol/L Carbon Dioxide 23 (22-32) mmol/L BUN 16 (9-20) mg/dL Creatinine 1.25 (0.66-1.25) mg/dL Estimated GFR > 60 (>60) mL/min BUN/Creatinine Ratio 12.8 (6-22) Glucose 166 H (70-100) mg/dL Lactate (0.7-2.1) mmol/L Calcium 8.2 L (8.4-10.2) mg/dL Total Bilirubin 0.9 (0.2-1.3) mg/dL AST 99 H (17-59) IU/L ALT 94 H (<50) IU/L Alkaline Phosphatase 49 (38-126) U/L Ammonia (9-30) umol/L Total Protein 7.1 (6.3-8.2) g/dL Albumin 4.2 (3.5-5.0) g/dL Globulin 2.9 (1.7-4.1) g/dL Albumin/Globulin Ratio 1.4 (1.0-2.8) Lipase (23-300) U/L Procalcitonin (<0.5) ng/mL Urine Color Urine Appearance Urine pH (4.5-8.0) Ur Specific [place] (1.000-1.035) Urine Protein (Negative) Urine Glucose (UA) (Negative) g/dL Urine Ketones (NEGATIVE) Urine Occult Blood (Negative) Urine Nitrate (Negative) Urine Bilirubin (NEGATIVE) Urine Urobilinogen (0.2) E.U./dL Ur Leukocyte Esterase (NEGATIVE) Urine RBC (0-5/HPF) Urine WBC (0-5/HPF) Ur Squamous Epith Cells (0-5/HPF) Urine Bacteria (None) Hyaline Casts (None) Ur Culture Indicated? U Opiates 300ng/mL cut (Negative) Ur Oxycodone Screen (Negative) Urine Methadone Screen (Negative) Ur Barbiturates Screen (Negative) U Tricyclic Antidepress (Negative) Ur Phencyclidine Scrn (Negative) Ur Amphetamines Screen (Negative) U Methamphetamines Scrn (Negative) Ur MDMA Scrn (Ecstasy) (Negative) U Benzodiazepines Scrn (Negative) Urine Cocaine Screen (Negative) U Marijuana (THC) Screen (Negative) Ethyl Alcohol ( - 10) mg/dL SARS-CoV-2 (PCR) Negative (Negative) 04/14/22 04/14/22 04/14/22 Range/Units 14:35 14:35 14:38 WBC (4.5-11.0) X10^3/uL RBC (4.5-5.9) X10^6/uL Hgb (13.5-17.5) g/dL Hct (41-53) % MCV (80-100) fL MCH (26-34) PG MCHC (30-36) % RDW (11.6-14.8) % Plt Count (150-400) X10^3/uL Neut % (Auto) (50-75) % Lymph % (Auto) (25-40) % [place] % (Auto) (3-14) % Eos % (Auto) (2-4) % Baso % (Auto) (0-2) % Neut # (Auto) (1162-9155) /uL Lymph # (Auto) (6923-3873) /uL [place] # (Auto) (0-900) /uL Eos # (Auto) (0-450) /uL Baso # (Auto) (0-100) /uL VBG pH (7.33-7.43) VBG pCO2 (45-50) mmHg VBG pO2 (35-45) mmHg VBG HCO3 (23-28) mmol/L VBG Total CO2 (24-29) mmol/L VBG O2 Saturation (70-75) % VBG Base Excess (0-4) mmol/L Sodium (137-145) mmol/L Potassium (3.4-5.1) mmol/L Chloride (98-107) mmol/L Carbon Dioxide (22-32) mmol/L BUN (9-20) mg/dL Creatinine (0.66-1.25) mg/dL Estimated GFR (>60) mL/min BUN/Creatinine Ratio (6-22) Glucose (70-100) mg/dL Lactate 3.5 H (0.7-2.1) mmol/L Calcium (8.4-10.2) mg/dL Total Bilirubin (0.2-1.3) mg/dL AST (17-59) IU/L ALT (<50) IU/L Alkaline Phosphatase (38-126) U/L Ammonia 11 (9-30) umol/L Total Protein (6.3-8.2) g/dL Albumin (3.5-5.0) g/dL Globulin (1.7-4.1) g/dL Albumin/Globulin Ratio (1.0-2.8) Lipase 99 (23-300) U/L Procalcitonin 0.98 H (<0.5) ng/mL Urine Color Urine Appearance Urine pH (4.5-8.0) Ur Specific [place] (1.000-1.035) Urine Protein (Negative) Urine Glucose (UA) (Negative) g/dL Urine Ketones (NEGATIVE) Urine Occult Blood (Negative) Urine Nitrate (Negative) Urine Bilirubin (NEGATIVE) Urine Urobilinogen (0.2) E.U./dL Ur Leukocyte Esterase (NEGATIVE) Urine RBC (0-5/HPF) Urine WBC (0-5/HPF) Ur Squamous Epith Cells (0-5/HPF) Urine Bacteria (None) Hyaline Casts (None) Ur Culture Indicated? U Opiates 300ng/mL cut (Negative) Ur Oxycodone Screen (Negative) Urine Methadone Screen (Negative) Ur Barbiturates Screen (Negative) U Tricyclic Antidepress (Negative) Ur Phencyclidine Scrn (Negative) Ur Amphetamines Screen (Negative) U Methamphetamines Scrn (Negative) Ur MDMA Scrn (Ecstasy) (Negative) U Benzodiazepines Scrn (Negative) Urine Cocaine Screen (Negative) U Marijuana (THC) Screen (Negative) Ethyl Alcohol ( - 10) mg/dL SARS-CoV-2 (PCR) (Negative) 04/14/22 04/14/22 Range/Units 14:38 16:47 WBC (4.5-11.0) X10^3/uL RBC (4.5-5.9) X10^6/uL Hgb (13.5-17.5) g/dL Hct (41-53) % MCV (80-100) fL MCH (26-34) PG MCHC (30-36) % RDW (11.6-14.8) % Plt Count (150-400) X10^3/uL Neut % (Auto) (50-75) % Lymph % (Auto) (25-40) % [place] % (Auto) (3-14) % Eos % (Auto) (2-4) % Baso % (Auto) (0-2) % Neut # (Auto) (3299-1888) /uL Lymph # (Auto) (4965-2700) /uL [place] # (Auto) (0-900) /uL Eos # (Auto) (0-450) /uL Baso # (Auto) (0-100) /uL VBG pH (7.33-7.43) VBG pCO2 (45-50) mmHg VBG pO2 (35-45) mmHg VBG HCO3 (23-28) mmol/L VBG Total CO2 (24-29) mmol/L VBG O2 Saturation (70-75) % VBG Base Excess (0-4) mmol/L Sodium (137-145) mmol/L Potassium (3.4-5.1) mmol/L Chloride (98-107) mmol/L Carbon Dioxide (22-32) mmol/L BUN (9-20) mg/dL Creatinine (0.66-1.25) mg/dL Estimated GFR (>60) mL/min BUN/Creatinine Ratio (6-22) Glucose (70-100) mg/dL Lactate 2.5 H (0.7-2.1) mmol/L Calcium (8.4-10.2) mg/dL Total Bilirubin (0.2-1.3) mg/dL AST (17-59) IU/L ALT (<50) IU/L Alkaline Phosphatase (38-126) U/L Ammonia (9-30) umol/L Total Protein (6.3-8.2) g/dL Albumin (3.5-5.0) g/dL Globulin (1.7-4.1) g/dL Albumin/Globulin Ratio (1.0-2.8) Lipase (23-300) U/L Procalcitonin (<0.5) ng/mL Urine Color Urine Appearance Urine pH (4.5-8.0) Ur Specific [place] (1.000-1.035) Urine Protein (Negative) Urine Glucose (UA) (Negative) g/dL Urine Ketones (NEGATIVE) Urine Occult Blood (Negative) Urine Nitrate (Negative) Urine Bilirubin (NEGATIVE) Urine Urobilinogen (0.2) E.U./dL Ur Leukocyte Esterase (NEGATIVE) Urine RBC (0-5/HPF) Urine WBC (0-5/HPF) Ur Squamous Epith Cells (0-5/HPF) Urine Bacteria (None) Hyaline Casts (None) Ur Culture Indicated? U Opiates 300ng/mL cut (Negative) Ur Oxycodone Screen (Negative) Urine Methadone Screen (Negative) Ur Barbiturates Screen (Negative) U Tricyclic Antidepress (Negative) Ur Phencyclidine Scrn (Negative) Ur Amphetamines Screen (Negative) U Methamphetamines Scrn (Negative) Ur MDMA Scrn (Ecstasy) (Negative) U Benzodiazepines Scrn (Negative) Urine Cocaine Screen (Negative) U Marijuana (THC) Screen (Negative) Ethyl Alcohol 394 H ( - 10) mg/dL SARS-CoV-2 (PCR) (Negative) Point of Care Testing Glucose POC 196 MDM Narrative Medical decision making narrative: [1800] ([place]) Patient received in sign out from Dr. Gandhi]. I have reviewed the clinical course and performed an independent history and physical exam. Patient appears worse off than when discharged yesterday morning. He has increased benzo requirements, is intoxicated and confused with interval worsening of infiltrate on imaging. Patient meets sepsis criteria for pneumonia and will require hospitalization for both resolution of infectious process as well as stabilization of tachycardia presumably related to possible early withdrawal and sepsis. Hospitalist happy to accept Discharge Plan Departure Patient Disposition: Admitted As Inpatient Clinical Impression: Alcohol abuse, Altered mental status, Sepsis Pneumonia Qualifiers: Pneumonia type: aspiration pneumonia Laterality: right Lung location: lower lobe of lung Admit Date/Time: 04/14/22 18:22 Admit Provider: Lee Ahumada
--- NOTE | 2022-04-14 14:40 | DI.CT.S_ITS ---
PROCEDURE: CT HEAD/BRAIN WO CON INDICATIONS: trauma TECHNIQUE: Noncontrast 4.5 mm thick angled axial sections acquired from the foramen magnum to the vertex, with coronal and sagittal reformats. For radiation dose reduction, the following was used: automated exposure control, adjustment of mA and/or kV according to patient size. COMPARISON: [facility], CT, CT HEAD/BRAIN WO CON, 02/05/2022, 20:44. [facility], CT, CT HEAD/BRAIN WO CON, 03/09/2022, 12:32. FINDINGS: Image quality: Excellent. CSF spaces: Basal cisterns are patent. No extra-axial fluid collections. Ventricles are normal in size and shape. Brain: No midline shift. No intracranial masses or hemorrhage. [place]ett-white matter interface is normal. Skull and face: Calvarium and visualized facial bones are intact, without suspicious lesions. Sinuses: Visualized sinuses and mastoids are clear. IMPRESSION: No acute intracranial hemorrhage is seen. No acute intracranial process is seen. Dictated by: Jarett Morales M.D. on 04/14/2022 at 14:27 Approved by: Jarett Morales M.D. on 04/14/2022 at 14:27
[2022-04-14 14:43] LABS: Add Manual Diff / Slide Review NO; Basophils Absolute Auto 0 /uL (0-100); Basophils Percent Auto 0.2 % (0-2); Eosinophils Absolute Auto 0 /uL (0-450); Hematocrit 51.2 % (41-53); Hemoglobin 17.6 g/dL (13.5-17.5); Lymphocytes Absolute Auto 1800 /uL (1100-4500); Lymphocytes Percent Auto 10.4 % (25-40); Mean Corpuscular HGB Conc 34.4 % (30-36); Mean Corpuscular Hemoglobin 32.1 PG (26-34); Mean Corpuscular Volume 93.4 fL (80-100); Monocytes Absolute Auto 800 /uL (0-900); Monocytes Percent Auto 4.9 % (3-14); Neutrophils Absolute Auto 14400 /uL (1500-7000); Neutrophils Percent Auto 84.5 % (50-75); Platelet Count 204 X10^3/uL (150-400); Red Blood Cell Count 5.48 X10^6/uL (4.5-5.9); Red Cell Distribution Width 14.7 % (11.6-14.8)
[2022-04-14] MEDS: SODIUM CHLORIDE 0.9% 1,000 ML 1000 ML IV (14:43)
[2022-04-14 14:46] LABS: Lipase 99 U/L (23-300)
[2022-04-14 14:47] LABS: Alanine Aminotransferase 94 IU/L (<50); Albumin 4.2 g/dL (3.5-5.0); Albumin Globulin Ratio 1.4 (1.0-2.8); Alkaline Phosphatase 49 U/L (38-126); Aspartate Aminotransferase 99 IU/L (17-59); BUN Creatinine Ratio 12.8 (6-22); Bilirubin Total 0.9 mg/dL (0.2-1.3); Blood Urea Nitrogen 16 mg/dL (9-20); Calcium 8.2 mg/dL (8.4-10.2); Carbon Dioxide 23 mmol/L (22-32); Chloride 102 mmol/L (98-107); Estimated Glomerular Filt Rate > 60 mL/min (>60); Globulin 2.9 g/dL (1.7-4.1); Glucose 166 mg/dL (70-100); HEMOLYSIS 42 (0-50); Potassium 4.6 mmol/L (3.4-5.1); Sodium 138 mmol/L (137-145); Total Protein 7.1 g/dL (6.3-8.2)
[2022-04-14 14:47] LABS: Appearance Urine UA CLEAR; Bilirubin Urine UA NEGATIVE (NEGATIVE); Color Urine UA YELLOW; Glucose Urine UA NEGATIVE (Negative); Ketones Urine UA NEGATIVE (NEGATIVE); Leukocyte Esterase Urine UA NEGATIVE (NEGATIVE); Nitrite Urine UA NEGATIVE (Negative); Occult Blood Urine UA TRACE-LYSED (Negative); Protein Urine UA NEGATIVE (Negative); Urobilinogen Urine UA 0.2 E.U./dL (0.2); pH Urine UA 5.5 (4.5-8.0)
[2022-04-14 14:48] LABS: Lactate (Lactic Acid) 3.5 mmol/L (0.7-2.1)
[2022-04-14 14:49] LABS: COVID19 -Nasal RAPID Negative (Negative)
[2022-04-14 14:50] LABS: UR Morphine/Opiate cutoff 300 Negative (Negative); Ur Creatinine Normal (Normal); Ur Specific Gravity Normal (Normal); Urine Amphetamines Negative (Negative); Urine Barbiturates Negative (Negative); Urine Benzodiazepines Positive (Negative); Urine Cocaine Negative (Negative); Urine MDMA Negative (Negative); Urine Methadone Negative (Negative); Urine Methamphetamines Negative (Negative); Urine Oxycodone Negative (Negative); Urine Phencyclidine Negative (Negative); Urine Tetrahydrocannabinol Negative (Negative); Urine Tricyclic Antidepressant Negative (Negative); Urine pH Normal (Normal)
[2022-04-14] MEDS: diazePAM 10 MG/2 ML SYRINGE 5 MG IV ×4 (14:54→19:26)
[2022-04-14 14:55] LABS: Ethanol (ETOH) 394 mg/dL
[2022-04-14 15:01] LABS: Bacteria Urine None Seen; Culture Indicated Urine Cult Not Indicated; Hyaline Casts Urine 1-5/LPF; RBC Urine None Seen (0-5/HPF); Squamous Epithelial Cell Urine None Seen (0-5/HPF); WBC Urine 0-1/HPF (0-5/HPF)
[2022-04-14 15:03] LABS: Procalcitonin 0.98 ng/mL (<0.5)
[2022-04-14 15:04] LABS: Ammonia (NH3) 11 umol/L (9-30)
[2022-04-14 15:36] LABS: PCO2 VBG 37.2 mmHg (45-50); pH VBG 7.42 (7.33-7.43)
[2022-04-14 15:37] LABS: HCO3 VBG 24 mmol/L (23-28); Oxygen Saturation VBG 81 % (70-75); PO2 VBG 44 mmHg (35-45); Total CO2 VBG 25 mmol/L (24-29)
[2022-04-14 16:35] LABS: Reflexed Lactate in 2 Hours Y
[2022-04-14 17:05] LABS: Lactate 2HR (Lactic Acid Rflx) 2.5 mmol/L (0.7-2.1)
[2022-04-14] MEDS: diazePAM 10 MG/2 ML SYRINGE IV ×2 (17:46→18:34)
[2022-04-14] MEDS: PIPERACILLIN/TAZO 4.5 GM in SODIUM CHLORIDE 0.9% 100 ML IV (18:49)
--- NOTE | 2022-04-14 18:50 | P.HP_ITS ---
History of Present Illness History of Present Illness Date Patient Seen: 04/14/22 Time Patient Seen: 18:50 Chief complaint: Fall Narrative: Stanislav Meyers is a 46-year-old male with past medical history of alcohol abuse with frequent and for alcohol withdrawal, atrial fibrillation, alcoholic cardiomyopathy with EF 10-15%, and hypertension presents due to intoxication and aspiration pneumonia. Patient was previously here 1 month ago for severe alcohol withdrawals and pneumonia. He went back to drinking several 6 packs of beer per day and return to the emergency department yesterday with intoxication and found to have pneumonia on chest CT. He was sent home with antibiotics and Librium. He returned today still intoxicated and very anxious. Patient states he feels like he is going to have a panic attack. He denies chest pain, nausea vomiting, abdominal pain or diarrhea. In the ED he was found to have a white blood cell count of 17, procalcitonin 0. 98, an alcohol level of 394. Chest x-ray showed dense right lower lobe consolidation consistent with pneumonia. His vitals showed a temp of 99.8? F, blood pressure 161/94, tachycardia at 129 and pulse ox of 87% so he was placed on 4 L of oxygen. Patient History Medical History Alcohol abuse Hypertension (~2020) Family & Social History Social History: household members friend(s) Safety & Behavioral: Feels Safe in Current Yes Environment Been Physically Hurt or No Threatened By a Person Tobacco & Substance use: Smoking Status Never smoker alcohol intake current alcohol intake frequency 3 or more drinks per day Substance Use Type marijuana Meds Home Medications and Allergies Home Medications Medication Instructions Recorded Confirmed Type paroxetine HCl 40 mg tablet 40 mg PO DAILY #90 tabs 01/01/22 02/06/22 Rx melatonin 10 mg tablet 10 mg PO BEDTIME PRN sleep #30 tabs 02/06/22 Rx aspirin 81 mg tablet,delayed 81 mg PO DAILY #30 tabs 03/15/22 Rx release chlordiazepoxide HCl 25 mg capsule 25 mg PO TID #6 caps 03/15/22 Rx folic acid 1 mg tablet 1 mg PO DAILY #30 tabs 03/15/22 Rx levofloxacin 250 mg tablet 750 mg PO 0700 #3 tabs 03/15/22 Rx lisinopril 20 mg tablet 20 mg PO DAILY #30 tabs 03/15/22 Rx metoprolol succinate 50 mg 50 mg PO DAILY #30 tabs 03/15/22 Rx tablet,extended release 24 hr multivitamin with folic acid 400 1 tab PO DAILY #30 tabs 03/15/22 Rx mcg tablet (Tab-A-Isis) thiamine HCl (vitamin B1) 100 mg 100 mg PO DAILY #30 tabs 03/15/22 Rx tablet amoxicillin 875 mg-potassium 1 tab PO Q12H #20 tabs 04/13/22 Rx clavulanate 125 mg tablet chlordiazepoxide HCl 25 mg capsule See Rx Instructions .Route 04/13/22 Rx .COMPLEX PRN alcohol withdrawal #32 caps doxycycline hyclate 100 mg tablet 100 mg PO BID #20 tabs 04/13/22 Rx Allergies Allergy/AdvReac Type Severity Reaction Status Date / Time risperidone [From Risperdal] Allergy Severe Anaphylaxis Verified 11/14/20 10:56 Review of Systems Review of Systems Narrative: All other systems reviewed with the patient and are negative unless otherwise stated. Exam Vital Signs (past 8 hours): - 04/14/22 14:03 04/14/22 14:58 04/14/22 14:59 Temperature 99.8 F H Pulse Rate 129 H 122 H 123 H Respiratory Rate 22 27 H 27 H Blood Pressure 161/94 H Pulse Oximetry 87 L 92 92 Oxygen Delivery Method Room Air Oxygen Flow Rate 04/14/22 14:59 04/14/22 15:00 04/14/22 15:30 Temperature Pulse Rate 124 H 127 H Respiratory Rate 27 H 25 H Blood Pressure 144/74 H Pulse Oximetry 92 92 Oxygen Delivery Method Oxygen Flow Rate 04/14/22 16:00 04/14/22 16:30 Temperature Pulse Rate 118 H 122 H Respiratory Rate 24 23 Blood Pressure Pulse Oximetry 91 93 Oxygen Delivery Method Nasal Cannula Oxygen Flow Rate 3 Oxygen Delivery Method Nasal Cannula Oxygen Flow Rate 3 Narrative Exam Narrative: GEN: Anxious, diaphoretic and tremulous male HEENT: moist mucous membranes, PERRL NECK: trachea midline, no JVD CV: Tachycardia with normal rhythm, no murmurs PULM: Decreased breath sounds to right lung base ABD: soft, nontender, nondistended, no organomegaly EXT: warm and well perfused with no edema NEURO: awake, alert, oriented, no focal deficits Objective Labs Result Diagrams: 04/14/22 14:35 04/14/22 14:35 Labs: Laboratory Results - last 24 hr 04/14/22 04/14/22 04/14/22 14:10 14:20 14:20 WBC RBC Hgb Hct MCV MCH MCHC RDW Plt Count Neut % (Auto) Lymph % (Auto) [place] % (Auto) Eos % (Auto) Baso % (Auto) Neut # (Auto) Lymph # (Auto) [place] # (Auto) Eos # (Auto) Baso # (Auto) VBG pH 7.42 VBG pCO2 37.2 L VBG pO2 44 VBG HCO3 24 VBG Total CO2 25 VBG O2 Saturation 81 H VBG Base Excess 0.0 Sodium Potassium Chloride Carbon Dioxide BUN Creatinine Estimated GFR BUN/Creatinine Ratio Glucose Lactate Calcium Total Bilirubin AST ALT Alkaline Phosphatase Ammonia Total Protein Albumin Globulin Albumin/Globulin Ratio Lipase Procalcitonin Urine Color Yellow Urine Appearance Clear Urine pH 5.5 Ur Specific [place] 1.010 Urine Protein Negative Urine Glucose (UA) Negative Urine Ketones Negative Urine Occult Blood Trace-lysed Urine Nitrate Negative Urine Bilirubin Negative Urine Urobilinogen 0.2 Ur Leukocyte Esterase Negative Urine RBC None seen Urine WBC 0-1/hpf Ur Squamous Epith Cells None seen Urine Bacteria None seen Hyaline Casts 1-5/lpf Ur Culture Indicated? Cult not indicated U Opiates 300ng/mL cut Negative Ur Oxycodone Screen Negative Urine Methadone Screen Negative Ur Barbiturates Screen Negative U Tricyclic Antidepress Negative Ur Phencyclidine Scrn Negative Ur Amphetamines Screen Negative U Methamphetamines Scrn Negative Ur MDMA Scrn (Ecstasy) Negative U Benzodiazepines Scrn Positive H Urine Cocaine Screen Negative U Marijuana (THC) Screen Negative Ethyl Alcohol SARS-CoV-2 (PCR) 04/14/22 04/14/22 04/14/22 14:25 14:35 14:35 WBC 17.0 H D RBC 5.48 Hgb 17.6 H Hct 51.2 MCV 93.4 MCH 32.1 MCHC 34.4 RDW 14.7 Plt Count 204 Neut % (Auto) 84.5 H D Lymph % (Auto) 10.4 L D [place] % (Auto) 4.9 Eos % (Auto) 0.0 L Baso % (Auto) 0.2 Neut # (Auto) 71151 H Lymph # (Auto) 1800 [place] # (Auto) 800 Eos # (Auto) 0 Baso # (Auto) 0 VBG pH VBG pCO2 VBG pO2 VBG HCO3 VBG Total CO2 VBG O2 Saturation VBG Base Excess Sodium 138 Potassium 4.6 Chloride 102 Carbon Dioxide 23 BUN 16 Creatinine 1.25 Estimated GFR > 60 BUN/Creatinine Ratio 12.8 Glucose 166 H Lactate Calcium 8.2 L Total Bilirubin 0.9 AST 99 H ALT 94 H Alkaline Phosphatase 49 Ammonia Total Protein 7.1 Albumin 4.2 Globulin 2.9 Albumin/Globulin Ratio 1.4 Lipase Procalcitonin Urine Color Urine Appearance Urine pH Ur Specific [place] Urine Protein Urine Glucose (UA) Urine Ketones Urine Occult Blood Urine Nitrate Urine Bilirubin Urine Urobilinogen Ur Leukocyte Esterase Urine RBC Urine WBC Ur Squamous Epith Cells Urine Bacteria Hyaline Casts Ur Culture Indicated? U Opiates 300ng/mL cut Ur Oxycodone Screen Urine Methadone Screen Ur Barbiturates Screen U Tricyclic Antidepress Ur Phencyclidine Scrn Ur Amphetamines Screen U Methamphetamines Scrn Ur MDMA Scrn (Ecstasy) U Benzodiazepines Scrn Urine Cocaine Screen U Marijuana (THC) Screen Ethyl Alcohol SARS-CoV-2 (PCR) Negative 04/14/22 04/14/22 04/14/22 14:35 14:35 14:38 WBC RBC Hgb Hct MCV MCH MCHC RDW Plt Count Neut % (Auto) Lymph % (Auto) [place] % (Auto) Eos % (Auto) Baso % (Auto) Neut # (Auto) Lymph # (Auto) [place] # (Auto) Eos # (Auto) Baso # (Auto) VBG pH VBG pCO2 VBG pO2 VBG HCO3 VBG Total CO2 VBG O2 Saturation VBG Base Excess Sodium Potassium Chloride Carbon Dioxide BUN Creatinine Estimated GFR BUN/Creatinine Ratio Glucose Lactate 3.5 H Calcium Total Bilirubin AST ALT Alkaline Phosphatase Ammonia 11 Total Protein Albumin Globulin Albumin/Globulin Ratio Lipase 99 Procalcitonin 0.98 H Urine Color Urine Appearance Urine pH Ur Specific [place] Urine Protein Urine Glucose (UA) Urine Ketones Urine Occult Blood Urine Nitrate Urine Bilirubin Urine Urobilinogen Ur Leukocyte Esterase Urine RBC Urine WBC Ur Squamous Epith Cells Urine Bacteria Hyaline Casts Ur Culture Indicated? U Opiates 300ng/mL cut Ur Oxycodone Screen Urine Methadone Screen Ur Barbiturates Screen U Tricyclic Antidepress Ur Phencyclidine Scrn Ur Amphetamines Screen U Methamphetamines Scrn Ur MDMA Scrn (Ecstasy) U Benzodiazepines Scrn Urine Cocaine Screen U Marijuana (THC) Screen Ethyl Alcohol SARS-CoV-2 (PCR) 04/14/22 04/14/22 14:38 16:47 WBC RBC Hgb Hct MCV MCH MCHC RDW Plt Count Neut % (Auto) Lymph % (Auto) [place] % (Auto) Eos % (Auto) Baso % (Auto) Neut # (Auto) Lymph # (Auto) [place] # (Auto) Eos # (Auto) Baso # (Auto) VBG pH VBG pCO2 VBG pO2 VBG HCO3 VBG Total CO2 VBG O2 Saturation VBG Base Excess Sodium Potassium Chloride Carbon Dioxide BUN Creatinine Estimated GFR BUN/Creatinine Ratio Glucose Lactate 2.5 H Calcium Total Bilirubin AST ALT Alkaline Phosphatase Ammonia Total Protein Albumin Globulin Albumin/Globulin Ratio Lipase Procalcitonin Urine Color Urine Appearance Urine pH Ur Specific [place] Urine Protein Urine Glucose (UA) Urine Ketones Urine Occult Blood Urine Nitrate Urine Bilirubin Urine Urobilinogen Ur Leukocyte Esterase Urine RBC Urine WBC Ur Squamous Epith Cells Urine Bacteria Hyaline Casts Ur Culture Indicated? U Opiates 300ng/mL cut Ur Oxycodone Screen Urine Methadone Screen Ur Barbiturates Screen U Tricyclic Antidepress Ur Phencyclidine Scrn Ur Amphetamines Screen U Methamphetamines Scrn Ur MDMA Scrn (Ecstasy) U Benzodiazepines Scrn Urine Cocaine Screen U Marijuana (THC) Screen Ethyl Alcohol 394 H SARS-CoV-2 (PCR) Assessment & Plan Assessment & Plan narrative: # severe acute alcohol intoxication with history of severe withdrawals -ETOH level 394 and patient already showing signs of withdrawal -admit to ICU as patient will likely require Precedex drip. Previously admitted to the ICU requiring Precedex drip and discharged on March 15, 2022. -appreciate tele-senior graphic designer consultation -start CIWA protocol with Valium as Ativan on back order -start folate, thiamine and multivitamin -seizure precautions # sepsis secondary to aspiration pneumonia -leukocytosis of 17, mild temp of 99.8? F and tachycardia 132 -chest x-ray with dense from right lung consolidation -received Zosyn in the ED, changed to cefepime vanc and Flagyl -check sputum culture, follow-up blood cultures -procalcitonin 0.98 # acute hypoxic respiratory failure -patient 87% on arrival to ED -likely secondary to pneumonia, CTA chest on 04/12 showed no evidence of pulmonary embolism -requiring 4 L nasal cannula -wean O2 as able # alcoholic cardiomyopathy with EF 10-15% -last echo on March 10, 2022 with severe global hypokinesis of left ventricle -telemetry # atrial fibrillation -currently in sinus tachycardia -telemetry # lactic acidemia -lactate 2.5 on admission -monitor # transaminitis -LFTs previously elevated at last admission and improved than sign -monitor -avoid hepatotoxic agents # elevated troponin -0.064 on admission, patient denies chest pain -likely demand ischemia in the setting of severe systolic heart failure tachycardia -EKG shows no ST changes with T-wave inversions in leads I and aVL -trend troponins Code status is full code. COVID negative. DVT prophylaxis with Lovenox. Proxy is his sister Cheryl. I have reviewed home meds and used all available resources to reconcile the home meds. Time Spent With Patient Critical Care time: I spent a total of [] minutes of critical care time on this patient's care today; this time is exclusive of procedural time.
[2022-04-14] MEDS: CEFEPIME 2 GM in SODIUM CHLORIDE 0.9% 100 ML IV (19:28)
[2022-04-14] MEDS: ENOXAPARIN 40 MG/0.4 ML SYRINGE SUBCUT (19:30)
[2022-04-14 19:34] LABS: Troponin I 0.064 ng/mL (0.01-0.034)
--- NOTE | 2022-04-14 20:17 | P.TELICUCN_ITS ---
History of Present Illness Consult details If camera was activated, add TeleICU A-V Statement: PAtient seen via interactive 2 way AV system. 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 During my evaluaiton the patietn stated he was anxious, and felt like he was tremerous, while he admitted to heavy etoh use he dneied any benzodiazepine use, and stated he felt the valium he has received was not helping his symptoms thus far. On lab reivew he has an eleavted WBC count, procalcitoin, imaigng consiustent with lobar consolidation. Chief complaint: Fall [facility] Medical History Alcohol abuse Hypertension (~2019) Social History household members: friend(s) Smoking Status: Never smoker alcohol intake: current Current Medications Current Medications Medications: Home Medications paroxetine HCl 40 mg tablet 40 mg PO DAILY #90 tabs 01/01/22 [Rx Confirmed 02/06/22] melatonin 10 mg tablet 10 mg PO BEDTIME PRN sleep #30 tabs 02/06/22 [Rx] aspirin 81 mg tablet,delayed release 81 mg PO DAILY #30 tabs 03/15/22 [Rx] chlordiazepoxide HCl 25 mg capsule 25 mg PO TID #6 caps 03/15/22 [Rx] folic acid 1 mg tablet 1 mg PO DAILY #30 tabs 03/15/22 [Rx] levofloxacin 250 mg tablet 750 mg PO 0700 #3 tabs 03/15/22 [Rx] lisinopril 20 mg tablet 20 mg PO DAILY #30 tabs 03/15/22 [Rx] metoprolol succinate 50 mg tablet,extended release 24 hr 50 mg PO DAILY #30 tabs 03/15/22 [Rx] multivitamin with folic acid 400 mcg tablet (Tab-A-Isis) 1 tab PO DAILY #30 tabs 03/15/22 [Rx] thiamine HCl (vitamin B1) 100 mg tablet 100 mg PO DAILY #30 tabs 03/15/22 [Rx] amoxicillin 875 mg-potassium clavulanate 125 mg tablet 1 tab PO Q12H #20 tabs 04/13/22 [Rx] chlordiazepoxide HCl 25 mg capsule See Rx Instructions .Route .COMPLEX PRN alcohol withdrawal #32 caps 04/13/22 [Rx] doxycycline hyclate 100 mg tablet 100 mg PO BID #20 tabs 04/13/22 [Rx] Visit Medications (administered) Generic Name Dose Route Start Last Admin Trade Name Berry PRN Reason Stop Dose Admin Diazepam 5 mg 04/14/22 14:38 04/14/22 16:43 Diazepam 10 Mg/2 Ml Syringe IV 5 mg NOW PRN Administration HR greater than 120. CIWA >14 Enoxaparin Sodium 40 mg 04/14/22 18:30 04/14/22 19:30 Enoxaparin 40 Mg/0.4 Ml Syringe SUBCUT 40 mg DAILY [place] Administration Cefepime HCl 2 gm/ Sodium 100 mls @ 200 mls/hr 04/14/22 19:00 04/14/22 19:37 Chloride IV Infused Q8H CL[place] Infusion Exam Vital Signs (past 8 hours): - 04/14/22 14:03 04/14/22 14:58 04/14/22 14:59 Temperature 99.8 F H Pulse Rate 129 H 122 H 123 H Respiratory Rate 22 27 H 27 H Blood Pressure 161/94 H Pulse Oximetry 87 L 92 92 Oxygen Delivery Method Room Air Oxygen Flow Rate 04/14/22 14:59 04/14/22 15:00 04/14/22 15:30 Temperature Pulse Rate 124 H 127 H Respiratory Rate 27 H 25 H Blood Pressure 144/74 H Pulse Oximetry 92 92 Oxygen Delivery Method Oxygen Flow Rate 04/14/22 16:00 04/14/22 16:30 04/14/22 19:34 Temperature Pulse Rate 118 H 122 H 128 H Respiratory Rate 24 23 25 H Blood Pressure 142/65 H Pulse Oximetry 91 93 91 Oxygen Delivery Method Nasal Cannula Nasal Cannula Oxygen Flow Rate 3 4 04/14/22 20:00 Temperature 99.5 F Pulse Rate 130 H Respiratory Rate 22 Blood Pressure 152/86 H Pulse Oximetry 95 Oxygen Delivery Method Oxygen Flow Rate 4 Oxygen Delivery Method Nasal Cannula Oxygen Flow Rate 4 Narrative Exam Narrative: surrogate for exam is primary team Objective Labs Result Diagrams: 04/14/22 14:35 04/14/22 14:35 Labs: Laboratory Results - last 24 hr 04/14/22 04/14/22 04/14/22 14:10 14:20 14:20 WBC RBC Hgb Hct MCV MCH MCHC RDW Plt Count Neut % (Auto) Lymph % (Auto) Routt % (Auto) Eos % (Auto) Baso % (Auto) Neut # (Auto) Lymph # (Auto) [place]t # (Auto) Eos # (Auto) Baso # (Auto) VBG pH 7.42 VBG pCO2 37.2 L VBG pO2 44 VBG HCO3 24 VBG Total CO2 25 VBG O2 Saturation 81 H VBG Base Excess 0.0 Sodium Potassium Chloride Carbon Dioxide BUN Creatinine Estimated GFR BUN/Creatinine Ratio Glucose Lactate Calcium Total Bilirubin AST ALT Alkaline Phosphatase Ammonia Troponin I Total Protein Albumin Globulin Albumin/Globulin Ratio Lipase Procalcitonin Urine Color Yellow Urine Appearance Clear Urine pH 5.5 Ur Specific [place] 1.010 Urine Protein Negative Urine Glucose (UA) Negative Urine Ketones Negative Urine Occult Blood Trace-lysed Urine Nitrate Negative Urine Bilirubin Negative Urine Urobilinogen 0.2 Ur Leukocyte Esterase Negative Urine RBC None seen Urine WBC 0-1/hpf Ur Squamous Epith Cells None seen Urine Bacteria None seen Hyaline Casts 1-5/lpf Ur Culture Indicated? Cult not indicated U Opiates 300ng/mL cut Negative Ur Oxycodone Screen Negative Urine Methadone Screen Negative Ur Barbiturates Screen Negative U Tricyclic Antidepress Negative Ur Phencyclidine Scrn Negative Ur Amphetamines Screen Negative U Methamphetamines Scrn Negative Ur MDMA Scrn (Ecstasy) Negative U Benzodiazepines Scrn Positive H Urine Cocaine Screen Negative U Marijuana (THC) Screen Negative Ethyl Alcohol SARS-CoV-2 (PCR) 04/14/22 04/14/22 04/14/22 14:25 14:35 14:35 WBC 17.0 H D RBC 5.48 Hgb 17.6 H Hct 51.2 MCV 93.4 MCH 32.1 MCHC 34.4 RDW 14.7 Plt Count 204 Neut % (Auto) 84.5 H D Lymph % (Auto) 10.4 L D Routt % (Auto) 4.9 Eos % (Auto) 0.0 L Baso % (Auto) 0.2 Neut # (Auto) 48754 H Lymph # (Auto) 1800 [place] # (Auto) 800 Eos # (Auto) 0 Baso # (Auto) 0 VBG pH VBG pCO2 VBG pO2 VBG HCO3 VBG Total CO2 VBG O2 Saturation VBG Base Excess Sodium 138 Potassium 4.6 Chloride 102 Carbon Dioxide 23 BUN 16 Creatinine 1.25 Estimated GFR > 60 BUN/Creatinine Ratio 12.8 Glucose 166 H Lactate Calcium 8.2 L Total Bilirubin 0.9 AST 99 H ALT 94 H Alkaline Phosphatase 49 Ammonia Troponin I Total Protein 7.1 Albumin 4.2 Globulin 2.9 Albumin/Globulin Ratio 1.4 Lipase Procalcitonin Urine Color Urine Appearance Urine pH Ur Specific [place] Urine Protein Urine Glucose (UA) Urine Ketones Urine Occult Blood Urine Nitrate Urine Bilirubin Urine Urobilinogen Ur Leukocyte Esterase Urine RBC Urine WBC Ur Squamous Epith Cells Urine Bacteria Hyaline Casts Ur Culture Indicated? U Opiates 300ng/mL cut Ur Oxycodone Screen Urine Methadone Screen Ur Barbiturates Screen U Tricyclic Antidepress Ur Phencyclidine Scrn Ur Amphetamines Screen U Methamphetamines Scrn Ur MDMA Scrn (Ecstasy) U Benzodiazepines Scrn Urine Cocaine Screen U Marijuana (THC) Screen Ethyl Alcohol SARS-CoV-2 (PCR) Negative 04/14/22 04/14/22 04/14/22 14:35 14:35 14:38 WBC RBC Hgb Hct MCV MCH MCHC RDW Plt Count Neut % (Auto) Lymph % (Auto) [place] % (Auto) Eos % (Auto) Baso % (Auto) Neut # (Auto) Lymph # (Auto) [place] # (Auto) Eos # (Auto) Baso # (Auto) VBG pH VBG pCO2 VBG pO2 VBG HCO3 VBG Total CO2 VBG O2 Saturation VBG Base Excess Sodium Potassium Chloride Carbon Dioxide BUN Creatinine Estimated GFR BUN/Creatinine Ratio Glucose Lactate 3.5 H Calcium Total Bilirubin AST ALT Alkaline Phosphatase Ammonia 11 Troponin I Total Protein Albumin Globulin Albumin/Globulin Ratio Lipase 99 Procalcitonin 0.98 H Urine Color Urine Appearance Urine pH Ur Specific [place] Urine Protein Urine Glucose (UA) Urine Ketones Urine Occult Blood Urine Nitrate Urine Bilirubin Urine Urobilinogen Ur Leukocyte Esterase Urine RBC Urine WBC Ur Squamous Epith Cells Urine Bacteria Hyaline Casts Ur Culture Indicated? U Opiates 300ng/mL cut Ur Oxycodone Screen Urine Methadone Screen Ur Barbiturates Screen U Tricyclic Antidepress Ur Phencyclidine Scrn Ur Amphetamines Screen U Methamphetamines Scrn Ur MDMA Scrn (Ecstasy) U Benzodiazepines Scrn Urine Cocaine Screen U Marijuana (THC) Screen Ethyl Alcohol SARS-CoV-2 (PCR) 04/14/22 04/14/22 04/14/22 14:38 16:47 19:01 WBC RBC Hgb Hct MCV MCH MCHC RDW Plt Count Neut % (Auto) Lymph % (Auto) [place] % (Auto) Eos % (Auto) Baso % (Auto) Neut # (Auto) Lymph # (Auto) [place] # (Auto) Eos # (Auto) Baso # (Auto) VBG pH VBG pCO2 VBG pO2 VBG HCO3 VBG Total CO2 VBG O2 Saturation VBG Base Excess Sodium Potassium Chloride Carbon Dioxide BUN Creatinine Estimated GFR BUN/Creatinine Ratio Glucose Lactate 2.5 H Calcium Total Bilirubin AST ALT Alkaline Phosphatase Ammonia Troponin I 0.064 H Total Protein Albumin Globulin Albumin/Globulin Ratio Lipase Procalcitonin Urine Color Urine Appearance Urine pH Ur Specific [place] Urine Protein Urine Glucose (UA) Urine Ketones Urine Occult Blood Urine Nitrate Urine Bilirubin Urine Urobilinogen Ur Leukocyte Esterase Urine RBC Urine WBC Ur Squamous Epith Cells Urine Bacteria Hyaline Casts Ur Culture Indicated? U Opiates 300ng/mL cut Ur Oxycodone Screen Urine Methadone Screen Ur Barbiturates Screen U Tricyclic Antidepress Ur Phencyclidine Scrn Ur Amphetamines Screen U Methamphetamines Scrn Ur MDMA Scrn (Ecstasy) U Benzodiazepines Scrn Urine Cocaine Screen U Marijuana (THC) Screen Ethyl Alcohol 394 H SARS-CoV-2 (PCR) Assessment & Plan Assessment & Plan narrative: Acute resp failure sepsis 2/2 possible prob gram negative pna etoh withdrawal alcoholic CM ef 10-15% HTN Atrial fibrillation wiht h/o RVR lactic acidosis - likelt driven by etoh eleated LFT Plan ciwa protocol via valium, may need precedex or phenobarb supplemental o2 TTE map goal >65 trend bmp trend cbc NPO for now, until he is controlled with valium monitor UO empric abx f/u cx dvt ppx - consider heparin gtt given his afib, agree with hsq for now until withdrawal is controlled ivne risks of hematoma formation if he enters DTs CCT 35 min Time Spent With Patient Critical Care time: I spent a total of [] minutes of critical care time on this patient's care today; this time is exclusive of procedural time.
[2022-04-14] MEDS: MULTIVITAMIN 1 TABLET 1 TAB PO (21:00)
[2022-04-14] MEDS: FOLIC ACID 1 MG TABLET PO (21:00)
[2022-04-14] MEDS: metroNIDAZOLE 500 MG/100 ML PIGGYBACK 100 MG IV (21:01)
[2022-04-14] MEDS: ONDANSETRON 4 MG/2 ML INJ IV (21:48)
[2022-04-14] MEDS: VANCOMYCIN 2,000 MG/400 ML PIGGYBACK 200 MG IV (22:11)
[2022-04-14] MEDS: PARoxetine 20 MG TABLET 40 MG PO (22:19)
--- NOTE | 2022-04-14 22:30 | PC.NURSE ---
Addendum entered by Lyric Sweet R.N. 04/15/22 06:05: 0600- Isaiah gtt placed on standby. Patient remains in AFib/RVR 110-120s. Ciwaa score is 8. Addendum entered by Lyric Sweet R.N. 04/15/22 05:00: 0500- Patient Amiodarone loaded per order. Heart rate remained elevated and BP was markedly elevated as well. See vitals. Patient entire body diaphoretic and he was pale. Dr Segovia beamed in again and we stopped the Amiodarone gtt and started Precedex. Once loaded the Precedex was titrated to 1.5 omar/kg/hr. Heart rate remained very elevated and patient was desaturating and BP dropped. Orders for Isaiah gtt and ER MD notified of potential for Rapid Response. Patient is resting comfortably now. Isaiah is at 80mcg/min Precedex is at 1.5 mcg/kg/hr Patient remains in AFib at 110-120 with a goal to keep Heart rate under 130 per Irma Garza [employer]. Will monitor closely. Addendum entered by Lyric Sweet R.N. 04/15/22 04:59: 0500- Patient started on Amiodarone initial Addendum entered by Lyric Sweet R.N. 04/15/22 02:53: 0240- Patient went into a rapid AFib at a rate of 170-190. Patient hemodynamically stable. Emergent [employer] button pushed. Dr. Segovia beamed in and gave emergent orders. Amiodarone load completed and gtt started per protocol. Patient remains awake and alert but confused to date and C/O anxiety. Right lung is coarse throughout. Patient saturation on 4 liters 90%. 02 increased to 6 liters. Will monitor Addendum entered by Lyric Sweet R.N. 04/15/22 01:21: 0120- Ciwaa score 10. Medicated per order. Patient remains cooperative and anxious. Will monitor closely. Addendum entered by Lyric Sweet R.N. 04/15/22 00:38: 0040- New IV inserted to Left upper arm. Patient asking questions about his condition. Patient states he knows that his drinking is affecting his heart. Patient states he thought that the heart would heal itself. Patient advised that his heart will not heal itself and if he does not stop drinking he will . Patient verbalizes understanding but is clearly struggling with his condition. Will monitor. Original Note: 2229- Explained to patient that with his BA level being elevated we are being cautious about respiratory sedating medication as we do not want to have to intubate him. Patient is asking for something to help his anxiety. His home medications were ordered but no additional antianxiety medication is available outside of his Ciwaa protocol. Patient Ciwaa is 7. Will monitor closely.
[2022-04-15] VITALS (72 sets, daily range): BP systolic 76–176; BP diastolic 42–95; PULSE 66–187; RESP 18–44; TEMP 35.8–37.1; O2SAT 91–99
[2022-04-15] MEDS: diazePAM 10 MG/2 ML SYRINGE IV ×4 (01:10→18:17)
--- NOTE | 2022-04-15 02:10 | PM.EICU.INT ---
Teleintensivist Intervention Date/Time Was camera activated?: Yes Date Patient Seen: 04/15/22 Time Patient Seen: 02:10 Issue(s) Addressed Issue(s): Arrhythmia (Amiodarone protocol ordered; patient current HD stable) Intervention(s) Plan discussed with: Nurse Name(s): Lyric
[2022-04-15] MEDS: AMIODARONE 150 MG/100 ML PIGGYBACK 600 MG IV (02:29)
[2022-04-15] MEDS: AMIODARONE 360 MG/200 ML PIGGYBACK 33.3 MG IV (02:38)
[2022-04-15] MEDS: CEFEPIME 2 GM in SODIUM CHLORIDE 0.9% 100 ML IV ×3 (02:46→18:08)
[2022-04-15] MEDS: metroNIDAZOLE 500 MG/100 ML PIGGYBACK 100 MG IV ×3 (03:33→18:42)
[2022-04-15] MEDS: dexmedeTOMIDine in 0.9 % NaCL 400 MCG/100 ML PLAST..BAG 39.122 MCG IV ×3 (03:34→07:45)
--- NOTE | 2022-04-15 04:13 | PM.EVENT ---
Event Note Date Patient Seen: 04/15/22 Time Patient Seen: 04:13 Event Note (Rapid Response, Code, or fall): Was downstairs in the emergency department doing an H& P on a patient there when the ED provider was requested to come upstairs to cardiovert this patient. He had been given Precedex and amiodarone as well as Isaiah-Synephrine due to a systolic blood pressure in the 70s. When I got to the room his heart rate was in the 160s to 170s. He was alert and oriented was diaphoretic. EKG was ordered and it registered a heart rate of 155 and he was in atrial fibrillation. Discussed the case with both the ED provider and Dr. Simms who did not want to have a real strong correction of his heart rate due to the patient's low EF. We agreed to give him metoprolol immediate release 12.5 mg x 1. I have advised the nurse that he can remain in the 130s to 140s and not to try to lower him into the 110 to 115 heart rate range. When I left his room his systolic was 117 and his heart rate was 130. Recheck on patient at 0530, heart rate was down into the 110s, bp back up to his normal. Critical care time: 32 minutes.
[2022-04-15] MEDS: PHENYLEPHRINE 20,000 MCG in DEXTROSE 5% IN WATER 250 ML 75 MCG IV (04:40)
[2022-04-15] MEDS: METOPROLOL IR 25 MG TABLET 12.5 MG PO (04:43)
[2022-04-15] MEDS: VANCOMYCIN 2,000 MG/400 ML PIGGYBACK 200 MG IV (06:33)
[2022-04-15 06:38] LABS: Add Manual Diff / Slide Review NO; Basophils Absolute Auto 0 /uL (0-100); Basophils Percent Auto 0.4 % (0-2); Eosinophils Absolute Auto 0 /uL (0-450); Eosinophils Percent Auto 0.2 % (2-4); Hematocrit 44.2 % (41-53); Hemoglobin 14.9 g/dL (13.5-17.5); Lymphocytes Absolute Auto 800 /uL (1100-4500); Lymphocytes Percent Auto 11.3 % (25-40); Mean Corpuscular HGB Conc 33.8 % (30-36); Mean Corpuscular Hemoglobin 31.9 PG (26-34); Mean Corpuscular Volume 94.3 fL (80-100); Monocytes Absolute Auto 500 /uL (0-900); Monocytes Percent Auto 6.5 % (3-14); Neutrophils Absolute Auto 6100 /uL (1500-7000); Neutrophils Percent Auto 81.6 % (50-75); Platelet Count 131 X10^3/uL (150-400); Red Blood Cell Count 4.69 X10^6/uL (4.5-5.9); Red Cell Distribution Width 14.4 % (11.6-14.8); White Blood Cell Count 7.4 X10^3/uL (4.5-11.0)
[2022-04-15 06:45] LABS: Magnesium 1.7 mg/dL (1.6-2.3)
[2022-04-15 06:47] LABS: Alanine Aminotransferase 79 IU/L (<50); Albumin 3.3 g/dL (3.5-5.0); Albumin Globulin Ratio 1.3 (1.0-2.8); Alkaline Phosphatase 41 U/L (38-126); Aspartate Aminotransferase 74 IU/L (17-59); BUN Creatinine Ratio 11.8 (6-22); Blood Urea Nitrogen 14 mg/dL (9-20); Calcium 7.6 mg/dL (8.4-10.2); Carbon Dioxide 26 mmol/L (22-32); Chloride 105 mmol/L (98-107); Estimated Glomerular Filt Rate > 60 mL/min (>60); Globulin 2.6 g/dL (1.7-4.1); Glucose 104 mg/dL (70-100); HEMOLYSIS 18 (0-50); Magnesium 1.6 mg/dL (1.6-2.3); Potassium 4.5 mmol/L (3.4-5.1); Sodium 140 mmol/L (137-145); Total Protein 5.9 g/dL (6.3-8.2)
[2022-04-15 06:58] LABS: Troponin I 0.047 ng/mL (0.01-0.034)
[2022-04-15] MEDS: FOLIC ACID 1 MG TABLET PO (08:25)
[2022-04-15] MEDS: PARoxetine 20 MG TABLET 40 MG PO (08:26)
[2022-04-15] MEDS: ENOXAPARIN 40 MG/0.4 ML SYRINGE SUBCUT (08:26)
[2022-04-15] MEDS: MULTIVITAMIN 1 TABLET 1 TAB PO (08:26)
[2022-04-15] MEDS: THIAMINE 100 MG in SODIUM CHLORIDE 0.9% 50 ML 200 MG IV (08:27)
--- NOTE | 2022-04-15 08:35 | PM.PN.1 ---
Subjective Subjective Date Patient Seen: 04/15/22 Time Patient Seen: 10:00 Interval history: Patient asking for water. Says he is extremely thirsty and hungover. Feels very anxious but otherwise ok. Overnight had A-fib RVR with hypotension requiring amio and Isaiah drip. Trops downtrended. Exam Vital Signs (past 8 hours): - 04/15/22 01:00 04/15/22 01:38 04/15/22 01:30 Temperature 98.8 F Pulse Rate 124 H 133 H 124 H Respiratory Rate 26 H 24 25 H Blood Pressure 148/71 H 138/75 138/75 Pulse Oximetry 96 92 95 Oxygen Flow Rate 4 04/15/22 02:00 04/15/22 02:05 04/15/22 02:10 Temperature Pulse Rate 115 H 115 H 187 H Respiratory Rate 23 23 21 Blood Pressure 121/63 121/83 129/64 Pulse Oximetry 94 94 96 Oxygen Flow Rate 5 04/15/22 02:15 04/15/22 02:20 04/15/22 02:25 Temperature Pulse Rate 175 H 183 H 184 H Respiratory Rate 22 22 25 H Blood Pressure 119/67 150/84 H 153/95 H Pulse Oximetry 95 95 93 Oxygen Flow Rate 5 5 04/15/22 02:30 04/15/22 02:35 04/15/22 02:40 Temperature Pulse Rate 175 H 172 H 173 H Respiratory Rate 23 24 22 Blood Pressure 154/74 H 157/81 H 157/72 H Pulse Oximetry 94 95 94 Oxygen Flow Rate 5 5 5 04/15/22 02:45 04/15/22 02:50 04/15/22 02:55 Temperature Pulse Rate 177 H 179 H 180 H Respiratory Rate 23 23 23 Blood Pressure 170/69 H 152/61 H 153/67 H Pulse Oximetry 92 93 93 Oxygen Flow Rate 5 5 04/15/22 03:05 04/15/22 03:00 04/15/22 03:10 Temperature Pulse Rate 181 H 177 H 185 H Respiratory Rate 22 20 23 Blood Pressure 170/83 H 163/74 H 166/74 H Pulse Oximetry 95 93 95 Oxygen Flow Rate 5 5 04/15/22 03:15 04/15/22 03:25 04/15/22 03:20 Temperature Pulse Rate 182 H 175 H 180 H Respiratory Rate 22 22 24 Blood Pressure 176/72 H 146/75 H 148/91 H Pulse Oximetry 96 98 96 Oxygen Flow Rate 5 5 5 04/15/22 03:30 04/15/22 03:35 04/15/22 03:45 Temperature Pulse Rate 178 H 176 H 163 H Respiratory Rate 27 H 21 22 Blood Pressure 115/73 122/63 97/59 L Pulse Oximetry 96 96 96 Oxygen Flow Rate 5 04/15/22 03:55 04/15/22 03:40 04/15/22 03:50 Temperature Pulse Rate 156 H 171 H 166 H Respiratory Rate 22 22 25 H Blood Pressure 98/77 88/50 L 104/77 Pulse Oximetry 96 95 95 Oxygen Flow Rate 5 5 04/15/22 04:00 04/15/22 04:05 04/15/22 04:10 Temperature Pulse Rate 148 H 139 H 127 H Respiratory Rate 36 H 21 22 Blood Pressure 117/54 L 107/59 L 110/59 L Pulse Oximetry 96 95 95 Oxygen Flow Rate 5 5 04/15/22 04:15 04/15/22 04:20 04/15/22 04:25 Temperature Pulse Rate 127 H 123 H 122 H Respiratory Rate 21 21 23 Blood Pressure 87/52 L 94/53 L 96/42 L Pulse Oximetry 95 95 97 Oxygen Flow Rate 5 5 5 04/15/22 04:30 04/15/22 04:35 04/15/22 04:40 Temperature Pulse Rate 124 H 121 H 111 H Respiratory Rate 21 22 20 Blood Pressure 76/47 L 92/55 L 102/57 L Pulse Oximetry 96 96 95 Oxygen Flow Rate 5 5 04/15/22 04:45 04/15/22 05:00 04/15/22 05:30 Temperature Pulse Rate 116 H 114 H 130 H Respiratory Rate 20 24 25 H Blood Pressure 108/69 143/93 H 132/86 Pulse Oximetry 97 98 99 Oxygen Flow Rate 5 5 5 04/15/22 06:00 Temperature Pulse Rate 112 H Respiratory Rate 23 Blood Pressure 136/87 Pulse Oximetry 99 Oxygen Flow Rate 6 Oxygen Delivery Method Nasal Cannula Oxygen Flow Rate 6 Narrative Exam Narrative: GEN: Anxious, diaphoretic and tremulous male HEENT: moist mucous membranes, PERRL NECK: trachea midline, no JVD CV: Tachycardia with normal rhythm, no murmurs PULM: Decreased breath sounds to right lung base ABD: soft, nontender, nondistended, no organomegaly EXT: warm and well perfused with no edema NEURO: awake, alert, oriented, no focal deficits Objective Labs Result Diagrams: 04/15/22 06:27 04/15/22 06:27 Labs: Laboratory Results - last 24 hr 04/14/22 04/14/22 04/14/22 14:10 14:20 14:20 WBC RBC Hgb Hct MCV MCH MCHC RDW Plt Count Neut % (Auto) Lymph % (Auto) [place] % (Auto) Eos % (Auto) Baso % (Auto) Neut # (Auto) Lymph # (Auto) [place] # (Auto) Eos # (Auto) Baso # (Auto) VBG pH 7.42 VBG pCO2 37.2 L VBG pO2 44 VBG HCO3 24 VBG Total CO2 25 VBG O2 Saturation 81 H VBG Base Excess 0.0 Sodium Potassium Chloride Carbon Dioxide BUN Creatinine Estimated GFR BUN/Creatinine Ratio Glucose Lactate Calcium Magnesium Total Bilirubin AST ALT Alkaline Phosphatase Ammonia Troponin I Total Protein Albumin Globulin Albumin/Globulin Ratio Lipase Procalcitonin Urine Color Yellow Urine Appearance Clear Urine pH 5.5 Ur Specific [place] 1.010 Urine Protein Negative Urine Glucose (UA) Negative Urine Ketones Negative Urine Occult Blood Trace-lysed Urine Nitrate Negative Urine Bilirubin Negative Urine Urobilinogen 0.2 Ur Leukocyte Esterase Negative Urine RBC None seen Urine WBC 0-1/hpf Ur Squamous Epith Cells None seen Urine Bacteria None seen Hyaline Casts 1-5/lpf Ur Culture Indicated? Cult not indicated Nasal Screen MRSA (PCR) U Opiates 300ng/mL cut Negative Ur Oxycodone Screen Negative Urine Methadone Screen Negative Ur Barbiturates Screen Negative U Tricyclic Antidepress Negative Ur Phencyclidine Scrn Negative Ur Amphetamines Screen Negative U Methamphetamines Scrn Negative Ur MDMA Scrn (Ecstasy) Negative U Benzodiazepines Scrn Positive H Urine Cocaine Screen Negative U Marijuana (THC) Screen Negative Ethyl Alcohol SARS-CoV-2 (PCR) 04/14/22 04/14/22 04/14/22 14:25 14:35 14:35 WBC 17.0 H D RBC 5.48 Hgb 17.6 H Hct 51.2 MCV 93.4 MCH 32.1 MCHC 34.4 RDW 14.7 Plt Count 204 Neut % (Auto) 84.5 H D Lymph % (Auto) 10.4 L D [place] % (Auto) 4.9 Eos % (Auto) 0.0 L Baso % (Auto) 0.2 Neut # (Auto) 95637 H Lymph # (Auto) 1800 [place] # (Auto) 800 Eos # (Auto) 0 Baso # (Auto) 0 VBG pH VBG pCO2 VBG pO2 VBG HCO3 VBG Total CO2 VBG O2 Saturation VBG Base Excess Sodium 138 Potassium 4.6 Chloride 102 Carbon Dioxide 23 BUN 16 Creatinine 1.25 Estimated GFR > 60 BUN/Creatinine Ratio 12.8 Glucose 166 H Lactate Calcium 8.2 L Magnesium Total Bilirubin 0.9 AST 99 H ALT 94 H Alkaline Phosphatase 49 Ammonia Troponin I Total Protein 7.1 Albumin 4.2 Globulin 2.9 Albumin/Globulin Ratio 1.4 Lipase Procalcitonin Urine Color Urine Appearance Urine pH Ur Specific [place] Urine Protein Urine Glucose (UA) Urine Ketones Urine Occult Blood Urine Nitrate Urine Bilirubin Urine Urobilinogen Ur Leukocyte Esterase Urine RBC Urine WBC Ur Squamous Epith Cells Urine Bacteria Hyaline Casts Ur Culture Indicated? Nasal Screen MRSA (PCR) U Opiates 300ng/mL cut Ur Oxycodone Screen Urine Methadone Screen Ur Barbiturates Screen U Tricyclic Antidepress Ur Phencyclidine Scrn Ur Amphetamines Screen U Methamphetamines Scrn Ur MDMA Scrn (Ecstasy) U Benzodiazepines Scrn Urine Cocaine Screen U Marijuana (THC) Screen Ethyl Alcohol SARS-CoV-2 (PCR) Negative 04/14/22 04/14/22 04/14/22 14:35 14:35 14:38 WBC RBC Hgb Hct MCV MCH MCHC RDW Plt Count Neut % (Auto) Lymph % (Auto) [place] % (Auto) Eos % (Auto) Baso % (Auto) Neut # (Auto) Lymph # (Auto) [place] # (Auto) Eos # (Auto) Baso # (Auto) VBG pH VBG pCO2 VBG pO2 VBG HCO3 VBG Total CO2 VBG O2 Saturation VBG Base Excess Sodium Potassium Chloride Carbon Dioxide BUN Creatinine Estimated GFR BUN/Creatinine Ratio Glucose Lactate 3.5 H Calcium Magnesium Total Bilirubin AST ALT Alkaline Phosphatase Ammonia 11 Troponin I Total Protein Albumin Globulin Albumin/Globulin Ratio Lipase 99 Procalcitonin 0.98 H Urine Color Urine Appearance Urine pH Ur Specific [place] Urine Protein Urine Glucose (UA) Urine Ketones Urine Occult Blood Urine Nitrate Urine Bilirubin Urine Urobilinogen Ur Leukocyte Esterase Urine RBC Urine WBC Ur Squamous Epith Cells Urine Bacteria Hyaline Casts Ur Culture Indicated? Nasal Screen MRSA (PCR) U Opiates 300ng/mL cut Ur Oxycodone Screen Urine Methadone Screen Ur Barbiturates Screen U Tricyclic Antidepress Ur Phencyclidine Scrn Ur Amphetamines Screen U Methamphetamines Scrn Ur MDMA Scrn (Ecstasy) U Benzodiazepines Scrn Urine Cocaine Screen U Marijuana (THC) Screen Ethyl Alcohol SARS-CoV-2 (PCR) 04/14/22 04/14/22 04/14/22 14:38 16:47 19:01 WBC RBC Hgb Hct MCV MCH MCHC RDW Plt Count Neut % (Auto) Lymph % (Auto) [place] % (Auto) Eos % (Auto) Baso % (Auto) Neut # (Auto) Lymph # (Auto) [place] # (Auto) Eos # (Auto) Baso # (Auto) VBG pH VBG pCO2 VBG pO2 VBG HCO3 VBG Total CO2 VBG O2 Saturation VBG Base Excess Sodium Potassium Chloride Carbon Dioxide BUN Creatinine Estimated GFR BUN/Creatinine Ratio Glucose Lactate 2.5 H Calcium Magnesium Total Bilirubin AST ALT Alkaline Phosphatase Ammonia Troponin I 0.064 H Total Protein Albumin Globulin Albumin/Globulin Ratio Lipase Procalcitonin Urine Color Urine Appearance Urine pH Ur Specific [place] Urine Protein Urine Glucose (UA) Urine Ketones Urine Occult Blood Urine Nitrate Urine Bilirubin Urine Urobilinogen Ur Leukocyte Esterase Urine RBC Urine WBC Ur Squamous Epith Cells Urine Bacteria Hyaline Casts Ur Culture Indicated? Nasal Screen MRSA (PCR) U Opiates 300ng/mL cut Ur Oxycodone Screen Urine Methadone Screen Ur Barbiturates Screen U Tricyclic Antidepress Ur Phencyclidine Scrn Ur Amphetamines Screen U Methamphetamines Scrn Ur MDMA Scrn (Ecstasy) U Benzodiazepines Scrn Urine Cocaine Screen U Marijuana (THC) Screen Ethyl Alcohol 394 H SARS-CoV-2 (PCR) 04/14/22 04/15/22 04/15/22 23:00 00:21 06:27 WBC RBC Hgb Hct MCV MCH MCHC RDW Plt Count Neut % (Auto) Lymph % (Auto) [place] % (Auto) Eos % (Auto) Baso % (Auto) Neut # (Auto) Lymph # (Auto) [place] # (Auto) Eos # (Auto) Baso # (Auto) VBG pH VBG pCO2 VBG pO2 VBG HCO3 VBG Total CO2 VBG O2 Saturation VBG Base Excess Sodium 140 Potassium 4.5 Chloride 105 Carbon Dioxide 26 BUN 14 Creatinine 1.19 Estimated GFR > 60 BUN/Creatinine Ratio 11.8 Glucose 104 H Lactate Calcium 7.6 L Magnesium 1.6 Total Bilirubin 1.0 AST 74 H ALT 79 H Alkaline Phosphatase 41 Ammonia Troponin I 0.070 H Total Protein 5.9 L Albumin 3.3 L Globulin 2.6 Albumin/Globulin Ratio 1.3 Lipase Procalcitonin Urine Color Urine Appearance Urine pH Ur Specific [place] Urine Protein Urine Glucose (UA) Urine Ketones Urine Occult Blood Urine Nitrate Urine Bilirubin Urine Urobilinogen Ur Leukocyte Esterase Urine RBC Urine WBC Ur Squamous Epith Cells Urine Bacteria Hyaline Casts Ur Culture Indicated? Nasal Screen MRSA (PCR) Negative for mrsa U Opiates 300ng/mL cut Ur Oxycodone Screen Urine Methadone Screen Ur Barbiturates Screen U Tricyclic Antidepress Ur Phencyclidine Scrn Ur Amphetamines Screen U Methamphetamines Scrn Ur MDMA Scrn (Ecstasy) U Benzodiazepines Scrn Urine Cocaine Screen U Marijuana (THC) Screen Ethyl Alcohol SARS-CoV-2 (PCR) 04/15/22 04/15/22 04/15/22 06:27 06:27 06:27 WBC 7.4 D RBC 4.69 Hgb 14.9 Hct 44.2 MCV 94.3 MCH 31.9 MCHC 33.8 RDW 14.4 Plt Count 131 L Neut % (Auto) 81.6 H Lymph % (Auto) 11.3 L [place] % (Auto) 6.5 Eos % (Auto) 0.2 L Baso % (Auto) 0.4 Neut # (Auto) 6100 Lymph # (Auto) 800 L [place] # (Auto) 500 Eos # (Auto) 0 Baso # (Auto) 0 VBG pH VBG pCO2 VBG pO2 VBG HCO3 VBG Total CO2 VBG O2 Saturation VBG Base Excess Sodium Potassium Chloride Carbon Dioxide BUN Creatinine Estimated GFR BUN/Creatinine Ratio Glucose Lactate Calcium Magnesium 1.7 Total Bilirubin AST ALT Alkaline Phosphatase Ammonia Troponin I 0.047 H Total Protein Albumin Globulin Albumin/Globulin Ratio Lipase Procalcitonin Urine Color Urine Appearance Urine pH Ur Specific [place] Urine Protein Urine Glucose (UA) Urine Ketones Urine Occult Blood Urine Nitrate Urine Bilirubin Urine Urobilinogen Ur Leukocyte Esterase Urine RBC Urine WBC Ur Squamous Epith Cells Urine Bacteria Hyaline Casts Ur Culture Indicated? Nasal Screen MRSA (PCR) U Opiates 300ng/mL cut Ur Oxycodone Screen Urine Methadone Screen Ur Barbiturates Screen U Tricyclic Antidepress Ur Phencyclidine Scrn Ur Amphetamines Screen U Methamphetamines Scrn Ur MDMA Scrn (Ecstasy) U Benzodiazepines Scrn Urine Cocaine Screen U Marijuana (THC) Screen Ethyl Alcohol SARS-CoV-2 (PCR) [facility] Medical History Alcohol abuse Hypertension (~2019) Social History household members: friend(s) Smoking Status: Never smoker alcohol intake: current Assessment & Plan Assessment & Plan narrative: # severe acute alcohol intoxication with history of severe withdrawals -ETOH level 394 and patient already showing signs of withdrawal -admit to ICU as patient will likely require Precedex drip. Previously admitted to the ICU requiring Precedex drip and discharged on March 15, 2022. -appreciate tele-early childhood educator aide consultation -WA protocol with Valium as Ativan on back order -folate, thiamine and multivitamin -Precedex drip, wean as able -seizure precautions -gabapentin ordered by early childhood educator aide as benzo sparing agent # sepsis secondary to aspiration pneumonia -leukocytosis of 17, mild temp of 99.8? 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% -last echo on March 10, 2022 with severe global hypokinesis of left ventricle -telemetry -obtain new echo -euvolemic on exam # atrial fibrillation with RVR -required amio drip, now weaned off and back in sinus rhythm -continue metoprolol -[id number] of 2, consider anticoag but SQ heparin for now given risk of DT's -telemetry # lactic acidemia -lactate 2.5 on admission -monitor # transaminitis -LFTs previously elevated at last admission and improved than sign -monitor -avoid hepatotoxic agents # elevated troponin -0.064 on admission, patient denies chest pain -likely demand ischemia in the setting of severe systolic heart failure tachycardia -EKG shows no ST changes with T-wave inversions in leads I and aVL -troponin peaked at 0.07, now downtrending Code status is full code. COVID negative. DVT prophylaxis with SQ heparin. Proxy is his sister Cheryl. I have reviewed home meds and used all available resources to reconcile the home meds. Time Spent With Patient Critical Care time: I spent a total of [] minutes of critical care time on this patient's care today; this time is exclusive of procedural time.
--- NOTE | 2022-04-15 09:16 | CM.DANOTE ---
Patient is a 46 yo male who was admitted on 04/14/22 for Fall. Pt has [facility] and [facility] for insurance and his PCP is Dr. Linden Yousif. EMR was reviewed. Per MD, pt with hx of ETOH withdrawal and cardiomyopathy with EF 10-15%. Pt admitted for intoxication with ETOH 394, tachy, 4LO2 and sepsis secondary to aspiration pneumonia. Pt was last admitted a little over a month ago 03/09/22 for similar and received ETOH withdrawal tx and his sister and father flew out from [place] to support and assist pt and he discharged home with their assist and outpt resources back to his RV. SW met briefly bedside with pt and explained role and pt's current CIWA an 8 but has been sedated and pt still tremulous and drowsy and states he is starting to feel poorly again with increased anxiety as well. Pt able to confirm he still drinks at least 6 packs of beer a day and lost his job with the [employer] and continues to be in the process of divorce from his which has increased his stress and drinking. SW inquired if sister and father flew back to [place] and pt confirms they are no longer here and pt declined SW calling them yet and states he wants to be the one to update them on his admission. Pt states family helped get pt into [facility] and new medication but denied starting any ETOH treatment after his last admission a month ago and then recently fell off the wagon again and confirms he feels ETOH tx will be needed at d/c this time. Pt unable to remain awake at this time and SW will continue d/c planning with pt when more medically appropriate. Plan: SW to follow for outpt [facility] treatment options for patient and discharge planning needs. JENA Grady Discharge Planning/Care Management CM Discharge Assessment Start: 04/15/22 09:11 Freq: Status: Active Protocol: Document 04/15/22 09:11 BF (Rec: 04/15/22 09:16 BF [id number]) Discharge Planning Assessment Assigned Medical Service Representative JENA Bell DPOA/Assigned Designee Name informally father Mario Martinez Contact Information [phone] Advance Directives? No Advance Directives on File No History Provided By Patient,Medical Record Has Patient been admitted in last 30 No days? Comment Recently admitted for same and went home with ETOH resources and family Prior Living Arrangements RV Type of transporation used prior to Drives own vehicle admit Independent with ADL's Yes Is patient alert and oriented? Yes Caregiver for Another No Patient/Family Preference Drug/Alcohol Rehab Barriers to Discharge No Discharge Plan Home Transportation Arrangement Unclear at this time, family has gone back to [place] Referrals Initiated Other Additional Comment Resources provided to patient for ETOH detox and treatment. Whiteboard Updated in Patient Room with Yes name and ext. # of Medical Service Representative Review Status In Process Please Provide Date Initial DC 04/15/22 Assessment Was Performed Next Review Type Continued Stay Review
--- NOTE | 2022-04-15 09:32 | PM.PN.EICU ---
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 Pt. started on Zosyn for PNA. He was then transferred to ICU for ETOHwithdrawal management and started on Dex drip. Patient developed Afib with RVR and started on Amio drip. BP dropped and Isaiah drip started. HR remained in the 150's and pt. was given metoprolol 12.5 mg PO x 1. HR improved to <130s and BP improved and Isaiah drip weaned off after 1-2 hours. Date Patient Seen: 04/15/22 Patient Location: ICU Provider location (State): [place] Interval history: Recent events: Teresa remains in AFib wtih HR 100-110s. BP mostly 90-100s/50-70s this morning. Pt. currently on Dex drip at 1.5 mcg/kg/hr. Per bedside nurse he was diaphoretic, agitated, and complained of anxiety this morning. However by the time I saw him over A-V systemt, patient's HR is 88 and he does not appear diaphoretic or agitated at the time. Current Medications Current Medications Medications: Home Medications paroxetine HCl 40 mg tablet 40 mg PO DAILY #90 tabs 01/01/22 [Rx Confirmed 02/06/22] melatonin 10 mg tablet 10 mg PO BEDTIME PRN sleep #30 tabs 02/06/22 [Rx] aspirin 81 mg tablet,delayed release 81 mg PO DAILY #30 tabs 03/15/22 [Rx] chlordiazepoxide HCl 25 mg capsule 25 mg PO TID #6 caps 03/15/22 [Rx] folic acid 1 mg tablet 1 mg PO DAILY #30 tabs 03/15/22 [Rx] levofloxacin 250 mg tablet 750 mg PO 0700 #3 tabs 03/15/22 [Rx] lisinopril 20 mg tablet 20 mg PO DAILY #30 tabs 03/15/22 [Rx] metoprolol succinate 50 mg tablet,extended release 24 hr 50 mg PO DAILY #30 tabs 03/15/22 [Rx] multivitamin with folic acid 400 mcg tablet (Tab-A-Isis) 1 tab PO DAILY #30 tabs 03/15/22 [Rx] thiamine HCl (vitamin B1) 100 mg tablet 100 mg PO DAILY #30 tabs 03/15/22 [Rx] amoxicillin 875 mg-potassium clavulanate 125 mg tablet 1 tab PO Q12H #20 tabs 04/13/22 [Rx] chlordiazepoxide HCl 25 mg capsule See Rx Instructions .Route .COMPLEX PRN alcohol withdrawal #32 caps 04/13/22 [Rx] doxycycline hyclate 100 mg tablet 100 mg PO BID #20 tabs 04/13/22 [Rx] Visit Medications (administered) Generic Name Dose Route Start Last Admin Trade Name Freq PRN Reason Stop Dose Admin Diazepam 0 mg 04/14/22 18:43 04/15/22 01:10 Diazepam 10 Mg/2 Ml Syringe IV 5 mg CIWAPRN PRN Administration Alcohol Withdrawal Protocol Folic Acid 1 mg 04/14/22 18:55 04/15/22 08:25 Folic Acid 1 Mg Tablet PO 1 mg DAILY CL[place] Administration Thiamine HCl 100 mg/ Sodium 50 mls @ 200 mls/hr 04/15/22 09:00 04/15/22 08:27 Chloride IV 200 mls/hr DAILY [facility] Administration Cefepime HCl 2 gm/ Sodium 100 mls @ 200 mls/hr 04/14/22 19:00 04/15/22 03:35 Chloride IV Infused Q8H [facility] Infusion Metronidazole 500 mg in 100 mls @ 100 mls/hr 04/14/22 19:00 04/15/22 04:47 Flagyl IV Infused Q8H [facility] Infusion Amiodarone HCl/Dextrose 360 mg in 200 mls @ 16.7 mls/hr 04/15/22 08:00 04/15/22 08:21 Nexterone IV 04/15/22 19:59 Not Given CONT [place] Protocol dexmedeTOMIDine in 0.9 % NaCL 400 mcg in 100 mls @ 5.216 mls/hr 04/15/22 03:15 04/15/22 07:45 Precedex IV 1.5 mcg/kg/hr TITRATE [place] 39.122 mls/hr Administration Protocol 0.2 MCG/KG/HR Phenylephrine HCl 20,000 mcg/ 250 mls @ 0 mls/hr 04/15/22 03:45 04/15/22 06:00 Dextrose IV 0 mcg/min TITRATE CL[place] 0 mls/hr Titration Protocol Per Protocol Multivitamins 1 tab 04/14/22 18:55 04/15/22 08:26 Multivitamin 1 Tablet PO 1 tab DAILY [place] Administration Ondansetron HCl 4 mg 04/14/22 21:25 04/14/22 21:48 Ondansetron 4 Mg/2 Ml Inj IV 4 mg Q6HR PRN Administration Nausea And Vomiting Paroxetine HCl 40 mg 04/14/22 21:32 04/15/22 08:26 Paroxetine 20 Mg Tablet PO 40 mg DAILY CLIFT[place] Administration Objective Labs Result Diagrams: 04/15/22 06:27 04/15/22 06:27 Labs: Laboratory Results - last 24 hr 04/14/22 04/14/22 04/14/22 14:10 14:20 14:20 WBC RBC Hgb Hct MCV MCH MCHC RDW Plt Count Neut % (Auto) Lymph % (Auto) Marin % (Auto) Eos % (Auto) Baso % (Auto) Neut # (Auto) Lymph # (Auto) Marin # (Auto) Eos # (Auto) Baso # (Auto) VBG pH 7.42 VBG pCO2 37.2 L VBG pO2 44 VBG HCO3 24 VBG Total CO2 25 VBG O2 Saturation 81 H VBG Base Excess 0.0 Sodium Potassium Chloride Carbon Dioxide BUN Creatinine Estimated GFR BUN/Creatinine Ratio Glucose Lactate Calcium Magnesium Total Bilirubin AST ALT Alkaline Phosphatase Ammonia Troponin I Total Protein Albumin Globulin Albumin/Globulin Ratio Lipase Procalcitonin Urine Color Yellow Urine Appearance Clear Urine pH 5.5 Ur Specific [place] 1.010 Urine Protein Negative Urine Glucose (UA) Negative Urine Ketones Negative Urine Occult Blood Trace-lysed Urine Nitrate Negative Urine Bilirubin Negative Urine Urobilinogen 0.2 Ur Leukocyte Esterase Negative Urine RBC None seen Urine WBC 0-1/hpf Ur Squamous Epith Cells None seen Urine Bacteria None seen Hyaline Casts 1-5/lpf Ur Culture Indicated? Cult not indicated Nasal Screen MRSA (PCR) U Opiates 300ng/mL cut Negative Ur Oxycodone Screen Negative Urine Methadone Screen Negative Ur Barbiturates Screen Negative U Tricyclic Antidepress Negative Ur Phencyclidine Scrn Negative Ur Amphetamines Screen Negative U Methamphetamines Scrn Negative Ur MDMA Scrn (Ecstasy) Negative U Benzodiazepines Scrn Positive H Urine Cocaine Screen Negative U Marijuana (THC) Screen Negative Ethyl Alcohol SARS-CoV-2 (PCR) 04/14/22 04/14/22 04/14/22 14:25 14:35 14:35 WBC 17.0 H D RBC 5.48 Hgb 17.6 H Hct 51.2 MCV 93.4 MCH 32.1 MCHC 34.4 RDW 14.7 Plt Count 204 Neut % (Auto) 84.5 H D Lymph % (Auto) 10.4 L D [place] % (Auto) 4.9 Eos % (Auto) 0.0 L Baso % (Auto) 0.2 Neut # (Auto) 28887 H Lymph # (Auto) 1800 [place] # (Auto) 800 Eos # (Auto) 0 Baso # (Auto) 0 VBG pH VBG pCO2 VBG pO2 VBG HCO3 VBG Total CO2 VBG O2 Saturation VBG Base Excess Sodium 138 Potassium 4.6 Chloride 102 Carbon Dioxide 23 BUN 16 Creatinine 1.25 Estimated GFR > 60 BUN/Creatinine Ratio 12.8 Glucose 166 H Lactate Calcium 8.2 L Magnesium Total Bilirubin 0.9 AST 99 H ALT 94 H Alkaline Phosphatase 49 Ammonia Troponin I Total Protein 7.1 Albumin 4.2 Globulin 2.9 Albumin/Globulin Ratio 1.4 Lipase Procalcitonin Urine Color Urine Appearance Urine pH Ur Specific [place] Urine Protein Urine Glucose (UA) Urine Ketones Urine Occult Blood Urine Nitrate Urine Bilirubin Urine Urobilinogen Ur Leukocyte Esterase Urine RBC Urine WBC Ur Squamous Epith Cells Urine Bacteria Hyaline Casts Ur Culture Indicated? Nasal Screen MRSA (PCR) U Opiates 300ng/mL cut Ur Oxycodone Screen Urine Methadone Screen Ur Barbiturates Screen U Tricyclic Antidepress Ur Phencyclidine Scrn Ur Amphetamines Screen U Methamphetamines Scrn Ur MDMA Scrn (Ecstasy) U Benzodiazepines Scrn Urine Cocaine Screen U Marijuana (THC) Screen Ethyl Alcohol SARS-CoV-2 (PCR) Negative 04/14/22 04/14/22 04/14/22 14:35 14:35 14:38 WBC RBC Hgb Hct MCV MCH MCHC RDW Plt Count Neut % (Auto) Lymph % (Auto) [place] % (Auto) Eos % (Auto) Baso % (Auto) Neut # (Auto) Lymph # (Auto) [place] # (Auto) Eos # (Auto) Baso # (Auto) VBG pH VBG pCO2 VBG pO2 VBG HCO3 VBG Total CO2 VBG O2 Saturation VBG Base Excess Sodium Potassium Chloride Carbon Dioxide BUN Creatinine Estimated GFR BUN/Creatinine Ratio Glucose Lactate 3.5 H Calcium Magnesium Total Bilirubin AST ALT Alkaline Phosphatase Ammonia 11 Troponin I Total Protein Albumin Globulin Albumin/Globulin Ratio Lipase 99 Procalcitonin 0.98 H Urine Color Urine Appearance Urine pH Ur Specific [place] Urine Protein Urine Glucose (UA) Urine Ketones Urine Occult Blood Urine Nitrate Urine Bilirubin Urine Urobilinogen Ur Leukocyte Esterase Urine RBC Urine WBC Ur Squamous Epith Cells Urine Bacteria Hyaline Casts Ur Culture Indicated? Nasal Screen MRSA (PCR) U Opiates 300ng/mL cut Ur Oxycodone Screen Urine Methadone Screen Ur Barbiturates Screen U Tricyclic Antidepress Ur Phencyclidine Scrn Ur Amphetamines Screen U Methamphetamines Scrn Ur MDMA Scrn (Ecstasy) U Benzodiazepines Scrn Urine Cocaine Screen U Marijuana (THC) Screen Ethyl Alcohol SARS-CoV-2 (PCR) 04/14/22 04/14/22 04/14/22 14:38 16:47 19:01 WBC RBC Hgb Hct MCV MCH MCHC RDW Plt Count Neut % (Auto) Lymph % (Auto) [place] % (Auto) Eos % (Auto) Baso % (Auto) Neut # (Auto) Lymph # (Auto) [place] # (Auto) Eos # (Auto) Baso # (Auto) VBG pH VBG pCO2 VBG pO2 VBG HCO3 VBG Total CO2 VBG O2 Saturation VBG Base Excess Sodium Potassium Chloride Carbon Dioxide BUN Creatinine Estimated GFR BUN/Creatinine Ratio Glucose Lactate 2.5 H Calcium Magnesium Total Bilirubin AST ALT Alkaline Phosphatase Ammonia Troponin I 0.064 H Total Protein Albumin Globulin Albumin/Globulin Ratio Lipase Procalcitonin Urine Color Urine Appearance Urine pH Ur Specific [place] Urine Protein Urine Glucose (UA) Urine Ketones Urine Occult Blood Urine Nitrate Urine Bilirubin Urine Urobilinogen Ur Leukocyte Esterase Urine RBC Urine WBC Ur Squamous Epith Cells Urine Bacteria Hyaline Casts Ur Culture Indicated? Nasal Screen MRSA (PCR) U Opiates 300ng/mL cut Ur Oxycodone Screen Urine Methadone Screen Ur Barbiturates Screen U Tricyclic Antidepress Ur Phencyclidine Scrn Ur Amphetamines Screen U Methamphetamines Scrn Ur MDMA Scrn (Ecstasy) U Benzodiazepines Scrn Urine Cocaine Screen U Marijuana (THC) Screen Ethyl Alcohol 394 H SARS-CoV-2 (PCR) 04/14/22 04/15/22 04/15/22 23:00 00:21 06:27 WBC RBC Hgb Hct MCV MCH MCHC RDW Plt Count Neut % (Auto) Lymph % (Auto) [place] % (Auto) Eos % (Auto) Baso % (Auto) Neut # (Auto) Lymph # (Auto) [place] # (Auto) Eos # (Auto) Baso # (Auto) VBG pH VBG pCO2 VBG pO2 VBG HCO3 VBG Total CO2 VBG O2 Saturation VBG Base Excess Sodium 140 Potassium 4.5 Chloride 105 Carbon Dioxide 26 BUN 14 Creatinine 1.19 Estimated GFR > 60 BUN/Creatinine Ratio 11.8 Glucose 104 H Lactate Calcium 7.6 L Magnesium 1.6 Total Bilirubin 1.0 AST 74 H ALT 79 H Alkaline Phosphatase 41 Ammonia Troponin I 0.070 H Total Protein 5.9 L Albumin 3.3 L Globulin 2.6 Albumin/Globulin Ratio 1.3 Lipase Procalcitonin Urine Color Urine Appearance Urine pH Ur Specific [place] Urine Protein Urine Glucose (UA) Urine Ketones Urine Occult Blood Urine Nitrate Urine Bilirubin Urine Urobilinogen Ur Leukocyte Esterase Urine RBC Urine WBC Ur Squamous Epith Cells Urine Bacteria Hyaline Casts Ur Culture Indicated? Nasal Screen MRSA (PCR) Negative for mrsa U Opiates 300ng/mL cut Ur Oxycodone Screen Urine Methadone Screen Ur Barbiturates Screen U Tricyclic Antidepress Ur Phencyclidine Scrn Ur Amphetamines Screen U Methamphetamines Scrn Ur MDMA Scrn (Ecstasy) U Benzodiazepines Scrn Urine Cocaine Screen U Marijuana (THC) Screen Ethyl Alcohol SARS-CoV-2 (PCR) 04/15/22 04/15/22 04/15/22 06:27 06:27 06:27 WBC 7.4 D RBC 4.69 Hgb 14.9 Hct 44.2 MCV 94.3 MCH 31.9 MCHC 33.8 RDW 14.4 Plt Count 131 L Neut % (Auto) 81.6 H Lymph % (Auto) 11.3 L [place] % (Auto) 6.5 Eos % (Auto) 0.2 L Baso % (Auto) 0.4 Neut # (Auto) 6100 Lymph # (Auto) 800 L [place] # (Auto) 500 Eos # (Auto) 0 Baso # (Auto) 0 VBG pH VBG pCO2 VBG pO2 VBG HCO3 VBG Total CO2 VBG O2 Saturation VBG Base Excess Sodium Potassium Chloride Carbon Dioxide BUN Creatinine Estimated GFR BUN/Creatinine Ratio Glucose Lactate Calcium Magnesium 1.7 Total Bilirubin AST ALT Alkaline Phosphatase Ammonia Troponin I 0.047 H Total Protein Albumin Globulin Albumin/Globulin Ratio Lipase Procalcitonin Urine Color Urine Appearance Urine pH Ur Specific [place] Urine Protein Urine Glucose (UA) Urine Ketones Urine Occult Blood Urine Nitrate Urine Bilirubin Urine Urobilinogen Ur Leukocyte Esterase Urine RBC Urine WBC Ur Squamous Epith Cells Urine Bacteria Hyaline Casts Ur Culture Indicated? Nasal Screen MRSA (PCR) U Opiates 300ng/mL cut Ur Oxycodone Screen Urine Methadone Screen Ur Barbiturates Screen U Tricyclic Antidepress Ur Phencyclidine Scrn Ur Amphetamines Screen U Methamphetamines Scrn Ur MDMA Scrn (Ecstasy) U Benzodiazepines Scrn Urine Cocaine Screen U Marijuana (THC) Screen Ethyl Alcohol SARS-CoV-2 (PCR) Exam Vital Signs (past 8 hours): - 04/15/22 01:38 04/15/22 02:00 04/15/22 02:05 Temperature 98.8 F Pulse Rate 133 H 115 H 115 H Respiratory Rate 24 23 23 Blood Pressure 138/75 121/63 121/83 Pulse Oximetry 92 94 94 Oxygen Flow Rate 4 5 04/15/22 02:10 04/15/22 02:15 04/15/22 02:20 Temperature Pulse Rate 187 H 175 H 183 H Respiratory Rate 21 22 22 Blood Pressure 129/64 119/67 150/84 H Pulse Oximetry 96 95 95 Oxygen Flow Rate 5 04/15/22 02:25 04/15/22 02:30 04/15/22 02:35 Temperature Pulse Rate 184 H 175 H 172 H Respiratory Rate 25 H 23 24 Blood Pressure 153/95 H 154/74 H 157/81 H Pulse Oximetry 93 94 95 Oxygen Flow Rate 5 5 5 04/15/22 02:40 04/15/22 02:45 04/15/22 02:50 Temperature Pulse Rate 173 H 177 H 179 H Respiratory Rate 22 23 23 Blood Pressure 157/72 H 170/69 H 152/61 H Pulse Oximetry 94 92 93 Oxygen Flow Rate 5 5 5 04/15/22 02:55 04/15/22 03:05 04/15/22 03:00 Temperature Pulse Rate 180 H 181 H 177 H Respiratory Rate 23 22 20 Blood Pressure 153/67 H 170/83 H 163/74 H Pulse Oximetry 93 95 93 Oxygen Flow Rate 5 5 04/15/22 03:10 04/15/22 03:15 04/15/22 03:25 Temperature Pulse Rate 185 H 182 H 175 H Respiratory Rate 23 22 22 Blood Pressure 166/74 H 176/72 H 146/75 H Pulse Oximetry 95 96 98 Oxygen Flow Rate 5 5 04/15/22 03:20 04/15/22 03:30 04/15/22 03:35 Temperature Pulse Rate 180 H 178 H 176 H Respiratory Rate 24 27 H 21 Blood Pressure 148/91 H 115/73 122/63 Pulse Oximetry 96 96 96 Oxygen Flow Rate 5 5 04/15/22 03:45 04/15/22 03:55 04/15/22 03:40 Temperature Pulse Rate 163 H 156 H 171 H Respiratory Rate 22 22 22 Blood Pressure 97/59 L 98/77 88/50 L Pulse Oximetry 96 96 95 Oxygen Flow Rate 5 04/15/22 03:50 04/15/22 04:00 04/15/22 04:05 Temperature Pulse Rate 166 H 148 H 139 H Respiratory Rate 25 H 36 H 21 Blood Pressure 104/77 117/54 L 107/59 L Pulse Oximetry 95 96 95 Oxygen Flow Rate 5 5 04/15/22 04:10 04/15/22 04:15 04/15/22 04:20 Temperature Pulse Rate 127 H 127 H 123 H Respiratory Rate 22 21 21 Blood Pressure 110/59 L 87/52 L 94/53 L Pulse Oximetry 95 95 95 Oxygen Flow Rate 5 5 5 04/15/22 04:25 04/15/22 04:30 04/15/22 04:35 Temperature Pulse Rate 122 H 124 H 121 H Respiratory Rate 23 21 22 Blood Pressure 96/42 L 76/47 L 92/55 L Pulse Oximetry 97 96 96 Oxygen Flow Rate 5 5 5 04/15/22 04:40 04/15/22 04:45 04/15/22 05:00 Temperature Pulse Rate 111 H 116 H 114 H Respiratory Rate 20 20 24 Blood Pressure 102/57 L 108/69 143/93 H Pulse Oximetry 95 97 98 Oxygen Flow Rate 5 5 04/15/22 05:30 04/15/22 06:00 04/15/22 07:00 Temperature Pulse Rate 130 H 112 H 111 H Respiratory Rate 25 H 23 20 Blood Pressure 132/86 136/87 108/59 L Pulse Oximetry 99 99 98 Oxygen Flow Rate 5 6 5 04/15/22 07:30 04/15/22 08:00 04/15/22 08:30 Temperature Pulse Rate 106 H 109 H 114 H Respiratory Rate 21 20 37 H Blood Pressure 100/57 L 103/79 Pulse Oximetry 98 98 96 Oxygen Flow Rate 5 5 5 04/15/22 08:35 Temperature Pulse Rate 111 H Respiratory Rate 18 Blood Pressure 98/70 Pulse Oximetry 94 Oxygen Flow Rate 5 Oxygen Delivery Method Nasal Cannula Oxygen Flow Rate 5 Narrative Exam Narrative: Teresa seen in sitting up in bed. He is restless but not diaphoretic or agitated. 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 % PNA (probable aspiration) Plan ETOH withdrawal: -start patient on gabapentin 300 mg TID (for benzo sparing ETOH withdrawal teatment) -start librium 25 mg TID -wean down predex drip as tolerated -valium prn elevated CIWA Afib: Afib wiht RVR seems well controlled with control of ETOH withdrawal an therefore Amio was stopped but if AFib with RVR becomes a problem despite adequate control of ETOH withrawal, can consider more B-vicente if BP elevated or Amio if BP borderline low ETOH induced cardiomyopathy- water restriction of 1 L /day -lasix prn to maintain euvolemia PNA: Zosyn -f/u on cultures and adjuist antibiotics as needed PPx: heparin Time Spent With Patient Critical Care time: I spent a total of [55] minutes of critical care time on this patient's care today; this time is exclusive of procedural time.
[2022-04-15] MEDS: MAGNESIUM SULFATE 2 GM/50 ML PIGGYBACK IV (09:43)
[2022-04-15] MEDS: dexmedeTOMIDine in 0.9 % NaCL 400 MCG/100 ML PLAST..BAG 31.298 MCG IV ×2 (10:28→13:55)
[2022-04-15] MEDS: chlordiazePOXIDE 25 MG CAPSULE PO ×3 (11:12→20:33)
[2022-04-15] MEDS: GABAPENTIN 300 MG CAPSULE PO ×3 (11:50→20:33)
--- NOTE | 2022-04-15 12:18 | DI.ECHO.S_ITS ---
[place] +---------+ Hospital +---------+ : : [address] : : : : [id number] : : : : Phone: [phone] Echocardiogram Report + + :Name: KAPIL JONES Study Date: 04/16/2022 Height: 72 in : :[facility] ReadingLocation: Weight: 230 lb : : Gender: Male BSA: 2.3 m2 : :: 1975 Age: 46 yrs BP: 103/60 mmHg: :Reason For Study: CHF : :Ordering Physician: SARBJIT BRYANT : :Gideon Love Performed By: Елена Palacio : :Referring: SARBJIT BRYANT D.O. : + + Interpretation Summary There is mild concentric left ventricular hypertrophy. The left ventricle is mild-moderately dilated. The ejection fraction is estimated to be 15-20%. There is severe global hypokinesis of the left ventricle. The right ventricle is mildly dilated. Right ventricular systolic function is moderately reduced. The left atrium is severely dilated. Comparison is made with the echocardiogram of 03/12/2022, there has been no significant change. Procedure: The study quality was technically good. The study quality was technically adequate. Comparison is made with the echocardiogram of 03/12/2022. The patient was in 70-100 during the exam. Left Ventricle: The left ventricle is mild-moderately dilated. There is mild concentric left ventricular hypertrophy. The ejection fraction is estimated to be 15-20%. There is severe global hypokinesis of the left ventricle. Right Ventricle: The right ventricle is mildly dilated. Right ventricular systolic function is moderately reduced. Atria: The left atrium is severely dilated. Right atrial size is normal. There is no Doppler evidence for an interatrial shunt. Aortic Valve: The aortic valve is trileaflet. Tricuspid Valve: The tricuspid valve is normal in structure and function. There is mild tricuspid regurgitation. The right ventricular systolic pressure is estimated to be at least 32 mmHg based on an estimated right atrial pressure of 8 mm Hg. Great Vessels: The IVC is dilated (diameter is greater than 2.1 cm) yet it collapses greater than 50% with a sniff. This suggests a right atrial pressure of 8 mm Hg. Pericardium/ Pleura There is no pericardial effusion. There is no pleural effusion. MMode/2D Measurements & Calculations LVIDd: 6.5 cm LA A2 area: 28.3 cm2 LVIDs: 6.0 cm LA A4 area: 30.8 cm2 FS: 8.0 % LA length (vol): 6.9 cm EPSS: 1.8 cm LA vol: 107.6 ml IVSd: 1.4 cm LA vol index: 47.6 ml/m2 LVPWd: 1.2 cm LV shook. diameter/BSA (cm/m^2): 2.9 LV sys. diameter/BSA (cm/m^2): 2.6 RA long axis: 5.4 cm RVD1 (basal): 4.4 cm RA area: 21.1 cm2 RVD2 (mid): 3.3 cm RA vol: 69.6 ml TAPSE: 1.8 cm RA : 30.8 ml/m2 IVC diam: 2.1 cm Doppler Measurements & Calculations TR max bill: 242.7 cm/sec TR max P.6 mmHg Electronically signed by: Yuliet Bates on Reading Physician:04/16/2022 01:12 PM
[2022-04-15] MEDS: dexmedeTOMIDine in 0.9 % NaCL 400 MCG/100 ML PLAST..BAG 26.082 MCG IV ×2 (17:17→21:20)
--- NOTE | 2022-04-15 20:14 | PM.ICURNDS ---
- :: This patient was seen via real time interactive two-way audiovisual telecommunication. Note: pateint ALLY currently 3, doign well, on precedex. off amio gtt and HR controlled. his mental status seems at baseline. will cont to slowly wean off precedex, cont libikrum and valium. remains on cefepime and f;lagyl. monitor UO, trend bmp and cbc
[2022-04-16] VITALS (26 sets, daily range): BP systolic 98–147; BP diastolic 55–100; PULSE 59–94; RESP 13–22; TEMP 36–36.7; O2SAT 94–100; BMI 31.1
[2022-04-16] MEDS: dexmedeTOMIDine in 0.9 % NaCL 400 MCG/100 ML PLAST..BAG 18.257 MCG IV (01:00)
[2022-04-16] MEDS: CEFEPIME 2 GM in SODIUM CHLORIDE 0.9% 100 ML IV (02:39)
[2022-04-16] MEDS: metroNIDAZOLE 500 MG/100 ML PIGGYBACK 100 MG IV (03:34)
[2022-04-16 05:14] LABS: Add Manual Diff / Slide Review NO; Basophils Absolute Auto 100 /uL (0-100); Eosinophils Absolute Auto 200 /uL (0-450); Eosinophils Percent Auto 3.2 % (2-4); Hematocrit 38.3 % (41-53); Hemoglobin 13.2 g/dL (13.5-17.5); Lymphocytes Absolute Auto 1300 /uL (1100-4500); Lymphocytes Percent Auto 18.9 % (25-40); Mean Corpuscular HGB Conc 34.4 % (30-36); Mean Corpuscular Hemoglobin 32.6 PG (26-34); Mean Corpuscular Volume 94.9 fL (80-100); Monocytes Absolute Auto 400 /uL (0-900); Monocytes Percent Auto 6.4 % (3-14); Neutrophils Absolute Auto 4900 /uL (1500-7000); Neutrophils Percent Auto 70.5 % (50-75); Platelet Count 103 X10^3/uL (150-400); Red Blood Cell Count 4.04 X10^6/uL (4.5-5.9); Red Cell Distribution Width 14.6 % (11.6-14.8); White Blood Cell Count 6.9 X10^3/uL (4.5-11.0)
[2022-04-16 05:26] LABS: Alanine Aminotransferase 65 IU/L (<50); Albumin 2.9 g/dL (3.5-5.0); Albumin Globulin Ratio 1.2 (1.0-2.8); Alkaline Phosphatase 68 U/L (38-126); Aspartate Aminotransferase 48 IU/L (17-59); BUN Creatinine Ratio 20.6 (6-22); Bilirubin Total 0.9 mg/dL (0.2-1.3); Blood Urea Nitrogen 22 mg/dL (9-20); Calcium 7.8 mg/dL (8.4-10.2); Carbon Dioxide 31 mmol/L (22-32); Chloride 104 mmol/L (98-107); Estimated Glomerular Filt Rate > 60 mL/min (>60); Globulin 2.4 g/dL (1.7-4.1); Glucose 113 mg/dL (70-100); HEMOLYSIS < 15 (0-50); Potassium 3.8 mmol/L (3.4-5.1); Sodium 133 mmol/L (137-145); Total Protein 5.3 g/dL (6.3-8.2)
[2022-04-16] MEDS: dexmedeTOMIDine in 0.9 % NaCL 400 MCG/100 ML PLAST..BAG 13.041 MCG IV ×2 (06:10→13:22)
[2022-04-16] MEDS: HEPARIN 5,000 UNIT/ML VIAL 5000 UNIT SUBCUT (06:10)
--- NOTE | 2022-04-16 06:31 | PC.NURSE ---
End of shift note. Care of patient from . Patient AAOX3, CIWA has been 2 to 4 this shift. Patient calm, cooperative, uses call light to request ice chips. Complains of a dry mouth. Provided mouth swabs. Is on a 1.5 fluid restriction. Given Ice chips per Patient's request. Titrated Precedex down to 0.5mcg/kg/hr. Has been NSR 60-70s. Had one episode, 6 beats of V-tac, asymptomatic. Titrated O2 down to 1L, O2 Sats 94-96%. On Room air O2 Sats will drop to 88% while sleeping. Per report patient's sister is flying in to visit and check on patient.
[2022-04-16] MEDS: PARoxetine 20 MG TABLET 40 MG PO (07:54)
[2022-04-16] MEDS: THIAMINE 100 MG in SODIUM CHLORIDE 0.9% 50 ML 200 MG IV (07:54)
[2022-04-16] MEDS: MULTIVITAMIN 1 TABLET 1 TAB PO (07:54)
[2022-04-16] MEDS: chlordiazePOXIDE 25 MG CAPSULE PO ×2 (07:54→10:35)
[2022-04-16] MEDS: FOLIC ACID 1 MG TABLET PO (07:55)
[2022-04-16] MEDS: GABAPENTIN 300 MG CAPSULE PO ×3 (07:55→20:27)
[2022-04-16] MEDS: diazePAM 10 MG/2 ML SYRINGE IV ×4 (08:47→18:37)
--- NOTE | 2022-04-16 10:07 | PM.PN.EICU ---
Subjective Subjective If camera was activated, add TeleICU A-V statement: no acute events overnight Patient Location: ICU Provider location (State): [place] Current Medications Current Medications Medications: Home Medications paroxetine HCl 40 mg tablet 40 mg PO DAILY #90 tabs 01/01/22 [Rx Confirmed 04/15/22] melatonin 10 mg tablet 10 mg PO BEDTIME PRN sleep #30 tabs 02/06/22 [Rx Confirmed 04/15/22] aspirin 81 mg tablet,delayed release 81 mg PO DAILY #30 tabs 03/15/22 [Rx Confirmed 04/15/22] folic acid 1 mg tablet 1 mg PO DAILY #30 tabs 03/15/22 [Rx Confirmed 04/15/22] lisinopril 20 mg tablet 20 mg PO DAILY #30 tabs 03/15/22 [Rx Confirmed 04/15/22] metoprolol succinate 50 mg tablet,extended release 24 hr 50 mg PO DAILY #30 tabs 03/15/22 [Rx Confirmed 04/15/22] multivitamin with folic acid 400 mcg tablet (Tab-A-Isis) 1 tab PO DAILY #30 tabs 03/15/22 [Rx Confirmed 04/15/22] thiamine HCl (vitamin B1) 100 mg tablet 100 mg PO DAILY #30 tabs 03/15/22 [Rx Confirmed 04/15/22] Visit Medications (administered) Generic Name Dose Route Start Last Admin Trade Name Corbyq PRN Reason Stop Dose Admin Diazepam 0 mg 04/14/22 18:43 04/16/22 08:47 Diazepam 10 Mg/2 Ml Syringe IV 5 mg CIWAPRN PRN Administration Alcohol Withdrawal Protocol Folic Acid 1 mg 04/14/22 18:55 04/16/22 07:55 Folic Acid 1 Mg Tablet PO 1 mg DAILY CL[place]ON Administration Gabapentin 300 mg 04/15/22 15:00 04/16/22 07:55 Gabapentin 300 Mg Capsule PO 300 mg TID CL[place] Administration Heparin Sodium (Porcine) 5,000 unit 04/16/22 06:00 04/16/22 06:10 Heparin 5,000 Unit/Ml Vial SUBCUT 5,000 unit Q8HR [place] Administration Thiamine HCl 100 mg/ Sodium 50 mls @ 200 mls/hr 04/15/22 09:00 04/16/22 08:21 Chloride IV Infused DAILY CL[facility] Infusion dexmedeTOMIDine in 0.9 % NaCL 400 mcg in 100 mls @ 5.216 mls/hr 04/15/22 03:15 04/16/22 06:10 Precedex IV 0.5 mcg/kg/hr TITRATE [place] 13.041 mls/hr Administration Protocol 0.2 MCG/KG/HR Multivitamins 1 tab 04/14/22 18:55 04/16/22 07:54 Multivitamin 1 Tablet PO 1 tab DAILY CL[facility] Administration Ondansetron HCl 4 mg 04/14/22 21:25 04/14/22 21:48 Ondansetron 4 Mg/2 Ml Inj IV 4 mg Q6HR PRN Administration Nausea And Vomiting Paroxetine HCl 40 mg 04/14/22 21:32 04/16/22 07:54 Paroxetine 20 Mg Tablet PO 40 mg DAILY CL[facility]ON Administration Objective Labs Result Diagrams: 04/16/22 04:58 04/16/22 04:58 Labs: Laboratory Results - last 24 hr 04/16/22 04/16/22 04:58 04:58 WBC 6.9 RBC 4.04 L Hgb 13.2 L Hct 38.3 L MCV 94.9 MCH 32.6 MCHC 34.4 RDW 14.6 Plt Count 103 L Neut % (Auto) 70.5 Lymph % (Auto) 18.9 L [place] % (Auto) 6.4 Eos % (Auto) 3.2 Baso % (Auto) 1.0 Neut # (Auto) 4900 Lymph # (Auto) 1300 [place] # (Auto) 400 Eos # (Auto) 200 Baso # (Auto) 100 Sodium 133 L Potassium 3.8 Chloride 104 Carbon Dioxide 31 BUN 22 H Creatinine 1.07 Estimated GFR > 60 BUN/Creatinine Ratio 20.6 Glucose 113 H Calcium 7.8 L Magnesium 2.0 Total Bilirubin 0.9 AST 48 ALT 65 H Alkaline Phosphatase 68 Total Protein 5.3 L Albumin 2.9 L Globulin 2.4 Albumin/Globulin Ratio 1.2 Exam Vital Signs (past 8 hours): - 04/16/22 03:00 04/16/22 03:00 04/16/22 04:00 Temperature Pulse Rate 67 Respiratory Rate 17 Blood Pressure 142/84 H 124/87 Pulse Oximetry 100 Oxygen Delivery Method Oxygen Flow Rate 3 3 04/16/22 04:00 04/16/22 04:00 04/16/22 05:00 Temperature Pulse Rate 59 L 81 Respiratory Rate 15 15 Blood Pressure Pulse Oximetry 99 99 Oxygen Delivery Method Nasal Cannula Oxygen Flow Rate 3 04/16/22 05:03 04/16/22 05:03 04/16/22 05:30 Temperature Pulse Rate 76 Respiratory Rate 18 16 Blood Pressure 114/81 Pulse Oximetry 99 97 Oxygen Delivery Method Oxygen Flow Rate 1 04/16/22 06:00 04/16/22 06:00 04/16/22 07:00 Temperature Pulse Rate 74 69 Respiratory Rate 15 16 Blood Pressure 123/78 113/76 Pulse Oximetry 97 97 Oxygen Delivery Method Oxygen Flow Rate 1 0 04/16/22 08:00 04/16/22 08:00 04/16/22 09:00 Temperature 97.8 F Pulse Rate 79 82 Respiratory Rate 17 15 Blood Pressure 114/71 118/69 Pulse Oximetry 97 97 Oxygen Delivery Method Room Air Oxygen Flow Rate 0 0 Oxygen Delivery Method Room Air Oxygen Flow Rate 0 Assessment & Plan Assessment & Plan narrative: patient seen with bedside nurse and provider chart/labs/imaging reviewed 46 year old male with ETOH withdrawal Afib 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 need to discuss with patient once more stable -can dc abx, cxs -ve pt on room air -monitor ints/outs, replace lytes prn -gi/dvt ppx -please call eICU prn if condition changes Time Spent With Patient Critical Care time: I spent a total of [45] minutes of critical care time on this patient's care today; this time is exclusive of procedural time.
[2022-04-16] MEDS: chlordiazePOXIDE 25 MG CAPSULE 50 MG PO (14:20)
--- NOTE | 2022-04-16 14:36 | P.PN_ITS ---
Subjective Subjective Date Patient Seen: 04/16/22 Interval history: 46 M admitted with EtOH withdrawal, course complicated by afib. Now improved but remains tremulous and unsteady. Continues on precedex infusion this morning. Exam Vital Signs (past 8 hours): - 04/16/22 07:00 04/16/22 08:00 04/16/22 08:00 Temperature 97.8 F Pulse Rate 69 79 Respiratory Rate 16 17 Blood Pressure 113/76 114/71 Pulse Oximetry 97 97 Oxygen Delivery Method Room Air Oxygen Flow Rate 0 0 04/16/22 09:00 04/16/22 10:00 04/16/22 11:00 Temperature Pulse Rate 82 81 68 Respiratory Rate 15 13 18 Blood Pressure 118/69 103/60 116/77 Pulse Oximetry 97 97 96 Oxygen Delivery Method Oxygen Flow Rate 0 0 0 04/16/22 12:20 04/16/22 12:00 04/16/22 13:00 Temperature Pulse Rate 69 75 Respiratory Rate 20 16 Blood Pressure 119/79 125/87 Pulse Oximetry 96 99 Oxygen Delivery Method Room Air Oxygen Flow Rate 0 0 04/16/22 14:00 Temperature Pulse Rate 85 Respiratory Rate 15 Blood Pressure 132/100 H Pulse Oximetry 99 Oxygen Delivery Method Oxygen Flow Rate 0 Oxygen Delivery Method Room Air Oxygen Flow Rate 0 Narrative Exam Narrative: GEN: slightly Anxious, diaphoretic and slightly tremulous male HEENT: moist mucous membranes, PERRL NECK: trachea midline, no JVD CV: RRR, no murmurs or rubs PULM: CTA b/l no wheezing rhonchi or rales ABD: soft, nontender, nondistended, no organomegaly EXT: warm and well perfused with no edema NEURO: awake, alert, oriented, no focal deficits Objective Labs Result Diagrams: 04/16/22 04:58 04/16/22 04:58 Labs: Laboratory Results - last 24 hr 04/16/22 04/16/22 04:58 04:58 WBC 6.9 RBC 4.04 L Hgb 13.2 L Hct 38.3 L MCV 94.9 MCH 32.6 MCHC 34.4 RDW 14.6 Plt Count 103 L Neut % (Auto) 70.5 Lymph % (Auto) 18.9 L [place] % (Auto) 6.4 Eos % (Auto) 3.2 Baso % (Auto) 1.0 Neut # (Auto) 4900 Lymph # (Auto) 1300 [place] # (Auto) 400 Eos # (Auto) 200 Baso # (Auto) 100 Sodium 133 L Potassium 3.8 Chloride 104 Carbon Dioxide 31 BUN 22 H Creatinine 1.07 Estimated GFR > 60 BUN/Creatinine Ratio 20.6 Glucose 113 H Calcium 7.8 L Magnesium 2.0 Total Bilirubin 0.9 AST 48 ALT 65 H Alkaline Phosphatase 68 Total Protein 5.3 L Albumin 2.9 L Globulin 2.4 Albumin/Globulin Ratio 1.2 [facility] Medical History Alcohol abuse Hypertension (~2019) Social History household members: friend(s) Smoking Status: Never smoker alcohol intake: current Assessment & Plan Assessment & Plan narrative: # severe acute alcohol intoxication with history of severe withdrawals -ETOH level 394 on admission and showing signs of withdrawal -increased librium to 50 TID today, continue precedex for now, wean as able. - continue valium prn per CIWA protocol. # sepsis ruled out secondary to aspiration pneumonia -leukocytosis of 17, mild temp of 99.8? F and tachycardia 132 initially. -chest x-ray with dense from right lung consolidation -continued cefepime and Flagyl intially. Now improved and without fever. No end organ dysfunction. Will stop antibiotics today. # acute hypoxic respiratory failure, resolved -patient 87% on arrival to ED -likely secondary to aspiration, CTA chest on 04/12 showed no evidence of pulmonary embolism -required 4 L nasal cannula, now resolved # alcoholic cardiomyopathy, chronic systolic HF with EF 10-15% -last echo on March 10, 2022 with severe global hypokinesis of left ventricle -telemetry -no change in echo this admission -continue beta vicente and shamar-inh therapy. # atrial fibrillation with RVR -required amio drip, now weaned off and back in sinus rhythm -continue metoprolol -Qslps1ldue of 2, consider anticoag but SQ heparin for now given risk of DT's -telemetry # lactic acidemia -lactate 2.5 on admission -monitor # transaminitis -LFTs previously elevated at last admission and improved than sign -monitor -avoid hepatotoxic agents # elevated troponin. myocardial injury. -0.064 on admission, patient denies chest pain -likely demand in the setting of severe systolic heart failure tachycardia, afib with RVR. -EKG shows no ST changes with T-wave inversions in leads I and aVL -troponin peaked at 0.07, then downtrended. Code status is full code. COVID negative. DVT prophylaxis with SQ heparin. Proxy is his sister Cheryl. I have reviewed home meds and used all available resources to reconcile the home meds. Time Spent With Patient Critical Care time: I spent a total of [] minutes of critical care time on this patient's care today; this time is exclusive of procedural time.
--- NOTE | 2022-04-16 14:38 | CM.DPC ---
DCP Cont: Per MD and RN, pt remains on Precedex, Ativan, and librium taper for ongoing withdrawals and pt was quite drowsy earlier today but more alert now. SW met bedside with pt and explained role again and pt states he just don't understand how I ended up back here in the hospital again and drinking. Pt states he doesn't remember initiating his drinking or how he ended up in the hospital or where his car currently is. Per admission notes, pt was found confused outside of [facility]. Pt is unsure where his car keys are but that his roommate/friend whom he lives with in an RV confirmed his cell phone is at the RV. Pt states since his last discharge from the hospital a little over a month ago, he remained sober without enrolling in any ETOH tx but did establish with [employer]. SW inquired what pt's plan was for discharge and any services that SW could help set up like outpt or Inpt ETOH tx. Pt states his plan is to d/c home with family to [place] to get my head on straight and get cleaned up as he has no real local supports and his ex- Cheryl is a cause of some of his triggers. Pt requests ex- Cheryl be taken off his contact list and to add sister Jenna [phone] to his contacts, SAI Dahl kindly changed this in the computer. SW assisted getting pt's sister Jenna on the phone so pt could begin planning for discharge to [place] and if this is a viable plan. Per RN, understood through phone call with sister Jenna earlier that pt's supportive Dad Mario might be enroute to flying to the hospital to assist pt. PRAVEEN updated RN. Plan: SW to continue to follow for ongoing tx of ETOH withdrawals and pt's discussion with his sister and dad to determine possible d/c when medically stable back to [place] with family for assist vs remain in [place] with outpt f/u and ETOH resources. JENA Grady
--- NOTE | 2022-04-16 17:53 | PC.NURSE ---
Addendum entered by Nicole German R.N. 04/16/22 18:40: Patient reported increase in anxiety with nausea and tremors, CIWA 9, increased precedex gtt to 0.8 mcg/kg/hr. Pt reported not really working after 45 min and CIWA remained at 9. Valium 5 mg IV administered per protocol. Original Note: Day Shift Note Patient oriented x3, awake intermittently and appropriate, not impulsive. Reports anxiety, diaphoresis, and has visible tremors - CIWA MAX 9 today. Received Valium 5 mg IV x3 this shift for CIWA of 9. Librium increased to 50 mg TID by , precedex infusing at 0.5 mcg/kg/hr. Pt 1-2 person assist up to BSC, shaky and slightly unsteady on feet, using FWW. On RA this shift with SpO2 93-97%. Denies shortness of breath, denies pain. Fluid restriction discontinued. Bed alarm on for safety, pt using call light appropriately to make needs known. Father, Mario, is at bedside.
[2022-04-16] MEDS: dexmedeTOMIDine in 0.9 % NaCL 400 MCG/100 ML PLAST..BAG 26.082 MCG IV (19:52)
--- NOTE | 2022-04-16 20:00 | PM.ICURNDS ---
- :: This patient was seen via real time interactive two-way audiovisual telecommunication. Note: Patient admitted for alcohol withdrawal on precedex 1 mcg/kg/hr and librium therapy. Patient endorse having panic attack and feels like libirium is not helping him. Added xanax 0.25 mg PO once and will hold tonight's librium dose. D/w RN and patient at bedside.
[2022-04-16] MEDS: ALPRAZolam 0.25 MG TABLET PO (20:27)
[2022-04-17] VITALS (30 sets, daily range): BP systolic 91–163; BP diastolic 61–116; PULSE 70–108; RESP 14–31; TEMP 36.1–37; O2SAT 93–100
[2022-04-17] MEDS: dexmedeTOMIDine in 0.9 % NaCL 400 MCG/100 ML PLAST..BAG 20.865 MCG IV ×3 (00:09→16:00)
--- NOTE | 2022-04-17 05:24 | PC.NURSE ---
End of shift note. Care of patient from [id number]. Alert and oriented X3, cooperative, easily redirected. Participated in talking with Dr. Longoria during evening rounds. Patient requested Xanax to help with his anxiety. CIWA was 9, One dose dose of Xanax 0.25mg po given at 2029. [place] evening dose held. CIWA = 1 at 2230. Precedex titrated down to 0.8mcg/kg/hr at 2029 with no change. Patient slept fairly well during the night. NSR 70-80, no ectype. Using urinal at bedside, bed alarm on. Patient did not get OOB during this shift.
[2022-04-17 05:32] LABS: Add Manual Diff / Slide Review NO; Basophils Absolute Auto 0 /uL (0-100); Basophils Percent Auto 0.6 % (0-2); Eosinophils Absolute Auto 300 /uL (0-450); Eosinophils Percent Auto 5.4 % (2-4); Hematocrit 39.7 % (41-53); Hemoglobin 13.7 g/dL (13.5-17.5); Lymphocytes Absolute Auto 1300 /uL (1100-4500); Lymphocytes Percent Auto 23.7 % (25-40); Mean Corpuscular HGB Conc 34.4 % (30-36); Mean Corpuscular Hemoglobin 32.9 PG (26-34); Mean Corpuscular Volume 95.5 fL (80-100); Monocytes Absolute Auto 400 /uL (0-900); Monocytes Percent Auto 7.8 % (3-14); Neutrophils Absolute Auto 3500 /uL (1500-7000); Neutrophils Percent Auto 62.5 % (50-75); Platelet Count 120 X10^3/uL (150-400); Red Blood Cell Count 4.16 X10^6/uL (4.5-5.9); Red Cell Distribution Width 14.7 % (11.6-14.8); White Blood Cell Count 5.7 X10^3/uL (4.5-11.0)
[2022-04-17 05:49] LABS: Alanine Aminotransferase 60 IU/L (<50); Albumin 3.1 g/dL (3.5-5.0); Albumin Globulin Ratio 1.2 (1.0-2.8); Alkaline Phosphatase 52 U/L (38-126); Aspartate Aminotransferase 44 IU/L (17-59); BUN Creatinine Ratio 14.7 (6-22); Bilirubin Total 0.6 mg/dL (0.2-1.3); Blood Urea Nitrogen 17 mg/dL (9-20); Calcium 8.4 mg/dL (8.4-10.2); Carbon Dioxide 30 mmol/L (22-32); Chloride 102 mmol/L (98-107); Estimated Glomerular Filt Rate > 60 mL/min (>60); Globulin 2.6 g/dL (1.7-4.1); Glucose 103 mg/dL (70-100); HEMOLYSIS < 15 (0-50); Magnesium 1.8 mg/dL (1.6-2.3); Potassium 4.1 mmol/L (3.4-5.1); Sodium 135 mmol/L (137-145); Total Protein 5.7 g/dL (6.3-8.2)
[2022-04-17] MEDS: GABAPENTIN 300 MG CAPSULE PO ×3 (08:42→20:58)
[2022-04-17] MEDS: PARoxetine 20 MG TABLET 40 MG PO (08:42)
[2022-04-17] MEDS: THIAMINE 100 MG in SODIUM CHLORIDE 0.9% 50 ML 50 MG IV (08:42)
[2022-04-17] MEDS: MULTIVITAMIN 1 TABLET 1 TAB PO (08:42)
[2022-04-17] MEDS: FOLIC ACID 1 MG TABLET PO (08:42)
[2022-04-17] MEDS: chlordiazePOXIDE 25 MG CAPSULE 50 MG PO ×3 (08:42→20:59)
--- NOTE | 2022-04-17 09:41 | P.TELICUPN_ITS ---
Subjective Subjective If camera was activated, add TeleICU A-V statement: no acute evetnrs overnight doign well this am no acute signs of withdrawal Date Patient Seen: 04/17/22 Patient Location: ICU Provider location (State): [place] Current Medications Current Medications Medications: Home Medications paroxetine HCl 40 mg tablet 40 mg PO DAILY #90 tabs 01/01/22 [Rx Confirmed 04/15/22] melatonin 10 mg tablet 10 mg PO BEDTIME PRN sleep #30 tabs 02/06/22 [Rx Confirmed 04/15/22] aspirin 81 mg tablet,delayed release 81 mg PO DAILY #30 tabs 03/15/22 [Rx Confirmed 04/15/22] folic acid 1 mg tablet 1 mg PO DAILY #30 tabs 03/15/22 [Rx Confirmed 04/15/22] lisinopril 20 mg tablet 20 mg PO DAILY #30 tabs 03/15/22 [Rx Confirmed 04/15/22] metoprolol succinate 50 mg tablet,extended release 24 hr 50 mg PO DAILY #30 tabs 03/15/22 [Rx Confirmed 04/15/22] multivitamin with folic acid 400 mcg tablet (Tab-A-Isis) 1 tab PO DAILY #30 tabs 03/15/22 [Rx Confirmed 04/15/22] thiamine HCl (vitamin B1) 100 mg tablet 100 mg PO DAILY #30 tabs 03/15/22 [Rx Confirmed 04/15/22] Visit Medications (administered) Generic Name Dose Route Start Last Admin Trade Name Freq PRN Reason Stop Dose Admin Chlordiazepoxide HCl 50 mg 04/16/22 09:35 04/17/22 08:42 Chlordiazepoxide 25 Mg Capsule PO 50 mg TID CLIFTON Administration Diazepam 0 mg 04/14/22 18:43 04/16/22 18:37 Diazepam 10 Mg/2 Ml Syringe IV 5 mg CIWAPRN PRN Administration Alcohol Withdrawal Protocol Folic Acid 1 mg 04/14/22 18:55 04/17/22 08:42 Folic Acid 1 Mg Tablet PO 1 mg DAILY CLIFTON Administration Gabapentin 300 mg 04/15/22 15:00 04/17/22 08:42 Gabapentin 300 Mg Capsule PO 300 mg TID CL[place]ON Administration Heparin Sodium (Porcine) 5,000 unit 04/16/22 06:00 04/16/22 06:10 Heparin 5,000 Unit/Ml Vial SUBCUT 5,000 unit Q8HR [place] Administration Thiamine HCl 100 mg/ Sodium 50 mls @ 200 mls/hr 04/15/22 09:00 04/17/22 08:42 Chloride IV 50 mls/hr DAILY CL[place]ON Administration dexmedeTOMIDine in 0.9 % NaCL 400 mcg in 100 mls @ 5.216 mls/hr 04/15/22 03:15 04/17/22 04:40 Precedex IV 0.8 mcg/kg/hr TITRATE CL[place] 20.865 mls/hr Administration Protocol 0.2 MCG/KG/HR Multivitamins 1 tab 04/14/22 18:55 04/17/22 08:42 Multivitamin 1 Tablet PO 1 tab DAILY CL[facility]ON Administration Ondansetron HCl 4 mg 04/14/22 21:25 04/14/22 21:48 Ondansetron 4 Mg/2 Ml Inj IV 4 mg Q6HR PRN Administration Nausea And Vomiting Paroxetine HCl 40 mg 04/14/22 21:32 04/17/22 08:42 Paroxetine 20 Mg Tablet PO 40 mg DAILY CL[facility]ON Administration Objective Labs Result Diagrams: 04/17/22 05:11 04/17/22 05:11 Labs: Laboratory Results - last 24 hr 04/17/22 04/17/22 05:11 05:11 WBC 5.7 RBC 4.16 L Hgb 13.7 Hct 39.7 L MCV 95.5 MCH 32.9 MCHC 34.4 RDW 14.7 Plt Count 120 L Neut % (Auto) 62.5 Lymph % (Auto) 23.7 L [place] % (Auto) 7.8 Eos % (Auto) 5.4 H Baso % (Auto) 0.6 Neut # (Auto) 3500 Lymph # (Auto) 1300 [place] # (Auto) 400 Eos # (Auto) 300 Baso # (Auto) 0 Sodium 135 L Potassium 4.1 Chloride 102 Carbon Dioxide 30 BUN 17 Creatinine 1.16 Estimated GFR > 60 BUN/Creatinine Ratio 14.7 Glucose 103 H Calcium 8.4 Magnesium 1.8 Total Bilirubin 0.6 AST 44 ALT 60 H Alkaline Phosphatase 52 Total Protein 5.7 L Albumin 3.1 L Globulin 2.6 Albumin/Globulin Ratio 1.2 Exam Vital Signs (past 8 hours): - 04/17/22 02:00 04/17/22 03:00 04/17/22 04:00 Temperature 97.0 F L 97.3 F L Pulse Rate 70 80 Respiratory Rate 19 20 Blood Pressure 163/88 H 133/84 Pulse Oximetry 93 94 Oxygen Delivery Method Room Air Oxygen Flow Rate 0 0 04/17/22 04:00 04/17/22 05:00 04/17/22 06:00 Temperature 97.0 F L 97.1 F L 97.0 F L Pulse Rate 76 81 75 Respiratory Rate 18 17 23 Blood Pressure 121/77 126/74 132/91 H Pulse Oximetry 96 95 95 Oxygen Delivery Method Oxygen Flow Rate 0 0 0 04/17/22 08:00 04/17/22 09:00 Temperature 97.6 F Pulse Rate 78 74 Respiratory Rate 14 19 Blood Pressure 114/75 115/77 Pulse Oximetry 98 Oxygen Delivery Method Oxygen Flow Rate 0 Oxygen Delivery Method Room Air Oxygen Flow Rate 0 Assessment & Plan Assessment & Plan narrative: patient seen with bedside nurse and provider chart/labs/imaging reviewed 46 year old male with ETOH withdrawal Afib 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 % Aspiration pneumonitis currently afebrile, HD stable Plan -neurochecks/seziure precautions -coitninue librium to 50mg tid, can start taper tomororow -dc precedex -valium prn -neurontin can start weaning -monitor ciwa -thiamine/folate can change to po -monitor for refeeding syndrome -afib rate controlled, once stable for DC should have a discussion about anticoagulation, hold off for now -off abx, no sign of acute infection -pt/ot/oob -monitor ints/outs, replace lytes prn -gi/dvt ppx -please call eICU prn if condition changes Time Spent With Patient Time with patient: 30 to 49 minutes with 50% spent counseling/coordinating care Critical Care time: I spent a total of 30[] minutes of critical care time on this patient's care today; this time is exclusive of procedural time.
--- NOTE | 2022-04-17 11:56 | DIET.CONS2 ---
Dietary Inpatient Consultation Note Admission Date: 04/14/2022 18:22 RD consulted to work with patient on sobriety nutrition. Pt has been inappropriate for education secondary to withdrawal and high CIWA. RD will check in with pt this afternoon as we had developed good rapport last hospitalization. Diet: 04/15/22 Breakfast Heart Healthy Diet Diet Modifications: aspiration precautions Sodium Level: 2 gm Sodium Nutrition Percent Meal Consumed 100% 04/17/22 10:17 Percent Meal Consumed refused breakfast 04/16/22 09:32 Percent Meal Consumed 100% 04/15/22 12:39 Electronically Signed by: Perlita Moya 04/17/22 11:56 Clinical Dietitian [address] [address]
--- NOTE | 2022-04-17 12:32 | CM.DPNOTE ---
Discharge Planning Note: Met with patient in room. Patient able to share feelings about his situation, recent split with spouse, his grieving and increased drinking because of it. He states his father arrived from [place] last pm and patient plans to return to [place] with him when he is medically stable for discharge. Plan: Continue to follow patient's course. Mirian Watkins RN/DCP
[2022-04-17] MEDS: diazePAM 5 MG TABLET PO (12:35)
--- NOTE | 2022-04-17 15:52 | PC.NURSE ---
Addendum entered by Spring Solomon R.N. 04/17/22 19:12: Patient HR 115 sustained, precedex restarted, ciwa score down to 2 with precedex at 1mcg/kg Original Note: Patient claims valium has never been effective, was tried in 20's for anxiety. Patient is requesting po xanax substitution. Stopped precedex and in three hours ciwa score went from 1 to 12 with heavy diaphoresis and tremors. Valium 10mg PO given and was not effective, ciwa remained 12.
--- NOTE | 2022-04-17 16:40 | P.PN_ITS ---
Subjective Subjective Date Patient Seen: 04/17/22 Interval history: 46 M admitted with EtOH withdrawal, course complicated by afib. Now improved but remains tremulous and unsteady still. Continues on precedex infusion still, was tried to titrate off but needed to be restarted today. Exam Vital Signs (past 8 hours): - 04/17/22 09:00 04/17/22 10:00 04/17/22 10:00 Temperature 97.6 F Pulse Rate 74 72 Respiratory Rate 19 31 H Blood Pressure 115/77 97/61 Pulse Oximetry 98 93 Oxygen Flow Rate 0 04/17/22 10:00 04/17/22 11:00 04/17/22 11:00 Temperature 96.9 F L 97.1 F L Pulse Rate Respiratory Rate Blood Pressure 91/61 98/61 98/61 Pulse Oximetry Oxygen Flow Rate 04/17/22 11:00 04/17/22 12:00 04/17/22 13:00 Temperature 98.6 F Pulse Rate 90 103 H Respiratory Rate 20 18 Blood Pressure 134/84 134/77 Pulse Oximetry 99 99 Oxygen Flow Rate 0 04/17/22 14:00 04/17/22 12:00 04/17/22 12:01 Temperature 98.1 F Pulse Rate 94 H 91 H Respiratory Rate 20 17 Blood Pressure 147/80 H 134/84 Pulse Oximetry 100 95 Oxygen Flow Rate 0 04/17/22 12:01 04/17/22 13:00 04/17/22 13:01 Temperature Pulse Rate 91 H 99 H Respiratory Rate 19 20 Blood Pressure 138/77 Pulse Oximetry 98 97 Oxygen Flow Rate 04/17/22 13:01 04/17/22 14:00 04/17/22 14:00 Temperature Pulse Rate 103 H 108 H Respiratory Rate 21 19 Blood Pressure 147/80 H Pulse Oximetry 97 98 Oxygen Flow Rate 04/17/22 15:00 04/17/22 15:00 04/17/22 16:00 Temperature 97.6 F Pulse Rate 102 H Respiratory Rate 22 Blood Pressure 140/102 H Pulse Oximetry 100 Oxygen Flow Rate 04/17/22 16:00 04/17/22 16:01 04/17/22 16:01 Temperature Pulse Rate 97 H 100 H Respiratory Rate 16 19 Blood Pressure 139/89 Pulse Oximetry 98 99 Oxygen Flow Rate Oxygen Delivery Method Room Air Oxygen Flow Rate 0 Narrative Exam Narrative: GEN: WDWN male, no acute distress. Mild tremulousness much improved today. HEENT: moist mucous membranes, PERRL NECK: trachea midline, no JVD CV: RRR, no murmurs or rubs PULM: CTA b/l no wheezing rhonchi or rales ABD: soft, nontender, nondistended, no organomegaly EXT: warm and well perfused with no edema NEURO: awake, alert, oriented, no focal deficits Objective Labs Result Diagrams: 04/17/22 05:11 04/17/22 05:11 Labs: Laboratory Results - last 24 hr 04/17/22 04/17/22 05:11 05:11 WBC 5.7 RBC 4.16 L Hgb 13.7 Hct 39.7 L MCV 95.5 MCH 32.9 MCHC 34.4 RDW 14.7 Plt Count 120 L Neut % (Auto) 62.5 Lymph % (Auto) 23.7 L [place] % (Auto) 7.8 Eos % (Auto) 5.4 H Baso % (Auto) 0.6 Neut # (Auto) 3500 Lymph # (Auto) 1300 [place] # (Auto) 400 Eos # (Auto) 300 Baso # (Auto) 0 Sodium 135 L Potassium 4.1 Chloride 102 Carbon Dioxide 30 BUN 17 Creatinine 1.16 Estimated GFR > 60 BUN/Creatinine Ratio 14.7 Glucose 103 H Calcium 8.4 Magnesium 1.8 Total Bilirubin 0.6 AST 44 ALT 60 H Alkaline Phosphatase 52 Total Protein 5.7 L Albumin 3.1 L Globulin 2.6 Albumin/Globulin Ratio 1.2 [facility] Medical History Alcohol abuse Hypertension (~2019) Social History household members: friend(s) Smoking Status: Never smoker alcohol intake: current Assessment & Plan Assessment & Plan narrative: # severe acute alcohol intoxication with history of severe withdrawals -ETOH level 394 on admission and showing signs of withdrawal -increased librium to 50 TID yesterday, continue precedex for now, wean as able. - continue valium prn IV per CIWA protocol. # sepsis ruled out secondary to aspiration pneumonia -leukocytosis of 17, mild temp of 99.8? F and tachycardia 132 initially. -chest x-ray with dense from right lung consolidation -continued cefepime and Flagyl intially. Now improved and without fever. No end organ dysfunction. Antibiotics were stopped on 04/16. # acute hypoxic respiratory failure, resolved -patient 87% on arrival to ED -likely secondary to aspiration, CTA chest on 04/12 showed no evidence of pulmonary embolism -required 4 L nasal cannula initially, now resolved # alcoholic cardiomyopathy, chronic systolic HF with EF 10-15% -last echo on March 10, 2022 with severe global hypokinesis of left ventricle -telemetry -no change in echo this admission -continue beta vicente and shamar-inh therapy. # atrial fibrillation with RVR -required amio drip, now weaned off and back in sinus rhythm -continue metoprolol -[id number] of 2, consider anticoag but SQ heparin for now given risk of DT's -telemetry # lactic acidemia -lactate 2.5 on admission -monitor # transaminitis -LFTs previously elevated at last admission and improved than sign -monitor -avoid hepatotoxic agents # elevated troponin. myocardial injury. -0.064 on admission, patient denies chest pain -likely demand in the setting of severe systolic heart failure tachycardia, afib with RVR. -EKG shows no ST changes with T-wave inversions in leads I and aVL -troponin peaked at 0.07, then downtrended. Code status is full code. COVID negative. DVT prophylaxis with SQ heparin. Proxy is his sister Cheryl. I have reviewed home meds and used all available resources to reconcile the home meds. Time Spent With Patient Critical Care time: I spent a total of [] minutes of critical care time on this patient's care today; this time is exclusive of procedural time.
--- NOTE | 2022-04-17 20:28 | PM.ICURNDS ---
- :: This patient was seen via real time interactive two-way audiovisual telecommunication. Note: Precedex weaned off this morning and patient became more tachycardiac and agitated. Restarted back on precede 1 mcg/kg/hr. Received scheduled librium 50 mg TID and valium 5 mg X 2. Patient reports responding better to xanax and requesting to see if he can get another dose of xanax. Reordered xanax 0.25 mg po q6hr prn anxiety and discontinue valium. Will titrate precedex to maintain RASS goal 0. D/w RN and patient at bedside.
[2022-04-17] MEDS: ALPRAZolam 0.25 MG TABLET PO (22:26)
[2022-04-17] MEDS: dexmedeTOMIDine in 0.9 % NaCL 400 MCG/100 ML PLAST..BAG 26.082 MCG IV (23:34)
[2022-04-18] VITALS (35 sets, daily range): BP systolic 103–171; BP diastolic 57–112; PULSE 64–106; RESP 16–37; TEMP 36.3–36.6; O2SAT 91–100
[2022-04-18] MEDS: dexmedeTOMIDine in 0.9 % NaCL 400 MCG/100 ML PLAST..BAG 26.082 MCG IV ×2 (03:24→07:31)
[2022-04-18 05:13] LABS: Add Manual Diff / Slide Review NO; Basophils Absolute Auto 0 /uL (0-100); Basophils Percent Auto 0.5 % (0-2); Eosinophils Absolute Auto 300 /uL (0-450); Eosinophils Percent Auto 4.8 % (2-4); Hematocrit 41.9 % (41-53); Hemoglobin 14.2 g/dL (13.5-17.5); Lymphocytes Absolute Auto 1600 /uL (1100-4500); Mean Corpuscular Hemoglobin 32.5 PG (26-34); Mean Corpuscular Volume 95.5 fL (80-100); Monocytes Absolute Auto 500 /uL (0-900); Monocytes Percent Auto 8.2 % (3-14); Neutrophils Absolute Auto 3300 /uL (1500-7000); Neutrophils Percent Auto 58.5 % (50-75); Platelet Count 137 X10^3/uL (150-400); Red Blood Cell Count 4.39 X10^6/uL (4.5-5.9); Red Cell Distribution Width 14.5 % (11.6-14.8); White Blood Cell Count 5.7 X10^3/uL (4.5-11.0)
[2022-04-18 05:20] LABS: Alanine Aminotransferase 63 IU/L (<50); Albumin 3.3 g/dL (3.5-5.0); Albumin Globulin Ratio 1.2 (1.0-2.8); Alkaline Phosphatase 68 U/L (38-126); Aspartate Aminotransferase 44 IU/L (17-59); BUN Creatinine Ratio 20.4 (6-22); Bilirubin Total 0.3 mg/dL (0.2-1.3); Blood Urea Nitrogen 22 mg/dL (9-20); Calcium 8.9 mg/dL (8.4-10.2); Carbon Dioxide 31 mmol/L (22-32); Chloride 102 mmol/L (98-107); Estimated Glomerular Filt Rate > 60 mL/min (>60); Globulin 2.7 g/dL (1.7-4.1); Glucose 109 mg/dL (70-100); HEMOLYSIS < 15 (0-50); Magnesium 1.8 mg/dL (1.6-2.3); Potassium 4.2 mmol/L (3.4-5.1); Sodium 136 mmol/L (137-145)
--- NOTE | 2022-04-18 06:50 | PC.NURSE ---
End of shift note. Care of patient from [id number]. Patient AAOX4, calm and cooperative. Was able to participate during evening ICU rounds with Dr. Longoria. CIWA=1. NSR 70s. Patient requested and given xanax 0.25 mg po X1 for anxiety and to help him sleep at 2230. Patient slept well during the night and only woke a few times during patient checks and vitals. Precedex 1mcg/kg/hour throughout shift.
[2022-04-18] MEDS: ALPRAZolam 0.25 MG TABLET PO ×3 (07:35→23:38)
[2022-04-18] MEDS: GABAPENTIN 300 MG CAPSULE PO ×3 (08:34→21:34)
[2022-04-18] MEDS: chlordiazePOXIDE 25 MG CAPSULE 50 MG PO ×2 (08:34→14:20)
[2022-04-18] MEDS: PARoxetine 20 MG TABLET 40 MG PO (08:35)
[2022-04-18] MEDS: MULTIVITAMIN 1 TABLET 1 TAB PO (08:35)
[2022-04-18] MEDS: FOLIC ACID 1 MG TABLET PO (08:35)
[2022-04-18] MEDS: THIAMINE 100 MG TABLET PO (08:35)
--- NOTE | 2022-04-18 09:46 | PC.NURSE ---
Patient pleasant, following commands, asking questions on health, condition, and ways to improve EF of 10-15%. Patient claims he lifts weight, has a physically strenuous job, and never has any cardiac symptoms. Discussed healthy diet and exercise changes along with getting assistance with ETOH addiction and depression from a medical professional. Patient claims he wants to make these changes.
--- NOTE | 2022-04-18 09:54 | PM.PN.EICU ---
Subjective Subjective If camera was activated, add TeleICU A-V statement: established audio/visual Date Patient Seen: 04/18/22 Patient Location: ICU Provider location (State): [place] Interval history: no acute events overnight Current Medications Current Medications Medications: Home Medications paroxetine HCl 40 mg tablet 40 mg PO DAILY #90 tabs 01/01/22 [Rx Confirmed 04/15/22] melatonin 10 mg tablet 10 mg PO BEDTIME PRN sleep #30 tabs 02/06/22 [Rx Confirmed 04/15/22] aspirin 81 mg tablet,delayed release 81 mg PO DAILY #30 tabs 03/15/22 [Rx Confirmed 04/15/22] folic acid 1 mg tablet 1 mg PO DAILY #30 tabs 03/15/22 [Rx Confirmed 04/15/22] lisinopril 20 mg tablet 20 mg PO DAILY #30 tabs 03/15/22 [Rx Confirmed 04/15/22] metoprolol succinate 50 mg tablet,extended release 24 hr 50 mg PO DAILY #30 tabs 03/15/22 [Rx Confirmed 04/15/22] multivitamin with folic acid 400 mcg tablet (Tab-A-Isis) 1 tab PO DAILY #30 tabs 03/15/22 [Rx Confirmed 04/15/22] thiamine HCl (vitamin B1) 100 mg tablet 100 mg PO DAILY #30 tabs 03/15/22 [Rx Confirmed 04/15/22] Visit Medications (administered) Generic Name Dose Route Start Last Admin Trade Name Freq PRN Reason Stop Dose Admin Alprazolam 0.25 mg 04/17/22 20:30 04/18/22 07:35 Alprazolam 0.25 Mg Tablet PO 0.25 mg Q6H PRN Administration Anxiety Chlordiazepoxide HCl 50 mg 04/16/22 09:35 04/18/22 08:34 Chlordiazepoxide 25 Mg Capsule PO 50 mg TID CL[place]ON Administration Folic Acid 1 mg 04/14/22 18:55 04/18/22 08:35 Folic Acid 1 Mg Tablet PO 1 mg DAILY [place] Administration Gabapentin 300 mg 04/15/22 15:00 04/18/22 08:34 Gabapentin 300 Mg Capsule PO 300 mg TID CL[place] Administration Heparin Sodium (Porcine) 5,000 unit 04/16/22 06:00 04/16/22 06:10 Heparin 5,000 Unit/Ml Vial SUBCUT 5,000 unit Q8HR [place] Administration dexmedeTOMIDine in 0.9 % NaCL 400 mcg in 100 mls @ 5.216 mls/hr 04/15/22 03:15 04/18/22 09:35 Precedex IV 0.6 mcg/kg/hr TITRATE [place] 15.649 mls/hr Titration Protocol 0.2 MCG/KG/HR Multivitamins 1 tab 04/14/22 18:55 04/18/22 08:35 Multivitamin 1 Tablet PO 1 tab DAILY [place] Administration Ondansetron HCl 4 mg 04/14/22 21:25 04/14/22 21:48 Ondansetron 4 Mg/2 Ml Inj IV 4 mg Q6HR PRN Administration Nausea And Vomiting Paroxetine HCl 40 mg 04/14/22 21:32 04/18/22 08:35 Paroxetine 20 Mg Tablet PO 40 mg DAILY [place] Administration Thiamine HCl 100 mg 04/18/22 09:00 04/18/22 08:35 Thiamine 100 Mg Tablet PO 100 mg DAILY [place] Administration Objective Labs Result Diagrams: 04/18/22 04:50 04/18/22 04:50 Labs: Laboratory Results - last 24 hr 04/18/22 04/18/22 04:50 04:50 WBC 5.7 RBC 4.39 L Hgb 14.2 Hct 41.9 MCV 95.5 MCH 32.5 MCHC 34.0 RDW 14.5 Plt Count 137 L Neut % (Auto) 58.5 Lymph % (Auto) 28.0 [place] % (Auto) 8.2 Eos % (Auto) 4.8 H Baso % (Auto) 0.5 Neut # (Auto) 3300 Lymph # (Auto) 1600 [place] # (Auto) 500 Eos # (Auto) 300 Baso # (Auto) 0 Sodium 136 L Potassium 4.2 Chloride 102 Carbon Dioxide 31 BUN 22 H Creatinine 1.08 Estimated GFR > 60 BUN/Creatinine Ratio 20.4 Glucose 109 H Calcium 8.9 Magnesium 1.8 Total Bilirubin 0.3 AST 44 ALT 63 H Alkaline Phosphatase 68 Total Protein 6.0 L Albumin 3.3 L Globulin 2.7 Albumin/Globulin Ratio 1.2 Exam Vital Signs (past 8 hours): - 04/18/22 02:00 04/18/22 02:01 04/18/22 02:01 Temperature Pulse Rate 64 65 Respiratory Rate 31 H 37 H Blood Pressure 152/112 H Pulse Oximetry 98 97 Oxygen Delivery Method 04/18/22 03:00 04/18/22 04:00 04/18/22 04:01 Temperature Pulse Rate 66 79 79 Respiratory Rate 34 H 19 19 Blood Pressure Pulse Oximetry 98 97 97 Oxygen Delivery Method 04/18/22 04:01 04/18/22 04:54 04/18/22 04:54 Temperature Pulse Rate 78 Respiratory Rate 21 Blood Pressure 138/96 H 134/84 Pulse Oximetry 97 Oxygen Delivery Method 04/18/22 05:00 04/18/22 05:00 04/18/22 04:00 Temperature Pulse Rate 73 Respiratory Rate 18 Blood Pressure 140/88 Pulse Oximetry 95 Oxygen Delivery Method Room Air 04/18/22 06:00 04/18/22 06:00 04/18/22 07:00 Temperature Pulse Rate 65 Respiratory Rate 27 H Blood Pressure 126/57 L 104/64 Pulse Oximetry 95 Oxygen Delivery Method 04/18/22 07:00 04/18/22 08:00 04/18/22 08:01 Temperature Pulse Rate 77 72 72 Respiratory Rate 20 34 H 33 H Blood Pressure Pulse Oximetry 98 96 97 Oxygen Delivery Method 04/18/22 08:01 04/18/22 09:00 04/18/22 09:01 Temperature Pulse Rate 73 73 Respiratory Rate 19 18 Blood Pressure 138/79 Pulse Oximetry 99 98 Oxygen Delivery Method 04/18/22 09:01 04/18/22 09:30 Temperature 97.5 F L Pulse Rate Respiratory Rate Blood Pressure 103/59 L Pulse Oximetry Oxygen Delivery Method Oxygen Delivery Method Room Air Oxygen Flow Rate 0 Assessment & Plan Assessment & Plan narrative: patient seen with bedside nurse and provider chart/labs/imaging reviewed 46 year old male with ETOH withdrawal Afib 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 Rivera and bedside RN Time Spent With Patient Time with patient: 30 to 49 minutes with 50% spent counseling/coordinating care Critical Care time: I spent a total of [] minutes of critical care time on this patient's care today; this time is exclusive of procedural time.
--- NOTE | 2022-04-18 12:58 | CM.DPNOTE ---
Discharge Planning Note: Patient's father in visiting with him. Spoke with day nurse who states that he remains on Librium and Xanax and Precedex is being tapered down. Plan: Continue to follow. Mirian Watkins RN/DCP
--- NOTE | 2022-04-18 13:33 | P.PN_ITS ---
Subjective Subjective Date Patient Seen: 04/18/22 Interval history: 46 M admitted with EtOH withdrawal, course complicated by afib. still remains on precedex infusion, difficult to titrate off. Responds well to oral ativan, continues on librium as well. No chest pain, shortness of breath, abdominal pain, vomiting but is intermittently nauseous and anxious. Denies hallucinations. Exam Vital Signs (past 8 hours): - 04/18/22 06:00 04/18/22 06:00 04/18/22 07:00 Temperature Pulse Rate 65 Respiratory Rate 27 H Blood Pressure 126/57 L 104/64 Pulse Oximetry 95 04/18/22 07:00 04/18/22 08:00 04/18/22 08:01 Temperature Pulse Rate 77 72 72 Respiratory Rate 20 34 H 33 H Blood Pressure Pulse Oximetry 98 96 97 04/18/22 08:01 04/18/22 09:00 04/18/22 09:01 Temperature Pulse Rate 73 73 Respiratory Rate 19 18 Blood Pressure 138/79 Pulse Oximetry 99 98 04/18/22 09:01 04/18/22 09:30 04/18/22 10:00 Temperature 97.5 F L Pulse Rate Respiratory Rate Blood Pressure 103/59 L 114/72 Pulse Oximetry 04/18/22 10:00 04/18/22 11:00 04/18/22 11:00 Temperature Pulse Rate 70 65 Respiratory Rate 34 H 26 H Blood Pressure 116/72 Pulse Oximetry 100 97 04/18/22 12:00 04/18/22 12:00 Temperature 97.3 F L Pulse Rate 78 Respiratory Rate 23 Blood Pressure 122/78 Pulse Oximetry 100 Oxygen Delivery Method Room Air Oxygen Flow Rate 0 Narrative Exam Narrative: GEN: WDWN male, no acute distress. Mild tremulousness. HEENT: moist mucous membranes, PERRL NECK: trachea midline, no JVD CV: RRR, no murmurs or rubs PULM: CTA b/l no wheezing rhonchi or rales ABD: soft, nontender, nondistended, no organomegaly EXT: warm and well perfused with no edema NEURO: awake, alert, oriented, no focal deficits Objective Labs Result Diagrams: 04/18/22 04:50 04/18/22 04:50 Labs: Laboratory Results - last 24 hr 04/18/22 04/18/22 04:50 04:50 WBC 5.7 RBC 4.39 L Hgb 14.2 Hct 41.9 MCV 95.5 MCH 32.5 MCHC 34.0 RDW 14.5 Plt Count 137 L Neut % (Auto) 58.5 Lymph % (Auto) 28.0 [place] % (Auto) 8.2 Eos % (Auto) 4.8 H Baso % (Auto) 0.5 Neut # (Auto) 3300 Lymph # (Auto) 1600 [place] # (Auto) 500 Eos # (Auto) 300 Baso # (Auto) 0 Sodium 136 L Potassium 4.2 Chloride 102 Carbon Dioxide 31 BUN 22 H Creatinine 1.08 Estimated GFR > 60 BUN/Creatinine Ratio 20.4 Glucose 109 H Calcium 8.9 Magnesium 1.8 Total Bilirubin 0.3 AST 44 ALT 63 H Alkaline Phosphatase 68 Total Protein 6.0 L Albumin 3.3 L Globulin 2.7 Albumin/Globulin Ratio 1.2 [facility] Medical History Alcohol abuse Hypertension (~2019) Social History household members: friend(s) Smoking Status: Never smoker alcohol intake: current Assessment & Plan Assessment & Plan narrative: # severe acute alcohol intoxication with history of severe withdrawals -ETOH level 394 on admission and showing signs of withdrawal -increased librium to 50 TID will keep continue precedex for now, wean as able. -psych evaluation once improved and off precedex - continue valium prn IV per CIWA protocol. # sepsis ruled out, aspiration pneumonitis -leukocytosis of 17, mild temp of 99.8? F and tachycardia 132 initially. -chest x-ray with dense from right lung consolidation -continued cefepime and Flagyl intially. Now improved and without fever. No end organ dysfunction. Antibiotics were stopped on 04/16. # acute hypoxic respiratory failure, resolved -patient 87% on arrival to ED -likely secondary to aspiration, CTA chest on 04/12 showed no evidence of pulmonary embolism -required 4 L nasal cannula initially, now resolved # alcoholic cardiomyopathy, chronic systolic HF with EF 10-15% -last echo on March 10, 2022 with severe global hypokinesis of left ventricle -telemetry -no change in echo this admission -continue beta vicente and shamar-inh therapy. # atrial fibrillation with RVR -required amio drip, now weaned off and back in sinus rhythm -continue metoprolol -Svigz0[place]uk of 2, consider anticoag but SQ heparin for now given risk of DT's -telemetry # lactic acidemia -lactate 2.5 on admission -monitor # transaminitis -LFTs previously elevated at last admission and improved than sign -monitor -avoid hepatotoxic agents # elevated troponin. myocardial injury. -0.064 on admission, patient denies chest pain -likely demand in the setting of severe systolic heart failure tachycardia, afib with RVR. -EKG shows no ST changes with T-wave inversions in leads I and aVL -troponin peaked at 0.07, then downtrended. Code status is full code. COVID negative. DVT prophylaxis with SQ heparin. Proxy is his sister Cheryl. I have reviewed home meds and used all available resources to reconcile the home meds. Time Spent With Patient Critical Care time: I spent a total of [] minutes of critical care time on this patient's care today; this time is exclusive of procedural time.
--- NOTE | 2022-04-18 14:27 | PC.NURSE ---
ok for patient to be off monitor per for a shower per Dr Rivera
[2022-04-18] MEDS: dexmedeTOMIDine in 0.9 % NaCL 400 MCG/100 ML PLAST..BAG 13.041 MCG IV (15:50)
--- NOTE | 2022-04-18 20:51 | PM.ICURNDS ---
- Date Patient Seen: 04/18/22 Time Patient Seen: 20:51 :: This patient was seen via real time interactive two-way audiovisual telecommunication. Note: unable to wean off precedex, continues to have agitation and diaphoresis. increase librium to 75mg tid, make xanax standing
[2022-04-18] MEDS: chlordiazePOXIDE 25 MG CAPSULE 100 MG PO (21:34)
[2022-04-18] MEDS: dexmedeTOMIDine in 0.9 % NaCL 400 MCG/100 ML PLAST..BAG 10.433 MCG IV (23:38)
[2022-04-19] VITALS (10 sets, daily range): BP systolic 138–179; BP diastolic 72–127; PULSE 86–103; RESP 16–30; TEMP 36.2–36.7; O2SAT 96–100
--- NOTE | 2022-04-19 01:39 | PC.NURSE ---
Addendum entered by Lyric Sweet R.N. 04/19/22 04:41: 0430- Patient states he cannot sleep. He states he keeps thinking about all the things he needs to do when discharged. Patient states he feels shakey. [place] done score 2. Patient states he feels a little anxious. Medicated with xanax po. Will monitor closely. Precedex remains off. Addendum entered by Lyric Sweet R.N. 04/19/22 02:56: 0200-Precedex placed on standby. Original Note: 0100- Patient asleep vitals stable. Patient precedex titrated to 0.2. Will monitor.
[2022-04-19] MEDS: ALPRAZolam 0.25 MG TABLET PO (04:33)
[2022-04-19 05:19] LABS: Add Manual Diff / Slide Review NO; Basophils Absolute Auto 0 /uL (0-100); Basophils Percent Auto 0.5 % (0-2); Eosinophils Absolute Auto 300 /uL (0-450); Eosinophils Percent Auto 4.9 % (2-4); Hematocrit 42.2 % (41-53); Hemoglobin 14.3 g/dL (13.5-17.5); Lymphocytes Absolute Auto 1400 /uL (1100-4500); Lymphocytes Percent Auto 27.4 % (25-40); Mean Corpuscular Hemoglobin 32.7 PG (26-34); Mean Corpuscular Volume 96.2 fL (80-100); Monocytes Absolute Auto 400 /uL (0-900); Monocytes Percent Auto 6.8 % (3-14); Neutrophils Absolute Auto 3100 /uL (1500-7000); Neutrophils Percent Auto 60.4 % (50-75); Platelet Count 140 X10^3/uL (150-400); Red Blood Cell Count 4.38 X10^6/uL (4.5-5.9); Red Cell Distribution Width 14.5 % (11.6-14.8); White Blood Cell Count 5.2 X10^3/uL (4.5-11.0)
[2022-04-19 05:27] LABS: Alanine Aminotransferase 63 IU/L (<50); Albumin 3.3 g/dL (3.5-5.0); Albumin Globulin Ratio 1.3 (1.0-2.8); Alkaline Phosphatase 65 U/L (38-126); Aspartate Aminotransferase 44 IU/L (17-59); BUN Creatinine Ratio 19.5 (6-22); Bilirubin Total 0.3 mg/dL (0.2-1.3); Blood Urea Nitrogen 22 mg/dL (9-20); Calcium 9.1 mg/dL (8.4-10.2); Carbon Dioxide 31 mmol/L (22-32); Chloride 101 mmol/L (98-107); Estimated Glomerular Filt Rate > 60 mL/min (>60); Globulin 2.6 g/dL (1.7-4.1); Glucose 112 mg/dL (70-100); HEMOLYSIS < 15 (0-50); Magnesium 1.8 mg/dL (1.6-2.3); Sodium 137 mmol/L (137-145); Total Protein 5.9 g/dL (6.3-8.2)
[2022-04-19] MEDS: MULTIVITAMIN 1 TABLET 1 TAB PO (09:15)
[2022-04-19] MEDS: FOLIC ACID 1 MG TABLET PO (09:15)
[2022-04-19] MEDS: GABAPENTIN 300 MG CAPSULE PO (09:15)
[2022-04-19] MEDS: THIAMINE 100 MG TABLET PO (09:15)
[2022-04-19] MEDS: PARoxetine 20 MG TABLET 40 MG PO (09:16)
[2022-04-19] MEDS: chlordiazePOXIDE 25 MG CAPSULE 100 MG PO (09:49)
[2022-04-19] MEDS: HEPARIN 5,000 UNIT/ML VIAL 5000 UNIT SUBCUT ×2 (13:41→21:27)
--- NOTE | 2022-04-19 14:08 | P.PN_ITS ---
Subjective Subjective Date Patient Seen: 04/19/22 Interval history: 46 M admitted with EtOH withdrawal, course complicated by afib. still remains on precedex infusion, difficult to titrate off. Responds well to oral ativan, continues on librium as well. No chest pain, shortness of breath, abdominal pain, vomiting but is intermittently nauseous and anxious. Denies hallucinations. Exam Vital Signs (past 8 hours): - 04/19/22 07:40 04/19/22 11:39 Temperature 97.2 F L 97.8 F Pulse Rate 90 102 H Respiratory Rate 21 20 Blood Pressure 141/97 H 144/72 H Pulse Oximetry 99 99 Oxygen Flow Rate 0 0 Oxygen Delivery Method Room Air Oxygen Flow Rate 0 Narrative Exam Narrative: GEN: WDWN male, no acute distress. Mild tremulousness. HEENT: moist mucous membranes, PERRL NECK: trachea midline, no JVD CV: RRR, no murmurs or rubs PULM: CTA b/l no wheezing rhonchi or rales ABD: soft, nontender, nondistended, no organomegaly EXT: warm and well perfused with no edema NEURO: awake, alert, oriented, no focal deficits Objective Labs Result Diagrams: 04/19/22 04:54 04/19/22 04:54 Labs: Laboratory Results - last 24 hr 04/19/22 04/19/22 04:54 04:54 WBC 5.2 RBC 4.38 L Hgb 14.3 Hct 42.2 MCV 96.2 MCH 32.7 MCHC 34.0 RDW 14.5 Plt Count 140 L Neut % (Auto) 60.4 Lymph % (Auto) 27.4 [place] % (Auto) 6.8 Eos % (Auto) 4.9 H Baso % (Auto) 0.5 Neut # (Auto) 3100 Lymph # (Auto) 1400 [place] # (Auto) 400 Eos # (Auto) 300 Baso # (Auto) 0 Sodium 137 Potassium 4.0 Chloride 101 Carbon Dioxide 31 BUN 22 H Creatinine 1.13 Estimated GFR > 60 BUN/Creatinine Ratio 19.5 Glucose 112 H Calcium 9.1 Magnesium 1.8 Total Bilirubin 0.3 AST 44 ALT 63 H Alkaline Phosphatase 65 Total Protein 5.9 L Albumin 3.3 L Globulin 2.6 Albumin/Globulin Ratio 1.3 PFSH Medical History Alcohol abuse Hypertension (~2019) Social History household members: friend(s) Smoking Status: Never smoker alcohol intake: current Assessment & Plan Assessment & Plan narrative: # severe acute alcohol intoxication with history of severe withdrawals -ETOH level 394 on admission and showing signs of withdrawal -increased librium to 100 TID. Now off prededex. Patient wanted to leave today, explained withdrawal treatments. For now willing to stay but requests quick taper. Will trial 75 mg TID today, but suspect he may develop worsening symptoms if this is done quickly. Explained risks of this to the patient and he wanted to continue with quick librium taper. -psych outpatient follow up. - continue valium prn IV per [facility] protocol. # sepsis ruled out, aspiration pneumonitis -leukocytosis of 17, mild temp of 99.8? F and tachycardia 132 initially. -chest x-ray with dense from right lung consolidation -continued cefepime and Flagyl intially. Now improved and without fever. No end organ dysfunction. Antibiotics were stopped on 04/16. # acute hypoxic respiratory failure, resolved -patient 87% on arrival to ED -likely secondary to aspiration, CTA chest on 04/12 showed no evidence of pulmonary embolism -required 4 L nasal cannula initially, now resolved # alcoholic cardiomyopathy, chronic systolic HF with EF 10-15% -last echo on March 10, 2022 with severe global hypokinesis of left ventricle -telemetry -no change in echo this admission -continue beta vicente and shamar-inh therapy. # atrial fibrillation with RVR -required amio drip, now weaned off and back in sinus rhythm -continue metoprolol -[id number] of 2, consider anticoag but SQ heparin for now given risk of DT's -telemetry # lactic acidemia -lactate 2.5 on admission -monitor # transaminitis -LFTs previously elevated at last admission and improved than sign -monitor -avoid hepatotoxic agents # elevated troponin. myocardial injury. -0.064 on admission, patient denies chest pain -likely demand in the setting of severe systolic heart failure tachycardia, afib with RVR. -EKG shows no ST changes with T-wave inversions in leads I and aVL -troponin peaked at 0.07, then downtrended. Code status is full code. COVID negative. DVT prophylaxis with SQ heparin. Proxy is his sister Cheryl. I have reviewed home meds and used all available resources to reconcile the home meds. Time Spent With Patient Critical Care time: I spent a total of [] minutes of critical care time on this patient's care today; this time is exclusive of procedural time.
--- NOTE | 2022-04-19 16:56 | DIET.CONS2 ---
Dietary Inpatient Consultation Note Admission Date: 04/14/2022 18:22 46y M admitted after fall with etoh intoxication referred to nutrition for same. RD spoke in depth last hospitalization c pt about sobriety nutrition. Pt reports hunger between meals this time and would like ONS. Per chart review, pt is -6kg since last hospitalization with BMI 31.2. Pt hopes for sobriety as he goes to [place] to be closer to family. Discussed ONS options, pt prefers low carb/high pro choice. Will send ONS Ensure Max bid. Diet: 04/15/22 Breakfast Heart Healthy Diet Diet Modifications: aspiration precautions Sodium Level: 2 gm Sodium Nutrition Percent Meal Consumed 100% 04/19/22 13:10 Percent Meal Consumed 100% 04/19/22 08:41 Percent Meal Consumed 100% snacks 04/18/22 20:51 Percent Meal Consumed 100% 04/18/22 13:00 Percent Meal Consumed 100% 04/17/22 21:35 Nutrition Diagnosis: excessive etoh intake r/t poor coping secondary to grief and poor sleep quality aeb pt admitted for ETOH detox, pt with new dx CHF EF 10%, pt reports lifelong insomnia he has used etoh to treat, pt recently . Interventions: 1. Educated pt and his supportive dad on setting up nutrition routine and focusing life one meal at a time in early sobriety. 2. Recc MVI c folic acid and thiamine or high intake folate containing foods. 3. Encouraged PO intake during hospitalization. 4. Recc ONS Ensure Max bid per patient request. Monitoring/Evaluations: prn Electronically Signed by: Perlita Moya 04/19/22 16:56 Clinical Dietitian [address] [id number]
[2022-04-19] MEDS: chlordiazePOXIDE 25 MG CAPSULE 75 MG PO (21:10)
[2022-04-19] MEDS: LORazepam 1 MG TABLET 2 MG PO (22:12)
[2022-04-19] MEDS: SODIUM CHLORIDE 0.9% FLUSH 10 ML IV (22:12)
--- NOTE | 2022-04-19 22:20 | PC.NURSE ---
Requested Lorazepam for anxiety & sleep, 2 mg. PO admin. Bilateral upper extremities tremors, family member @ th bedside. Did not C/O pain, will cont. POC & monitor.
--- NOTE | 2022-04-19 23:41 | PC.NURSE ---
Dr. Burleson notified that patient is requesting some Xanax. states he's already taking Librium & Ativan it will interact with another Benzodiazepine. Will cont. POC & monitor.
[2022-04-20] VITALS: BP 154/94; PULSE 100; RESP 17; TEMP 36.5; O2SAT 98
[2022-04-20 04:00] VITALS: BP 129/58; PULSE 80; RESP 17; TEMP 36.6; O2SAT 97
[2022-04-20 05:20] LABS: Add Manual Diff / Slide Review NO; Basophils Absolute Auto 0 /uL (0-100); Basophils Percent Auto 0.7 % (0-2); Eosinophils Absolute Auto 200 /uL (0-450); Eosinophils Percent Auto 3.5 % (2-4); Hematocrit 40.9 % (41-53); Hemoglobin 14.1 g/dL (13.5-17.5); Lymphocytes Absolute Auto 1900 /uL (1100-4500); Lymphocytes Percent Auto 28.6 % (25-40); Mean Corpuscular HGB Conc 34.6 % (30-36); Mean Corpuscular Hemoglobin 32.9 PG (26-34); Mean Corpuscular Volume 95.1 fL (80-100); Monocytes Absolute Auto 800 /uL (0-900); Monocytes Percent Auto 11.4 % (3-14); Neutrophils Absolute Auto 3700 /uL (1500-7000); Neutrophils Percent Auto 55.8 % (50-75); Platelet Count 163 X10^3/uL (150-400); Red Cell Distribution Width 14.7 % (11.6-14.8); White Blood Cell Count 6.6 X10^3/uL (4.5-11.0)
[2022-04-20 05:25] LABS: Alanine Aminotransferase 61 IU/L (<50); Albumin 3.5 g/dL (3.5-5.0); Albumin Globulin Ratio 1.3 (1.0-2.8); Alkaline Phosphatase 86 U/L (38-126); Aspartate Aminotransferase 39 IU/L (17-59); Bilirubin Total 0.3 mg/dL (0.2-1.3); Blood Urea Nitrogen 35 mg/dL (9-20); Carbon Dioxide 26 mmol/L (22-32); Chloride 103 mmol/L (98-107); Estimated Glomerular Filt Rate > 60 mL/min (>60); Globulin 2.6 g/dL (1.7-4.1); Glucose 98 mg/dL (70-100); HEMOLYSIS < 15 (0-50); Potassium 3.9 mmol/L (3.4-5.1); Sodium 136 mmol/L (137-145); Total Protein 6.1 g/dL (6.3-8.2)
[2022-04-20] MEDS: HEPARIN 5,000 UNIT/ML VIAL 5000 UNIT SUBCUT (05:47)
[2022-04-20 07:40] VITALS: BP 152/94; PULSE 110; RESP 23; TEMP 36.6; O2SAT 99
[2022-04-20 08:11] VITALS: BP 152/94; PULSE 110
[2022-04-20] MEDS: chlordiazePOXIDE 25 MG CAPSULE 50 MG PO (08:11)
[2022-04-20] MEDS: lisinopriL 20 MG TABLET PO (08:11)
[2022-04-20 08:12] VITALS: BP 152/94; PULSE 110
[2022-04-20] MEDS: SODIUM CHLORIDE 0.9% FLUSH 10 ML IV (08:12)
[2022-04-20] MEDS: ASPIRIN EC 81 MG TABLET PO (08:12)
[2022-04-20] MEDS: METOPROLOL ER 50 MG TABLET PO (08:12)
--- NOTE | 2022-04-20 10:14 | P.DS_ITS ---
History of Present Illness History of Present Illness Date Patient Seen: 04/20/22 Chief complaint: Fall Narrative: Per Dr. Ahumada Stanislav Meyers is a 46-year-old male with past medical history of alcohol abuse with frequent and for alcohol withdrawal, atrial fibrillation, alcoholic cardiomyopathy with EF 10-15%, and hypertension presents due to intoxication and aspiration pneumonia. Patient was previously here 1 month ago for severe alcohol withdrawals and pneumonia. He went back to drinking several 6 packs of beer per day and return to the emergency department yesterday with intoxication and found to have pneumonia on chest CT. He was sent home with antibiotics and Librium. He returned today still intoxicated and very anxious. Patient states he feels like he is going to have a panic attack. He denies chest pain, nausea vomiting, abdominal pain or diarrhea. In the ED he was found to have a white blood cell count of 17, procalcitonin 0.98, an alcohol level of 394. Chest x-ray showed dense right lower lobe consolidation consistent with pneumonia. His vitals showed a temp of 99.8? F, blood pressure 161/94, tachycardia at 129 and pulse ox of 87% so he was placed on 4 L of oxygen. Discharge Providers Provider Date of admission: 04/14/22 18:22 Discharge Date: 04/20/22 Primary care physician: Linden Yousif MD Consults: 04/14/22 18:23 Consult to Tele-screen machine operator Routine Comment: Consulting Provider: Fernanda Tele-intensiv[employer] Reason for consultation: Offset Machine Operator services 04/14/22 18:29 Consult to Dietitian, Adult Routine Comment: Reason For Exam: alcohol withdrawal 04/14/22 20:36 Consult to Instructional Design Consultant Routine Comment: Discharge provider: Clayton Rivera DO Summary Hospital Course Discharge Diagnosis: # severe acute alcohol intoxication, and alcohol withdrawal # sepsis ruled out, aspiration pneumonitis # acute hypoxic respiratory failure, resolved # alcoholic cardiomyopathy, chronic systolic HF with EF 10-15% # paroxysmal atrial fibrillation with RVR, resolved # lactic acidemia # transaminitis # elevated troponin. myocardial injury. #HTN Hospital Course: This is a 46-year-old male with a past medical history of alcohol use, alcoholic cardiomyopathy with an EF of 10-15%, and hypertension who was admitted for alcohol withdrawal. He had a mild troponin elevation initially which quickly downtrended. His course was initially complicated by development of atrial fibrillation with RVR which required an amiodarone infusion. This was discontinued after returned to normal sinus rhythm and he had no recurrence of his atrial fibrillation with resumption of his home metoprolol. He was also initially had a hypoxic respiratory failure requiring supplemental oxygen, likely secondary to aspiration pneumonitis. He was briefly on antibiotics empirically for pneumonia which were discontinued after a couple a days once his cultures were negative, there were no fevers, and he was well appearing. For his alcohol withdrawal he required high doses of Librium, as well as Precedex and Valium as intravenous Ativan is not currently available. He remained on Pr ecedex for quite some time but was ultimately able to be weaned off. He was continued on a Librium taper, until the time of discharge. Still mildly tremulous and anxious but otherwise well-appearing and he was discharged home to complete a 3 day librium taper there. He has assistance at home with his father currently. He did not wish for any alcoholic resources at this time from care management. Time Spent with Patient Time spent: Greater than 30 minutes Exam Vital Signs (past 8 hours): - 04/20/22 04:00 04/20/22 07:40 04/20/22 08:11 Temperature 97.8 F 97.8 F Pulse Rate 80 110 H 110 H Respiratory Rate 17 23 Blood Pressure 129/58 L 152/94 H 152/94 H Pulse Oximetry 97 99 Oxygen Flow Rate 0 04/20/22 08:12 Temperature Pulse Rate 110 H Respiratory Rate Blood Pressure 152/94 H Pulse Oximetry Oxygen Flow Rate Oxygen Delivery Method Room Air Oxygen Flow Rate 0 Narrative Exam Narrative: GEN: WDWN male, no acute distress. Mild tremulousness. HEENT: moist mucous membranes, PERRL NECK: trachea midline, no JVD CV: RRR, no murmurs or rubs PULM: CTA b/l no wheezing rhonchi or rales ABD: soft, nontender, nondistended, no organomegaly EXT: warm and well perfused with no edema NEURO: awake, alert, oriented, no focal deficits Objective Labs Result Diagrams: 04/20/22 04:47 04/20/22 04:47 Labs: Laboratory Results - last 24 hr 04/20/22 04/20/22 04:47 04:47 WBC 6.6 RBC 4.30 L Hgb 14.1 Hct 40.9 L MCV 95.1 MCH 32.9 MCHC 34.6 RDW 14.7 Plt Count 163 Neut % (Auto) 55.8 Lymph % (Auto) 28.6 [place] % (Auto) 11.4 Eos % (Auto) 3.5 Baso % (Auto) 0.7 Neut # (Auto) 3700 Lymph # (Auto) 1900 [place] # (Auto) 800 Eos # (Auto) 200 Baso # (Auto) 0 Sodium 136 L Potassium 3.9 Chloride 103 Carbon Dioxide 26 BUN 35 H Creatinine 1.00 Estimated GFR > 60 BUN/Creatinine Ratio 35.0 H Glucose 98 Calcium 9.0 Magnesium 2.0 Total Bilirubin 0.3 AST 39 ALT 61 H Alkaline Phosphatase 86 Total Protein 6.1 L Albumin 3.5 Globulin 2.6 Albumin/Globulin Ratio 1.3 PFSH Medical History Alcohol abuse Hypertension (~2019) Social History household members: friend(s) Smoking Status: Never smoker alcohol intake: current Discharge Plan Discharge Plan Patient Disposition: Home Provider Discharge Comment: You were admitted to the hospital with a pneumonia and alcohol withdrawal. You improved with medications and would like to go home, please continue librium taper at home. Please follow up with your primary care provider prior to your move to see how you are doing. You have already rescheduled your cardiology appointment as well. Discharge orders & Medications Prescriptions: New chlordiazepoxide HCl 25 mg capsule See Rx Instructions .ROUTE .COMPLEX 3 Days Qty: 12 0RF Rx Instructions: take 50 mg (2 caps) TID for 1 day (3 doses), followed by 25 mg (1 cap) TID for 2 days (6 doses) Continued paroxetine HCl 40 mg tablet 40 mg PO DAILY Qty: 90 0RF Rx Instructions: PT NEEDS APPT W/PCP PRIOR TO END OF RX/FUTURE FILLS. PLEASE CALL TO SCHEDULE APPT. THANKS 01/01/22 melatonin 10 mg tablet 10 mg PO BEDTIME PRN (Reason: sleep) Qty: 30 0RF aspirin 81 mg Tablet,Delayed Release (Dr/Ec) 81 mg PO DAILY Qty: 30 0RF thiamine HCl (vitamin B1) 100 mg tablet 100 mg PO DAILY Qty: 30 0RF lisinopril 20 mg tablet 20 mg PO DAILY Qty: 30 0RF metoprolol succinate 50 mg tablet extended release 24 hr 50 mg PO DAILY Qty: 30 0RF folic acid 1 mg Tablet 1 mg PO DAILY Qty: 30 0RF multivitamin with folic acid [Tab-A-Isis] 400 mcg Tablet 1 tab PO DAILY Qty: 30 0RF Follow up/Referrals: Linden Yousif MD [Primary Care Provider] - Diet/Activity/Treatments Diet: Diet as Tolerated Activity: As tolerated Discharge Data Primary Care Provider: Linden Yousif
--- NOTE | 2022-04-20 14:26 | CM.DPC ---
DCP Discharge Home Per MD, pt requesting to d/c home today and MD attempting rapid taper of pt's withdrawal medications and now pt stable for d/c home with Rx for taper meds and father to provide transport home today. SW saw pt being wheeled down to POV for d/c and discharge instructions provided by RN. Plan: Patient discharge home today via father POV and they plan to have outpt f/u with Technical Trainer and then pt to fly back to [place] with father for additional support and sister involvement towards maintaining physical health and sobriety. JENA Grady
== END 2022-04-20 11:02 | disposition home or self-care (01) | DRG 137 ==
LOC: ED 18:05 → AC 18:23 → ICU 20:23
PROVIDERS: Family Medicine Addiction Medicine; Internal Medicine; Admitting Provider Student in an Organized Health Care Education/Training Program; Emergency Provider Emergency Medicine; PCP Student in an Organized Health Care Education/Training Program; Referring Provider Emergency Medicine; Visit Provider Student in an Organized Health Care Education/Training Program
DX: J69.0 Pneumonitis due to inhalation of food and vomit (principal); J96.01 Acute respiratory failure with hypoxia; I42.6 Alcoholic cardiomyopathy; F10.939 Alcohol use, unspecified with withdrawal, unspecified; I24.8 Other forms of acute ischemic heart disease; D69.59 Other secondary thrombocytopenia; E87.2 Acidosis; I11.0 Hypertensive heart disease with heart failure; I50.22 Chronic systolic (congestive) heart failure; R74.01 Elevation of levels of liver transaminase levels; I48.0 Paroxysmal atrial fibrillation; Y90.8 Blood alcohol level of 240 mg/100 ml or more; Z20.822 Contact with and (suspected) exposure to COVID-19
CPT/HCPCS: 36415; 70450; 71045; 80053; 80305; 80320; 81001; 82140; 82805; 82962; 83605; 83690; 83735; 84145; 84484; 85025; 87040; 87635; 87797; 93005; 93010; 93307; 96361; 96365; 96366; 96367; 96375; 96376; 99284; 99285; C9803; J0282; J0692; J1644; J1650; J2405; J2543; J3360; J3475